=== PATIENT | female | born 1945 | race Caucasian/White ===

== ENCOUNTER 2022-02-28 10:11 | Outpatient (REF) | payer MEDICARE, MEDICAID, SELFPAY ==
[2022-02-28 10:33] LABS: MANUAL DIFF FLAG NO
[2022-02-28 11:03] LABS: Basophils Percent Auto 0.2 % (0-2); Eosinophils Absolute Auto 0.2 X10*3/uL (0.0-0.4); Eosinophils Percent Auto 2.4 % (0-4); Hematocrit 39.2 % (37.0-47.0); Imm Gran Abs Auto 0.07 X10*3/uL (0.00-0.03); Imm Gran Pct Auto 0.7 % (0.0-0.4); Immature Retic Fraction 7.3 % (3.0-15.9); Lymphocytes Absolute Auto 2.4 X10*3/uL (1.2-4.9); Lymphocytes Percent Auto 24.7 % (20-40); Mean Corpuscular HGB Conc 30.6 g/dl (31.0-35.0); Mean Corpuscular Hemoglobin 27.5 pg (27.0-33.0); Mean Corpuscular Volume 89.9 fL (80.0-98.0); Mean Platelet Volume 9.3 fL (9.4-12.3); Monocytes Absolute Auto 0.7 X10*3/uL (0.1-1.2); Monocytes Percent Auto 6.7 % (2-11); Neutrophils Absolute Auto 6.4 x10*3/uL (2.0-8.3); Neutrophils Percent Auto 65.3 % (45-73); Platelet Count 275 X10*3/uL (160-400); Red Blood Count 4.36 X10*6/uL (4.20-5.50); Red Cell Distribution Width 13.6 % (11.0-16.0); Retic HGB Equivalent 31.7 pg (30.0-35.0); Reticulocytes Absolute 0.041 X10*6/uL (0.026-0.095); White Blood Count 9.8 X10*3/uL (4.8-10.8)
[2022-02-28 11:14] LABS: Estimated Average Glucose 163 mg/dL; Hemoglobin A1c % 7.3 %
[2022-02-28 12:12] LABS: Folate 4.6 ng/mL (> or = 4.0); Vitamin B12 1490 pg/mL (200-900)
[2022-02-28 12:14] LABS: Ferritin 53 ng/mL (10-250); Thyroid Stimulating Hormone 1.51 uIU/mL (0.32-4.0); Vitamin D 25-OH Total 42.6 ng/mL (>30)
[2022-02-28 12:18] LABS: Alanine Aminotransferase 10 U/L (0-31); Alkaline Phosphatase 103 U/L (39-117); Anion Gap 12 (12-20); Aspartate Amino Transferase 11 U/L (5-31); Bilirubin Direct 0.2 mg/dL (0.0-0.5); Bilirubin Total 0.4 mg/dL (0.0-1.0); Blood Urea Nitrogen 14 mg/dL (9-16); Calcium 9.1 mg/dL (8.4-10.2); Carbon Dioxide 27 mmol/L (22-29); Chloride 107 mmol/L (96-108); Cholesterol 145 mg/dL; Estimated Glomerular Filt Rate 56; Glucose Random 64 mg/dL (60-115); HDL Cholesterol 42 mg/dL; Iron 43 mcg/dL (30-160); LDL Cholesterol Calculated 94 mg/dl; Percent Iron Saturation 14 % (15-50); Potassium 4.7 mmol/L (3.3-5.1); Sodium 141 mmol/L (135-145); Total Iron Binding Capacity 306 mcg/dL (228-428); Total Protein 6.6 g/dL (6.5-8.0); Triglycerides 48 mg/dL; Unsaturated Iron Binding 263 ug/dL; Uric Acid 6.9 mg/dL (2.4-5.7)
[2022-02-28 12:40] LABS: Appearance Urine HAZY; Color Urine YELLOW; Glucose Urine UA NEG (NEG); Leukocyte Esterase Urine NEG (NEG); Nitrite Urine NEG (NEG); Specific Gravity - Urine 1.015 (1.005-1.025); Urine Blood NEG (NEG); Urine Ketones NEG (NEG); Urine Protein NEG (NEG-TRACE)
[2022-02-28 13:11] LABS: Creatinine Urine 65.35 mg/dL; Microalbum/Creatinine Ratio Ur 100.9 ug/mg cr
[2022-02-28 13:20] LABS: Bacteria Urine 3+ /LPF; Squamous Epithelial Cell Urine 2+ /LPF
[2022-02-28 13:21] LABS: RBC Urine 0 /HPF (0); WBC Urine 0-2 /HPF (0-4)
== END 2022-02-28 10:12 | disposition home or self-care (01) ==
LOC: HO.LAB 10:11
PROVIDERS: Absent Provider Physician Assistant; PCP Internal Medicine; Visit Provider Internal Medicine
DX: E11.42 Type 2 diabetes mellitus with diabetic polyneuropathy (principal); E11.65 Type 2 diabetes mellitus with hyperglycemia; E78.00 Pure hypercholesterolemia, unspecified; R79.89 Other specified abnormal findings of blood chemistry; Z79.4 Long term (current) use of insulin
CPT/HCPCS: 36415; 80053; 80061; 81001; 82043; 82248; 82306; 82607; 82728; 82746; 83036; 83540; 84439; 84443; 84550; 85025; 85045

== ENCOUNTER 2023-05-02 10:17 | Outpatient (REF) | payer MEDICARE, MEDICAID, SELFPAY ==
[2023-05-02 10:57] LABS: Estimated Average Glucose 169 mg/dL; Hemoglobin A1c % 7.5 %
[2023-05-02 12:40] LABS: Creatinine Urine 61.62 mg/dL; Microalbum/Creatinine Ratio Ur 66.5 ug/mg cr
[2023-05-02 12:49] LABS: Alanine Aminotransferase 11 U/L (0-31); Anion Gap 17 (12-20); Aspartate Amino Transferase 14 U/L (5-31); Blood Urea Nitrogen 17 mg/dL (9-16); Calcium 9.5 mg/dL (8.4-10.2); Carbon Dioxide 23 mmol/L (22-29); Chloride 108 mmol/L (96-108); Cholesterol 136 mg/dL; Estimated Glomerular Filt Rate 45; Glucose Random 83 mg/dL (60-115); HDL Cholesterol 47 mg/dL; LDL Cholesterol Calculated 80 mg/dl; Potassium 5.7 mmol/L (3.3-5.1); Sodium 142 mmol/L (135-145); Triglycerides 49 mg/dL
[2023-05-02 12:51] LABS: Vitamin B12 > 2000 pg/mL (200-900)
== END 2023-05-02 10:18 | disposition home or self-care (01) ==
LOC: HO.LAB 10:17
PROVIDERS: PCP Internal Medicine; Visit Provider Physician Assistant
DX: E11.65 Type 2 diabetes mellitus with hyperglycemia (principal); E55.9 Vitamin D deficiency, unspecified; E53.8 Deficiency of other specified B group vitamins
CPT/HCPCS: 36415; 80048; 80061; 82043; 82306; 82607; 83036; 84450; 84460

== ENCOUNTER 2024-02-26 08:23 | Outpatient (REF) | payer MEDICARE, MEDICAID, SELFPAY ==
[2024-02-26 08:46] LABS: MANUAL DIFF FLAG NO
[2024-02-26 09:16] LABS: Basophils Percent Auto 0.2 % (0-2); Eosinophils Absolute Auto 0.2 X10*3/uL (0.0-0.4); Eosinophils Percent Auto 2.1 % (0-4); Hematocrit 36.9 % (37.0-47.0); Hemoglobin 11.2 g/dl (12.0-16.0); Imm Gran Abs Auto 0.05 X10*3/uL (0.00-0.03); Imm Gran Pct Auto 0.5 % (0.0-0.4); Lymphocytes Absolute Auto 2.2 X10*3/uL (1.2-4.9); Mean Corpuscular HGB Conc 30.4 g/dl (31.0-35.0); Mean Corpuscular Hemoglobin 28.1 pg (27.0-33.0); Mean Corpuscular Volume 92.5 fL (80.0-98.0); Mean Platelet Volume 9.1 fL (9.4-12.3); Monocytes Absolute Auto 0.6 X10*3/uL (0.1-1.2); Neutrophils Absolute Auto 6.2 x10*3/uL (2.0-8.3); Neutrophils Percent Auto 67.2 % (45-73); Platelet Count 233 X10*3/uL (160-400); Red Blood Count 3.99 X10*6/uL (4.20-5.50); Red Cell Distribution Width 14.4 % (11.0-16.0); White Blood Count 9.2 X10*3/uL (4.8-10.8)
[2024-02-26 09:25] LABS: Estimated Average Glucose 160 mg/dL; Hemoglobin A1c % 7.2 % (<6.0)
[2024-02-26 09:54] LABS: Alanine Aminotransferase 14 U/L (0-31); Albumin Level 4.1 g/dL (3.5-5.0); Alkaline Phosphatase 94 U/L (39-117); Anion Gap 11 (12-20); Aspartate Amino Transferase 12 U/L (5-31); Bilirubin Total 0.5 mg/dL (0.0-1.0); Blood Urea Nitrogen 16 mg/dL (9-16); Calcium 9.2 mg/dL (8.4-10.2); Carbon Dioxide 27 mmol/L (22-29); Chloride 107 mmol/L (96-108); Cholesterol 124 mg/dL (<200); Estimated Glomerular Filt Rate 45; Glucose Random 121 mg/dL (60-115); HDL Cholesterol 47 mg/dL (>40); LDL Cholesterol Calculated 67 mg/dL (<100); Potassium 4.7 mmol/L (3.3-5.1); Sodium 140 mmol/L (135-145); Triglycerides 53 mg/dL (<150)
[2024-02-26 09:59] LABS: Creatinine Urine 26.27 mg/dL; Microalbum/Creatinine Ratio Ur 331.1 ug/mg cr (<30)
[2024-02-26 10:12] LABS: Free T4 (Free Thyroxine) 1.08 ng/dL (0.71-1.85); Thyroid Stimulating Hormone 1.51 uIU/mL (0.32-4.0); Vitamin D 25-OH Total 45.3 ng/mL (>30)
[2024-02-26 13:26] LABS: Folate 8.5 ng/mL (> or = 4.0)
[2024-02-26 21:17] LABS: Vitamin B12 918 pg/mL (200-900)
== END 2024-02-26 08:24 | disposition home or self-care (01) ==
LOC: HO.LAB 08:23
PROVIDERS: PCP Internal Medicine; Visit Provider Internal Medicine
DX: E11.65 Type 2 diabetes mellitus with hyperglycemia (principal); E78.00 Pure hypercholesterolemia, unspecified; Z79.4 Long term (current) use of insulin
CPT/HCPCS: 36415; 80053; 80061; 82043; 82306; 82570; 82607; 82746; 83036; 84439; 84443; 85025

== ENCOUNTER 2024-03-01 09:33 | Outpatient (AMB) | payer MEDICARE, MEDICAID, SELFPAY ==
[2024-03-01 09:33] VITALS: BP 158/82; PULSE 93; O2SAT 95; BMI 55.4
--- NOTE | 2024-03-01 09:33 | A.OFFPC_ITS ---
Vital Signs 03/01/24 09:33 Height 5 ft 1 in Weight 293 lb 3.437 oz BMI 55.4 BP 158/82 H Blood Pressure Location Lt brachial Position Sitting Pulse 93 Pulse Source Pulse Oximeter Pulse Oximetry (%) 95 Oxygen Delivery Method Room Air Intake Visit Reasons: PHA Modification Forms ( resched from 01/21) Vendor Manager Required: No Allergies Penicillins Allergy (Unknown, Verified 03/01/24 09:41) hives Medication List - Last Reconciled 03/01/24 by Ja Yanez MD blood pressure monitor (Blood Pressure Kit) As directed bupropion HCl SR 150 mg PO BID cyanocobalamin (vitamin B-12) 1,000 mcg PO DAILY insulin aspart U-100 (Novolog FlexPen U-100 Insulin aspart) 5 units subcut TID insulin degludec (Tresiba FlexTouch U-100 insulin) 32 units subcut DAILY lisinopril 10 mg PO DAILY metformin 1,000 mg PO BID 90 days [ROLLATOR As directed] Tobacco use date assessed: 03/01/24 Fall risk assessment: No Falls in past year Last assessed Fall Risk: 03/01/24 Dental Screening Dental Screen Date: 03/01/24 HPI PHA Modification Forms ( resched from 01/21) HPI Details 78-year-old morbidly obese female with d iabetes mellitus hypertension generalized anxiety disorder last seen in December 2022. Patient has declined mammogram and colonoscopy. Review of the notes hemoglobin A1c in November 2023 7.7 elevated B12 potassium was elevated 4.3 creatinine is 1.2 EGFR is 47. Patient is asking for a change in home-does not wants a first floor apartment due to a smaller apratment and w ith an uncovered porch. But was told she is all set. States BP has been good PAtient has knee pain and needs a rollator, does have a cane but not enough, unstable on walking. complains of tiredness but decline sleep study. [facility] Medical History Hypertension Morbid obesity Type 2 diabetes mellitus with hyperglycemia Surgical History S/P NIELS-BSO (total abdominal hysterectomy and bilateral salpingo-oophorectomy) Social History Housing: Apartment Alcohol intake: current Alcohol intake frequency: holidays/special occasions only Patient Tobacco Use Status: Former Tobacco user Tobacco use type: Cigarette e-Cigarette/Vaping Use: Never Used Second Hand Smoke Exposure: No Current occupational status: retired Cognitive needs: No Hearing needs: No Vision needs: Yes Questionnaire PHQ-9 Over the last 2 weeks, how often have you been bothered by any of the following problems? 1. Little interest or pleasure in doing things: not at all 2. Feeling down, depressed, or hopeless: not at all 3. Trouble falling or staying asleep, or sleeping too much: not at all 4. Feeling tired or having little energy: not at all 5. Poor appetite or overeating: not at all 6. Feeling bad about yourself - or that you are a failure or have let yourself or your family down: not at all 7. Trouble concentrating on things, such as reading the newspaper or watching television: not at all 8. Moving or speaking so slowly that other people could have noticed. Or the opposite - being so fidgety or restless that you have been moving around a lot more than usual: not at all 9. Thoughts that you would be better off or of hurting yourself in some way: not at all Total score: 0 Depression Screening Interpretation: Negative Depression Screening Done: Yes 94893 - PHQ-9 Billing: Yes Source: Developed by Drs. Hoang Marquis, Mariela Navarro, Sammy Merino and colleagues, with an educational lucero from [employer]. Thrive Questionnaire Date Thrive assessed: 03/01/24 I am a: Patient What is your living situation today?: I have a steady place to live Within the past 12 months, did the food you bought not last and you didn't have the money to get more?: Never true Within the past 12 months, did you worry whether your food would run out before you got money to buy more?: Never true Do you have trouble paying for medicines?: No Do you have trouble getting transportation to medical appointments?: No Do you have trouble paying your heating and electricity bill?: No Do you have trouble taking care of your child, family member or friend?: No Do you have trouble with day-to-day activities such as bathing, preparing meals, shopping, managing finances, etc.?: No Are you currently unemployed and looking for a job?: No Are you interested in more education?: No Please select the resources that you would like help with: None Currently or been in a relationship where the following occur: no concerns reported THRIVE Score: 0 AUDIT C Alcohol Use Questionnaire (AUDIT-C) 1. How often do you have a drink containing alcohol?: Monthly or less 2. How many drinks containing alcohol do you have on a typical day when you are drinking?: 1 or 2 3. How often do you have six or more drinks on one occasion?: Never Total Score: 1 TASIA-7 AMB Questionnaire TASIA-7 Date TASIA - 7 assessed: 03/01/24 Feeling nervous, anxious, or on edge: 0 = Not at all Not being able to stop or control worryin = Not at all Worrying too much about different things: 0 = Not at all Trouble relaxin = Not at all Being so restless that it is hard to sit still: 0 = Not at all Becoming easily annoyed or irritable: 0 = Not at all Feeling afraid as if something awful might happen: 0 = Not at all Total TASIA-7 score (0-4 normal; 5-9 mild; 10-14 moderate; 15-21 severe): 0 Source: Developed by Drs. Hoang Marquis, Mariela Navarro, Sammy Merino and colleagues, with an educational lucero from [employer]. TASIA-7 Assessment Billing TASIA-7 Assessment Tool: TASIA-7 Assessment 40485 Physical exam (Primary Care) Vital Signs: Last Vital Signs Pulse 93 03/01/24 09:33 BP 158/82 H 03/01/24 09:33 Pulse Ox 95 03/01/24 09:33 Oxygen Delivery Method Room Air 03/01/24 09:33 BMI result Body Mass Index 55.4 Tobacco/Smoking Status: Tobacco use Status Tobacco use date assessed 03/01/24 03/01/24 09:42 Patient Tobacco Use Status Former Tobacco user 03/01/24 09:42 Tobacco use type Cigarette 03/01/24 09:42 e-Cigarette/Vaping Use Never Used 03/01/24 09:42 PHQ-9: PHQ-9 Score PHQ-9: Total score 0 03/01/24 09:58 Depression Screening Interpretation: Negative Thrive Assessment: Date of Thrive Assessment Date Thrive assessed 03/01/24 03/01/24 09:42 Currently or been in a relationship where the following occur: no concerns reported Const General: alert; No acute distress Eyes Conjunctivae: conjunctivae normal Resp Auscultation: clear to auscultation bilaterally Cardio Rate: regular rate Rhythm: regular rhythm GI Inspection: Yes normal to inspection Extrem General: Yes normal to inspection and No edema Assessment and Plan Assessment & Plan (1) Type 2 diabetes mellitus with hyperglycemia: Code(s): E11.65 - Type 2 diabetes mellitus with hyperglycemia Qualifiers: Diabetes mellitus supervisor intermediates insulin use: with custodial use Qualified Code(s): E11.65 - Type 2 diabetes mellitus with hyperglycemia; Z79.4 - supervisor intermediates (current) use of insulin Plan: Decrease the amount of carbohydrate intake, pasta, bread, rice and potatoes are all sugar and that is aside from all the sweet stuff, remember that fruits are good but they are Sweet also. Hemoglobin A1c goal of less than 7.0. Patient presently on Tresiba 32 units with NovoLog sliding scale 3 times a day and metformin a 1000 mg twice a day (2) Hypertension: Code(s): I10 - Essential (primary) hypertension Qualifiers: Hypertension type: essential hypertension Qualified Code(s): I10 - Essential (primary) hypertension Plan: Continue with blood pressure medication. Decrease salt intake and exercise presently on lisinopril 10 mg once a day (3) Morbid obesity: Code(s): E66.01 - Morbid (severe) obesity due to excess calories Plan: Diet and exercise (4) Generalized anxiety disorder: Comment: declined counselling Code(s): F41.1 - Generalized anxiety disorder Plan: Continue with present medication (5) Diabetic nephropathy: Code(s): E11.21 - Type 2 diabetes mellitus with diabetic nephropathy Plan: Keep well hydrated, avoid NSAIDs controlled diabetes. (6) Cataract: Code(s): H26.9 - Unspecified cataract Plan: sill see Dr. Gibson for this and advised to (7) Colonoscopy refused: Code(s): Z53.20 - Procedure and treatment not carried out because of patient's decision for unspecified reasons (8) Mammogram declined: Code(s): Z53.20 - Procedure and treatment not carried out because of patient's decision for unspecified reasons Medications: New [ROLLATOR] As directed 1 ea 0RF M17.9 - Osteoarthritis of knee, unspecified blood pressure monitor (Blood Pressure Kit) As directed 1 ea 0RF I10 - Essential (primary) hypertension Coding Level of Care Code Est Pt Level 4 (50330) Diagnoses Type 2 diabetes mellitus with hyperglycemia, with long-term current use of insulin E11.65; Z79.4 Diabetes mellitus custodial insulin use: with supervisor intermediates use Essential hypertension I10 Hypertension type: essential hypertension Morbid obesity E66.01 Generalized anxiety disorder F41.1 Diabetic nephropathy E11.21 Cataract H26.9 Colonoscopy refused Z53.20 Mammogram declined Z53.20 Additional Codes TASIA-7 Assessment Billing - TASIA-7 Assessment Tool: TASIA-7 Assessment 94139 ([id number])
== END 2024-03-01 10:16 | disposition home or self-care (01) ==
PROVIDERS: PCP Internal Medicine; Visit Provider Internal Medicine
DX: E11.65 Type 2 diabetes mellitus with hyperglycemia (principal); Z79.4 Long term (current) use of insulin; E11.21 Type 2 diabetes mellitus with diabetic nephropathy; I10 Essential (primary) hypertension; F41.1 Generalized anxiety disorder; H26.9 Unspecified cataract
CPT/HCPCS: 99214

== ENCOUNTER 2024-07-08 08:59 | Inpatient (IN) | payer MEDICARE, MEDICAID, SELFPAY ==
[2024-07-08] VITALS (14 sets, daily range): BP systolic 112–150; BP diastolic 50–80; PULSE 77–94; RESP 16–22; TEMP 36.4–37.1; O2SAT 85–100; BMI 51.6
--- NOTE | 2024-07-08 | ECG_ITS ---
Test Reason : sob Blood Pressure : / mmHG Vent. Rate : 092 BPM Atrial Rate : 092 BPM P-R Int : 312 ms QRS Dur : 120 ms QT Int : 346 ms P-R-T Axes : 102 121 073 degrees QTc Int : 427 ms Suspect limb lead reversal, interpretation assumes no reversal Sinus rhythm with 1st degree A-V block Right bundle branch block Left posterior fascicular block Bifascicular block Cannot rule out Inferior infarct (cited on or before 08-JUL-2024) Abnormal ECG When compared with ECG of 08-JUL-2024 09:35, No significant change was found Referred By: Chris Valdez Electronically Signed By:HODA CHUN
--- NOTE | ~2024-07-08 | CT_ITS ---
EXAMINATION: CT ANGIOGRAM CHEST CLINICAL INFORMATION: Hypoxia. Shortness of breath. Dyspnea on exertion. COMPARISON: Chest radiograph dated 07/08/2024. TECHNIQUE: Multiple axial images were obtained through the chest after the administration of 100 mL of Omnipaque 350 intravenous contrast. Extensive vascular post-processing including two-dimensional and three-dimensional reformatted images were created and reviewed on an independent workstation. This CT examination was performed using dose optimization techniques as appropriate, variously including the following: *Automated exposure control *Adjustment of mA and/or kV according to patient size (this includes techniques or standardized protocols for targeted exams where dose is matched to indication/reason for exam; i.e. extremities or head) *Use of iterative reconstruction technique DLP: 446 mGy-cm FINDINGS: No large central pulmonary embolism is identified. Evaluation of the segmental and subsegmental branches is somewhat limited secondary to motion artifact and mixing artifact. The visualized aorta is normal in caliber. No aortic aneurysm. The trachea and central airways are patent. There are dependent changes at the right lung base. There is a 7 mm nodule within the posterior aspect of the left lung apex. There is a [id number] right pleural effusion. There is a small left pleural effusion. The heart is mildly enlarged. No pericardial effusion. There is mild coronary artery calcification. There is no mediastinal or hilar lymphadenopathy. The visualized liver, spleen, pancreas are normal in appearance. There is nodular thickening of the partially visualized left adrenal gland. The visualized bowel is normal in appearance. There are degenerative changes of the thoracic spine. CT/CT angio chest PE protocol IMPRESSION: No large central pulmonary embolism is identified. Evaluation of the segmental and subsegmental branches is somewhat limited secondary to motion artifact and mixing artifact. There is a 7 mm nodule within the posterior aspect of the left lung apex. According to the UPDATED 2017 Fleischner Society recommendations, the advised follow-up imaging for a single 6-8 mm solid nodule is: LOW RISK PATIENT: CT at 6-12 months, then consider CT at 18-24 months. HIGH RISK PATIENT: CT at 6-12 months, then at 18-24 months. There is a hoopl-xq-vbdggopz right pleural effusion. There is a small left pleural effusion. The heart is mildly enlarged. There is mild coronary artery calcification. Fleischner guidelines were followed. Electronically signed by: Miguel Sullivan DO 07/08/2024 02:28 PM EDT RP
--- NOTE | ~2024-07-08 | XR_ITS ---
EXAMINATION: XR CHEST CLINICAL INFORMATION: Shortness of breath. COMPARISON: None available. TECHNIQUE: Frontal view of the chest was obtained. FINDINGS: Extensive overlying soft tissues limits evaluation. The lungs are moderately expanded. The right hemidiaphragm appears elevated versus subpulmonic effusion. There is patchy airspace disease in the medial right lung base. The left hemithorax is clear. Cardiac silhouette appears prominent. XR/XR chest 1V IMPRESSION: Elevated right hemidiaphragm versus subpulmonic effusion. Patchy airspace disease at the medial right lung base possibly representing an acute infiltrate. Advise clinical correlation. Electronically signed by: Andi Vasquez MD 07/08/2024 10:08 AM EDT RP
--- NOTE | 2024-07-08 09:13 | ECG_ITS ---
Test Reason : sob Blood Pressure : / mmHG Vent. Rate : 081 BPM Atrial Rate : 082 BPM P-R Int : 296 ms QRS Dur : 122 ms QT Int : 384 ms P-R-T Axes : 106 114 049 degrees QTc Int : 446 ms Suspect limb lead reversal, interpretation assumes no reversal Sinus rhythm with sinus arrhythmia with 1st degree A-V block Right bundle branch block Left posterior fascicular block Bifascicular block Cannot rule out Inferior infarct , age undetermined Abnormal ECG When compared with ECG of 03-MAR-2010 10:34, VT interval has increased (RBBB and left posterior fascicular block) is now Present Minimal criteria for Inferior infarct are now Present Referred By: Barbara Cabral Electronically Signed By:HODA CHUN
--- NOTE | 2024-07-08 09:16 | ED_ITS ---
HPI - General Adult General Chief complaint: Dyspnea Stated complaint: SOB W/EXER PER EMS Time Seen by Provider: 07/08/24 09:13 Source: patient Mode of arrival: ambulatory Limitations: no limitations History of Present Illness ED Provider: Bridgette MORTON HPI narrative: This is a 78-year-old female history of diabetes, legal blindness, diabetic neuropathy, generalized anxiety disorder, hypertension, obesity, osteoarthritis presenting to the emergency department with a week of increasing shortness of breath shortness of breath is worse with exertion better at rest. Patient reports that shortness of breath gets worse with exertion and at times is associated with lightheadedness and weakness. She denies associated chest pain, nausea, vomiting, abdominal pain, headache, vision changes, dizziness, weakness. Related Data Home Medications ?Medication ?Instructions ?Recorded ?Confirmed cyanocobalamin (vitamin B-12) 1,000 mcg PO DAILY 03/05/21 03/01/24 1,000 mcg capsule insulin aspart U-100 100 unit/mL 5 unit subcut TID 03/05/21 03/01/24 (3 mL) subcutaneous pen (Novolog FlexPen U-100 Insulin aspart) insulin degludec 100 unit/mL (3 32 unit subcut DAILY 03/01/24 03/01/24 mL) subcutaneous pen (Tresiba FlexTouch U-100 insulin) Previous Rx's ?Medication ?Instructions ?Recorded metformin 1,000 mg tablet 1,000 mg PO BID 90 days #180 tabs 08/22/22 bupropion HCl 150 mg tablet,12 hr 150 mg PO BID #180 caps 01/28/24 sustained-release ROLLATOR #1 ea 03/01/24 blood pressure monitor (Blood #1 ea 03/01/24 Pressure Kit) lisinopril 10 mg tablet 10 mg PO DAILY #90 tabs 03/20/24 Allergies Allergy/AdvReac Type Severity Reaction Status Date / Time Penicillins Allergy Unknown hives Verified 07/08/24 09:15 Review of Systems 2 Review of Systems: Yes all other systems are reviewed and are negative PMFSH Past Medical History Attestation statement: The following information was validated with the patient. Source: old records reviewed and nursing notes reviewed Medical History Type 2 diabetes mellitus with hyperglycemia Morbid obesity Hypertension Surgical History S/P NIELS-BSO (total abdominal hysterectomy and bilateral salpingo-oophorectomy) Social History Social History Housing: Apartment Alcohol intake: current Alcohol intake frequency: holidays/special occasions only Patient Tobacco Use Status: Former Tobacco user Tobacco use type: Cigarette Smoked in Last 30 Days: No e-Cigarette/Vaping Use: Never Used Second Hand Smoke Exposure: No Use of substances other than those prescribed or required for medical reasons: No Advance Directives: No Advance Directives Information Provided: No Current occupational status: retired Cognitive needs: No Hearing needs: No Vision needs: Yes Physical Exam ED Vital Signs: Vital Signs - 24 hr 07/08/24 09:10 07/08/24 09:48 07/08/24 09:50 Temperature 98.7 F Pulse Rate 84 82 83 Respiratory Rate 18 Blood Pressure 117/64 123/64 129/67 Pulse Oximetry 97 Oxygen Delivery Method Room Air 07/08/24 09:54 07/08/24 10:02 07/08/24 10:53 Temperature Pulse Rate 84 77 Respiratory Rate 18 Blood Pressure 121/55 L Pulse Oximetry 85 L Oxygen Delivery Method Room Air 07/08/24 11:07 07/08/24 11:58 07/08/24 12:44 Temperature Pulse Rate 83 87 Respiratory Rate 18 16 Blood Pressure 137/50 L 119/59 L 136/68 Pulse Oximetry 99 99 Oxygen Delivery Method Room Air Room Air BMI result Body Mass Index 51.6 vss Appearance: Alert.? Oriented X3.? No acute distress.? Head: Normocephalic, atraumatic, no step-offs or deformities Eyes: Pupils equal, round and reactive to light.? CVS: Normal heart rate and rhythm.? Pulses normal.? Respiratory: No respiratory distress.? Breath sounds normal.? Abdomen: Soft and nontender.? Skin: Skin warm and dry.? Normal skin color.? Normal skin turgor.? Extremities: 1+ pitting edema to b/l LE from knee down.? No calf ttp. 5/5 strength to bilateral upper and lower extremities Neuro: Oriented X 3.? No motor deficit.? No sensory deficit. CN 2-12 intact Course Reevaluation(s) Reevaluation #1: Patient's CBC with a normocytic anemia. Three chemistry with slightly high potassium 5.2, low, ordered. BUN 23 creatinine 1.38 at baseline her BUN and creatinine are slightly high this is around her baseline. Patient's lactic acid 1.8 and normal. Patient's initial troponin 243.9 this is likely secondary to demand ischemia and or CHF. Her BNP is elevated at 869. CTA of the chest is still pending to look for possible PE as source of shortness of breath. Flu, COVID, RSV negative. Time: 12:30 Reevaluation #2: Discussed this case with cardiology who agrees with initiating heparin. Recommend echo to be ordered. Plan is hospital admission. Family and patient aware of plan. CTA with no PE other findings as noted on the MDM of chart. Time: 14:32 Medications Administered Discontinued Medications Generic Name Dose Route Start Last Admin Trade Name Freq PRN Reason Stop Dose Admin Albuterol/Ipratropium 3 ml 07/08/24 10:48 07/08/24 10:53 Albuterol/Iprat 2.5/0.5mg 3 Ml Ampul.Neb INHALE 07/08/24 10:49 3 ml ONCE ONE Administration Aspirin 324 mg 07/08/24 11:25 07/08/24 11:57 Aspirin 81 Mg Tab.Chew PO 07/08/24 11:26 324 mg ONCE ONE Administration Furosemide 20 mg 07/08/24 11:25 07/08/24 11:58 Furosemide 20 Mg/2 Ml Vial IVPUSH 07/08/24 11:26 20 mg ONCE ONE Administration Protocol Magnesium Sulfate 2 gm in 50 mls @ 25 mls/hr 07/08/24 10:12 07/08/24 12:00 Magnesium Sulfate/H2o IV 07/08/24 12:11 Infused ONCE ONE Infusion Ceftriaxone Sodium 1 gm/ 50 mls @ 100 mls/hr 07/08/24 12:09 07/08/24 13:17 Sodium Chloride IV 07/08/24 12:38 Infused ONCE ONE Infusion Iohexol 100 ml 07/08/24 12:38 07/08/24 12:38 Iohexol 350 Mg/Ml 75 Ml Infus..Btl IV 07/08/24 12:39 100 ml ONCE ONE Administration Methylprednisolone Sodium Succinate 125 mg 07/08/24 10:12 07/08/24 11:05 Methylprednisolone Sod Succ 125 Mg/2 Ml Vial IVPUSH 07/08/24 10:13 125 mg ONCE ONE Administration Sodium Zirconium Cyclosilicate 5 gm 07/08/24 11:25 07/08/24 11:58 Sodium Zirconium Cyclosilicate 5 Gm Powd.Pack PO 07/08/24 11:26 5 gm ONCE ONE Administration Medical Decision Making Medical Decision Making [facility] Narrative: 0918 78 year old female presents w/ exertional dyspnea X 1 week worsening PE- benign Hx and pe concerning for viral illness vs chronic lung disease. Less likely PE, ACS, dissection, PNA Plan- labs, imaging, viral test Differential Diagnosis Differential Diagnoses: The differential diagnosis associated with the presentation includes Hx and pe concerning for viral illness vs chronic lung disease. Less likely PE, ACS, dissection, PNA Admission/Observation Consideration of admission/observation: Escalation of care including admission/observation considered Lab Data [facility] Lab Attestation statement: I reviewed the patient's lab results. 07/08/24 10:19 07/08/24 10:19 Labs: Lab Results 07/08/24 07/08/24 07/08/24 Range/Units 10:09 10:19 11:47 WBC 9.0 (4.8-10.8) X10*3/uL RBC 3.82 L (4.20-5.50) X10*6/uL Hgb 10.5 L (12.0-16.0) g/dl Hct 34.7 L (37.0-47.0) % MCV 90.8 (80.0-98.0) fL MCH 27.5 (27.0-33.0) pg MCHC 30.3 L (31.0-35.0) g/dl RDW 14.8 (11.0-16.0) % Plt Count 199 (160-400) X10*3/uL MPV 9.6 (9.4-12.3) fL Immature Gran % (Auto) 0.4 (0.0-0.4) % Neut % (Auto) 78.8 H (45-73) % Lymph % (Auto) 13.3 L (20-40) % [place] % (Auto) 6.4 (2-11) % Eos % (Auto) 1.0 (0-4) % Baso % (Auto) 0.1 (0-2) % Lymph # (Auto) 1.2 (1.2-4.9) X10*3/uL [place] # (Auto) 0.6 (0.1-1.2) X10*3/uL Eos # (Auto) 0.1 (0.0-0.4) X10*3/uL Baso # (Auto) 0.0 (0.0-0.2) X10*3/uL Abs Immat Gran (auto) 0.04 H (0.00-0.03) X10*3/uL Absolute Neuts (auto) 7.1 (2.0-8.3) x10*3/uL Absolute Nucleated RBC 0.000 (0.0-0.012) X10*3/uL Nucleated RBC % (auto) 0.0 (0.0-0.2) /100WBC PT 12.9 (11.1-13.3) SEC INR 1.1 (0.9-1.1) APTT 30.2 (26.0-36.8) SEC aPTT Heparin Protocol (53-77.9) SEC Sodium 141 (135-145) mmol/L Potassium 5.2 H (3.3-5.1) mmol/L Chloride 110 H (96-108) mmol/L Carbon Dioxide 23 (22-29) mmol/L Anion Gap 13 (12-20) BUN 23 H (9-16) mg/dL Creatinine 1.38 (0.5-1.4) mg/dL Estim Creat Clear Calc 47.8 Estimated GFR 37 POC Glucose 105 (60-115) mg/dL Random Glucose 114 (60-115) mg/dL Lactic Acid 1.8 (0.5-2.0) mmol/L Calcium 9.4 (8.4-10.2) mg/dL Magnesium 2.2 (1.6-2.6) mg/dL Total Bilirubin 0.5 (0.0-1.0) mg/dL AST 26 (5-31) U/L ALT 24 (0-31) U/L Alkaline Phosphatase 117 (39-117) U/L Troponin I High Sens 243.9 H* (<3.5-17.0) ng/L B-Natriuretic Peptide 869 H (<100) pg/mL Total Protein 6.7 (6.5-8.0) g/dL Albumin 3.9 (3.5-5.0) g/dL Influenza Type A (PCR) NEGATIVE (Negative) Influenza Type B (PCR) NEGATIVE (Negative) RSV RNA Qual (PCR) NEGATIVE (Negative) SARS-CoV-2 RNA (RT-PCR) NEGATIVE (Negative) 07/08/24 07/08/24 Range/Units 12:39 14:13 WBC (4.8-10.8) X10*3/uL RBC (4.20-5.50) X10*6/uL Hgb (12.0-16.0) g/dl Hct (37.0-47.0) % MCV (80.0-98.0) fL MCH (27.0-33.0) pg MCHC (31.0-35.0) g/dl RDW (11.0-16.0) % Plt Count (160-400) X10*3/uL MPV (9.4-12.3) fL Immature Gran % (Auto) (0.0-0.4) % Neut % (Auto) (45-73) % Lymph % (Auto) (20-40) % [place] % (Auto) (2-11) % Eos % (Auto) (0-4) % Baso % (Auto) (0-2) % Lymph # (Auto) (1.2-4.9) X10*3/uL [place] # (Auto) (0.1-1.2) X10*3/uL Eos # (Auto) (0.0-0.4) X10*3/uL Baso # (Auto) (0.0-0.2) X10*3/uL Abs Immat Gran (auto) (0.00-0.03) X10*3/uL Absolute Neuts (auto) (2.0-8.3) x10*3/uL Absolute Nucleated RBC (0.0-0.012) X10*3/uL Nucleated RBC % (auto) (0.0-0.2) /100WBC PT 12.8 (11.1-13.3) SEC INR 1.1 (0.9-1.1) APTT (26.0-36.8) SEC aPTT Heparin Protocol 30.9 L (53-77.9) SEC Sodium (135-145) mmol/L Potassium (3.3-5.1) mmol/L Chloride (96-108) mmol/L Carbon Dioxide (22-29) mmol/L Anion Gap (12-20) BUN (9-16) mg/dL Creatinine (0.5-1.4) mg/dL Estim Creat Clear Calc Estimated GFR POC Glucose (60-115) mg/dL Random Glucose (60-115) mg/dL Lactic Acid (0.5-2.0) mmol/L Calcium (8.4-10.2) mg/dL Magnesium (1.6-2.6) mg/dL Total Bilirubin (0.0-1.0) mg/dL AST (5-31) U/L ALT (0-31) U/L Alkaline Phosphatase (39-117) U/L Troponin I High Sens 656.2 H* D (<3.5-17.0) ng/L B-Natriuretic Peptide (<100) pg/mL Total Protein (6.5-8.0) g/dL Albumin (3.5-5.0) g/dL Influenza Type A (PCR) (Negative) Influenza Type B (PCR) (Negative) RSV RNA Qual (PCR) (Negative) SARS-CoV-2 RNA (RT-PCR) (Negative) Independent Interpretation I performed an independent interpretation of an: EKG (Sinus rhythm with sinus arrhythmia with 1st degree A-V block Right bundle branch block Left posterior fascicular block Bifascicular block Cannot rule out Inferior infarct , age undetermined Abnormal ECG When compared with ECG of 03-MAR-2010 10:34, DC interval has increased (RBBB and left pos) and Plain X-Ray ( XR/XR chest 1V IMPRESSION: Elevated right hemidiaphragm versus subpulmonic effusion. Patchy airspace disease at the medial right lung base possibly representing an acute infiltrate. Advise clinical correlation.) Radiology Impression Discussion of test interpretation with radiology: I have reviewed the radiologist's reading. Independent Historian Clinical information obtained from an independent historian. History obtained from or confirmed by: EMS External Record Review External record reviewed: Office record, Outpatient record, Prior outpatient labs and Prior outpatient radiology Chronic Conditions Patient?s care impacted by: Diabetes, Hypertension and Other (obesity ) Critical Care Time Critical Care Time Critical Care Time: Yes Total Critical Care Time: 35 Attestation: I attest to this time spent taking care of the patient, obtaining history, physical, reviewing labs, imaging, treatment of patients condition +/- specialist/hospitalist consult Discharge Plan Discharge Clinical Impression: Non-ST elevation MA (NSTEMI), CHF (congestive heart failure), Shortness of breath, Pneumonia Patient Disposition: Admitted As Inpatient Prescriptions: No Action metformin 1,000 mg tablet 1,000 mg PO BID 90 Days Qty: 180 0RF bupropion HCl 150 mg tablet sustained-release 12 hr 150 mg PO BID Qty: 180 2RF lisinopril 10 mg tablet 10 mg PO DAILY Qty: 90 2RF insulin aspart U-100 [Novolog FlexPen U-100 Insulin] 100 unit/mL (3 mL) insulin pen 5 unit subcut TID cyanocobalamin (vitamin B-12) 1,000 mcg capsule 1,000 mcg PO DAILY Tresiba FlexTouch U-100 100 unit/mL (3 mL) insulin pen 32 unit subcut DAILY Rx Instructions: Dr. Church ([facility]) ROLLATOR See Rx Instructions .Route .MEDSUPPLY Qty: 1 0RF Rx Instructions: As directed ([facility]) blood pressure monitor [Blood Pressure Kit] Kit See Rx Instructions .ROUTE .MEDSUPPLY Qty: 1 0RF Rx Instructions: As directed Print Language: [place] Citizen
[2024-07-08 10:12] LABS: Glucose, Whole Blood 105 mg/dL (60-115)
[2024-07-08 10:24] LABS: MANUAL DIFF FLAG NO
[2024-07-08 10:30] LABS: Basophils Percent Auto 0.1 % (0-2); Eosinophils Absolute Auto 0.1 X10*3/uL (0.0-0.4); Hematocrit 34.7 % (37.0-47.0); Hemoglobin 10.5 g/dl (12.0-16.0); Imm Gran Abs Auto 0.04 X10*3/uL (0.00-0.03); Imm Gran Pct Auto 0.4 % (0.0-0.4); Lymphocytes Absolute Auto 1.2 X10*3/uL (1.2-4.9); Lymphocytes Percent Auto 13.3 % (20-40); Mean Corpuscular HGB Conc 30.3 g/dl (31.0-35.0); Mean Corpuscular Hemoglobin 27.5 pg (27.0-33.0); Mean Corpuscular Volume 90.8 fL (80.0-98.0); Mean Platelet Volume 9.6 fL (9.4-12.3); Monocytes Absolute Auto 0.6 X10*3/uL (0.1-1.2); Monocytes Percent Auto 6.4 % (2-11); Neutrophils Absolute Auto 7.1 x10*3/uL (2.0-8.3); Neutrophils Percent Auto 78.8 % (45-73); Platelet Count 199 X10*3/uL (160-400); Red Blood Count 3.82 X10*6/uL (4.20-5.50); Red Cell Distribution Width 14.8 % (11.0-16.0)
[2024-07-08 10:33] LABS: INTERNATIONAL NORM RATIO 1.1 (0.9-1.1); Prothrombin Time 12.9 SEC (11.1-13.3)
[2024-07-08 10:53] LABS: Alanine Aminotransferase 24 U/L (0-31); Albumin Level 3.9 g/dL (3.5-5.0); Alkaline Phosphatase 117 U/L (39-117); Anion Gap 13 (12-20); Aspartate Amino Transferase 26 U/L (5-31); Bilirubin Total 0.5 mg/dL (0.0-1.0); Blood Urea Nitrogen 23 mg/dL (9-16); Calcium 9.4 mg/dL (8.4-10.2); Carbon Dioxide 23 mmol/L (22-29); Chloride 110 mmol/L (96-108); Creatinine Clr Calc Pharmacy 47.8; Estimated Glomerular Filt Rate 37; Glucose Random 114 mg/dL (60-115); Magnesium 2.2 mg/dL (1.6-2.6); Potassium 5.2 mmol/L (3.3-5.1); Sodium 141 mmol/L (135-145); Total Protein 6.7 g/dL (6.5-8.0)
[2024-07-08] MEDS: Albuterol/Iprat 2.5/0.5MG 3 ML AMPUL.NEB INHALE (10:53)
[2024-07-08 10:56] LABS: B Type Natriuretic Peptide 869 pg/mL (<100)
[2024-07-08 11:01] LABS: Troponin-I High Sensitivity 243.9 ng/L (<3.5-17.0)
[2024-07-08] MEDS: methylPREDNISolone Sod Succ 125 MG/2 ML VIAL IVPUSH (11:05)
[2024-07-08] MEDS: Magnesium Sulfate/H2O 2 GM/50 ML PIGGYBACK IV (11:05)
[2024-07-08 11:32] LABS: Influenza A PCR NEGATIVE (Negative); Influenza B PCR NEGATIVE (Negative); Resp Syncy Virus RNA Qual PCR NEGATIVE (Negative); SARS COV2 PCR INHOUSE NEGATIVE (Negative)
[2024-07-08] MEDS: Aspirin 81 MG TAB.CHEW 324 MG PO (11:57)
[2024-07-08] MEDS: Sodium Zirconium Cyclosilicate 5 GM POWD.PACK PO (11:58)
[2024-07-08] MEDS: Furosemide 20 MG/2 ML VIAL IVPUSH (11:58)
[2024-07-08 12:04] LABS: Lactic Acid 1.8 mmol/L (0.5-2.0)
[2024-07-08] MEDS: iohexoL 350 MG/ML 75 ML INFUS..BTL 100 ML IV (12:38)
[2024-07-08] MEDS: cefTRIAXone sodium 1 GM in 0.9 % Sodium Chloride 50 ML IV (12:47)
--- NOTE | 2024-07-08 13:12 | PC.NURSE ---
pute whick placed. pt has tolerated repositioning and lying flat for brief periods well. no O2 necessary. sisters at bedside and aware of plan of care.
[2024-07-08 13:21] LABS: Troponin-I High Sensitivity 656.2 ng/L (<3.5-17.0)
--- NOTE | 2024-07-08 13:38 | CA_ITS ---
Transthoracic Echocardiogram Patient (Last, First, Middle): Samantha Ribeiro, Gender: Female Date of : 1945 Age: 78 Procedure Date: 07/08/2024 Procedure Type: Transthoracic Echocardiogram Location: ER Height: 162.56 cm Weight: 136.08 kg BSA: 2.32 m2 Heart Rate: 93 bpm BP: 136 / 68 mmHg Finisher Hand: SB Referring MD: Barbara JARAMILLO Symptoms: sob, elevated trop Study Quality: Technically Difficult ECG Rhythm: Undetermined Conclusions: - Technically difficult study. - Difficult to assess LV function. By biplane method, LVEF 37%. - There is mild aortic valve stenosis. - There is moderate mitral annular calcification. There is mild mitral valve regurgitation. Possible mild to moderate mitral stenosis. Findings Procedure Information Contrast agent, definity, is being given per protocol without apparent complications. The quality of the study was technically difficult. The study quality is limited by patients body habitus. Left Ventricle The left ventricle was not well visualized. The left ventricular systolic function is moderately decreased. The calculated ejection fraction is 37% by biplane method. Regional wall motion abnormalities can not be excluded due to suboptimal endocardial definition. Diastolic function is indeterminate on the basis of available data. Right Ventricle The right ventricle was not well visualized. Atria The left atrium is normal in size. The right atrium was not well visualized. Aortic Valve The aortic valve was not well visualized. There is mild calcification of the aortic valve. There is mild aortic valve stenosis. There is no aortic valve regurgitation. Mitral Valve There is moderate mitral annular calcification. There is mild mitral valve regurgitation. Mean gradient across the mitral valve 6 mm Hg at 91/Min. Mitral valve area by VTI 1.9 sq cm. Possible mild to moderate mitral stenosis. Pulmonic Valve The pulmonic valve is likely normal. Tricuspid Valve The tricuspid valve was not well visualized. Tricuspid regurgitation envelope is inadequate for calculation of right ventricular systolic pressure. Great Vessels The aortic annulus, sinuses of valsalva, and asc aorta are normal in size. Venous The inferior vena cava is dilated. Pericardium/Pleural There is no evidence of pericardial effusion. Prior Study Comparison No prior study available for comparison. Measurements 2D Linear Measurements LVOT Diam: 2.40 3.0+(-)1.3 cm 2D Systolic Function EF 4C: 37.90 >55% EF 2C: 40.20 >55% EF BiP: 36.50 >55% Mitral Valve MV VTI: 0.32 MV Pk Sudheer: 2.13 MV Mn Sudheer: 0.99 MV Pk Grad: 18.00 MV Mn Grad: 5.00 MV Pk E: 1.72 MV Decel Time: 106.00 PHT: 31.00 MVA PHT: 7.10 MVA Continuity: 1.99 Decel [place]: 16.21 Aortic Valve AoV Pk Sudheer: 2.19 AoV Mn Sudheer: 1.45 AoV VTI: 0.35 AoV Pk Grad: 19.00 Aov Mn Grad: 10.00 SANG Cont.VTI: 1.82 LVOT LVOT Pk Sudheer: 0.81 LVOT Mn Sudheer: 0.54 LVOT VTI: 0.14 LVOT Pk Grad: 3.00 LVOT Mn Grad: 1.00 LVOT Diam: 2.40 LVOT Area: 4.52 Diastolic Function MV Pk E: 1.72 Tricuspid Valve RA Press: 15.00 Great Vessels Aorta Sinus of Valsalva: 2.90 2.0-3.5 cm Ao Asc: 3.20 2.1-3.4 cm Pulmonary Valve PV Pk Sudheer: 0.76 Peak PV Grad: 2.00 Updated in Other Vendor System with Status of Final Brandon Del Toro MD electronically signed on 07/08/2024 4:36:10 PM with status of Final
--- NOTE | 2024-07-08 13:46 | PC.NURSE ---
Covering RN Heparin gtt started, weight confirmed by bed scale, PTT ordered and will be added to blood in lab.
--- NOTE | 2024-07-08 13:49 | PM.IMHP ---
History of Present Illness Date of Service: 07/08/24 Attending physician on admission: Zenaida Beckwith Chief Complaint: SOB, LEO Pt is a 78-year-old female with a PMH significant for?insulin-dependent type two diabetes with neuropathy, HTN, osteoarthritis, and generalized anxiety disorder who presents to the ED with SOB, LEO, and jaw pain since this morning. Pt reports has been experiencing intermittent SOB since May, worse the past 12 days when she has also had significant LEO. Pt lives alone and ambulates with a walker, lately has had to stop and rest more than usual. Has had chronic intermittent lower leg edema for some time, though notes current leg swelling has persisted for longer than usual. Also complains of occasional epigastric muscle spasm , increased fatigue, and 2-3 episodes of lightheadedness and dizziness. This morning pt felt much more SOB than normal and also had jaw pain, which is the only symptom her mother had when she was having a heart attack and needed a triple bypass. Denies chest pain/pressure or palpitations. No cough or sputum production. Denies fever, chills, N/V/D. No abdominal pain. In the ED pt with soft BP of 121/55, vitals otherwise WNL. Labs were significant for normocytic anemia of 10.5/34.7, potassium 5.2, BUN 28, creatinine 1.38 (elevated from 1.16 on 02/25), initial troponin 243.9 with repeat 656.2, and BNP 869. Lactic acid WNL. Tested negative for flu, RSV, COVID. CXR showed elevated right hemidiaphragm versus subpulmonic effusion, and patchy airspace disease of medial right lung base possibly representing an acute infiltrate. CTA of chest negative for PE or consolidation but showed bilateral plural effusions, mild cardiomegaly, and mild coronary artery calcification. EKG demonstrated likely limb lead reversal, but showed sinus rhythm with first-degree AV block, RBBB, and left posterior fascicular block with no evidence of significant ST elevations or depressions. Pt was treated with DuoNebs, Solu-Medrol, Mag sulfate, aspirin, Lasix 20 mg IV, Lokelma, ceftriaxone, azithromycin, and started on a heparin drip. Pt will be admitted to the hospital for treatment and further evaluation of acute NSTEMI and question of CHF. Review of Systems Review of Systems: SOB, LEO Jaw pain Lower leg edema Lightheadedness, dizziness Epigastric abdominal discomfort Denies chest pain/pressure or palpitations No fever, chills, nausea, vomiting Denies cough PMFSH Medical History Type 2 diabetes mellitus with hyperglycemia Morbid obesity Hypertension Family History (Updated 07/08/24 @ 17:29 by Brandon Del Toro MD) Mother CAD (coronary artery disease) Surgical History S/P NIELS-BSO (total abdominal hysterectomy and bilateral salpingo-oophorectomy) Social History Household Members: None Housing: Apartment Do you presently have visiting nurse or other home services: No Alcohol intake: current Alcohol intake frequency: holidays/special occasions only Patient Tobacco Use Status: Former Tobacco user Tobacco use type: Cigarette e-Cigarette/Vaping Use: Never Used Second Hand Smoke Exposure: No Current occupational status: retired Cognitive needs: No Hearing needs: No Vision needs: Yes Meds Allergies Allergy/AdvReac Type Severity Reaction Status Date / Time Penicillins Allergy Unknown hives Verified 07/08/24 09:15 Active Medications: Current Medications Heparin Sodium (Porcine) (Heparin Sodium,Porcine 5,000 Unit/Ml Vial) 5,500 unit 40 unit/kg (5500 unit) IVPUSH PROTOCOL BOLUS PRN; Protocol PRN Reason: 40 unit/kg - Heparin Protocol Heparin Sodium (Porcine) (Heparin Sodium,Porcine 5,000 Unit/Ml Vial) 10,000 unit IVPUSH PROTOCOL BOLUS PRN; Protocol PRN Reason: 80 unit/kg - Heparin Protocol Heparin Sodium/Sodium Chloride (Heparin Sodium,Porcine/1/2ns) 25,000 unit in 250 mls @ 0 mls/hr IVCONT .Q0M PAKO; Protocol Home Medications ?Medication ?Instructions ?Recorded ?Confirmed ?Last Taken ?Type cyanocobalamin (vitamin B-12) 1,000 mcg PO DAILY 03/05/21 07/08/24 07/07/24 History 1,000 mcg capsule insulin degludec 100 unit/mL (3 32 unit subcut BEDTIME 03/01/24 07/08/24 07/07/24 History mL) subcutaneous pen (Tresiba FlexTouch U-100 insulin) cholecalciferol (vitamin D3) 50 50 mcg PO DAILY 07/08/24 07/08/24 07/07/24 History mcg (2,000 unit) tablet Physical Exam Vital Signs and Narrative: Vital Signs: Last Vital Signs Temp 98.7 F 07/08/24 09:10 Pulse 87 07/08/24 12:44 Resp 16 07/08/24 12:44 BP 136/68 07/08/24 12:44 Pulse Ox 99 07/08/24 12:44 O2 Del Method Room Air 07/08/24 12:44 BMI result Body Mass Index 51.6 Constitutional: Alert, in no acute distress. Mental Status: Oriented to person, place and time. Eyes: Pupils are equal, round, and reactive to light. Ear, Nose, and Throat: Oropharynx clear, mucous membranes moist. Ears and nose without deformities. Trachea midline. Respiratory: Clear to auscultation bilaterally. No wheezing, rales, or rhonchi. Cardiovascular: S1, S2 regular. No murmurs, rubs, or gallops. No appreciable JVD. Gastrointestinal: Abdomen soft, non-tender, non-distended, obese. Normal bowel sounds. Neurologic: Cranial nerves II-XII are grossly intact bilaterally. No focal neurological deficits. Moves all extremities spontaneously. Skin: Warm, dry. Extremities: 1+ bilateral pitting lower leg edema. Psychiatric: Normal mood and affect. Results Labs 07/09/24 06:18 07/09/24 06:18 Labs: Laboratory Results - last 24 hr 07/08/24 07/08/24 07/08/24 10:09 10:19 11:47 MCV 90.8 MCH 27.5 MCHC 30.3 L RDW 14.8 Plt Count 199 MPV 9.6 Immature Gran % (Auto) 0.4 Neut % (Auto) 78.8 H Lymph % (Auto) 13.3 L [place] % (Auto) 6.4 Eos % (Auto) 1.0 Baso % (Auto) 0.1 Lymph # (Auto) 1.2 [place] # (Auto) 0.6 Eos # (Auto) 0.1 Baso # (Auto) 0.0 Abs Immat Gran (auto) 0.04 H Absolute Neuts (auto) 7.1 Absolute Nucleated RBC 0.000 Nucleated RBC % (auto) 0.0 PT 12.9 INR 1.1 Anion Gap 13 Estim Creat Clear Calc 47.8 Estimated GFR 37 POC Glucose 105 Random Glucose 114 Lactic Acid 1.8 Calcium 9.4 Magnesium 2.2 Total Bilirubin 0.5 AST 26 ALT 24 Alkaline Phosphatase 117 Troponin I High Sens 243.9 H* B-Natriuretic Peptide 869 H Total Protein 6.7 Albumin 3.9 Influenza Type A (PCR) NEGATIVE Influenza Type B (PCR) NEGATIVE RSV RNA Qual (PCR) NEGATIVE SARS-CoV-2 RNA (RT-PCR) NEGATIVE 07/08/24 12:39 MCV MCH MCHC RDW Plt Count MPV Immature Gran % (Auto) Neut % (Auto) Lymph % (Auto) [place] % (Auto) Eos % (Auto) Baso % (Auto) Lymph # (Auto) [place] # (Auto) Eos # (Auto) Baso # (Auto) Abs Immat Gran (auto) Absolute Neuts (auto) Absolute Nucleated RBC Nucleated RBC % (auto) PT INR Anion Gap Estim Creat Clear Calc Estimated GFR POC Glucose Random Glucose Lactic Acid Calcium Magnesium Total Bilirubin AST ALT Alkaline Phosphatase Troponin I High Sens 656.2 H* D B-Natriuretic Peptide Total Protein Albumin Influenza Type A (PCR) Influenza Type B (PCR) RSV RNA Qual (PCR) SARS-CoV-2 RNA (RT-PCR) Imaging Radiologist's Impressions: Impressions Chest X-Ray 07/08/24 09:36 IMPRESSION: Elevated right hemidiaphragm versus subpulmonic effusion. Patchy airspace disease at the medial right lung base possibly representing an acute infiltrate. Advise clinical correlation. Electronically signed by: Andi Vasquez MD 07/08/2024 10:08 AM EDT Assessment and Plan (1) Non-ST elevation PR (NSTEMI): Status: Acute Plan Pt is a 78-year-old female with a PMH significant for?insulin-dependent type two diabetes with neuropathy, HTN, osteoarthritis, and generalized anxiety disorder who presents to the ED with SOB, LEO, and jaw pain since this morning. Pt will be admitted to the hospital for treatment and further evaluation of acute NSTEMI and question of CHF. NSTEMI Pt with worsened SOB and LEO, jaw pain since this morning; denies chest pain/pressure Initial troponin 243.9 with repeat 656.[address] elevations Given aspirin and started on heparin drip in the ED Continue heparin drip Aspirin mg daily Cardiology consult Monitor on telemetry Elevated BNP BNP 869, increasing lower leg edema, worsening SOB x10 days, CTA with pleural effusions and mild cardiomegaly Concerning for CHF Lasix 20mg IV bid Echocardiogram Monitor lytes, I/O, mag Daily weights, low-salt diet Cardiology consult Monitor on telemetry Elevated creatinine Creatinine 1.38, elevated from baseline 1.16 Likely cardiorenal Treat as above Hold lisinopril Follow creatinine Hyperkalemia, mild Potassium mildly elevated at 5.3 Patient given Lokelma in ED Follow BMP Question of pneumonia CXR showing possible acute infiltrate CTA negative for consolidation Pt given abx in the ED Pt with SOB but no cough, sputum production, fever No indication to continue antibiotics HTN Hold lisinopril due to elevated creatinine Insulin-dependent type 2 diabetes SSI, Lantus Hold metformin Obesity class III Weight loss encouraged Full Code Attending:?Dr. Beckwith DVT Prophylaxis: On heparin drip Pt will require a hospitalization of at least two nights for treatment and further evaluation acute NSTEMI and question of CHF that requires continuous cardiac monitoring, IV diuretics, heparin drip, and close monitoring of electrolytes and kidney function, as well as specialist consultation with Cardiology. Quality Stroke Does the patient have a stroke diagnosis?: No VTE Prior VTE?: No VTE Risk Level:: Medical - moderate - high VTE Device Contraindication: Treatment Not Indicated VTE Drug Contraindication: N/A - Med Ordered
[2024-07-08 13:57] LABS: Partial Thromboplastin Time 30.2 SEC (26.0-36.8)
[2024-07-08 14:25] LABS: INTERNATIONAL NORM RATIO 1.1 (0.9-1.1); Prothrombin Time 12.8 SEC (11.1-13.3)
[2024-07-08 14:27] LABS: PTT Heparin Drip 30.9 SEC (53-77.9)
[2024-07-08] MEDS: Heparin Sodium,Porcine 5,000 UNIT/ML VIAL 4000 UNIT IVPUSH (14:43)
[2024-07-08] MEDS: Heparin Sodium,Porcine/1/2NS 25,000 UNIT/250 ML IV.SOLN 10 UNIT IVCONT (14:50)
--- NOTE | 2024-07-08 15:17 | PHA.MEDREC ---
Addendum entered by Lilia Mendoza RPh 07/08/24 15:27: Reviewed by [facility] Original Note: Pharmacy Consult ? Medication Reconciliation Pharmacy has completed the medication reconciliation. Confirmed medications with patient. Patient states she is not compliant with her Insulin Aspart (Novolog) and while she was using it she would do it how she likes, sometimes forgot or not do it at all and says she has not been eating well at all and did not want to have her levels drop by using the insulin. Patient confirm she is using and compliant with the Insulin Degludec (Tresiba) and she states she is injection 32 units at bedtime. She states she took all her medications last last night.
[2024-07-08 16:37] LABS: Glucose, Whole Blood 111 mg/dL (60-115)
--- NOTE | 2024-07-08 17:26 | P.CONCA_ITS ---
History of Present Illness History of Present Illness Date of Service: 07/08/24 Chief complaint: NSTEMI, CHF Narrative: This is a cardiology consultation regarding elevated troponins. Essentially, patient has been having shortness of breath for the last couple of weeks. She states that she does have some baseline shortness of breath but this much more than usual. Additionally, she felt as though she was having some jaw pain today. Eventually, came to the ER where she had workup. Troponins were high suggestive of non ST elevation myocardial infarction. She also had an echocardiogram that showed diminished LVEF. However, study quality was limited due to her body habitus. Currently, she is stating she is okay. No previous cardiac history including coronary disease or myocardial infarction or cardiomyopathy or in fact any other cardiac issues. Otherwise, listed to be diabetic. Has hypertension. On medications. Review of Systems 2 Review of Systems: Yes all other systems are reviewed and are negative Constitutional: Constitutional: Reports as per HPI and Reports no additional constitutional complaints Eyes: Eyes: Reports as per HPI and Denies no additional eye complaints ENT: Denies system reviewed and no additional complaints, except as documented and Reports as per HPI Cardiovascular: Cardiovascular: Reports as per HPI, Reports no additional cardiovascular complaints, Denies acrocyanosis, Denies cool extremities, Denies chest pain, Denies leg edema, Denies lightheadedness, Reports radiating jaw, neck or arm pain, Denies palpitations and Reports dyspnea Respiratory: Respiratory: Reports as per HPI, Denies no additional respiratory complaints and Reports dyspnea Gastrointestinal: Gastrointestinal: Reports as per HPI and Denies no additional gastrointestinal complaints Genitourinary: Genitourinary: Reports as per HPI Musculoskeletal: Musculoskeletal: Reports no additional musculoskeletal complaints and Reports as per HPI Integumentary/Breasts: Skin/Breast: Reports system reviewed and no additional complaints, except as docu Neurologic: Reports system reviewed and no additional complaints, except as documented and Reports as per HPI Psychiatric: Psychiatric: Reports no additional psychiatric complaints and Reports as per HPI Endocrine: Endocrine: Reports no additional endocrine complaints, Reports as per HPI and Denies palpitations Hematologic/Lymphatic: Hematologic/Lymphatic: Reports no additional hematologic/lymphatic complaints and Reports as per HPI Allergic/Immunologic: Allergic/Immunologic: Reports no additional allergic/immunologic complaints and Reports as per HPI [facility] Past Medical History Medical History Type 2 diabetes mellitus with hyperglycemia Morbid obesity Hypertension Family History Family History (Updated 07/08/24 @ 17:29 by Brandon Del Toro MD) Mother CAD (coronary artery disease) Surgical History Surgical History S/P [id number] (total abdominal hysterectomy and bilateral salpingo-oophorectomy) Social History Social History Housing: Apartment Alcohol intake: current Alcohol intake frequency: holidays/special occasions only Patient Tobacco Use Status: Former Tobacco user Tobacco use type: Cigarette Smoked in Last 30 Days: No e-Cigarette/Vaping Use: Never Used Second Hand Smoke Exposure: No Use of substances other than those prescribed or required for medical reasons: No Advance Directives: No Advance Directives Information Provided: No Current occupational status: retired Cognitive needs: No Hearing needs: No Vision needs: Yes Meds Allergies Allergy/AdvReac Type Severity Reaction Status Date / Time Penicillins Allergy Unknown hives Verified 07/08/24 09:15 Active Medications: Current Medications Acetaminophen (Acetaminophen 325 Mg Tablet) 650 mg PO Q6H PRN PRN Reason: Pain, Mild (Pain Scale 1-3), fever or headache Benzonatate (Benzonatate 100 Mg Capsule) 100 mg PO TID PRN PRN Reason: Cough Calcium Carbonate (Calcium Carbonate 750 Mg Tab.Chew) 750 mg PO Q4H PRN PRN Reason: Heartburn Furosemide (Furosemide 20 Mg Tablet) 20 mg PO BID@0900,1800 PAKO; Protocol Glucose (Glucose Gel 15 Gm Gel..Gram.) 15 gm PO Q15M PRN; Protocol PRN Reason: per Hypoglycemia Standing Ord. Heparin Sodium (Porcine) (Heparin Sodium,Porcine 5,000 Unit/Ml Vial) 5,500 unit 40 unit/kg (5500 unit) IVPUSH PROTOCOL BOLUS PRN; Protocol PRN Reason: 40 unit/kg - Heparin Protocol Heparin Sodium (Porcine) (Heparin Sodium,Porcine 5,000 Unit/Ml Vial) 10,000 unit IVPUSH PROTOCOL BOLUS PRN; Protocol PRN Reason: 80 unit/kg - Heparin Protocol Heparin Sodium/Sodium Chloride (Heparin Sodium,Porcine/1/2ns) 25,000 unit in 250 mls @ 0 mls/hr IVCONT .Q0M [facility]; Protocol Last Admin: 07/08/24 14:50 Dose: 7.34 units/kg/hr, 10 mls/hr Dextrose (D10) 250 mls @ 750 mls/hr IV Q15M PRN; Protocol PRN Reason: per Hypoglycemia Standing Ord. Insulin Human Lispro (Insulin Lispro 100 Unit/Ml 3 Ml Vial) 0 unit SUBCUT QIDACHS [facility]; Protocol Magnesium Hydroxide (Milk Of Magnesia 30 Ml Oral.Susp) 30 ml PO DAILY PRN PRN Reason: Constipation Melatonin (Melatonin 3 Mg Tablet) 6 mg PO BEDTIME PRN PRN Reason: Insomnia Ondansetron HCl (Ondansetron Hcl 4 Mg/2 Ml Vial) 4 mg IVPUSH Q8H PRN PRN Reason: Nausea and Vomiting Sodium Chloride (0.9 % Sodium Chloride Flush 3 Ml Syringe) [facility] Last Admin: 07/08/24 16:03 Dose: Not Given Home Medications ?Medication ?Instructions ?Recorded ?Confirmed ?Last Taken ?Type cyanocobalamin (vitamin B-12) 1,000 mcg PO DAILY 03/05/21 07/08/24 07/07/24 History 1,000 mcg capsule insulin degludec 100 unit/mL (3 32 unit subcut BEDTIME 03/01/24 07/08/24 07/07/24 History mL) subcutaneous pen (Tresiba FlexTouch U-100 insulin) cholecalciferol (vitamin D3) 50 50 mcg PO DAILY 07/08/24 07/08/24 07/07/24 History mcg (2,000 unit) tablet Physical Exam 2 Vital Signs: Vital Signs: Last Vital Signs Temp 98.0 F 07/08/24 15:15 Pulse 93 07/08/24 15:58 Resp 18 07/08/24 15:58 BP 150/80 H 07/08/24 15:58 Pulse Ox 96 07/08/24 15:58 O2 Del Method Room Air 07/08/24 15:58 BMI result Body Mass Index 51.6 Const: General: comfortable and no acute distress O rientation/consciousness: patient oriented x3 HEENT: Other: Unremarkable Head: Yes normal to inspection Neck: Neck: Yes normal visual inspection Chest: Chest palpation & inspection: normal inspection of the chest Resp: Auscultation: clear to auscultation bilaterally Cardio: Palpation: normal PMI Heart sounds: S1 normal heart sound present, S2 normal heart sound present, no gallops, no murmurs and no rubs GI: Palpation (GI): Soft to palpation Back/Spine/Pelvis: Other: unremarkable Skin: General skin exam: no rashes or lesions noted Neuro: General: patient oriented x3 Extrem: General: Yes normal to inspection Psych: Mental Status: mental status grossly normal Objective Labs and Meds 07/08/24 10:19 07/08/24 10:19 Lab results: Laboratory Results - last 24 hr 07/08/24 07/08/24 07/08/24 10:09 10:19 11:47 WBC 9.0 RBC 3.82 L Hgb 10.5 L Hct 34.7 L MCV 90.8 MCH 27.5 MCHC 30.3 L RDW 14.8 Plt Count 199 MPV 9.6 Immature Gran % (Auto) 0.4 Neut % (Auto) 78.8 H Lymph % (Auto) 13.3 L [place] % (Auto) 6.4 Eos % (Auto) 1.0 Baso % (Auto) 0.1 Lymph # (Auto) 1.2 [place] # (Auto) 0.6 Eos # (Auto) 0.1 Baso # (Auto) 0.0 Abs Immat Gran (auto) 0.04 H Absolute Neuts (auto) 7.1 Absolute Nucleated RBC 0.000 Nucleated RBC % (auto) 0.0 PT 12.9 INR 1.1 APTT 30.2 aPTT Heparin Protocol Sodium 141 Potassium 5.2 H Chloride 110 H Carbon Dioxide 23 Anion Gap 13 BUN 23 H Creatinine 1.38 Estim Creat Clear Calc 47.8 Estimated GFR 37 POC Glucose 105 Random Glucose 114 Lactic Acid 1.8 Calcium 9.4 Magnesium 2.2 Total Bilirubin 0.5 AST 26 ALT 24 Alkaline Phosphatase 117 Troponin I High Sens 243.9 H* B-Natriuretic Peptide 869 H Total Protein 6.7 Albumin 3.9 Influenza Type A (PCR) NEGATIVE Influenza Type B (PCR) NEGATIVE RSV RNA Qual (PCR) NEGATIVE SARS-CoV-2 RNA (RT-PCR) NEGATIVE 07/08/24 07/08/24 07/08/24 12:39 14:13 16:34 WBC RBC Hgb Hct MCV MCH MCHC RDW Plt Count MPV Immature Gran % (Auto) Neut % (Auto) Lymph % (Auto) [place] % (Auto) Eos % (Auto) Baso % (Auto) Lymph # (Auto) [place] # (Auto) Eos # (Auto) Baso # (Auto) Abs Immat Gran (auto) Absolute Neuts (auto) Absolute Nucleated RBC Nucleated RBC % (auto) PT 12.8 INR 1.1 APTT aPTT Heparin Protocol 30.9 L Sodium Potassium Chloride Carbon Dioxide Anion Gap BUN Creatinine Estim Creat Clear Calc Estimated GFR POC Glucose 111 Random Glucose Lactic Acid Calcium Magnesium Total Bilirubin AST ALT Alkaline Phosphatase Troponin I High Sens 656.2 H* D B-Natriuretic Peptide Total Protein Albumin Influenza Type A (PCR) Influenza Type B (PCR) RSV RNA Qual (PCR) SARS-CoV-2 RNA (RT-PCR) ECG Interpretation: EKG shows underlying sinus rhythm unlikely first-degree heart block. Some artifact. Right bundle type pattern with possibly left posterior fascicular block. Imaging Radiologist's impression: Impressions Chest X-Ray 07/08/24 09:36 IMPRESSION: Elevated right hemidiaphragm versus subpulmonic effusion. Patchy airspace disease at the medial right lung base possibly representing an acute infiltrate. Advise clinical correlation. Electronically signed by: Andi Vasquez MD 07/08/2024 10:08 AM EDT Chest CTA 07/08/24 12:15 IMPRESSION: No large central pulmonary embolism is identified. Evaluation of the segmental and subsegmental branches is somewhat limited secondary to motion artifact and mixing artifact. There is a 7 mm nodule within the posterior aspect of the left lung apex. According to the UPDATED 2017 Fleischner Society recommendations, the advised follow-up imaging for a single 6-8 mm solid nodule is: LOW RISK PATIENT: CT at 6-12 months, then consider CT at 18-24 months. HIGH RISK PATIENT: CT at 6-12 months, then at 18-24 months. There is a irozv-[id number] right pleural effusion. There is a small left pleural effusion. The heart is mildly enlarged. There is mild coronary artery calcification. Fleischner guidelines were followed. Electronically signed by: Miguel Sullivan DO 07/08/2024 02:28 PM EDT RP Assessment and Plan (1) Non-ST elevation ID (NSTEMI): Status: Acute (2) Cardiomyopathy: Status: Acute Plan Baseline EKG does not show any acute ischemic changes. Troponin levels at 243 and 656. Echocardiogram quality is markedly limited due to body habitus. Even with contrast, difficult to assess. LVEF by biplane, 37%. Mild aortic stenosis and onrc-ag-gzakzrde mitral stenosis. Overall, obesity, diabetes, hypertension, exertional shortness of breath for the last few days and jaw pain today. Will treat this as acute coronary syndrome/NSTEMI. IV heparin drip. Aspirin. Start beta-blockers. High-dose statins. Discussed about diagnostic catheterization and she is very tearful. She would like to discuss with her sister. When she agrees, we can transferred to [facility] for the procedure. Also called the transfer center and arrange the same. Discussed with Dr. Beckwith. Procedures Date of Service Date of Service: 07/08/24
--- NOTE | 2024-07-08 17:47 | PC.NURSE ---
THis rn present for conversation with Dr Myers and sister. Pt is aware that transfer to [facility] for exploratory cardiac cath is recommended. SHe is reluctant to go currently but will discuss the decision with her sister.
[2024-07-08 18:01] LABS: Glucose, Whole Blood 99 mg/dL (60-115)
--- NOTE | 2024-07-08 18:08 | PC.NURSE ---
pt is agreeable to transfer to [facility]
[2024-07-08] MEDS: Furosemide 20 MG TABLET PO (19:01)
--- NOTE | 2024-07-08 19:07 | PC.NURSE ---
assumed care of pt at 1900 - per previous RN Rebecca, Pt to be transferred to [facility], however waiting on a bed assignment. heparin drip running at 10ml/hr, purewick in place. pt on manager cardiac cath. pt repositioned in bed, offers no current complaints. call azevedo within reach, plan of care ongoing
--- NOTE | 2024-07-08 19:37 | MHC.EDTECH ---
Patient repositioned and bed pad changed
--- NOTE | 2024-07-08 20:11 | PM.DS ---
DS: Providers Provider Date of Service: 07/08/24 <CLINT Christopher - Last Filed: 07/08/24 20:36> 07/09/24 <Chaitanya Valero MD - Last Filed: 07/09/24 20:04> Date of admission: 07/08/24 14:46 <CLINT Christopher - Last Filed: 07/08/24 20:36> Date of discharge: 07/09/24 <Chaitanya Valero MD - Last Filed: 07/09/24 20:04> Primary care physician: Ja Yanez MD <CLINT Christopher - Last Filed: 07/08/24 20:36> Consults: 07/08/24 14:51 Consult to Cardiology Routine Consulting Provider: [facility] Reason for consultation: NSTEMI, ?CHF <CLINT Christopher - Last Filed: 07/08/24 20:36> DS: Transfer Hospital Acceptance Reason for Transfer: Cardiac catheterization <CLINT Christopher - Last Filed: 07/08/24 20:36> Name of Facility: [facility] <CLINT Christopher - Last Filed: 07/08/24 20:36> DS: Diagnosis Discharge Diagnosis (1) Non-ST elevation ME (NSTEMI): Status: Acute <CLINT Christopher - Last Filed: 07/08/24 20:36> (2) Cardiomyopathy: Status: Acute <CLINT Christopher - Last Filed: 07/08/24 20:36> DS: Summary Hospital Course Hospital Course: From admission H&P: Pt is a 78-year-old female with a PMH significant for?insulin-dependent type two diabetes with neuropathy, HTN, osteoarthritis, and generalized anxiety disorder who presents to the ED with SOB, LEO, and jaw pain since this morning. Pt reports has been experiencing intermittent SOB since May, worse the past 12 days when she has also had significant LEO. Pt lives alone and ambulates with a walker, lately has had to stop and rest more than usual. Has had chronic intermittent lower leg edema for some time, though notes current leg swelling has persisted for longer than usual. Also complains of occasional epigastric muscle spasm , increased fatigue, and 2-3 episodes of lightheadedness and dizziness. This morning pt felt much more SOB than normal and also had jaw pain, which is the only symptom her mother had when she was having a heart attack and needed a triple bypass. Denies chest pain/pressure or palpitations. No cough or sputum production. Denies fever, chills, N/V/D. No abdominal pain. In the ED pt with soft BP of 121/55, vitals otherwise WNL. Labs were significant for normocytic anemia of 10.5/34.7, potassium 5.2, BUN 28, creatinine 1.38 (elevated from 1.16 on 02/25), initial troponin 243.9 with repeat 656.2, and BNP 869. Lactic acid WNL. Tested negative for flu, RSV, COVID. CXR showed elevated right hemidiaphragm versus subpulmonic effusion, and patchy airspace disease of medial right lung base possibly representing an acute infiltrate. CTA of chest negative for PE or consolidation but showed bilateral plural effusions, mild cardiomegaly, and mild coronary artery calcification. EKG demonstrated likely limb lead reversal, but showed sinus rhythm with first-degree AV block, RBBB, and left posterior fascicular block with no evidence of significant ST elevations or depressions. Pt was treated with DuoNebs, Solu-Medrol, Mag sulfate, aspirin, Lasix 20 mg IV, Lokelma, ceftriaxone, azithromycin, and started on a heparin drip. Pt will be admitted to the hospital for treatment and further evaluation of acute NSTEMI and question of CHF. Hospital course: Patient was admitted to the hospital and treated for acute NSTEMI and question of CHF. Patient had echocardiogram completed inpatient which was markedly limited due to body habitus and was difficult to assess. Results showed LVEF of 37% with mild aortic stenosis and fogm-ft-dnurerkt mitral stenosis. trops are [phone] ,cta -negative for pulmonary embolism,Was seen by Dr. Del Toro in Cardiology who recommended treating this as acute coronary syndrome/NSTEMI with IV heparin drip, aspirin, beta-blockers, and high-dose statins. Dr. Del Toro arranged for transfer to [facility] for cardiac catheterization. Patient was initially hesitant to do so, but after further consultation with family agreed to transfer. carina mild : creatinine 1.56(possibly sec to lasix , nstemi,also had Cta in ED yesterday). addendum: Hold BB on Quintin, her NH is quite long. lisinipril and lasix on hold due to carina, shortness of breath improved, i/o 1100 ml negative . seen by nephro Dr cota -risk for contrast nephropathy if IV contrast is used now unless creatinine is improved/stable unless she has STEMI or any other acute indication,Patient BMP needs to be monitored closely, please call kidney Care in [facility] when needed during the hospital stay. Above management discussed with the patient and her family in detail length they understand and in agreement with the above plan, time spent 40 minute. <CLINT Crhistopher - Last Filed: 07/08/24 20:36> Time Attestation Total time managing care of this patient today: 40 mintues. <Zenaida Beckwith MD - Last Filed: 07/09/24 11:57> Discharge Coordination Time (in mins): 35 <CLINT Christopher - Last Filed: 07/08/24 20:36> 40 <Zenaida Beckwith MD - Last Filed: 07/09/24 11:57> Quality: Safe Use of Opioids Does Pt have an Active Cancer Diagnosis on the Problem List?: No <CLINT Christopher - Last Filed: 07/08/24 20:36> Quality: Stroke Does the patient have a stroke diagnosis?: No <CLINT Christopher - Last Filed: 07/08/24 20:36> Physical Exam Vital Signs: Vital Signs: Last Vital Signs Temp 97.6 F 07/08/24 19:25 Pulse 94 07/08/24 19:25 Resp 22 H 07/08/24 19:25 BP 117/55 L 07/08/24 19:25 Pulse Ox 94 07/08/24 19:25 O2 Del Method Room Air 07/08/24 19:25 BMI result Body Mass Index 51.6 <CLINT Christopher Last Filed: 07/08/24 20:36> General: AOx3, no acute distress Resp: CTA bilaterally CVS: S1, S2, RRR GI: +BS, NT, no distention, obese Skin: Warm, dry Neuro: Cranial nerves II-XII grossly intact bilaterally. Motor grossly intact bilaterally Extremities: 1+ bilateral pitting lower leg edema Psych: Appropriate affect <CLINT Christopher - Last Filed: 07/08/24 20:36> DS: Data Data Completed and Pending Labs on day of discharge: Laboratory Results - last 24 hr 07/08/24 07/08/24 07/08/24 10:09 10:19 11:47 WBC 9.0 RBC 3.82 L Hgb 10.5 L Hct 34.7 L MCV 90.8 MCH 27.5 MCHC 30.3 L RDW 14.8 Plt Count 199 MPV 9.6 Immature Gran % (Auto) 0.4 Neut % (Auto) 78.8 H Lymph % (Auto) 13.3 L [place] % (Auto) 6.4 Eos % (Auto) 1.0 Baso % (Auto) 0.1 Lymph # (Auto) 1.2 [place] # (Auto) 0.6 Eos # (Auto) 0.1 Baso # (Auto) 0.0 Abs Immat Gran (auto) 0.04 H Absolute Neuts (auto) 7.1 Absolute Nucleated RBC 0.000 Nucleated RBC % (auto) 0.0 PT 12.9 INR 1.1 APTT 30.2 aPTT Heparin Protocol Sodium 141 Potassium 5.2 H Chloride 110 H Carbon Dioxide 23 Anion Gap 13 BUN 23 H Creatinine 1.38 Estim Creat Clear Calc 47.8 Estimated GFR 37 POC Glucose 105 Random Glucose 114 Lactic Acid 1.8 Calcium 9.4 Magnesium 2.2 Total Bilirubin 0.5 AST 26 ALT 24 Alkaline Phosphatase 117 Troponin I High Sens 243.9 H* B-Natriuretic Peptide 869 H Total Protein 6.7 Albumin 3.9 Influenza Type A (PCR) NEGATIVE Influenza Type B (PCR) NEGATIVE RSV RNA Qual (PCR) NEGATIVE SARS-CoV-2 RNA (RT-PCR) NEGATIVE 07/08/24 07/08/24 07/08/24 12:39 14:13 16:34 WBC RBC Hgb Hct MCV MCH MCHC RDW Plt Count MPV Immature Gran % (Auto) Neut % (Auto) Lymph % (Auto) [place] % (Auto) Eos % (Auto) Baso % (Auto) Lymph # (Auto) [place] # (Auto) Eos # (Auto) Baso # (Auto) Abs Immat Gran (auto) Absolute Neuts (auto) Absolute Nucleated RBC Nucleated RBC % (auto) PT 12.8 INR 1.1 APTT aPTT Heparin Protocol 30.9 L Sodium Potassium Chloride Carbon Dioxide Anion Gap BUN Creatinine Estim Creat Clear Calc Estimated GFR POC Glucose 111 Random Glucose Lactic Acid Calcium Magnesium Total Bilirubin AST ALT Alkaline Phosphatase Troponin I High Sens 656.2 H* D B-Natriuretic Peptide Total Protein Albumin Influenza Type A (PCR) Influenza Type B (PCR) RSV RNA Qual (PCR) SARS-CoV-2 RNA (RT-PCR) 07/08/24 17:57 WBC RBC Hgb Hct MCV MCH MCHC RDW Plt Count MPV Immature Gran % (Auto) Neut % (Auto) Lymph % (Auto) [place] % (Auto) Eos % (Auto) Baso % (Auto) Lymph # (Auto) [place] # (Auto) Eos # (Auto) Baso # (Auto) Abs Immat Gran (auto) Absolute Neuts (auto) Absolute Nucleated RBC Nucleated RBC % (auto) PT INR APTT aPTT Heparin Protocol Sodium Potassium Chloride Carbon Dioxide Anion Gap BUN Creatinine Estim Creat Clear Calc Estimated GFR POC Glucose 99 Random Glucose Lactic Acid Calcium Magnesium Total Bilirubin AST ALT Alkaline Phosphatase Troponin I High Sens B-Natriuretic Peptide Total Protein Albumin Influenza Type A (PCR) Influenza Type B (PCR) RSV RNA Qual (PCR) SARS-CoV-2 RNA (RT-PCR) <CLINT Christopher - Last Filed: 07/08/24 20:36> Discharge Plan Discharge Anticipated Discharge Date/Time: 07/08/24 19:55 <CLINT Christopher - Last Filed: 07/08/24 20:36> [facility] Disposition: [facility] <CLINT Christopher - Last Filed: 07/08/24 20:36> Discharge Diagnosis: NSTEMI, CHF <CLINT Christopher - Last Filed: 07/08/24 20:36> NSTEMI, CHF <Zenaida Beckwith MD - Last Filed: 07/09/24 11:57> NSTEMI, CHF <Chaitanya Valero MD - Last Filed: 07/09/24 20:04> Referrals: Po,Ja Nicole MD [Primary Care Provider] - 1 Week <CLINT Christopher - Last Filed: 07/08/24 20:36> Discharge Medications: New heparin (porcine) 5,000 unit/mL Solution 10,000 unit IVPUSH PROTOCOL BOLUS PRN (Reason: 80 Unit/Kg - Heparin Protocol) Qty: 0 0RF heparin (porcine) 5,000 unit/mL Solution 5,500 unit IVPUSH PROTOCOL BOLUS PRN (Reason: 40 Unit/Kg - Heparin Protocol) Qty: 0 0RF heparin(porcine) in 0.45% NaCl 25,000 unit/250 mL Parenteral Solution 25,000 unit continuous IV infusion .Q0M Qty: 0 0RF atorvastatin 40 mg Tablet 40 mg PO BEDTIME Qty: 0 0RF aspirin 81 mg Tablet,Chewable 81 mg PO DAILY Qty: 0 0RF isosorbide mononitrate 30 mg Tablet Extended Release 24 Hr 15 mg PO DAILY Qty: 1 0RF Protocol: Hold for SBP< HOLD for SBP < : 90 Continued bupropion HCl 150 mg tablet sustained-release 12 hr 150 mg PO BID Qty: 180 2RF cholecalciferol (vitamin D3) 50 mcg (2,000 unit) tablet 50 mcg PO DAILY cyanocobalamin (vitamin B-12) 1,000 mcg capsule 1,000 mcg PO DAILY Tresiba FlexTouch U-100 100 unit/mL (3 mL) insulin pen 32 unit subcut BEDTIME Rx Instructions: Dr. Church ([facility] ROLLATOR See Rx Instructions .Route .MEDSUPPLY Qty: 1 0RF Rx Instructions: As directed ([facility]) blood pressure monitor [Blood Pressure Kit] Kit See Rx Instructions .ROUTE .MEDSUPPLY Qty: 1 0RF Rx Instructions: As directed Held metformin 1,000 mg tablet 1,000 mg PO BID 90 Days Qty: 180 0RF Hold Instructions: Resume on 07/12/24. lisinopril 10 mg tablet 10 mg PO DAILY Qty: 90 2RF Hold Instructions: Resume on 07/12/24. repeat bmp before staring lisinopril <CLINT Christopher - Last Filed: 07/08/24 20:36> Discharge Orders: Discharge Order (Routine); Ordered 07/08/24 Ordered By: Chris Valdez <CLINT Christopher - Last Filed: 07/08/24 20:36> Activity on Discharge: As tolerated <CLINT Christopher - Last Filed: 07/08/24 20:36> As tolerated <Zenaida Beckwith MD - Last Filed: 07/09/24 11:57> As tolerated <Chaitanya Valero MD - Last Filed: 07/09/24 20:04> Stand Alone Forms: Patient Portal Discharge page <CLINT Christopher - Last Filed: 07/08/24 20:36> Print Language: Israeli <CLINT Christopher - Last Filed: 07/08/24 20:36> Care Plan Goals: Continued workup and treatment for NSTEMI Continue treatment for CHF <CLINT Christopher - Last Filed: 07/08/24 20:36> Health Concerns: NSTEMI CHF <CLINT Christopher - Last Filed: 07/08/24 20:36> Plan of Treatment: Transferred to [facility] for cardiac catheterization for evaluation of CAD Continue heparin drip for NSTEMI Continue IV Lasix for CHF <CLINT Christopher - Last Filed: 07/08/24 20:36> Assessment: See discharge summary <CLINT Christopher - Last Filed: 07/08/24 20:36> Discharge Date/Time: 07/09/24 15:53 <CLINT Christopher - Last Filed: 07/08/24 20:36>
[2024-07-08 21:00] LABS: PTT Heparin Drip 45.6 SEC (53-77.9)
[2024-07-08 21:17] LABS: Glucose, Whole Blood 173 mg/dL (60-115)
--- NOTE | 2024-07-08 21:22 | MHC.EDTECH ---
Patient inc therefore patient changed and repositioned
[2024-07-08] MEDS: Insulin Lispro 100 UNIT/ML 3 ML VIAL SUBCUT (21:26)
[2024-07-08] MEDS: Atorvastatin Calcium 40 MG TABLET PO (21:26)
--- NOTE | 2024-07-08 21:34 | PC.NURSE ---
heparin dose adjusted per PTT result. PTT result was 45.6, heparin bolus 5500 units bolus administered and rate increased by 2u/kg/hr - dose now running at 9.337u/kg/hr (12.73ml/hr) dose change verified with second RN Elba and verified with certified pharmacy technician via tiger text
[2024-07-09] VITALS: BP 127/65; PULSE 92; RESP 16; TEMP 36.5; O2SAT 96
[2024-07-09 02:02] VITALS: BMI 50.7
[2024-07-09 02:31] VITALS: BP 144/73; PULSE 93; RESP 20; TEMP 36.2; O2SAT 96
[2024-07-09 03:49] LABS: PTT Heparin Drip 86.4 SEC (53-77.9)
[2024-07-09 03:52] VITALS: BP 124/57; PULSE 85; RESP 18; TEMP 36.2; O2SAT 94
[2024-07-09 06:48] LABS: Hematocrit 33.7 % (37.0-47.0); Hemoglobin 10.3 g/dl (12.0-16.0); Mean Corpuscular HGB Conc 30.6 g/dl (31.0-35.0); Mean Corpuscular Hemoglobin 27.2 pg (27.0-33.0); Mean Corpuscular Volume 89.2 fL (80.0-98.0); Mean Platelet Volume 9.8 fL (9.4-12.3); Platelet Count 183 X10*3/uL (160-400); Red Blood Count 3.78 X10*6/uL (4.20-5.50); Red Cell Distribution Width 14.7 % (11.0-16.0); White Blood Count 8.3 X10*3/uL (4.8-10.8)
[2024-07-09 06:51] LABS: Anion Gap 16 (12-20); Blood Urea Nitrogen 32 mg/dL (9-16); Calcium 9.1 mg/dL (8.4-10.2); Carbon Dioxide 20 mmol/L (22-29); Chloride 107 mmol/L (96-108); Creatinine Clr Calc Pharmacy 41.8; Estimated Glomerular Filt Rate 32; Glucose Random 246 mg/dL (60-115); Potassium 5.5 mmol/L (3.3-5.1); Sodium 137 mmol/L (135-145)
[2024-07-09 07:31] VITALS: BP 126/56; PULSE 78; RESP 20; TEMP 36.6; O2SAT 95
[2024-07-09 07:43] LABS: Glucose, Whole Blood 228 mg/dL (60-115)
[2024-07-09] MEDS: Cyanocobalamin (Vitamin B-12) 1,000 MCG TABLET 1000 MCG PO (08:18)
[2024-07-09] MEDS: buPROPion HCl XL 150 MG TAB.ER.24H PO (08:18)
[2024-07-09] MEDS: Cholecalciferol (Vitamin D3) 25 MCG TABLET 50 MCG PO (08:19)
[2024-07-09] MEDS: Furosemide 20 MG TABLET PO (08:19)
[2024-07-09] MEDS: Aspirin 81 MG TAB.CHEW PO (08:19)
[2024-07-09] MEDS: Insulin Lispro 100 UNIT/ML 3 ML VIAL SUBCUT ×2 (08:20→11:37)
[2024-07-09] MEDS: 0.9 % Sodium Chloride Flush 3 ML SYRINGE IVFLUSH (08:31)
--- NOTE | 2024-07-09 09:12 | PM.CNNEP ---
History of Present Illness Reason for Consult Consult date: 07/09/24 Reason for consult: ABRAM Chief Complaint Chief complaint: NSTEMI, CHF History of Present Illness Narrative: 78-year-old female with insulin-dependent type two diabetes with neuropathy, HTN presented to the ER with SOB, LEO, and jaw pain .She has been experiencing intermittent SOB since May, which has gotten worse . She has chronic intermittent lower leg edema which has gotten worse. She denied chest pain/pressure or palpitations. No cough or sputum production. Denies fever, chills, N/V/D. No abdominal pain.In the ER BP was 121/55, vitals otherwise WNL. Labs were significant for normocytic anemia of 10.5/34.7, potassium 5.2, BUN 28, creatinine 1.38 (elevated from 1.16 on 02/25), initial troponin 243.9 with repeat 656.2, and BNP 869. Lactic acid WNL. CTA of chest negative for PE or consolidation but showed bilateral plural effusions, mild cardiomegaly, and mild coronary artery calcification. Pt was admitted to the hospital for treatment of NSTEMI and questionable CHF. She currently has ABRAM. Nephrology was consulted to assist in her clinical care during her current hospital stay Review of Systems Review of Systems Yes all other systems are reviewed and are negative PMFSH Past Medical History Medical History Type 2 diabetes mellitus with hyperglycemia Morbid obesity Hypertension Family History Family History (Updated 07/08/24 @ 17:29 by Brandon Del Toro MD) Mother CAD (coronary artery disease) Surgical History Surgical History S/P NIELS-BSO (total abdominal hysterectomy and bilateral salpingo-oophorectomy) Social History Social History Household Members: None Housing: Apartment Do you presently have visiting nurse or other home services: No Alcohol intake: current Alcohol intake frequency: holidays/special occasions only Patient Tobacco Use Status: Former Tobacco user Tobacco use type: Cigarette e-Cigarette/Vaping Use: Never Used Second Hand Smoke Exposure: No Current occupational status: retired Cognitive needs: No Hearing needs: No Vision needs: Yes Meds Allergies Allergy/AdvReac Type Severity Reaction Status Date / Time Penicillins Allergy Unknown hives Verified 07/08/24 09:15 Active Medications: Current Medications Acetaminophen (Acetaminophen 325 Mg Tablet) 650 mg PO Q6H PRN PRN Reason: Pain, Mild (Pain Scale 1-3), fever or headache Aspirin (Aspirin 81 Mg Tab.Chew) 81 mg PO DAILY [facility] Last Admin: 07/09/24 08:19 Dose: 81 mg Atorvastatin Calcium (Atorvastatin Calcium 40 Mg Tablet) 40 mg PO BEDTIME [facility] Last Admin: 07/08/24 21:26 Dose: 40 mg Benzonatate (Benzonatate 100 Mg Capsule) 100 mg PO TID PRN PRN Reason: Cough Bupropion HCl (Bupropion Hcl Xl 150 Mg Tab.Er.24h) 150 mg PO DAILY [facility] Last Admin: 07/09/24 08:18 Dose: 150 mg Calcium Carbonate (Calcium Carbonate 750 Mg Tab.Chew) 750 mg PO Q4H PRN PRN Reason: Heartburn Cyanocobalamin (Cyanocobalamin (Vitamin B-12) 1,000 Mcg Tablet) 1,000 mcg PO DAILY [facility] Last Admin: 07/09/24 08:18 Dose: 1,000 mcg Glucose (Glucose Gel 15 Gm Gel..Gram.) 15 gm PO Q15M PRN; Protocol PRN Reason: per Hypoglycemia Standing Ord. Heparin Sodium (Porcine) (Heparin Sodium,Porcine 5,000 Unit/Ml Vial) 5,500 unit 40 unit/kg (5500 unit) IVPUSH PROTOCOL BOLUS PRN; Protocol PRN Reason: 40 unit/kg - Heparin Protocol Heparin Sodium (Porcine) (Heparin Sodium,Porcine 5,000 Unit/Ml Vial) 10,000 unit IVPUSH PROTOCOL BOLUS PRN; Protocol PRN Reason: 80 unit/kg - Heparin Protocol Heparin Sodium/Sodium Chloride (Heparin Sodium,Porcine/1/2ns) 25,000 unit in 250 mls @ 0 mls/hr IVCONT .Q0M PAKO; Protocol Last Titration: 07/09/24 04:13 Dose: 7.337 units/kg/hr, 10 mls/hr Dextrose (D10) 250 mls @ 750 mls/hr IV Q15M PRN; Protocol PRN Reason: per Hypoglycemia Standing Ord. Insulin Human Lispro (Insulin Lispro 100 Unit/Ml 3 Ml Vial) 0 unit SUBCUT QIDACHS [facility]; Protocol Last Admin: 07/09/24 08:20 Dose: 4 unit Magnesium Hydroxide (Milk Of Magnesia 30 Ml Oral.Susp) 30 ml PO DAILY PRN PRN Reason: Constipation Melatonin (Melatonin 3 Mg Tablet) 6 mg PO BEDTIME PRN PRN Reason: Insomnia Metoprolol Tartrate (Metoprolol Tartrate 12.5 Mg Halftab) 12.5 mg PO BID [facility]; Protocol Ondansetron HCl (Ondansetron Hcl 4 Mg/2 Ml Vial) 4 mg IVPUSH Q8H PRN PRN Reason: Nausea and Vomiting Sodium Chloride (0.9 % Sodium Chloride Flush 3 Ml Syringe) 3 ml IVFLUSH QSHIFT [facility] Last Admin: 07/09/24 08:31 Dose: 3 ml Vitamin D (Cholecalciferol (Vitamin D3) 25 Mcg Tablet) 50 mcg PO DAILY [facility] Last Admin: 07/09/24 08:19 Dose: 50 mcg Home Medications ?Medication ?Instructions ?Recorded ?Confirmed ?Last Taken ?Type cyanocobalamin (vitamin B-12) 1,000 mcg PO DAILY 03/05/21 07/08/24 07/07/24 History 1,000 mcg capsule insulin degludec 100 unit/mL (3 32 unit subcut BEDTIME 03/01/24 07/08/24 07/07/24 History mL) subcutaneous pen (Tresiba FlexTouch U-100 insulin) cholecalciferol (vitamin D3) 50 50 mcg PO DAILY 07/08/24 07/08/24 07/07/24 History mcg (2,000 unit) tablet Physical Exam Vital Signs: Last Vital Signs Temp 97.8 F 07/09/24 07:31 Pulse 78 07/09/24 07:31 Resp 20 07/09/24 07:31 BP 126/56 L 07/09/24 07:31 Pulse Ox 95 07/09/24 07:31 O2 Del Method Room Air 07/09/24 07:31 BMI result Body Mass Index 50.7 Const General: no acute distress Orientation/consciousness: patient oriented x3 Eyes EOM: EOMs intact bilaterally Neck Neck: Yes supple Resp Auscultation: diminished lung sounds Cardio Rate: regular rate GI Palpation (GI): Soft to palpation Neuro General: patient oriented x3 Results Lab Results 07/09/24 06:18 07/09/24 06:18 Lab results: Chemistry 07/08/24 07/09/24 10:19 06:18 Sodium 141 137 Potassium 5.2 H 5.5 H Carbon Dioxide 23 20 L BUN 23 H 32 H Creatinine 1.38 1.56 H Calcium 9.4 9.1 Hematology 07/08/24 07/09/24 10:19 06:18 WBC 9.0 8.3 Hgb 10.5 L 10.3 L Plt Count 199 183 Assessment and Plan (1) ABRAM (acute kidney injury): Status: Acute Plan ABRAM due to compromise in renal perfusion due to NSTEMI and contrast nephropathy Serum potassium mildly high- treated; Serum creatinine not plateaued yet At risk for contrast nephropathy if IV contrast is used now unless creatinine is improved/stable unless she has STEMI or any other acute indication No indication for renal replacement. No ACEI/ARB for now; C/W rest of current supportive care for now Procedures Date of Service Date of Service: 07/09/24
[2024-07-09 09:41] LABS: B Type Natriuretic Peptide 2224 pg/mL (<100)
[2024-07-09] MEDS: Isosorbide Mononitrate 30 MG TAB.ER.24H 15 MG PO (09:46)
[2024-07-09] MEDS: Metoprolol Tartrate 12.5 MG HALFTAB PO (09:52)
[2024-07-09] MEDS: Sodium Zirconium Cyclosilicate 10 GM POWD.PACK PO (09:53)
--- NOTE | 2024-07-09 10:20 | PM.PNCARD ---
Subjective Subjective Date of Service: 07/09/24 Interval history: She is not having any further symptoms. Resting in bed. She was supposed to go for cardiac catheterization but as there was no bed available, she stayed here overnight. Review of Systems Review of Systems Yes all other systems are reviewed and are negative Constitutional: Reports as per HPI and Reports no additional constitutional complaints Eyes: Reports as per HPI and Denies no additional eye complaints Denies system reviewed and no additional complaints, except as documented and Reports as per HPI Cardiovascular: Reports as per HPI, Reports no additional cardiovascular complaints, Denies acrocyanosis, Denies cool extremities, Denies chest pain, Denies leg edema, Denies lightheadedness, Denies palpitations and Denies dyspnea Respiratory: Reports as per HPI, Denies no additional respiratory complaints and Denies dyspnea Gastrointestinal: Reports as per HPI and Denies no additional gastrointestinal complaints Genitourinary: Reports as per HPI Musculoskeletal: Reports no additional musculoskeletal complaints and Reports as per HPI Skin/Breast: Reports system reviewed and no additional complaints, except as docu Reports system reviewed and no additional complaints, except as documented and Reports as per HPI Psychiatric: Reports no additional psychiatric complaints and Reports as per HPI Endocrine: Reports no additional endocrine complaints, Reports as per HPI and Denies palpitations Hematologic/Lymphatic: Reports no additional hematologic/lymphatic complaints and Reports as per HPI Allergic/Immunologic: Reports no additional allergic/immunologic complaints and Reports as per HPI Physical Exam Vital Signs: Last Vital Signs Temp 97.8 F 07/09/24 07:31 Pulse 78 07/09/24 07:31 Resp 20 07/09/24 07:31 BP 126/56 L 07/09/24 07:31 Pulse Ox 95 07/09/24 07:31 O2 Del Method Room Air 07/09/24 07:31 BMI result Body Mass Index 50.7 Const General: comfortable and no acute distress Orientation/consciousness: patient oriented x3 HEENT Other: Unremarkable Head: Yes normal to inspection Neck Neck: Yes normal visual inspection Chest Chest palpation & inspection: normal inspection of the chest Resp Auscultation: clear to auscultation bilaterally Cardio Palpation: normal PMI Heart sounds: S1 normal heart sound present, S2 normal heart sound present, no gallops, no murmurs and no rubs GI Palpation (GI): Soft to palpation Back/Spine/Pelvis Other: unremarkable Skin General skin exam: no rashes or lesions noted Neuro General: patient oriented x3 Extrem General: Yes normal to inspection Psych Mental Status: mental status grossly normal Objective Labs and Meds 07/09/24 06:18 07/09/24 06:18 Lab results: Laboratory Results - last 24 hr 07/08/24 07/08/24 07/08/24 10:19 11:47 12:39 WBC 9.0 RBC 3.82 L Hgb 10.5 L Hct 34.7 L MCV 90.8 MCH 27.5 MCHC 30.3 L RDW 14.8 Plt Count 199 MPV 9.6 Immature Gran % (Auto) 0.4 Neut % (Auto) 78.8 H Lymph % (Auto) 13.3 L [place] % (Auto) 6.4 Eos % (Auto) 1.0 Baso % (Auto) 0.1 Lymph # (Auto) 1.2 [place] # (Auto) 0.6 Eos # (Auto) 0.1 Baso # (Auto) 0.0 Abs Immat Gran (auto) 0.04 H Absolute Neuts (auto) 7.1 Absolute Nucleated RBC 0.000 Nucleated RBC % (auto) 0.0 PT 12.9 INR 1.1 APTT 30.2 aPTT Heparin Protocol Sodium 141 Potassium 5.2 H Chloride 110 H Carbon Dioxide 23 Anion Gap 13 BUN 23 H Creatinine 1.38 Estim Creat Clear Calc 47.8 Estimated GFR 37 POC Glucose Random Glucose 114 Lactic Acid 1.8 Calcium 9.4 Magnesium 2.2 Total Bilirubin 0.5 AST 26 ALT 24 Alkaline Phosphatase 117 Troponin I High Sens 243.9 H* 656.2 H* D B-Natriuretic Peptide 869 H Total Protein 6.7 Albumin 3.9 Influenza Type A (PCR) NEGATIVE Influenza Type B (PCR) NEGATIVE RSV RNA Qual (PCR) NEGATIVE SARS-CoV-2 RNA (RT-PCR) NEGATIVE 07/08/24 07/08/24 07/08/24 14:13 16:34 17:57 WBC RBC Hgb Hct MCV MCH MCHC RDW Plt Count MPV Immature Gran % (Auto) Neut % (Auto) Lymph % (Auto) [place] % (Auto) Eos % (Auto) Baso % (Auto) Lymph # (Auto) [place] # (Auto) Eos # (Auto) Baso # (Auto) Abs Immat Gran (auto) Absolute Neuts (auto) Absolute Nucleated RBC Nucleated RBC % (auto) PT 12.8 INR 1.1 APTT aPTT Heparin Protocol 30.9 L Sodium Potassium Chloride Carbon Dioxide Anion Gap BUN Creatinine Estim Creat Clear Calc Estimated GFR POC Glucose 111 99 Random Glucose Lactic Acid Calcium Magnesium Total Bilirubin AST ALT Alkaline Phosphatase Troponin I High Sens B-Natriuretic Peptide Total Protein Albumin Influenza Type A (PCR) Influenza Type B (PCR) RSV RNA Qual (PCR) SARS-CoV-2 RNA (RT-PCR) 07/08/24 07/08/24 07/09/24 20:41 21:13 03:31 WBC RBC Hgb Hct MCV MCH MCHC RDW Plt Count MPV Immature Gran % (Auto) Neut % (Auto) Lymph % (Auto) [place] % (Auto) Eos % (Auto) Baso % (Auto) Lymph # (Auto) [place] # (Auto) Eos # (Auto) Baso # (Auto) Abs Immat Gran (auto) Absolute Neuts (auto) Absolute Nucleated RBC Nucleated RBC % (auto) PT INR APTT aPTT Heparin Protocol 45.6 L D 86.4 H D Sodium Potassium Chloride Carbon Dioxide Anion Gap BUN Creatinine Estim Creat Clear Calc Estimated GFR POC Glucose 173 H Random Glucose Lactic Acid Calcium Magnesium Total Bilirubin AST ALT Alkaline Phosphatase Troponin I High Sens B-Natriuretic Peptide Total Protein Albumin Influenza Type A (PCR) Influenza Type B (PCR) RSV RNA Qual (PCR) SARS-CoV-2 RNA (RT-PCR) 07/09/24 07/09/24 07/09/24 06:18 07:33 09:03 WBC 8.3 RBC 3.78 L Hgb 10.3 L Hct 33.7 L MCV 89.2 MCH 27.2 MCHC 30.6 L RDW 14.7 Plt Count 183 MPV 9.8 Immature Gran % (Auto) Neut % (Auto) Lymph % (Auto) [place] % (Auto) Eos % (Auto) Baso % (Auto) Lymph # (Auto) [place] # (Auto) Eos # (Auto) Baso # (Auto) Abs Immat Gran (auto) Absolute Neuts (auto) Absolute Nucleated RBC 0.000 Nucleated RBC % (auto) 0.0 PT INR APTT aPTT Heparin Protocol Sodium 137 Potassium 5.5 H Chloride 107 Carbon Dioxide 20 L Anion Gap 16 BUN 32 H Creatinine 1.56 H Estim Creat Clear Calc 41.8 Estimated GFR 32 POC Glucose 228 H Random Glucose 246 H Lactic Acid Calcium 9.1 Magnesium Total Bilirubin AST ALT Alkaline Phosphatase Troponin I High Sens B-Natriuretic Peptide 2224 H Total Protein Albumin Influenza Type A (PCR) Influenza Type B (PCR) RSV RNA Qual (PCR) SARS-CoV-2 RNA (RT-PCR) Imaging Radiologist's impression: Impressions Chest CTA 07/08/24 12:15 IMPRESSION: No large central pulmonary embolism is identified. Evaluation of the segmental and subsegmental branches is somewhat limited secondary to motion artifact and mixing artifact. There is a 7 mm nodule within the posterior aspect of the left lung apex. According to the UPDATED 2017 Fleischner Society recommendations, the advised follow-up imaging for a single 6-8 mm solid nodule is: LOW RISK PATIENT: CT at 6-12 months, then consider CT at 18-24 months. HIGH RISK PATIENT: CT at 6-12 months, then at 18-24 months. There is a [id number] right pleural effusion. There is a small left pleural effusion. The heart is mildly enlarged. There is mild coronary artery calcification. Fleischner guidelines were followed. Electronically signed by: Miguel Sullivan DO 07/08/2024 02:28 PM EDT RP Progress Note: A&P Assessment and plan (1) Non-ST elevation DC (NSTEMI): Status: Acute (2) Cardiomyopathy: Status: Acute Plan Baseline EKG does not show any acute ischemic changes. Troponin levels at 243 and 656. Echocardiogram quality is markedly limited due to body habitus. Even with contrast, difficult to assess. LVEF by biplane, 37%. Mild aortic stenosis and [id number] mitral stenosis. Overall, obesity, diabetes, hypertension, exertional shortness of breath for the last few days and jaw pain today. Will treat this as acute coronary syndrome/NSTEMI. IV heparin drip. Aspirin. Start beta-blockers. High-dose statins. We had planned to transfer her yesterday but there was no bed available at [facility] and hence she stayed here overnight. Currently, there is an increase in her creatinine to 1.56 which could be related to the diuretics she got in the emergency room. Can hold off on that for now. Her renal function will need to normalize before undergoing cardiac catheterization and I explained that to her today. Hold off hold nephrotoxic medications. When bed becomes available, can still be transferred but labs will need to be followed up and if necessary, nephrology consulted. Discussed with Dr. Beckwith. Time Spent With Patient Time: Total time managing care of this patient today ____ minutes. Progress Note: Quality Stroke Does the patient have a stroke diagnosis?: No Procedures Date of Service Date of Service: 07/09/24
[2024-07-09 10:34] LABS: PTT Heparin Drip 46.7 SEC (53-77.9)
[2024-07-09] MEDS: Heparin Sodium,Porcine 5,000 UNIT/ML VIAL 5500 UNIT IVPUSH (11:00)
[2024-07-09 11:16] VITALS: BP 114/57; PULSE 76; RESP 18; TEMP 36.3; O2SAT 97
[2024-07-09 11:25] LABS: Glucose, Whole Blood 284 mg/dL (60-115)
--- NOTE | 2024-07-09 12:56 | MHC.CM.PN ---
Pt to transfer to [facility] today.
[2024-07-09] MEDS: Heparin Sodium,Porcine/1/2NS 25,000 UNIT/250 ML IV.SOLN 12.73 UNIT IVCONT (14:14)
[2024-07-09 14:24] LABS: Appearance Urine Clear; Color Urine Yellow; Glucose Urine UA Negative (Negative); Leukocyte Esterase Urine Negative (Negative); Nitrite Urine Negative (Negative); UMIC TRIGGER UA YES; Urine Blood Moderate (2+) (Negative); Urine Ketones Negative (Negative); Urine Protein Negative (Neg-Trace)
[2024-07-09 14:27] LABS: Bacteria Urine None Seen (None Seen); Hyaline Casts Urine 0-2 /LPF (0-2); Squamous Epithelial Cell Urine 0-2 /HPF (0-2); WBC Urine 0-5 /HPF (0-5)
[2024-07-09 14:39] LABS: Creatinine Urine 79.35 mg/dL; Protein/Creatinine Ratio, Ur 0.11 (<0.2); Total Protein Urine Random 9 mg/dL (<12)
--- NOTE | 2024-07-13 06:38 | PC.NURSE ---
i recognized that i neglected to scan in heparin bolus of 5500 units when documenting on this pt on 07/08. heparin iv bolus of 5500units administered per titration protocol (see note) for what was administered
== END 2024-07-09 15:53 | disposition short-term general hospital (02) | DRG 281 ==
LOC: HO.ED 14:33 → HO.EDOVER 14:56 → HO.IMC 07-09 01:04
PROVIDERS: Physician Assistant; Admitting Provider Student in an Organized Health Care Education/Training Program; Emergency Provider Emergency Medicine; PCP Internal Medicine; Visit Provider Internal Medicine
DX: I21.4 Non-ST elevation (NSTEMI) myocardial infarction (principal); I42.9 Cardiomyopathy, unspecified; Z68.43 Body mass index [BMI] 50.0-59.9, adult; N17.9 Acute kidney failure, unspecified; E11.40 Type 2 diabetes mellitus with diabetic neuropathy, unspecified; I10 Essential (primary) hypertension; E87.5 Hyperkalemia; E66.01 Morbid (severe) obesity due to excess calories; F41.1 Generalized anxiety disorder; H54.8 Legal blindness, as defined in USA; Z20.822 Contact with and (suspected) exposure to COVID-19; Z87.891 Personal history of nicotine dependence; Z79.4 Long term (current) use of insulin; Z79.84 Long term (current) use of oral hypoglycemic drugs; Z79.899 Other long term (current) drug therapy
CPT/HCPCS: 0241U; 36415; 71045; 71275; 80048; 80053; 81001; 82570; 82947; 83605; 83735; 83880; 84156; 84484; 85025; 85027; 85610; 85730; 87040; 93005; 93306; 94640; 99285; J0696; J1644; J1940; J2919; J3475; Q9957; Q9967

== ENCOUNTER → 2024-07-08 13:38 | Outpatient (BNV) | payer MEDICARE, MEDICAID, SELFPAY | PROVIDERS: Admitting Provider Student in an Organized Health Care Education/Training Program; Emergency Provider Emergency Medicine; PCP Internal Medicine; Visit Provider Internal Medicine | DX: I35.0 Nonrheumatic aortic (valve) stenosis (principal); I34.0 Nonrheumatic mitral (valve) insufficiency; I34.81 Nonrheumatic mitral (valve) annulus calcification | CPT/HCPCS: 93306 ==

== ENCOUNTER → 2024-07-08 14:46 | Outpatient (BNV) | payer MEDICARE, MEDICAID, SELFPAY | PROVIDERS: Admitting Provider Student in an Organized Health Care Education/Training Program; Emergency Provider Emergency Medicine; PCP Internal Medicine; Visit Provider Internal Medicine | DX: I21.4 Non-ST elevation (NSTEMI) myocardial infarction (principal); I42.9 Cardiomyopathy, unspecified | CPT/HCPCS: 99223; 99233 ==

== ENCOUNTER → 2024-07-08 14:46 | Outpatient (BNV) | payer MEDICARE, MEDICAID, SELFPAY | PROVIDERS: Admitting Provider Student in an Organized Health Care Education/Training Program; Emergency Provider Emergency Medicine; PCP Internal Medicine; Visit Provider Student in an Organized Health Care Education/Training Program | DX: I21.4 Non-ST elevation (NSTEMI) myocardial infarction (principal); I42.9 Cardiomyopathy, unspecified | CPT/HCPCS: 99223; 99239 ==

== ENCOUNTER → 2024-07-08 14:46 | Outpatient (BNV) | payer MEDICARE, MEDICAID, SELFPAY | PROVIDERS: Admitting Provider Student in an Organized Health Care Education/Training Program; Emergency Provider Emergency Medicine; PCP Internal Medicine; Visit Provider Internal Medicine Nephrology | DX: N17.9 Acute kidney failure, unspecified (principal); N14.11 Contrast-induced nephropathy; I21.4 Non-ST elevation (NSTEMI) myocardial infarction | CPT/HCPCS: 99223 ==

== ENCOUNTER 2024-08-04 14:23 | Outpatient (REF) | payer MEDICARE, MEDICAID, SELFPAY ==
[2024-08-04 18:24] LABS: Anion Gap 19 (12-20); Blood Urea Nitrogen 26 mg/dL (9-16); Calcium 8.4 mg/dL (8.4-10.2); Carbon Dioxide 27 mmol/L (22-29); Chloride 102 mmol/L (96-108); Estimated Glomerular Filt Rate 29; Glucose Random 73 mg/dL (60-115); Potassium 4.2 mmol/L (3.3-5.1); Sodium 144 mmol/L (135-145)
[2024-08-04 18:32] LABS: B Type Natriuretic Peptide 1042 pg/mL (<100)
== END 2024-08-04 14:24 | disposition home or self-care (01) ==
LOC: HO.LAB 14:23
PROVIDERS: PCP Internal Medicine; Visit Provider Internal Medicine
DX: I50.22 Chronic systolic (congestive) heart failure (principal); I25.5 Ischemic cardiomyopathy; I50.9 Heart failure, unspecified; I25.10 Atherosclerotic heart disease of native coronary artery without angina pectoris; I21.4 Non-ST elevation (NSTEMI) myocardial infarction; E11.65 Type 2 diabetes mellitus with hyperglycemia; Z79.4 Long term (current) use of insulin
CPT/HCPCS: 36415; 80048; 83880; 99212

== ENCOUNTER 2024-08-04 14:23 | Outpatient (AMB) | payer MEDICARE, MEDICAID, SELFPAY ==
[2024-08-04 14:25] VITALS: BP 110/62; PULSE 76; BMI 43.7
--- NOTE | 2024-08-04 14:25 | A.OFFVIS_ITS ---
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 Required: No Accompanied by: Self / Same As Patient Allergies Penicillins Allergy (Unknown, Verified 07/08/24 09:15) hives Medication List - Last Reconciled 08/04/24 by Brandon Del Toro MD aspirin 81 mg PO DAILY atorvastatin 40 mg PO BEDTIME blood pressure monitor (Blood Pressure Kit) As directed bumetanide 1 mg PO BID bupropion HCl SR 150 mg PO BID cholecalciferol (vitamin D3) 50 mcg PO DAILY clopidogrel 75 mg PO DAILY cyanocobalamin (vitamin B-12) 1,000 mcg PO DAILY insulin aspart U-100 (Novolog FlexPen U-100 Insulin aspart) subcut insulin degludec (Tresiba FlexTouch U-100 insulin) 32 units subcut BEDTIME insulin degludec (Tresiba FlexTouch U-200 insulin) 44 units subcut DAILY metoprolol succinate ER (Toprol XL) 25 mg PO DAILY [ROLLATOR As directed] HPI Comments Details: Samantha returns for follow-up after recent hospitalization. She was initially admitted to [place]. She was having some shortness of breath and then jaw pain. Had elevated troponins suggestive of non ST elevation myocardial infarction. Echocardiogram with diminished LVEF. Then sent to [facility] where she went to diagnostic catheterization. That showed multivessel disease and seen by cardiac surgery but deemed to be poor candidate. She is only on medical therapy. Many comorbidities. It seems that she is generally better. She has been on Bumex and seems like she has diuresed a lot. According to weights, seems like she has lost more than 40 lb. [facility] Medical History Type 2 diabetes mellitus with hyperglycemia Morbid obesity Hypertension Surgical History S/P NIELS-BSO (total abdominal hysterectomy and bilateral salpingo-oophorectomy) Family History Mother CAD (coronary artery disease) Social History Household Members: None Housing: Apartment Do you presently have visiting nurse or other home services: No Alcohol intake: current Alcohol intake frequency: holidays/special occasions only Patient Tobacco Use Status: Former Tobacco user Tobacco use type: Cigarette e-Cigarette/Vaping Use: Never Used Second Hand Smoke Exposure: No Current occupational status: retired Cognitive needs: No Hearing needs: No Vision needs: Yes Review of Systems Const Denies chills, Denies fatigue, Denies fever(s), Denies frequent falls, Denies weakness, Denies weight gain and Denies weight loss ENT Denies dizziness Card Denies chest pain, Denies leg edema, Denies lightheadedness, Denies palpitations, Denies dyspnea and Denies dyspnea on exertion Resp Denies cough, Denies dyspnea and Denies dyspnea on exertion GI Denies hematochezia Musc Denies abnormal gait, Denies muscle weakness, Denies numbness, Denies radiating pain into limb and Denies tingling Neuro Denies abnormal gait, Denies dizziness, Denies frequent falls, Denies numbness, Denies tingling and Denies weakness Endo Denies fatigue and Denies palpitations Physical Exam Vital Signs: Last Vital Signs Pulse 76 08/04/24 14:25 BP 110/62 08/04/24 14:25 BMI result Body Mass Index 43.7 Const General: comfortable and no acute distress Orientation/consciousness: patient oriented x3 HEENT Other: Unremarkable Head: Yes normal to inspection Neck Neck: Yes normal visual inspection Chest Chest palpation & inspection: normal inspection of the chest Resp Auscultation: clear to auscultation bilaterally Cardio Palpation: normal PMI Heart sounds: S1 normal heart sound present, S2 normal heart sound present, no gallops, no murmurs and no rubs GI Palpation (GI): Soft to palpation Back/Spine/Pelvis Other: unremarkable Skin General skin exam: no rashes or lesions noted Neuro General: patient oriented x3 Extrem Other: Trace edema General: Yes normal to inspection Psych Mental Status: mental status grossly normal Assessment & Plan Assessment & Plan (1) Atherosclerotic cardiovascular disease: Code(s): I25.10 - Atherosclerotic heart disease of [place] coronary artery without angina pectoris Category: Medical Plan: Cardiac catheterization shows multivessel coronary artery disease. Elevated LVEDP. Patient has been seen by cardiac surgery and deemed to be a poor candidate. Overall, continue medical therapy only. May keep on dual antiplatelet therapy. Continue statins. On a small dose of beta-blockers. No recurrent angina. (2) Non-ST elevation MT (NSTEMI): Code(s): I21.4 - Non-ST elevation (NSTEMI) myocardial infarction Category: Medical Plan: As above. Recommend cardiac rehabilitation. (3) Ischemic cardiomyopathy: Code(s): I25.5 - Ischemic cardiomyopathy Category: Medical Plan: Echocardiogram with LVEF of 37%. Difficult to assess wall motion. Moderate mitral annular calcification with suspected [id number] mitral stenosis. Mild aortic stenosis. Currently on Bumex. Clinically, not much volume overload. Check BMP and cardiac BNP. Meds will need to be optimized. Probably add Entresto and other guideline based medications including spironolactone, Jardiance or Farxiga depending on renal function. (4) Type 2 diabetes mellitus with hyperglycemia: Code(s): E11.65 - Type 2 diabetes mellitus with hyperglycemia Category: Medical Qualifiers: Diabetes mellitus custodial insulin use: with custodial use Qualified Code(s): E11.65 - Type 2 diabetes mellitus with hyperglycemia; Z79.4 - retirement (current) use of insulin Plan: On insulin. Plan Total time spent including review of [facility] records, counseling, documentation, coordination of care-50 minutes. Plan discussed with sister. 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
== END 2024-08-04 15:16 | disposition home or self-care (01) ==
PROVIDERS: PCP Internal Medicine; Visit Provider Internal Medicine
DX: I25.10 Atherosclerotic heart disease of native coronary artery without angina pectoris (principal); I21.4 Non-ST elevation (NSTEMI) myocardial infarction; I25.5 Ischemic cardiomyopathy; E11.65 Type 2 diabetes mellitus with hyperglycemia; Z79.4 Long term (current) use of insulin
CPT/HCPCS: 99215

== ENCOUNTER 2024-08-11 16:23 | Outpatient (REF) | payer MEDICARE, MEDICAID, SELFPAY ==
[2024-08-11 17:32] LABS: Anion Gap 16 (12-20); Blood Urea Nitrogen 39 mg/dL (9-16); Calcium 9.1 mg/dL (8.4-10.2); Carbon Dioxide 26 mmol/L (22-29); Chloride 105 mmol/L (96-108); Estimated Glomerular Filt Rate 22; Glucose Random 95 mg/dL (60-115); Sodium 142 mmol/L (135-145)
== END 2024-08-11 16:24 | disposition home or self-care (01) ==
LOC: HO.LAB 16:23
PROVIDERS: PCP Internal Medicine; Visit Provider Internal Medicine
DX: I50.9 Heart failure, unspecified (principal)
CPT/HCPCS: 36415; 80048

== ENCOUNTER 2024-08-24 09:03 | Outpatient (AMB) | payer MEDICARE, MEDICAID, SELFPAY ==
[2024-08-24 09:05] VITALS: BP 136/60; PULSE 80; O2SAT 98; BMI 43.6
--- NOTE | 2024-08-24 09:05 | MHC.PC.OV ---
Vital Signs 08/24/24 09:05 Height 5 ft 4 in Weight 253 lb 12.033 oz BMI 43.6 BP 136/60 Blood Pressure Location Lt brachial Position Sitting Pulse 80 Pulse Source Pulse Oximeter Pulse Oximetry (%) 98 Oxygen Delivery Method Room Air Intake Visit Reasons[place] [facility] [place] SOB Banana Carrier Required: No Allergies Penicillins Allergy (Unknown, Verified 08/24/24 09:05) hives Medication List - Last Reconciled 08/24/24 by Megan Yanes PA-C aspirin 81 mg PO DAILY atorvastatin 40 mg PO BEDTIME blood pressure monitor (Blood Pressure Kit) As directed bumetanide 1 mg PO BID bupropion HCl SR 150 mg PO BID cholecalciferol (vitamin D3) 50 mcg PO DAILY clopidogrel 75 mg PO DAILY cyanocobalamin (vitamin B-12) 1,000 mcg PO DAILY insulin glargine (Lantus Solostar U-100 Insulin) units subcut insulin lispro (Humalog KwikPen (U-100) Insulin) subcut metformin 1,000 mg PO BID metoprolol succinate ER (Toprol XL) 25 mg PO DAILY [ROLLATOR As directed] sacubitril-valsartan 24-26 mg (Entresto) 1 tab PO BID Tobacco use date assessed: 03/01/24 Fall risk assessment: No Falls in past year Last assessed Fall Risk: 08/24/24 Dental Screening Dental Screen Date: 03/01/[address] [facility] 07/[place] SOB HPI Details 79-year-old female with past medical history of diabetes mellitus, hypertension, generalized anxiety disorder last seen February [address] Yanez coming in for hospital discharge follow up. In review of the notes, patient was seen at [facility] [place] she was initially admitted to [place] for some shortness of breath and jaw pain had elevated troponin suggestive of non ST elevated myocardial infarction an echocardiogram with diminished left ventricular ejection fraction.?She was sent to [facility] where she went through diagnostic catheterization that showed multivessel disease and seen by cardiac surgery but it deemed to be a poor candidate.?She was seen by her press operator assistant 08/04/2024 advised to continue on medical therapy only for multivessel coronary artery disease ordered repeat echo and follow up in October. Patient has VNA come in once weekly and blood pressures at home have been within normal limits. Her blood sugars have also been within normal limits. She is working with physical therapy weekly and is finished with them in September and we will go for cardiac rehab after that. She has no acute concerns today. [facility] Medical History Type 2 diabetes mellitus with hyperglycemia Morbid obesity Hypertension Surgical History S/P NIELS-BSO (total abdominal hysterectomy and bilateral salpingo-oophorectomy) Family History Mother CAD (coronary artery disease) Social History Household Members: None Housing: Apartment Do you presently have visiting nurse or other home services: No Alcohol intake: current Alcohol intake frequency: holidays/special occasions only Patient Tobacco Use Status: Former Tobacco user Tobacco use type: Cigarette e-Cigarette/Vaping Use: Never Used Second Hand Smoke Exposure: No Current occupational status: retired Cognitive needs: No Hearing needs: No Vision needs: Yes Questionnaire Thrive Questionnaire Date Thrive assessed: 03/01/24 AUDIT C Alcohol Use Questionnaire (AUDIT-C) 1. How often do you have a drink containing alcohol?: Monthly or less 2. How many drinks containing alcohol do you have on a typical day when you are drinking?: 1 or 2 3. How often do you have six or more drinks on one occasion?: Never Total Score: 1 TASIA-7 AMB Questionnaire TASIA-7 Date TASIA - 7 assessed: 03/01/24 Source: Developed by Drs. Hoang Marquis, Mariela Navarro, Sammy Merino and colleagues, with an educational lucero from [employer]. Review of Systems Const Denies body aches, Denies chills and Denies fever(s) Eyes Reports no additional complaints ENT Reports no additional complaints Card Denies chest pain, Denies edema, Denies irregular heart rhythm, Denies leg edema, Denies lightheadedness, Denies dyspnea and Denies dyspnea on exertion Resp Denies cough, Denies dyspnea and Denies dyspnea on exertion GI Reports no additional complaints Reports no additional complaints Musc Reports no additional complaints Skin/Breast Reports system reviewed and no additional complaints, except as documented Neuro Reports no additional complaints Physical exam (Primary Care) Vital Signs: Last Vital Signs Pulse 80 08/24/24 09:05 BP 136/60 08/24/24 09:05 Pulse Ox 98 08/24/24 09:05 Oxygen Delivery Method Room Air 08/24/24 09:05 BMI result Body Mass Index 43.6 Tobacco/Smoking Status: Tobacco use Status Tobacco use date assessed 03/01/24 08/24/24 09:07 Patient Tobacco Use Status Former Tobacco user 08/24/24 09:07 Tobacco use type Cigarette 08/24/24 09:07 e-Cigarette/Vaping Use Never Used 08/24/24 09:07 Thrive Assessment: Date of Thrive Assessment Date Thrive assessed 03/01/24 08/24/24 09:07 Const General: cooperative, healthy appearing, comfortable and no acute distress Orientation/consciousness: patient oriented x3 HENMT Head: Yes normocephalic Ears: hearing grossly normal bilaterally General nose exam: Normal external nose present Eyes General: appearance normal, both eyes and all related structures Conjunctivae: conjunctivae normal Neck Neck: Yes full ROM and Yes no lymphadenopathy Resp Effort & Inspection: normal respiratory effort Auscultation: clear to auscultation bilaterally, no crackles, no rales, no rhonchi and no wheezes Cardio Rate: regular rate Rhythm: regular rhythm Peripheral pulses: dorsalis pedis present Skin General skin exam: no rashes or lesions noted Neuro General: patient oriented x3 Gait exam (Neuro): Normal gait present Extrem Other: Bilateral lower extremity with dry skin without evidence of infection General: Yes normal to inspection, Yes full ROM and Yes edema (Nonpitting) Psych Affect: normal affect Attitude: cooperative Insight: Good insight present (Psych) Judgement: Good judgement present (Psych) Results AMB Hemoglobin A1c AMB Hemoglobin A1c 7.0 % Last Edit by PIERCE Miranda on 08/24/24 09:40 Results Reviewed Results Reviewed: Laboratory Last Values Hgb A1c (Clinic) 7.0 % (4.0-6.0) H 08/24/24 09:39 Coding Level of Care Code Est Pt Level 4 (22797) Diagnoses Ischemic cardiomyopathy I25.5 Atherosclerotic cardiovascular disease I25.10 Cardiomyopathy I42.9 CHF (congestive heart failure) I50.9 Non-ST elevation TN (NSTEMI) I21.4 Type 2 diabetes mellitus with hyperglycemia, with long-term current use of insulin E11.65; Z79.4 Diabetes mellitus usp insulin use: with usp use Morbid obesity E66.01 Essential hypertension I10 Hypertension type: essential hypertension Assessment & Plan Assessment & Plan (1) Ischemic cardiomyopathy: Code(s): I25.5 - Ischemic cardiomyopathy Category: Medical Plan: Repeat echocardiogram ordered by Cardiology and follow up with them in 2 months. (2) Atherosclerotic cardiovascular disease: Code(s): I25.10 - Atherosclerotic heart disease of [place] coronary artery without angina pectoris Category: Medical Plan: Tight control of blood pressure, cholesterol, blood sugars. (3) Cardiomyopathy: Code(s): I42.9 - Cardiomyopathy, unspecified Category: Medical Plan: Encouraged tight control of blood pressure, blood sugar, cholesterol. (4) CHF (congestive heart failure): Code(s): I50.9 - Heart failure, unspecified Category: Medical Plan: No symptoms on exam today in bilateral lung sounds are clear. Continue on current medical management and continue to follow with Cardiology. Repeat BNP this week per Cardiology. (5) Non-ST elevation TN (NSTEMI): Code(s): I21.4 - Non-ST elevation (NSTEMI) myocardial infarction Category: Medical Plan: Deemed to be poor surgical candidate and advised medical management by Cardiology. Continue on aspirin, atorvastatin, bumetanide, clopidogrel, metoprolol and Entresto. Continue to follow with Cardiology. Last cholesterol labs [place] [facility] showed triglycerides 58, HDL 47, LDL 49. 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 Although fruits are generally healthy they should be eaten in moderation as they are still high in sugar. Hemoglobin A1c goal of less than 7%. Continue on insulin. A1c 7.0% today. (7) Morbid obesity: Code(s): E66.01 - Morbid (severe) obesity due to excess calories Category: Medical Plan: Healthy diet and regular exercise is encouraged. (8) Hypertension: Code(s): I10 - Essential (primary) hypertension Category: Medical Qualifiers: Hypertension type: essential hypertension Qualified Code(s): I10 - Essential (primary) hypertension Plan: Continue on current blood pressure medication. Avoid salt intake and encourage healthy diet and regular exercise. Plan This note was constructed using voice recognition software. While every effort has been made to ensure accuracy and electrician machine shop, still areas may have been included sometimes these areas may affect the content or meeting of the given symptoms. Total time spent caring for the patient today was 30 minutes. This includes time spent before the visit reviewing the chart, time spent during the visit, and time spent after the visit and documentation. Orders: Orders AMB Hemoglobin A1c Today E11.65 - Type 2 diabetes mellitus with hyperglycemia, Z79.4 - FDC (current) use of insulin Lipid Panel 3 Months Z00.00 - Encounter for general adult medical examination without abnormal findings
== END 2024-08-24 09:55 | disposition home or self-care (01) ==
PROVIDERS: PCP Internal Medicine
DX: I42.9 Cardiomyopathy, unspecified (principal); I50.9 Heart failure, unspecified; I21.4 Non-ST elevation (NSTEMI) myocardial infarction; E11.65 Type 2 diabetes mellitus with hyperglycemia; Z79.4 Long term (current) use of insulin; E66.01 Morbid (severe) obesity due to excess calories; I11.0 Hypertensive heart disease with heart failure; Z68.41 Body mass index [BMI] 40.0-44.9, adult; I25.5 Ischemic cardiomyopathy; I25.10 Atherosclerotic heart disease of native coronary artery without angina pectoris

== ENCOUNTER → 2024-08-24 09:03 | Outpatient (BNVA) | payer MEDICARE, MEDICAID, SELFPAY | PROVIDERS: PCP Internal Medicine | DX: I25.5 Ischemic cardiomyopathy (principal); I25.10 Atherosclerotic heart disease of native coronary artery without angina pectoris; I42.9 Cardiomyopathy, unspecified; I11.0 Hypertensive heart disease with heart failure; I50.9 Heart failure, unspecified; E11.65 Type 2 diabetes mellitus with hyperglycemia; E66.01 Morbid (severe) obesity due to excess calories; Z68.41 Body mass index [BMI] 40.0-44.9, adult; I25.2 Old myocardial infarction; Z79.4 Long term (current) use of insulin; Z79.82 Long term (current) use of aspirin; Z79.899 Other long term (current) drug therapy | CPT/HCPCS: 83036; 99212 ==

== ENCOUNTER 2024-08-27 11:29 | Outpatient (REF) | payer MEDICARE, MEDICAID, SELFPAY ==
[2024-08-27 12:40] LABS: B Type Natriuretic Peptide 932 pg/mL (<100)
[2024-08-27 12:48] LABS: Anion Gap 15 (12-20); Blood Urea Nitrogen 45 mg/dL (9-16); Calcium 9.3 mg/dL (8.4-10.2); Carbon Dioxide 25 mmol/L (22-29); Chloride 104 mmol/L (96-108); Estimated Glomerular Filt Rate 17; Glucose Random 95 mg/dL (60-115); Potassium 5.2 mmol/L (3.3-5.1); Sodium 139 mmol/L (135-145)
== END 2024-08-27 11:30 | disposition home or self-care (01) ==
LOC: HO.LAB 11:29
PROVIDERS: PCP Internal Medicine; Visit Provider Internal Medicine
DX: I42.9 Cardiomyopathy, unspecified (principal); I50.9 Heart failure, unspecified
CPT/HCPCS: 36415; 80048; 83880

== ENCOUNTER → 2024-08-31 12:51 | Outpatient (REF) | payer MEDICARE, MEDICAID, SELFPAY ==
--- NOTE | 2024-08-31 12:56 | CA_ITS ---
Transthoracic Echocardiogram Patient (Last, First, Middle): Samantha Ribeiro, Gender: Female Date of : 1945 Age: 79 Procedure Date: 08/31/2024 Procedure Type: Transthoracic Echocardiogram Location: OP Height: 160. cm Weight: 114. kg BSA: 2.13 m2 Heart Rate: 72 bpm BP: 110 / 45 mmHg Hand Dry Cleaner: TONE Referring MD: Brandon Del Toro MD Symptoms: I25.5 - Ischemic cardiomyopathy Study Quality: Fair w/Contrast ECG Rhythm: Sinus Conclusions: - The left ventricular systolic function is moderately decreased. The calculated ejection fraction is 30% by biplane method. - The inferolateral wall is hypokinetic. The apex segment is akinetic. - There is mild aortic valve stenosis. - There is moderate mitral annular calcification. Findings Procedure Information Contrast agent, definity, is being given per protocol without apparent complications. Left Ventricle Normal left ventricular cavity size. The left ventricular systolic function is moderately decreased. The calculated ejection fraction is 30% by biplane method. There is mild septal asymmetric hypertrophy. Wall motion assessment suboptimal. Wall Motion Rest Echo Findings The inferolateral wall is hypokinetic. The apex segment is akinetic. Right Ventricle Mildly increased right ventricular cavity size. There is low normal right ventricular systolic function. Atria The left atrium is mildly dilated. The right atrium is normal in size. Aortic Valve There is mild calcification of the aortic valve. There is mild aortic valve stenosis. There is no aortic valve regurgitation. Mitral Valve There is moderate mitral annular calcification. There is no mitral valve regurgitation. Cannot exclude [id number]-ib-vnyarpbq mitral stenosis. Pulmonic Valve The pulmonic valve is likely normal. Tricuspid Valve There is trace tricuspid valve regurgitation. There is no evidence of pulmonary hypertension. Great Vessels The asc aorta and aortic arch are normal in size. Venous The inferior vena cava is normal in size and collapses less than 50% with inspiration. Pericardium/Pleural There is no evidence of pericardial effusion. Prior Study Comparison No significant change compared to prior study dated: 07/08/2024. Measurements 2D Linear Measurements IVSd: 1.12 0.6-0.9/0.6-1.0 cm LVIDd: 4.52 3.9-5.3/4.2-5.9 cm LVIDd Index: 2.12 2.4-3.2/2.2-3.1 cm/m2 LVIDs: 2.99 2.0-3.6 cm LVPWd: 0.84 0.7-1.1 cm LA Diam: 4.60 2.7-3.8/3.0-4.0 cm LAIDs Index: 2.16 1.5-2.3 cm/m2 LV Mass: 187.20 67-162/88-224 g LV Mass Index: 87.89 43-95/49-115 g/m2 LVOT Diam: 2.00 3.0+(-)1.3 cm 2D Systolic Function EF 4C: 32.20 >55% EF 2C: 24.70 >55% EF BiP: 30.00 >55% Mitral Valve MV VTI: 0.37 MV Pk Sudheer: 1.52 MV Mn Sudheer: 0.83 MV Pk Grad: 9.00 MV Mn Grad: 3.00 MV Pk E: 1.16 MV PK A: 1.35 MV Decel Time: 151.00 E/A: 0.90 E'Lateral: 9.46 E'Medial: 4.03 E/E' Med: 28.80 E/E' Lat: 12.30 PHT: 44.00 MVA PHT: 5.00 MVA Continuity: 1.76 Decel Greer: 7.64 Aortic Valve AoV Pk Sudheer: 1.96 AoV Mn Sudheer: 1.43 AoV VTI: 0.45 AoV Pk Grad: 15.00 Aov Mn Grad: 9.00 SANG Cont.VTI: 1.43 LVOT LVOT Pk Sudheer: 0.91 LVOT Mn Sudheer: 0.65 LVOT VTI: 0.21 LVOT Pk Grad: 3.00 LVOT Mn Grad: 2.00 LVOT Diam: 2.00 LVOT Area: 3.14 Diastolic Function MV Pk E: 1.16 MV Pk A: 1.35 E/A: 0.90 E'Medial: 4.03 E/E' Med: 28.80 E' Laterial: 9.46 E/E' Lat: 12.30 Right Ventricle TAPSE (mm): 17.30 TVS' Sudheer: 10.00 Tricuspid Valve TR Pk Sudheer: 1.49 TR Pk Grad: 9.00 RA Press: 8.00 RVSP: 17.00 Great Vessels Aorta Sinus of Valsalva: 3.10 2.0-3.5 cm Ao Asc: 3.30 2.1-3.4 cm Ao Arch: 3.10 Pulmonary Valve PV Pk Sudheer: 0.95 Peak PV Grad: 4.00 Updated in Other Vendor System with Status of Final Brandon Del Toro MD electronically signed on 09/02/2024 11:33:56 AM with status of Final
== END ==
LOC: HO.CARD 12:51
PROVIDERS: PCP Internal Medicine; Visit Provider Internal Medicine
DX: I25.5 Ischemic cardiomyopathy (principal)
CPT/HCPCS: 93306; Q9957

== ENCOUNTER → 2024-08-31 12:56 | Outpatient (BNV) | payer MEDICARE, MEDICAID, SELFPAY | PROVIDERS: PCP Internal Medicine; Visit Provider Internal Medicine | DX: I25.5 Ischemic cardiomyopathy (principal); I35.0 Nonrheumatic aortic (valve) stenosis; I35.8 Other nonrheumatic aortic valve disorders; I34.81 Nonrheumatic mitral (valve) annulus calcification | CPT/HCPCS: 93306 ==

== ENCOUNTER 2024-09-13 16:29 | Outpatient (REF) | payer MEDICARE, MEDICAID, SELFPAY ==
[2024-09-13 17:35] LABS: Anion Gap 14 (12-20); Blood Urea Nitrogen 28 mg/dL (9-16); Calcium 9.5 mg/dL (8.4-10.2); Carbon Dioxide 23 mmol/L (22-29); Chloride 108 mmol/L (96-108); Estimated Glomerular Filt Rate 36; Glucose Random 131 mg/dL (60-115); Potassium 5.1 mmol/L (3.3-5.1); Sodium 140 mmol/L (135-145)
[2024-09-13 17:39] LABS: B Type Natriuretic Peptide 1672 pg/mL (<100)
== END 2024-09-13 16:30 | disposition home or self-care (01) ==
LOC: HO.LAB 16:29
PROVIDERS: PCP Internal Medicine; Visit Provider Internal Medicine
DX: Z13.89 Encounter for screening for other disorder (principal)
CPT/HCPCS: 36415; 80048; 83880

== ENCOUNTER 2024-09-13 20:03 | Emergency (ER) | payer MEDICARE, MEDICAID, SELFPAY ==
[2024-09-13] VITALS (7 sets, daily range): BP systolic 104–138; BP diastolic 47–82; PULSE 77–88; RESP 14–22; TEMP 36.6–39.2; O2SAT 96; BMI 45.7
--- NOTE | 2024-09-13 | ECG_ITS ---
Test Reason : weakness Blood Pressure : / mmHG Vent. Rate : 084 BPM Atrial Rate : 084 BPM P-R Int : 356 ms QRS Dur : 124 ms QT Int : 338 ms P-R-T Axes : 080 116 019 degrees QTc Int : 399 ms Sinus rhythm with 1st degree A-V block Right bundle branch block Left posterior fascicular block Bifascicular block Possible Inferior infarct (cited on or before 08-JUL-2024) Abnormal ECG When compared with ECG of 08-JUL-2024 15:18, Nonspecific T wave abnormality no longer evident in Lateral leads Referred By: Generic ED Physician Electronically Signed By:Eladio Sher
--- NOTE | ~2024-09-13 | XR_ITS ---
EXAMINATION: XR CHEST CLINICAL INFORMATION: Cough, shortness of breath, fever. COMPARISON: Chest radiograph and CTA chest 07/08/2024. TECHNIQUE: Frontal view of the chest was obtained. FINDINGS: Stable enlargement of the cardiomediastinal silhouette. Low lung volumes. Increased diffuse peribronchial thickening. No dense consolidation. No pleural effusion. No pneumothorax. No acute osseous findings. XR/XR chest 1V IMPRESSION: 1. Increased peribronchial thickening which could be seen with asthma, bronchitis, reactive airways disease or atypical viral infections. 2. No dense consolidation. Electronically signed by: Roselyn Horner MD 09/13/2024 10:55 PM [facility] [place]
--- NOTE | 2024-09-13 20:46 | ED.GENADULT ---
HPI - General Adult General Chief complaint: General Medical Stated complaint: shoulder pain Time Seen by Provider: 09/13/24 20:46 Source: patient and EMS Mode of arrival: EMS Limitations: no limitations History of Present Illness HPI narrative: Patient is a 79-year-old female who presents emergency department for evaluation of left shoulder and left jaw pain as well as nausea which she felt was similar to her prior visit to ED (when she had NSTEMI). Onset of symptoms was earlier today. It is difficult to obtain a clear history of events from her on when this pain started. She denies anterior chest pain shortness of breath. She denies recently feeling ill. However at the time my evaluation she is noted to be coughing extensively with copious amounts of thick sputum. When asked when she started coughing she said as soon as I got here . She goes on to tell me that she received a call from her sister today with whom she spent the weekend with and that she has tested positive for COVID-19 as well as strep throat. She denies having any known fevers. She appears very anxious and tremulous. Denies chills, headache, dizziness, lightheadedness, neck pain, neck stiffness, sore throat, nasal congestion, cough, shortness of breath, chest pain, nausea, vomiting, abdominal pain, genitourinary symptoms, diarrhea, constipation, rashes, lesions Related Data Home Medications ?Medication ?Instructions ?Recorded ?Confirmed cyanocobalamin (vitamin B-12) 1,000 mcg PO DAILY 03/05/21 08/24/24 1,000 mcg capsule cholecalciferol (vitamin D3) 50 50 mcg PO DAILY 07/08/24 08/24/24 mcg (2,000 unit) tablet aspirin 81 mg tablet,delayed 81 mg PO DAILY 08/04/24 08/24/24 release clopidogrel 75 mg tablet 75 mg PO DAILY 08/04/24 08/24/24 metoprolol succinate 25 mg 25 mg PO DAILY 08/04/24 08/24/24 tablet,extended release 24 hr (Toprol XL) insulin glargine 100 unit/mL (3 unit subcut 08/24/24 08/24/24 mL) subcutaneous pen (Lantus Solostar U-100 Insulin) insulin lispro 100 unit/mL subcut 08/24/24 08/24/24 subcutaneous pen (Humalog KwikPen (U-100) Insulin) bumetanide 1 mg tablet 1 mg PO DAILY 09/14/24 Previous Rx's ?Medication ?Instructions ?Recorded bupropion HCl 150 mg tablet,12 hr 150 mg PO BID #180 caps 01/28/24 sustained-release ROLLATOR #1 ea 03/01/24 blood pressure monitor (Blood #1 ea 03/01/24 Pressure Kit) atorvastatin 40 mg tablet 40 mg PO BEDTIME #0 tabs 07/08/24 Allergies Allergy/AdvReac Type Severity Reaction Status Date / Time Penicillins Allergy Unknown hives Verified 09/13/24 20:15 Review of Systems Review of Systems: Yes all other systems are reviewed and are negative PMFSH Past Medical History Attestation statement: The following information was validated with the patient. Source: old records reviewed Medical History Type 2 diabetes mellitus with hyperglycemia Morbid obesity Hypertension Surgical History S/P [id number] (total abdominal hysterectomy and bilateral salpingo-oophorectomy) Family History Family History Mother CAD (coronary artery disease) Social History Social History Household Members: None Housing: Apartment Do you presently have visiting nurse or other home services: No Alcohol intake: current Alcohol intake frequency: holidays/special occasions only Patient Tobacco Use Status: Former Tobacco user Tobacco use type: Cigarette Smoked in Last 30 Days: No e-Cigarette/Vaping Use: Never Used Second Hand Smoke Exposure: No Use of substances other than those prescribed or required for medical reasons: No Advance Directives: No Advance Directives Information Provided: No Do you have a plan to hurt others: No Plan Current occupational status: retired Cognitive needs: No Hearing needs: No Vision needs: Yes Physical Exam ED Vital Signs: Vital Signs - 24 hr 09/13/24 20:12 09/13/24 20:38 09/13/24 21:18 Temperature 97.8 F 101.7 F H 102.6 F H Pulse Rate 85 88 Respiratory Rate 16 16 Blood Pressure 138/57 L 129/54 L Pulse Oximetry 96 96 Oxygen Delivery Method Room Air Room Air 09/13/24 21:56 09/13/24 23:27 09/13/24 23:43 Temperature 101.8 F H 99.9 F Pulse Rate 82 77 77 Respiratory Rate 22 H 15 14 Blood Pressure 113/50 L 114/51 L 104/47 L Pulse Oximetry 96 96 96 Oxygen Delivery Method Room Air Room Air Room Air 09/14/24 00:54 09/14/24 03:43 Temperature 98.9 F Pulse Rate 72 Respiratory Rate 18 Blood Pressure 136/63 129/54 L Pulse Oximetry 97 Oxygen Delivery Method Room Air BMI result Body Mass Index 45.7 Appearance: Alert.?Oriented to person, place and time. No acute distress.?Normal affect. Eyes: Pupils equal, round and reactive to light.? Conjunctiva within normal range. ENT: Pharynx is erythematous without hypertrophy. Uvula midline. No trismus. No drooling. TM normal bilaterally. No mastoid tenderness. ? Neck: Normal inspection.? Neck supple.??No cervical adenopathy CVS: Heart sounds normal. Normal heart rate and rhythm.? Pulses normal.?? Respiratory: No respiratory distress.? Lung sounds clear at the apices bilaterally, fine rales at the bilateral bases bilaterally. As an audibly congested cough with thick clear sputum. ? Abdomen: Soft and non-tender. Normoactive bowel sounds. No CVAT. No pulsatile mass.?? Skin: Skin warm and dry.? Normal skin color.? ? Extremities: 1+ pitting lower extremity edema to the proximal calves, chronic venous stasis to the lower extremities, poorly maintained toenails significant overgrowth, multiple calluses to the bilateral feet..? No calf ttp? Neuro: Moves all extremities spontaneously. Sensation intact bilaterally. No focal neuro deficits. Course Reevaluation(s) Reevaluation #1: Reports resolution and shoulder and jaw/neck pain. CBC reveals leukocytosis with left shift, mild anemia, no thrombocytopenia. Elevated BNP 1425 though clinically she does not appear significantly volume overloaded, elevated troponin at 52.4 though this is significantly downtrending from her NSTEMI in July, obtaining delta troponin. Viral serologies strep a testing are negative. CXR with peribronchial thickening, may be atypical viral infection versus bronchitis. She is adamant that she has not had any issues with cough congestion as this was the first occurrence. Nursing staff have advised me at this time that the chemistries are not being processed by the lab, there is some concern for an accuracy, phlebotomy is being called, they will obtain delta troponin as well. I am contacting the lab myself to see if there is any specific concern for a vast abnormality on the chemistries that prompted this concern. Time: 23:10 Reevaluation #2: I spoke with the animal laboratory technician, she advises that the 1st specimen that was sent down appeared hemolyzed, the potassium was reading at 6.3 thus she called for recall to assure its accuracy. On the redraw the sodium and chloride were reading abnormally high and the potassium low at this point at 2.2, additionally magnesium and chloride were low thus prompting her concern that this was not an adequate draw. Time: 23:25 Reevaluation #3: Delta troponin is flat. No significant electrolyte derangement. No ABRAM. No lactic acidosis. Now that patient's temperature has decreased she is much more coherent. She states that she had her blood work drawn today, she felt as though her arm was in a bad position for some time and she noticed when she returned home that she was having pain in her left shoulder but she also felt the pain in her jaw. She decided to take a nap, she spoke with her sister later on who advised that they should come to the emergency department. 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 due to worsening kidney function, she also stopped taking metformin, and the heart med ?enresto. She states that she has noticed a 5 lb weight increase over the past week as well as increased swelling to her thighs. Last PCP visit was 08/24/2024 at that time continued on all of the above-mentioned medications. Is unclear when these were stopped. She had elevation in her creatinine on 08/27/2024 up to 2.7, I presume this would likely have been the time they were discontinued Time: 00:49 Additional Reevaluation(s): Discussed with patient my concern for who presenting fever today of unclear etiology, discussed possible early upper respiratory infection especially given her exposure to her sister who was COVID and strep positive. She adamantly denies any symptoms, though we did discuss that she may be asymptomatic at this age and she was amenable to providing a urine sample. She denies any shortness of breath or dyspnea on exertion. She has been able to get up and downstairs to her home without difficulty. However, her BNP has been elevated in comparison to her recent levels, she does not wish to be admitted into the hospital. She reports that she has a visiting nurse coming into the home who closely coordinates her care with the telephone sales representative office/PCP. She would like to be discharged home and plans to contact Cardiology first thing in the morning. I expressed my concerns and that she should be admitted into the hospital, however she adamantly refuses this, we discussed leaving against medical advice potential her condition to progressively worsen which may be life-threatening and she verbalized understanding of this. Medications Administered Discontinued Medications Generic Name Dose Route Start Last Admin Trade Name Freq PRN Reason Stop Dose Admin Acetaminophen 975 mg 09/13/24 20:55 09/13/24 21:00 Acetaminophen 325 Mg Tablet PO 09/13/24 20:56 975 mg ONCE ONE Administration Bumetanide 1 mg 09/13/24 23:31 09/14/24 00:54 Bumetanide 1 Mg/4 Ml Vial IVPUSH 09/13/24 23:32 1 mg ONCE ONE Administration Protocol Ceftriaxone Sodium 1 gm 09/13/24 20:56 09/13/24 21:04 Ceftriaxone Sodium 1 Gm Vial IVPUSH 09/13/24 20:57 1 gm ONCE ONE Administration Sodium Chloride 250 mls @ 250 mls/hr 09/13/24 21:30 09/13/24 23:22 Ns IV 09/13/24 22:29 Infused .Q1H PAKO Infusion Medical Decision Making Medical Decision Making [facility] Narrative: Patient is a 79-year-old female with past medical history of insulin-dependent type 2 diabetes with neuropathy, hypertension, osteoarthritis, anxiety, NSTEMI recent echocardiogram LVEF 37% with mild aortic stenosis and [id number] mitral stenosis, recent cardiac catheterization 2 months ago showing multivessel disease but not deemed a candidate for cardiac surgery, she is on Bumex and dual antiplatelet therapy, statin, low-dose beta-charlene. She presents emergency department with reports of left shoulder and left jaw pain without associated chest pain and shortness of breath. Given her initial report of left further and jaw pain, plan to obtain an EKG and troponin to exclude ischemia, ACS, arrhythmia. Noted to be febrile, without tachycardia, hypotension, hypoxia, or tachypnea setting of a recent COVID-19 and strep a exposure, sepsis alert was called; blood cultures x2, lactic acid, sepsis fluid bolus ordered for a total of 250 mL, given her degree of underlying cardiac disease with EF of 37%, I have ordered a total of 250 mL, in addition Will obtain CBC to evaluate for leukocytosis/ anemia, CMP and lipase to evaluate for abnormal electrolytes /abnormal renal function/ abnormal hepatic/biliary function, Chest x-ray to evaluate for consolidation/ infiltrate/ mass/ pulmonary congestion, viral serologies; COVID/influenza/RSV, and Urinalysis. No nuchal rigidity/meningismus to suggest meningitis. 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 No evidence of otitis media. No skin rashes or lesions to suggest cellulitis, abscess, or necrotizing fasciitis. Abdominal examination is benign, low suspicion for appendicitis, cholecystitis, diverticulitis, pyelonephritis. Differential Diagnosis Differential Diagnoses: The differential diagnosis associated with the presentation includes (See narrative above) Admission/Observation Consideration of admission/observation: Escalation of care including admission/observation considered (See narrative above and course narrative for further detail) Lab Data MDM Lab Attestation statement: I reviewed the patient's lab results. (See course narrative) 09/13/24 20:46 09/13/24 23:40 Labs: Lab Results 09/13/24 09/13/24 09/13/24 Range/Units 20:40 20:45 20:46 WBC 12.4 H (4.8-10.8) X10*3/uL RBC 4.18 L (4.20-5.50) X10*6/uL Hgb 11.6 L (12.0-16.0) g/dl Hct 38.5 (37.0-47.0) % MCV 92.1 (80.0-98.0) fL MCH 27.8 (27.0-33.0) pg MCHC 30.1 L (31.0-35.0) g/dl RDW 15.3 (11.0-16.0) % Plt Count 205 (160-400) X10*3/uL MPV 9.8 (9.4-12.3) fL Immature Gran % (Auto) 0.5 H (0.0-0.4) % Neut % (Auto) 84.4 H (45-73) % Lymph % (Auto) 8.2 L (20-40) % [place] % (Auto) 5.5 (2-11) % Eos % (Auto) 1.2 (0-4) % Baso % (Auto) 0.2 (0-2) % Lymph # (Auto) 1.0 L (1.2-4.9) X10*3/uL [place] # (Auto) 0.7 (0.1-1.2) X10*3/uL Eos # (Auto) 0.2 (0.0-0.4) X10*3/uL Baso # (Auto) 0.0 (0.0-0.2) X10*3/uL Abs Immat Gran (auto) 0.06 H (0.00-0.03) X10*3/uL Absolute Neuts (auto) 10.5 H (2.0-8.3) x10*3/uL Absolute Nucleated RBC 0.000 (0.0-0.012) X10*3/uL Nucleated RBC % (auto) 0.0 (0.0-0.2) /100WBC PT 11.9 (10.9-12.4) SEC INR 1.0 (0.9-1.1) Sodium (135-145) mmol/L Potassium (3.3-5.1) mmol/L Chloride (96-108) mmol/L Carbon Dioxide (22-29) mmol/L Anion Gap (12-20) BUN (9-16) mg/dL Creatinine (0.5-1.4) mg/dL Estim Creat Clear Calc Estimated GFR Random Glucose (60-115) mg/dL Lactic Acid 1.7 (0.5-2.0) mmol/L Calcium (8.4-10.2) mg/dL Magnesium (1.6-2.6) mg/dL Total Bilirubin (0.0-1.0) mg/dL AST (5-31) U/L ALT (0-31) U/L Alkaline Phosphatase (39-117) U/L Troponin I High Sens 52.4 H* D (<3.5-17.0) ng/L B-Natriuretic Peptide 1425 H (<100) pg/mL Total Protein (6.5-8.0) g/dL Albumin (3.5-5.0) g/dL Urine Color Urine Appearance Urine pH (5.0-9.0) Ur Specific [place] (1.005-1.025) Urine Protein (Neg-Trace) mg/dL Urine Glucose (UA) (Negative) mg/dL Urine Ketones (Negative) mg/dL Urine Blood (Negative) Urine Nitrite (Negative) Ur Leukocyte Esterase (Negative) Urine RBC (0-2) /HPF Urine WBC (0-5) /HPF Ur Squamous Epith Cells (0-2) /HPF Urine Bacteria (None Seen) Hyaline Casts (0-2) /LPF Influenza Type A (PCR) NEGATIVE (Negative) Influenza Type B (PCR) NEGATIVE (Negative) RSV RNA Qual (PCR) NEGATIVE (Negative) SARS-CoV-2 RNA (RT-PCR) NEGATIVE (Negative) S. pyogenes GrpA KRISTINE (Negative) 09/13/24 09/13/24 09/14/24 Range/Units 21:00 23:40 02:28 WBC (4.8-10.8) X10*3/uL RBC (4.20-5.50) X10*6/uL Hgb (12.0-16.0) g/dl Hct (37.0-47.0) % MCV (80.0-98.0) fL MCH (27.0-33.0) pg MCHC (31.0-35.0) g/dl RDW (11.0-16.0) % Plt Count (160-400) X10*3/uL MPV (9.4-12.3) fL Immature Gran % (Auto) (0.0-0.4) % Neut % (Auto) (45-73) % Lymph % (Auto) (20-40) % [place] % (Auto) (2-11) % Eos % (Auto) (0-4) % Baso % (Auto) (0-2) % Lymph # (Auto) (1.2-4.9) X10*3/uL [place] # (Auto) (0.1-1.2) X10*3/uL Eos # (Auto) (0.0-0.4) X10*3/uL Baso # (Auto) (0.0-0.2) X10*3/uL Abs Immat Gran (auto) (0.00-0.03) X10*3/uL Absolute Neuts (auto) (2.0-8.3) x10*3/uL Absolute Nucleated RBC (0.0-0.012) X10*3/uL Nucleated RBC % (auto) (0.0-0.2) /100WBC PT (10.9-12.4) SEC INR (0.9-1.1) Sodium 139 (135-145) mmol/L Potassium 4.9 (3.3-5.1) mmol/L Chloride 109 H (96-108) mmol/L Carbon Dioxide 18 L (22-29) mmol/L Anion Gap 16 (12-20) BUN 28 H (9-16) mg/dL Creatinine 1.30 (0.5-1.4) mg/dL Estim Creat Clear Calc 46.3 Estimated GFR 40 Random Glucose 122 H (60-115) mg/dL Lactic Acid (0.5-2.0) mmol/L Calcium 9.2 (8.4-10.2) mg/dL Magnesium 2.0 (1.6-2.6) mg/dL Total Bilirubin 0.7 (0.0-1.0) mg/dL AST 21 (5-31) U/L ALT 12 (0-31) U/L Alkaline Phosphatase 120 H (39-117) U/L Troponin I High Sens 53.7 H* (<3.5-17.0) ng/L B-Natriuretic Peptide (<100) pg/mL Total Protein 6.7 (6.5-8.0) g/dL Albumin 3.9 (3.5-5.0) g/dL Urine Color Yellow Urine Appearance Clear Urine pH 5.5 (5.0-9.0) Ur Specific [place] 1.010 (1.005-1.025) Urine Protein Negative (Neg-Trace) mg/dL Urine Glucose (UA) Negative (Negative) mg/dL Urine Ketones Negative (Negative) mg/dL Urine Blood Negative (Negative) Urine Nitrite Negative (Negative) Ur Leukocyte Esterase Trace H (Negative) Urine RBC 0-2 (0-2) /HPF Urine WBC 0-5 (0-5) /HPF Ur Squamous Epith Cells 6-10 (0-2) /HPF Urine Bacteria 1+ (None Seen) Hyaline Casts 3-5 (0-2) /LPF Influenza Type A (PCR) (Negative) Influenza Type B (PCR) (Negative) RSV RNA Qual (PCR) (Negative) SARS-CoV-2 RNA (RT-PCR) (Negative) S. pyogenes GrpA KRISTINE Negative (Negative) Independent Interpretation I performed an independent interpretation of an: EKG and Plain X-Ray (CXR with right lower lobe infiltrate) Interpretation: EKG revealing sinus rhythm with first-degree AV block, bifascicular block, ventricular rate of 84, QTC [address] elevation/ST depression. Radiology Impression Discussion of test interpretation with radiology: I have reviewed the radiologist's reading. Radiologist Impression: FINDINGS: Stable enlargement of the cardiomediastinal silhouette. Low lung volumes. Increased diffuse peribronchial thickening. No dense consolidation. No pleural effusion. No pneumothorax. No acute osseous findings. XR/XR chest 1V IMPRESSION: 1. Increased peribronchial thickening which could be seen with asthma, bronchitis, reactive airways disease or atypical viral infections. 2. No dense consolidation. Discharge Plan Discharge Clinical Impression: CHF (congestive heart failure), Fever Patient Disposition: Left Against Medical Advice Instructions: Fever in Adults (ED), Against Medical Advice (ED) Additional Instructions: As discussed, your kidney function has improved, your BNP, a marker that can indicate degree of heart failure has continued to trend upward which is concerning when coupled with your recent weight gain. You received a dosage of Bumex in the emergency department. We discussed next steps of care including recommendation admission to the hospital for diuresis (removal of excess fluid from the body) but you have elected to go home, he will be leaving against medical advice Your cardiac enzymes, your troponin are slightly elevated but this is come down significantly when compared to your prior levels and July. You were found to have a fever during your time at the emergency department. The exact source of this fever is unclear at this time. You did state that your sister has been recently diagnosed with COVID-19 and strep throat, your testing for full today were negative, chest x-ray is concerning that you may have early signs of a viral type infection you have denied having any symptoms. urine no infection Prescriptions: No Action bupropion HCl 150 mg tablet sustained-release 12 hr 150 mg PO BID Qty: 180 2RF bumetanide 1 mg tablet 1 mg PO DAILY cholecalciferol (vitamin D3) 50 mcg (2,000 unit) tablet 50 mcg PO DAILY atorvastatin 40 mg Tablet 40 mg PO BEDTIME Qty: 0 0RF cyanocobalamin (vitamin B-12) 1,000 mcg capsule 1,000 mcg PO DAILY (DME) ROLLATOR See Rx Instructions .Route .MEDSUPPLY Qty: 1 0RF Rx Instructions: As directed (DME) blood pressure monitor [Blood Pressure Kit] Kit See Rx Instructions .ROUTE .MEDSUPPLY Qty: 1 0RF Rx Instructions: As directed clopidogrel 75 mg tablet 75 mg PO DAILY aspirin 81 mg tablet,delayed release (DR/EC) 81 mg PO DAILY metoprolol succinate [Toprol XL] 25 mg tablet extended release 24 hr 25 mg PO DAILY insulin glargine [Lantus Solostar U-100 Insulin] 100 unit/mL (3 mL) insulin pen subcut insulin lispro [Humalog KwikPen Insulin] 100 unit/mL insulin pen subcut Referrals: Po,Ja Nicole MD [Primary Care Provider] - Stand Alone Forms: Against Medical Advice Discharge Date/Time: 09/14/24 04:30 Print Language: Portuguese
[2024-09-13 20:57] LABS: MANUAL DIFF FLAG NO
[2024-09-13 20:59] LABS: Basophils Percent Auto 0.2 % (0-2); Eosinophils Absolute Auto 0.2 X10*3/uL (0.0-0.4); Eosinophils Percent Auto 1.2 % (0-4); Hematocrit 38.5 % (37.0-47.0); Hemoglobin 11.6 g/dl (12.0-16.0); Imm Gran Abs Auto 0.06 X10*3/uL (0.00-0.03); Imm Gran Pct Auto 0.5 % (0.0-0.4); Lymphocytes Percent Auto 8.2 % (20-40); Mean Corpuscular HGB Conc 30.1 g/dl (31.0-35.0); Mean Corpuscular Hemoglobin 27.8 pg (27.0-33.0); Mean Corpuscular Volume 92.1 fL (80.0-98.0); Mean Platelet Volume 9.8 fL (9.4-12.3); Monocytes Absolute Auto 0.7 X10*3/uL (0.1-1.2); Monocytes Percent Auto 5.5 % (2-11); Neutrophils Absolute Auto 10.5 x10*3/uL (2.0-8.3); Neutrophils Percent Auto 84.4 % (45-73); Platelet Count 205 X10*3/uL (160-400); Red Blood Count 4.18 X10*6/uL (4.20-5.50); Red Cell Distribution Width 15.3 % (11.0-16.0); White Blood Count 12.4 X10*3/uL (4.8-10.8)
[2024-09-13] MEDS: Acetaminophen 325 MG TABLET 975 MG PO (21:00)
[2024-09-13] MEDS: cefTRIAXone sodium 1 GM VIAL IVPUSH (21:04)
[2024-09-13 21:10] LABS: Prothrombin Time 11.9 SEC (10.9-12.4)
[2024-09-13 21:11] LABS: IDNOW Serial# 08D9AD1C
[2024-09-13 21:12] LABS: Strep A Nucleic Acid Negative (Negative)
[2024-09-13 21:15] LABS: Lactic Acid 1.7 mmol/L (0.5-2.0)
[2024-09-13 21:22] LABS: B Type Natriuretic Peptide 1425 pg/mL (<100)
[2024-09-13 21:25] LABS: Influenza A PCR NEGATIVE (Negative); Influenza B PCR NEGATIVE (Negative); Resp Syncy Virus RNA Qual PCR NEGATIVE (Negative); SARS COV2 PCR INHOUSE NEGATIVE (Negative)
[2024-09-13 21:28] LABS: Troponin-I High Sensitivity 52.4 ng/L (<3.5-17.0)
[2024-09-13] MEDS: 0.9 % Sodium Chloride 250 ML IV (21:32)
--- NOTE | 2024-09-13 21:32 | PC.NURSE ---
UNABLE TO SCAN 250 CC BOLUS, BOLUS RUNNING
--- NOTE | 2024-09-13 22:26 | PC.NURSE ---
Received a call from the lab, Mariam, questioning whether the lab was drawn from an IV line. Assured Mariam that they had not been drawn off a line. Explained to Mariam that patient is difficult stick, took 3 people to hold patient's arm to get decent blood flow. Mariam does not believe that the CMP was not drawn from an existing line due to the fact that some lab values are high and some lab values are critically low, states this needs to be a recollect. This will now be > 5 sticks for labs. hosiery materMERRY Dalton made aware, another EDT will attempt to draw the patient.
[2024-09-14 00:06] LABS: Alanine Aminotransferase 12 U/L (0-31); Albumin Level 3.9 g/dL (3.5-5.0); Alkaline Phosphatase 120 U/L (39-117); Anion Gap 16 (12-20); Aspartate Amino Transferase 21 U/L (5-31); Bilirubin Total 0.7 mg/dL (0.0-1.0); Blood Urea Nitrogen 28 mg/dL (9-16); Calcium 9.2 mg/dL (8.4-10.2); Carbon Dioxide 18 mmol/L (22-29); Chloride 109 mmol/L (96-108); Creatinine Clr Calc Pharmacy 46.3; Estimated Glomerular Filt Rate 40; Glucose Random 122 mg/dL (60-115); Potassium 4.9 mmol/L (3.3-5.1); Sodium 139 mmol/L (135-145); Total Protein 6.7 g/dL (6.5-8.0)
[2024-09-14 00:22] LABS: Troponin-I High Sensitivity 53.7 ng/L (<3.5-17.0)
[2024-09-14 00:54] VITALS: BP 136/63
[2024-09-14] MEDS: Bumetanide 1 MG/4 ML VIAL IVPUSH (00:54)
[2024-09-14 02:48] LABS: Appearance Urine Clear; Color Urine Yellow; Glucose Urine UA Negative (Negative); Leukocyte Esterase Urine Trace (Negative); Nitrite Urine Negative (Negative); PH 5.5 (5.0-9.0); UMIC TRIGGER UACC YES; Urine Blood Negative (Negative); Urine Ketones Negative (Negative); Urine Protein Negative (Neg-Trace)
[2024-09-14 03:14] LABS: Bacteria Urine 1+ (None Seen); RBC Urine 0-2 /HPF (0-2); WBC Urine 0-5 /HPF (0-5)
[2024-09-14 03:43] VITALS: BP 129/54; PULSE 72; RESP 18; TEMP 37.2; O2SAT 97
== END 2024-09-14 04:30 | disposition left against medical advice (07) ==
PROVIDERS: Nurse Practitioner Family; Emergency Provider Emergency Medicine; PCP Internal Medicine
DX: I50.9 Heart failure, unspecified (principal); R50.9 Fever, unspecified; M25.512 Pain in left shoulder; R06.02 Shortness of breath; R11.0 Nausea; I45.10 Unspecified right bundle-branch block; I44.0 Atrioventricular block, first degree; R68.84 Jaw pain; Z03.818 Encounter for observation for suspected exposure to other biological agents ruled out; Z79.899 Other long term (current) drug therapy
CPT/HCPCS: 0241U; 36415; 71045; 80048; 80053; 81001; 83605; 83735; 83880; 84484; 85025; 85610; 87040; 87651; 93005; 96361; 96374; 96375; 99284; 99285; J0696; J1939

== ENCOUNTER → 2024-09-13 20:19 | Outpatient (BNV) | payer MEDICARE, MEDICAID, SELFPAY | PROVIDERS: Emergency Provider Emergency Medicine; PCP Internal Medicine; Visit Provider Internal Medicine Cardiovascular Disease | DX: R94.31 Abnormal electrocardiogram [ECG] [EKG] (principal) | CPT/HCPCS: 93010 ==

== ENCOUNTER 2024-10-04 11:52 | Outpatient (REF) | payer MEDICARE, MEDICAID, SELFPAY ==
[2024-10-04 14:32] LABS: Anion Gap 11 (12-20); Blood Urea Nitrogen 30 mg/dL (9-16); Calcium 9.6 mg/dL (8.4-10.2); Carbon Dioxide 31 mmol/L (22-29); Chloride 102 mmol/L (96-108); Estimated Glomerular Filt Rate 25; Glucose Random 184 mg/dL (60-115); Potassium 4.1 mmol/L (3.3-5.1); Sodium 140 mmol/L (135-145)
[2024-10-04 14:38] LABS: B Type Natriuretic Peptide 1692 pg/mL (<100)
== END 2024-10-04 11:53 | disposition home or self-care (01) ==
LOC: HO.LAB 11:52
PROVIDERS: PCP Internal Medicine; Visit Provider Internal Medicine
DX: I50.9 Heart failure, unspecified (principal); N17.9 Acute kidney failure, unspecified
CPT/HCPCS: 36415; 80048; 83880

== ENCOUNTER 2024-10-07 13:44 | Outpatient (AMB) | payer MEDICARE, MEDICAID, SELFPAY ==
--- NOTE | 2024-10-07 14:02 | A.OFFVIS_ITS ---
Vital Signs 10/07/24 14:03 Height 5 ft 4 in Weight 255 lb 11.779 oz BMI 43.9 BP 112/60 Blood Pressure Location Lt brachial Position Sitting Pulse 74 Pulse Source Pulse Oximeter Intake Visit Reasons: 2 mth f/up echo Allergies Penicillins Allergy (Unknown, Verified 09/13/24 20:15) hives Medication List - Last Reconciled 10/07/24 by Brandon Del Toro MD aspirin 81 mg PO DAILY atorvastatin 40 mg PO BEDTIME blood pressure monitor (Blood Pressure Kit) As directed bumetanide 1 mg PO DAILY bupropion HCl SR 150 mg PO BID cholecalciferol (vitamin D3) 50 mcg PO DAILY clopidogrel 75 mg PO DAILY cyanocobalamin (vitamin B-12) 1,000 mcg PO DAILY insulin lispro (Humalog KwikPen (U-100) Insulin) subcut metoprolol succinate ER (Toprol XL) 25 mg PO DAILY [ROLLATOR As directed] HPI Comments Details: Samantha returns for follow-up regarding coronary disease as well as cardiomyopathy. Patient was admitted for non ST elevation myocardial infarction. At that time, echocardiogram had shown diminished LVEF. Transferred to [facility] where she had diagnostic catheterization showing multivessel disease. Thought to be a poor candidate for cardiac surgery. Only on medical therapy. Many comorbidities. Has diabetes, chronic kidney disease. For the most part she is generally doing okay. Kidney function has been going up and down. [facility] Medical History Type 2 diabetes mellitus with hyperglycemia Morbid obesity Hypertension Surgical History S/P NIELS-BSO (total abdominal hysterectomy and bilateral salpingo-oophorectomy) Family History Mother CAD (coronary artery disease) Social History Household Members: None Housing: Apartment Do you presently have visiting nurse or other home services: No Alcohol intake: current Alcohol intake frequency: holidays/special occasions only Patient Tobacco Use Status: Former Tobacco user Tobacco use type: Cigarette e-Cigarette/Vaping Use: Never Used Second Hand Smoke Exposure: No Current occupational status: retired Cognitive needs: No Hearing needs: No Vision needs: Yes Review of Systems Const Denies weakness ENT Denies dizziness Card Denies chest pain, Denies chest pain with activity, Denies syncope, Denies rapid heart rate, Denies pedal edema, Denies edema, Denies leg edema, Denies lightheadedness, Denies palpitations, Denies dyspnea, Denies dyspnea on exertion and Denies orthopnea Resp Denies cough, Denies dyspnea and Denies dyspnea on exertion GI Denies hematochezia and Denies change in stool character Musc Denies abnormal gait, Denies muscle cramps, Denies muscle weakness, Denies numbness, Denies radiating pain into limb and Denies tingling Neuro Denies abnormal gait, Denies dizziness, Denies syncope, Denies numbness, Denies tingling and Denies weakness Endo Denies palpitations Physical Exam Vital Signs: Last Vital Signs Pulse 74 10/07/24 14:03 BP 112/60 10/07/24 14:03 BMI result Body Mass Index 43.9 Const General: comfortable and no acute distress Orientation/consciousness: patient oriented x3 HEENT Other: Unremarkable Head: Yes normal to inspection Neck Neck: Yes normal visual inspection Chest Chest palpation & inspection: normal inspection of the chest Resp Auscultation: clear to auscultation bilaterally Cardio Palpation: normal PMI Heart sounds: S1 normal heart sound present, S2 normal heart sound present, no gallops, no murmurs and no rubs GI Palpation (GI): Soft to palpation Back/Spine/Pelvis Other: unremarkable Skin General skin exam: no rashes or lesions noted Neuro General: patient oriented x3 Extrem Other: Trace edema General: Yes normal to inspection Psych Mental Status: mental status grossly normal Assessment & Plan Assessment & Plan (1) Atherosclerotic cardiovascular disease: Code(s): I25.10 - Atherosclerotic heart disease of [place] coronary artery without angina pectoris Category: Medical Plan: Cardiac catheterization shows multivessel coronary artery disease. Elevated LVEDP. Patient has been seen by cardiac surgery and deemed to be a poor candidate. Overall, continue medical therapy only. May keep on dual antiplatelet therapy. Continue statins. On a small dose of beta-blockers. No recurrent angina. (2) Non-ST elevation RI (NSTEMI): Code(s): I21.4 - Non-ST elevation (NSTEMI) myocardial infarction Category: Medical Plan: As above. No recent issues. (3) Ischemic cardiomyopathy: Code(s): I25.5 - Ischemic cardiomyopathy Category: Medical Plan: Echocardiogram with LVEF of 37%. Difficult to assess wall motion. Moderate mitral annular calcification with suspected qoms-pu-slxmxdou mitral stenosis. Mild aortic stenosis. She is on a small dose of Bumex but the creatinine is going up. Hence may try to use alternate days. Entresto was recently tried but the renal function went up and hence stopped. May try Farxiga-however, they would like to get Nephrology input, as the appointment is coming up. (4) Type 2 diabetes mellitus with hyperglycemia: Code(s): E11.65 - Type 2 diabetes mellitus with hyperglycemia Category: Medical Qualifiers: Diabetes mellitus senior living insulin use: with legal researcher use Qualified Code(s): E11.65 - Type 2 diabetes mellitus with hyperglycemia; Z79.4 - detention (current) use of insulin Plan: On insulin. Hemoglobin A1c is 7%. Plan Plan discussed with sister. Medications: New dapagliflozin propanediol (Farxiga) 10 mg PO DAILY 90 tabs 3RF Coding Level of Care Code Est Pt Level 4 (55038) Diagnoses Atherosclerotic cardiovascular disease I25.10 Non-ST elevation RI (NSTEMI) I21.4 Ischemic cardiomyopathy I25.5 Type 2 diabetes mellitus with hyperglycemia, with long-term current use of insulin E11.65; Z79.4 Diabetes mellitus legal researcher insulin use: with senior living use
[2024-10-07 14:03] VITALS: BP 112/60; PULSE 74; BMI 43.9
== END 2024-10-07 14:27 | disposition home or self-care (01) ==
PROVIDERS: PCP Internal Medicine; Visit Provider Internal Medicine
DX: I25.10 Atherosclerotic heart disease of native coronary artery without angina pectoris (principal); I21.4 Non-ST elevation (NSTEMI) myocardial infarction; I25.5 Ischemic cardiomyopathy; E11.65 Type 2 diabetes mellitus with hyperglycemia; Z79.4 Long term (current) use of insulin
CPT/HCPCS: 99214

== ENCOUNTER → 2024-10-07 13:44 | Outpatient (BNVA) | payer MEDICARE, MEDICAID, SELFPAY | PROVIDERS: PCP Internal Medicine; Visit Provider Internal Medicine | DX: I25.10 Atherosclerotic heart disease of native coronary artery without angina pectoris (principal); I21.4 Non-ST elevation (NSTEMI) myocardial infarction; I25.5 Ischemic cardiomyopathy; E11.65 Type 2 diabetes mellitus with hyperglycemia; Z79.4 Long term (current) use of insulin; Z87.891 Personal history of nicotine dependence | CPT/HCPCS: 99212 ==

== ENCOUNTER 2024-10-19 13:15 | Outpatient (REF) | payer MEDICARE, MEDICAID, SELFPAY ==
[2024-10-19 14:07] LABS: Anion Gap 13 (12-20); Blood Urea Nitrogen 28 mg/dL (9-16); Calcium 9.4 mg/dL (8.4-10.2); Carbon Dioxide 27 mmol/L (22-29); Chloride 105 mmol/L (96-108); Estimated Glomerular Filt Rate 27; Glucose Random 155 mg/dL (60-115); Potassium 4.4 mmol/L (3.3-5.1); Sodium 141 mmol/L (135-145)
[2024-10-19 14:14] LABS: B Type Natriuretic Peptide 1910 pg/mL (<100)
== END 2024-10-19 13:16 | disposition home or self-care (01) ==
LOC: HO.LAB 13:15
PROVIDERS: PCP Internal Medicine; Visit Provider Internal Medicine
DX: I25.5 Ischemic cardiomyopathy (principal); I50.9 Heart failure, unspecified
CPT/HCPCS: 36415; 80048; 83880

== ENCOUNTER → 2024-11-27 21:24 | Outpatient (BNV) | payer MEDICARE, MEDICAID, SELFPAY | PROVIDERS: Emergency Provider Emergency Medicine Emergency Medical Services; Visit Provider Radiology Neuroradiology | DX: L53.8 Other specified erythematous conditions (principal) | CPT/HCPCS: 73620 ==

== ENCOUNTER 2024-11-27 22:40 | Outpatient (BNV) | payer MEDICARE, MEDICAID, SELFPAY | END 2024-12-03 17:00 | PROVIDERS: Admitting Provider Physician Assistant; Emergency Provider Emergency Medicine Emergency Medical Services; PCP Internal Medicine; Visit Provider Internal Medicine | DX: I35.0 Nonrheumatic aortic (valve) stenosis (principal); I34.0 Nonrheumatic mitral (valve) insufficiency; I36.1 Nonrheumatic tricuspid (valve) insufficiency | CPT/HCPCS: 93306 ==

== ENCOUNTER 2024-11-27 22:40 | Outpatient (BNV) | payer MEDICARE, MEDICAID, SELFPAY | END 2024-11-29 15:45 | PROVIDERS: Admitting Provider Physician Assistant; Emergency Provider Emergency Medicine Emergency Medical Services; PCP Internal Medicine; Visit Provider Radiology Diagnostic Radiology | DX: I74.3 Embolism and thrombosis of arteries of the lower extremities (principal); M71.21 Synovial cyst of popliteal space [Baker], right knee | CPT/HCPCS: 93925 ==

== ENCOUNTER → 2024-11-27 22:40 | Outpatient (BNV) | payer MEDICARE, MEDICAID, SELFPAY | PROVIDERS: Admitting Provider Physician Assistant; Emergency Provider Emergency Medicine Emergency Medical Services; Visit Provider Physician Assistant | DX: L03.116 Cellulitis of left lower limb (principal); M86.172 Other acute osteomyelitis, left ankle and foot; N18.30 Chronic kidney disease, stage 3 unspecified; E11.21 Type 2 diabetes mellitus with diabetic nephropathy | CPT/HCPCS: 99223; 99232; 99233 ==

== ENCOUNTER → 2024-11-27 22:40 | Outpatient (BNV) | payer MEDICARE, MEDICAID, SELFPAY | PROVIDERS: Admitting Provider Physician Assistant; Emergency Provider Emergency Medicine Emergency Medical Services; PCP Internal Medicine; Visit Provider Internal Medicine | DX: M86.172 Other acute osteomyelitis, left ankle and foot (principal); E11.40 Type 2 diabetes mellitus with diabetic neuropathy, unspecified; A41.9 Sepsis, unspecified organism | CPT/HCPCS: 99222 ==

== ENCOUNTER → 2024-11-27 22:40 | Outpatient (BNV) | payer MEDICARE, MEDICAID, SELFPAY | PROVIDERS: Admitting Provider Physician Assistant; Emergency Provider Emergency Medicine Emergency Medical Services; PCP Internal Medicine; Visit Provider Physician Assistant Surgical | DX: M86.172 Other acute osteomyelitis, left ankle and foot (principal) | CPT/HCPCS: 99222; 99232 ==

== ENCOUNTER 2024-12-21 14:00 | Outpatient (AMB) | payer MEDICARE, MEDICAID, SELFPAY ==
--- NOTE | 2024-12-21 14:01 | MHC.OFFVIS ---
Intake Visit Reasons: Follow Up ED discharge for cellulitis/osteo Intake Note: follow up Left 3rd toe osteo, no drainage or dressings. Accompanied by: Sister Allergies Penicillins Allergy (Unknown, Verified 12/21/24 14:07) hives HPI HPI Follow Up ED discharge for cellulitis/osteo: Details: Samantha is presenting today with her sister for a hospital follow up. She is currently a resident at [facility] in [facility]. She states she is doing much better. She is not sure what happened but the blackened area has since fallen off. She is still concerned because her toenails are very long and they do not have a hack saw operator at the short-term rehab that can cut them. She continues to work with PT and OT at the facility with her Rollator walker as well as other equipment. She continues with IV ceftriaxone, until January 12. She will likely stay at short-term rehab until that time. She has no new concerns today. [facility] Medical History Anemia CKD (chronic kidney disease) stage 3, GFR 30-59 ml/min Diabetic nephropathy Diabetic neuropathy Type 2 diabetes mellitus with hyperglycemia Morbid obesity Hypertension Surgical History S/P NIELS-BSO (total abdominal hysterectomy and bilateral salpingo-oophorectomy) Family History Mother CAD (coronary artery disease) Social History Household Members: None Housing: Apartment Do you presently have visiting nurse or other home services: No Alcohol intake: current Alcohol intake frequency: holidays/special occasions only Patient Tobacco Use Status: Former Tobacco user Tobacco use type: Cigarette e-Cigarette/Vaping Use: Never Used Second Hand Smoke Exposure: No service: No Current occupational status: retired Cognitive needs: No Hearing needs: No Vision needs: Yes Review of Systems Const Reports as per HPI and Denies weakness ENT Reports Normal hearing present and Denies dizziness Card Reports as per HPI, Denies chest pain, Denies chest pain at rest, Denies chest pain with activity, Denies dyspnea and Denies dyspnea on exertion Resp Reports as per HPI, Denies cough, Denies dyspnea and Denies dyspnea on exertion GI Reports as per HPI, Denies abdominal pain, Denies nausea and Denies vomiting Musc Denies numbness Skin/Breast Reports as per HPI, Denies erythema and Denies wounds Neuro Reports Normal hearing present, Denies dizziness, Denies numbness, Denies Sensory deficit (Neuro) and Denies weakness Psych Reports no additional complaints Endo Reports no additional complaints Physical Exam Const General: healthy appearing and no acute distress Orientation/consciousness: patient oriented x3 HEENT Head: Yes normal to inspection Ears: hearing grossly normal bilaterally Mouth: Normal oral and palatal mucosa present Resp Effort & Inspection: normal respiratory effort and able to speak in complete sentences Auscultation: clear to auscultation bilaterally Cardio Jugular venous distension: no JVD Rate: regular rate Rhythm: regular rhythm Heart sounds: S1 normal heart sound present and S2 normal heart sound present Bruits: no abdominal aortic bruits, no carotid bruits, no femoral bruits and no renal bruits Peripheral pulses: Peripheral pulses 2+ throughout GI Inspection: Yes normal to inspection Palpation (GI): No Abdominal aortic bruit present Skin General skin exam: no rashes or lesions noted Wounds: no wounds Hair: normal Neuro General: patient oriented x3 Cranial nerves: Yes Normal hearing present Cognition (Neuro): normal cognition Gait exam (Neuro): Normal gait present Motor exam (neuro): 5/5 motor strength present throughout Sensory Exam: No Sensory deficit (Neuro) Extrem Other: Left 3rd toe: No dried eschar noted at the tip of the toe, pink healthy tissue noted. Toe is swollen, not painful to palpation. Able to peel some dry skin off. Bilateral lower extremities: +2 peripheral edema noted. Extremely dry skin noted. General: Yes normal to inspection, Yes full ROM, Yes capillary refill normal and Yes normal gait Assessment & Plan Assessment & Plan (1) Osteomyelitis of left foot: Code(s): M86.9 - Osteomyelitis, unspecified Category: Medical Qualifiers: Osteomyelitis type: other acute Qualified Code(s): M86.172 - Other acute osteomyelitis, left ankle and foot Plan: Samantha is presenting today with her sister from the [facility] for a follow up to osteomyelitis. She is in short-term rehab at the nursing facility. She continues with PT and OT services daily. She also continues with IV Ceftriaxone t.i.d. until March 12th. She denies any pain in her left foot. She states there was a blackened area at the tip of her 3rd toe, she is not sure where it went. We had a lengthy discussion that the scab fell off, there is healthy pink tissue under where the dry eschar was. We discussed the importance of applying lotion to her feet in her legs, they are extremely dry. We were able to provide her with information for Podiatry, to get her toenails done and to get a full diabetic foot exam. We discussed the importance of wearing shoes; currently she is only able to wear the hospital computer hardware designer socks. We discussed the importance of following up with cardiology, due to the ongoing edema as well as changes in her medications. We discussed that she can soak her feet in warm Epsom salt water once, if not twice, a day. We we will send it information for ordering diabetic shoes. We discussed that she seems to be doing well and we will not need to follow up with us unless anything changes. Thank you for allowing us to participate in the patient's care. If there are any questions or concerns, please do not hesitate to reach out to us. Coding Level of Care Code Est Pt Level 4 (73483) Diagnoses Other acute osteomyelitis of left foot M86.172 Osteomyelitis type: other acute
--- OUTSIDE RECORDS SUMMARY | 2024-12-21 15:03 | XMS_ITS | Clinical Summary ---
Author Organization [facility] Address [address] [place] [address] Phone Care Team Providers Care Payroll And Benefits Specialist Name Role Phone Ja Yanez MD Primary Care Provider [phone] Allergies No known active allergies Medications buPROPion SR (WELLBUTRIN SR) 150 MG 12 hr tablet Take 150 mg by mouth in the morning and 150 mg in the evening. 12/09/19 23 Active aspirin (ST JOANNA) 81 MG EC tablet Take 1 tablet by mouth every morning 07/21/20 24 Active cholecalciferol (VITAMIN D-3 SUPER STRENGTH) 50 MCG (2000 UT) tablet Take 2,000 Units by mouth in the morning. 01/28/20 24 Active clopidogrel (PLAVIX) 75 MG tablet Take 1 tablet by mouth every morning 07/21/20 24 Active atorvastatin (LIPITOR) 40 MG tablet Take 40 mg by mouth in the morning. 07/21/20 24 Active metoprolol succinate XL (TOPROL XL) 25 MG 24 hr tablet Take 25 mg by mouth every morning 07/21/20 24 Active insulin glargine (Lantus SoloStar) 100 UNIT/ML injection Inject 20-38 Units under the skin in the morning. 07/29/20 24 Active Insulin Lispro, 1 Unit Dial, (HumaLOG KWIKPEN) 100 UNIT/ML solution pen-injector Inject 10 Units under the skin in the morning and 10 Units at noon and 10 Units in the evening. 09/17/20 24 Active insulin degludec (TRESIBA FLEX TOUCH) 100 UNIT/ML injection Inject 36 Units under the skin 09/17/20 24 Active insulin degludec (Tresiba FlexTouch) 200 UNIT/ML injection INJECT 44 UNITS OR DIRECTED SUBCUTANEOUSLY ONCE A DAY 07/09/20 24 Active cyanocobalamin (VITAMIN B-12) 1000 MCG tablet Take 2,000 mcg by mouth 1 (one) time each day 08/02/20 24 Active Dapagliflozin Propanediol (Farxiga) 10 MG tablet Take 10 mg by mouth 1 (one) time each day in the morning Active Active Problems Problem Noted Date Diagnosed Date Diabetes mellitus without me ntion of complication, type II or unspecified type, not stated as uncontrolled Essential hypertension Macular degeneration Peripheral vascular disease Vitamin B12 deficiency Encounters Date Type Department Care Team Description 10/21/2024 1:45 PM EST Office Visit [facility] [address] [place] [address] Forest Nicole MD Other acute kidney failure (HCC) (Primary Dx); Stage 3a chronic kidney disease (HCC) from Last 3 Months Social History Tobacco Use Types Packs/Day Years Used Date Smoking Tobacco: Never Assessed Comments Unknown Sex and Gender Information Value Date Recorded Sex Assigned at Not on file Legal Sex Female 4:51 PM EDT Gender Identity Not on file Sexual Orientation Not on file Last Filed Vital Signs Vital Sign Reading Time Taken Comments Blood Pressure 108/72 10/21/2024 2:12 PM EST Pulse 61 10/21/2024 2:12 PM EST Temperature - - Respiratory Rate - - Oxygen Saturation 98% 10/21/2024 2:12 PM EST Inhaled Oxygen Concentration - - Weight 118 kg (261 lb) 10/21/2024 2:12 PM EST Height - - Body Mass Index - - Plan of Treatment Upcoming Encounters Date Type Department Care Team (Late st Contact Info) Description 12/22/2024 Orders Only [facility] [address] [place] [address] Forest Nicole MD [phone] [facility] [address] [place] [address] Other acute kidney failure (HCC); Stage 3a chronic kidney disease (HCC) Health Maintenance Due Date Last Done Comments Pneumococcal Vaccine: 65+ Ye ars (1 of 2 - PCV) 1951 Influenza Vaccine (#1) 2024 Diabetes: Hemoglobin A1C 10/14/2024 Diabetes: Ophthalmology Exam 10/14/2024 Diabetes: Pedal Pulse Checked 10/14/2024 Diabetes: Sensory Foot Exam 10/14/2024 Diabetes: Visual Foot Exam 10/14/2024 Hepatitis B Vaccine Aged Out No longe r eligible based on patient's age to complete this topic Insurance MEDICARE [place]ICAID [place] Care Teams Payroll And Benefits Specialist Relationship Specialty Start Date End Date Ja Yanez MD [facility] [address] [place], [place] PCP - General Internal Medicine 10/21/24
== END 2024-12-21 14:52 | disposition home or self-care (01) ==
PROVIDERS: PCP Internal Medicine; Visit Provider Physician Assistant Surgical
DX: M86.172 Other acute osteomyelitis, left ankle and foot (principal)
CPT/HCPCS: 99214

== ENCOUNTER → 2024-12-21 14:00 | Outpatient (BNVA) | payer MEDICARE, MEDICAID, SELFPAY | PROVIDERS: PCP Internal Medicine; Visit Provider Physician Assistant Surgical | DX: M86.172 Other acute osteomyelitis, left ankle and foot (principal) | CPT/HCPCS: 99212 ==

== ENCOUNTER 2025-02-28 14:33 | Outpatient (REF) | payer MEDICARE, MEDICAID, SELFPAY ==
[2025-02-28 16:17] LABS: Anion Gap 16 (12-20); Blood Urea Nitrogen 24 mg/dL (9-16); Calcium 9.4 mg/dL (8.4-10.2); Carbon Dioxide 25 mmol/L (22-29); Chloride 104 mmol/L (96-108); Estimated Glomerular Filt Rate 32; Glucose Random 169 mg/dL (60-115); Potassium 4.6 mmol/L (3.3-5.1); Sodium 140 mmol/L (135-145)
[2025-02-28 16:22] LABS: B Type Natriuretic Peptide 1619 pg/mL (<100)
--- OUTSIDE RECORDS SUMMARY | 2025-02-28 18:15 | XMS_ITS | Clinical Summary ---
Author Organization [facility] Address [address] [place] [address] Phone Care Team Providers Care Trash Collector Truck Driver Name Role Phone Ja Yanez MD Primary Care Provider [phone] Allergies No known active allergies Medications buPROPion [...] Only [facility] [address] [place] [address] Forest Nicole [...] topic Insurance Medicare [place] Care Teams Trash Collector Truck Driver Relationship Specialty Start Date End Date Ja Yanez MD [facility] [place] [address] [place], [place] PCP - General Internal Medicine 10/21/24
== END 2025-02-28 14:34 | disposition home or self-care (01) ==
LOC: HO.LAB 14:33
PROVIDERS: PCP Internal Medicine; Visit Provider Internal Medicine
DX: I13.0 Hypertensive heart and chronic kidney disease with heart failure and stage 1 through stage 4 chronic kidney disease, or unspecified chronic kidney disease (principal); I50.9 Heart failure, unspecified; I25.2 Old myocardial infarction; I25.5 Ischemic cardiomyopathy; E11.21 Type 2 diabetes mellitus with diabetic nephropathy; N18.30 Chronic kidney disease, stage 3 unspecified
CPT/HCPCS: 36415; 80048; 83880; 99212

== ENCOUNTER 2025-02-28 14:33 | Outpatient (AMB) | payer MEDICARE, MEDICAID, SELFPAY ==
--- NOTE | 2025-02-28 14:47 | MHC.OFFVIS ---
Vital Signs 02/28/25 14:48 Height 5 ft 4 in Weight 240 lb 4.862 oz BMI 41.2 BP 120/68 Blood Pressure Location Lt brachial Position Sitting Pulse 75 Pulse Source Pulse Oximeter Intake Visit Reasons: r/s 01/18/25 3 mos followup Allergies Penicillins Allergy (Unknown, Verified 12/21/24 14:07) hives lasix Adverse Reaction (Severe, Uncoded 02/09/25 14:56) Unknown Medication List - Last Reconciled 02/28/25 by Brandon Del Toro MD aspirin 81 mg PO DAILY atorvastatin 40 mg PO BEDTIME blood pressure monitor (Blood Pressure Kit) As directed bumetanide 1 mg PO Q2D bupropion HCl SR 150 mg PO BID cefazolin 1 g IVPUSH Q8H cholecalciferol (vitamin D3) 50 mcg PO DAILY clopidogrel 75 mg PO DAILY cyanocobalamin (vitamin B-12) 1,000 mcg PO DAILY dapagliflozin propanediol (Farxiga) 10 mg PO DAILY insulin glargine (Lantus U-100 Insulin) 15 units (0.15 mL) subcut DAILY insulin lispro (Admelog U-100 Insulin lispro) See Protocol units subcut QIDACHS insulin lispro (Humalog KwikPen (U-100) Insulin) 10 units subcut TIDAC metoprolol succinate ER (Toprol XL) 25 mg PO DAILY [ROLLATOR As directed] Shower Chair As directed HPI Comments Details: Samantha returns for follow-up regarding coronary disease as well as cardiomyopathy. In 2023, she was admitted for non ST elevation myocardial infarction. At that time, echocardiogram had shown diminished LVEF. Transferred to [facility] where she had diagnostic catheterization showing multivessel disease. Thought to be a poor candidate for cardiac surgery. Only on medical therapy. Many comorbidities. Has diabetes, chronic kidney disease. Since last seen, she states she is generally doing okay. Heart failure symptoms well controlled. Getting along otherwise. Exercise The patient engages in light exercise that includes walking with a walker, exhibiting satisfactory tolerance. No specific duration or frequency specified, but breathing remains stable during activities, requiring periodic pauses. [facility] Medical History Anemia CKD (chronic kidney disease) stage 3, GFR 30-59 ml/min Diabetic nephropathy Diabetic neuropathy Type 2 diabetes mellitus with hyperglycemia Morbid obesity Hypertension Surgical History S/P NIELS-BSO (total abdominal hysterectomy and bilateral salpingo-oophorectomy) Family History Mother CAD (coronary artery disease) Social History Household Members: None Housing: Apartment Do you presently have visiting nurse or other home services: No Alcohol intake: current Alcohol intake frequency: holidays/special occasions only Patient Tobacco Use Status: Former Tobacco user Tobacco use type: Cigarette e-Cigarette/Vaping Use: Never Used Second Hand Smoke Exposure: No service: No Current occupational status: retired Cognitive needs: No Hearing needs: No Vision needs: Yes Review of Systems Const Denies weakness ENT Denies dizziness Card Denies chest pain, Denies chest pain with activity, Denies syncope, Denies rapid heart rate, Denies pedal edema, Denies edema, Denies leg edema, Denies lightheadedness, Denies palpitations, Denies dyspnea, Denies dyspnea on exertion and Denies orthopnea Resp Denies cough, Denies dyspnea and Denies dyspnea on exertion GI Denies hematochezia and Denies change in stool character Musc Denies abnormal gait, Denies muscle cramps, Denies muscle weakness, Denies numbness, Denies radiating pain into limb and Denies tingling Neuro Denies abnormal gait, Denies dizziness, Denies syncope, Denies numbness, Denies tingling and Denies weakness Endo Denies palpitations Physical Exam Vital Signs: Last Vital Signs Pulse 75 02/28/25 14:48 BP 120/68 02/28/25 14:48 BMI result Body Mass Index 41.2 Const General: comfortable and no acute distress Orientation/consciousness: patient oriented x3 HEENT Other: Unremarkable Head: Yes normal to inspection Neck Neck: Yes normal visual inspection Chest Chest palpation & inspection: normal inspection of the chest Resp Auscultation: clear to auscultation bilaterally Cardio Palpation: normal PMI Heart sounds: S1 normal heart sound present, S2 normal heart sound present, no gallops, no murmurs and no rubs GI Palpation (GI): Soft to palpation Back/Spine/Pelvis Other: unremarkable Skin General skin exam: no rashes or lesions noted Neuro General: patient oriented x3 Extrem General: Yes normal to inspection Psych Mental Status: mental status grossly normal Assessment & Plan Assessment & Plan (1) Atherosclerotic cardiovascular disease: Code(s): I25.10 - Atherosclerotic heart disease of [place] coronary artery without angina pectoris Category: Medical Plan: Cardiac catheterization with multivessel coronary artery disease. Elevated LVEDP. Patient has been seen by cardiac surgery and deemed to be a poor candidate. Overall, continue medical therapy only. May keep on dual antiplatelet therapy for the foreseeable future. Long-term to be decided. She has not had any bleeding issues. Continue statins. On a beta-blockers. No recurrent angina. (2) Non-ST elevation CT (NSTEMI): Code(s): I21.4 - Non-ST elevation (NSTEMI) myocardial infarction Category: Medical Plan: As above. No recent issues. (3) Ischemic cardiomyopathy: Code(s): I25.5 - Ischemic cardiomyopathy Category: Medical Plan: In the recent echocardiogram from November, LVEF is 33%. Wall motion abnormalities related to underlying coronary disease. In August 2024, LVEF 30%. In July 2024, LVEF is 37%. Clinically, stable on the current dose of Bumex. Otherwise, on Farxiga. Entresto was tried in the past but the renal function went up. We discussed about ICD placement for primary prevention of sudden cardiac . She is interested and hence we will send to EP for evaluation. Check labs including BMP/cardiac BNP. (4) Type 2 diabetes mellitus with hyperglycemia: Code(s): E11.65 - Type 2 diabetes mellitus with hyperglycemia Category: Medical Qualifiers: Diabetes mellitus adjunct faculty for medical terminology insulin use: with adjunct faculty for medical terminology use Qualified Code(s): E11.65 - Type 2 diabetes mellitus with hyperglycemia; Z79.4 - parts counterman (current) use of insulin Plan: On insulin. Hemoglobin A1c is 7%. Plan Discussion Notes During the consultation, we discussed with the patient in detail about the potential benefits of having an Implantable Cardioverter-Defibrillator (ICD), specifically addressing its role in preventing cardiac arrest due to arrhythmias post-myocardial infarction. The procedure's risks and considerations, such as the minor surgery required and potential for shock delivery, were reviewed. I emphasized the long-term benefits of having the device as a preventive measure, despite possible anxiety associated with surgery. Agreement to see an electrical specialist for further evaluation was reached. Bloodwork, diuretic management, and the necessity to continue existing medications including Plavix and aspirin were comprehensively discussed. I assured her of similar efficacy of her prescribed Farxiga medication despite alternate generic labeling at the pharmacy, emphasizing it is not generic. The patient understood the need for weight monitoring and the importance of regular assessment of kidney function to monitor chronic kidney disease progression. The consultation included recognition of the patient?s preferences and any expressed decision-making hesitance, with clear guidance on follow-up care paths. Patient was informed and verbally consented to the use of an ambient scribe for clinic note documentation during this visit. Orders: Orders B Type Natriuretic Peptide Today I25.5 - Ischemic cardiomyopathy, I50.9 - Heart failure, unspecified Basic Metabolic Panel Today I25.5 - Ischemic cardiomyopathy, I50.9 - Heart failure, unspecified Referrals Cardiac Electrophysiology Referral I25.5 - Ischemic cardiomyopathy Patient Instructions: - Continue taking your medications, Plavix and aspirin, as directed until your next scheduled review. - Monitor your weight regularly and report any significant changes. - Schedule and attend your appointment with the electrical specialist to discuss the potential ICD placement. - Go for the prescribed blood work to assess your kidney function. - Stay alert for any unusual symptoms like increased fatigue or swelling, and seek medical advice if these occur. - Maintain your current level of physical activity and use your walker as needed. - Follow up with your cardiology appointments as scheduled. - Report any pharmacy confusion regarding medications, and ensure you receive the correct prescribed ones. - Reach out immediately if you experience worsening heart symptoms or have trouble breathing. Coding Level of Care Code Est Pt Level 4 (44726) Complex EM visit Add On G2211 Diagnoses Atherosclerotic cardiovascular disease I25.10 Non-ST elevation CT (NSTEMI) I21.4 Ischemic cardiomyopathy I25.5 Type 2 diabetes mellitus with hyperglycemia, with long-term current use of insulin E11.65; Z79.4 Diabetes mellitus alf insulin use: with alf use
[2025-02-28 14:48] VITALS: BP 120/68; PULSE 75; BMI 41.2
--- OUTSIDE RECORDS SUMMARY | 2025-02-28 17:23 | XMS_ITS | Clinical Summary ---
Author Organization [facility] Address [address] [place] [address] Phone Care Team Providers Care Psychology Lecturer Name Role Phone Ja Yanez MD Primary Care Provider [phone] Allergies No known active allergies Medications buPROPion [...] Encounters Date Type Department Care Team Description 12/22/2024 Orders Only [facility] [address] [place] [address] Forest Nicole MD Other acute kidney failure (HCC); Stage 3a chronic kidney disease (HCC) from [...] Mass Index - - Plan of Treatment Health Maintenance Due Date Last Done Comments Pneumococcal Vaccine: 50+ Ye ars (1 of 2 - PCV) 1964 Diabetes: Hemoglobin A1C 10/14/2024 Diabetes: Ophthalmology Exam 10/14/2024 Diabetes: Pedal Pulse Checked 10/14/2024 Diabetes: Sensory Foot Exam 10/14/2024 Diabetes: Visual Foot Exam 10/14/2024 Influenza Vaccine (Season Ended) 2025 Hepatitis B Vaccine Aged Out No longe r eligible based on patient's age to complete this topic Insurance Medicare [place] Care Teams Psychology Lecturer Relationship Specialty Start Date End Date Ja Yanez MD [facility] [place] [address] [place], [place] PCP - General Internal Medicine 10/21/24
== END 2025-02-28 15:20 | disposition home or self-care (01) ==
LOC: HO.HCS 14:34
PROVIDERS: PCP Internal Medicine; Visit Provider Internal Medicine
DX: I25.10 Atherosclerotic heart disease of native coronary artery without angina pectoris (principal); I21.4 Non-ST elevation (NSTEMI) myocardial infarction; I25.5 Ischemic cardiomyopathy; E11.65 Type 2 diabetes mellitus with hyperglycemia; Z79.4 Long term (current) use of insulin
CPT/HCPCS: 99214; G2211

== ENCOUNTER 2025-04-28 11:18 | Day surgery (SDC) | payer MEDICARE, MEDICAID, SELFPAY ==
--- OUTSIDE RECORDS SUMMARY | 2025-04-14 09:38 | XMS_ITS | Clinical Summary ---
Author Organization [facility] Address [address] [place] [address] Phone Care Team Providers Care Sales Coach Name Role Phone Ja Yanez MD Primary Care Provider Allergies No known active allergies Medications buPROPion [...] degeneration Peripheral vascular disease Vitamin B12 deficiency Social History Tobacco Use Types Packs/Day Years [...] topic Insurance Medicare Medicaid [place] Care Teams Sales Coach Relationship Specialty Start Date End Date Ja Yanez MD [facility] [place] [address] [place], [place] PCP - General Internal Medicine 10/21/24
[2025-04-28] VITALS (29 sets, daily range): BP systolic 111–155; BP diastolic 47–74; PULSE 59–74; RESP 13–20; TEMP 36.6–37.1; O2SAT 95–100; BMI 44.1
--- NOTE | 2025-04-28 | ECG_ITS ---
Test Reason : postop Blood Pressure : */* mmHG Vent. Rate : 59 BPM Atrial Rate : 59 BPM P-R Int : 176 ms QRS Dur : 200 ms QT Int : 522 ms P-R-T Axes : 63 -68 121 degrees QTcB Int : 516 ms Atrial-sensed ventricular-paced rhythm Abnormal ECG When compared with ECG of 13-Sep-2024 20:19, Electronic ventricular pacemaker has replaced Sinus rhythm Referred By: Cuco Ocasio Electronically Signed By: ADRIAN QURESHI
--- NOTE | ~2025-04-28 | XR_ITS ---
EXAMINATION: XR CHEST 1 VIEW HISTORY: s/p ICD. R/o pneumothorax. COMPARISON: There are no prior studies available for comparison. FINDINGS: A single AP portable view of the chest performed at 4:09 PM is submitted. There has been interval insertion of a left subclavian dual-chamber pacemaker with leads in the right atrium and ventricle. There are low lung volumes. There are increased interstitial markings without change. There is no focal airspace opacity. There is no pleural effusion, pneumothorax, or pulmonary vascular congestion. The heart remains enlarged. There is degenerative disc disease of the spine. XR/XR chest 1V IMPRESSION: 1. Left subclavian dual-chamber pacemaker placement as described. No pneumothorax. 2. Cardiomegaly. Low lung volumes with increased interstitial markings without change. Electronically signed by: Hoang Barragan MD 04/29/2025 07:52 AM EDT
[2025-04-28 11:51] LABS: Glucose, Whole Blood 164 mg/dL (60-115)
--- NOTE | 2025-04-28 13:25 | W.PM.OPN ---
Operative Note Operative Note Date of Service: 04/28/25 Narrative: Summary 1. Placement of Nino/[place]. [place] dual-chamber ICD (CPT 42041) 2. Moderate sedation provided by ct for 90 mins (CPT 34074, 39193 x5) Recommendations 1. Chest x-ray now. 2. Discharge home after 2 hours of observation if patient remains stable. 3. Left arm sling for 24 hours followed by nocturnal sling for 2 weeks. 4. Keep chest incision dry for 1 week. 5. No raising left arm above shoulder level or reaching behind the back with the left arm for 4 weeks. 6. Follow-up in EP clinic in 7-10 days for incision site check. 7. Resume aspirin on 04/30/25, resume plavix on 05/02/25. Narrative: The paient presented to the EP lab in a fasting, non-sedated state after written informed consent was obtained. The procedure was performed under moderate sedation provided by ct. A timeout was called at the beginning of the procedure. The left chest was prepped and draped in the usual sterile manner. IV clindamycin was started more than 30 minutes prior to skin incision. A 1.5 inch incision was made in the left subclavicular region. Dissection was carried down to the muscle layer using a combination of Bovie and blunt dissection. A micropuncture needle was used to obtain two separate left subclavian vein accesses under fluoroscopic guidance after a LUE venogram. Usingmodified Seldinger technique two sheaths: 7 Fr and 9 Fr were used for placement of the RA and RV leads. A 9 Fr sheath was advanced over the other guidewire. The guidewire and dilator were removed. The RV ICD lead was advanced under fluoroscopic guidance, and placed at the septal right ventricular apex. The active fixation mechanism was extended, and the lead parameters were confirmed to be optimal, including sensing/pacing threshold/impedance. Adequate slack was provided on this lead. The sheath was slit and removed. The lead was sutured to the underlying pectoral muscle using 0-Ethibond suture. A 7 Fr sheath was advanced over the remaining guidewire. The guidewire and dilator were removed. The RA pacing lead was advanced under fluoroscopic guidance in the right atrial appendage. The active fixation mechanism was extended. All lead parameters were confirmed to be optimal. The sheath was slit and removed. Adequate slack was confirmed on the lead. The lead was sutured to the underlying pectoral muscle using 0-Ethibond suture. A pocket was created to accommodate the ICD generator. The pocket was irrigated with antibiotic solution. The ICD generator was brought into the field. Each lead pain was advanced into the respective port on the header, taking care to advance the pin beyond the set screw, and properly deploy the set screw. Gentle tug was provided on each lead for confirmation. The leads were wrapped under the generator, which was placed in the pocket. The pocket was closed in 3 layers, using 2-0 Vicryl and 4-0 V-Loc, followed by application of Dermabond. A dressing was applied over the incision site. Patient was then transported to recover in a stable condition.
[2025-04-28] MEDS: Clindamycin Phosphate/D5W 900 MG/50 ML PIGGYBACK 50 MG IV (13:50)
[2025-04-28] MEDS: fentaNYL citrate/PF 100 MCG/2 ML VIAL 25 MCG IVPUSH ×3 (14:05→15:10)
[2025-04-28] MEDS: Midazolam HCl 2 MG/2 ML VIAL 1 MG IVPUSH ×3 (14:05→15:10)
== END 2025-04-28 17:42 | disposition home or self-care (01) ==
PROVIDERS: PCP Internal Medicine; Visit Provider Student in an Organized Health Care Education/Training Program
PROC: (CPT 33249; principal; 2025-04-28 13:00)
DX: I25.5 Ischemic cardiomyopathy (principal); I50.22 Chronic systolic (congestive) heart failure; R94.31 Abnormal electrocardiogram [ECG] [EKG]; I50.9 Heart failure, unspecified; I25.10 Atherosclerotic heart disease of native coronary artery without angina pectoris; E11.22 Type 2 diabetes mellitus with diabetic chronic kidney disease; I12.9 Hypertensive chronic kidney disease with stage 1 through stage 4 chronic kidney disease, or unspecified chronic kidney disease; N18.30 Chronic kidney disease, stage 3 unspecified; E11.65 Type 2 diabetes mellitus with hyperglycemia; E11.40 Type 2 diabetes mellitus with diabetic neuropathy, unspecified; D64.9 Anemia, unspecified; R53.83 Other fatigue; F41.1 Generalized anxiety disorder; E66.01 Morbid (severe) obesity due to excess calories; Z68.41 Body mass index [BMI] 40.0-44.9, adult; Z79.4 Long term (current) use of insulin; Z79.82 Long term (current) use of aspirin; Z79.899 Other long term (current) drug therapy; Z88.0 Allergy status to penicillin; Z88.8 Allergy status to other drugs, medicaments and biological substances; Z87.891 Personal history of nicotine dependence
CPT/HCPCS: 33249; 71045; 76000; 82947; 93005; C1722; C1777; C1892; C1894; C1898; J0690; J0736; J2003; J2250; J2310; J3010; J3370; Q9967

== ENCOUNTER → 2025-04-28 15:09 | Outpatient (BNV) | payer MEDICARE, MEDICAID, SELFPAY | PROVIDERS: PCP Internal Medicine; Visit Provider Radiology Diagnostic Radiology | DX: J84.9 Interstitial pulmonary disease, unspecified (principal) | CPT/HCPCS: 71045 ==

== ENCOUNTER → 2025-04-28 16:02 | Outpatient (BNV) | payer MEDICARE, MEDICAID, SELFPAY | PROVIDERS: PCP Internal Medicine; Visit Provider Internal Medicine | DX: R94.31 Abnormal electrocardiogram [ECG] [EKG] (principal); Z95.0 Presence of cardiac pacemaker | CPT/HCPCS: 93010 ==

== ENCOUNTER 2025-06-07 12:16 | Outpatient (REF) | payer MEDICARE, MEDICAID, SELFPAY ==
[2025-06-07 13:54] LABS: Anion Gap 17 (12-20); Blood Urea Nitrogen 33 mg/dL (9-16); Calcium 9.1 mg/dL (8.4-10.2); Carbon Dioxide 29 mmol/L (22-29); Chloride 102 mmol/L (96-108); Estimated Glomerular Filt Rate 25; Potassium 4.7 mmol/L (3.3-5.1); Sodium 143 mmol/L (135-145)
[2025-06-07 14:00] LABS: B Type Natriuretic Peptide 2987 pg/mL (<100)
== END 2025-06-07 12:17 | disposition home or self-care (01) ==
LOC: HO.LAB 12:16
PROVIDERS: PCP Internal Medicine; Visit Provider Internal Medicine
DX: I13.0 Hypertensive heart and chronic kidney disease with heart failure and stage 1 through stage 4 chronic kidney disease, or unspecified chronic kidney disease (principal); I50.43 Acute on chronic combined systolic (congestive) and diastolic (congestive) heart failure; I25.10 Atherosclerotic heart disease of native coronary artery without angina pectoris; E11.22 Type 2 diabetes mellitus with diabetic chronic kidney disease; N18.30 Chronic kidney disease, stage 3 unspecified; E11.65 Type 2 diabetes mellitus with hyperglycemia; I25.5 Ischemic cardiomyopathy; I21.4 Non-ST elevation (NSTEMI) myocardial infarction; Z79.4 Long term (current) use of insulin; Z79.82 Long term (current) use of aspirin; Z79.84 Long term (current) use of oral hypoglycemic drugs; Z79.899 Other long term (current) drug therapy
CPT/HCPCS: 36415; 80048; 83880; 99212

== ENCOUNTER 2025-06-07 12:16 | Outpatient (AMB) | payer MEDICARE, MEDICAID, SELFPAY ==
[2025-06-07 12:44] VITALS: BP 120/62; PULSE 67
--- NOTE | 2025-06-07 12:44 | A.OFFVIS_ITS ---
Vital Signs 06/07/25 12:44 Height 5 ft 4 in BMI Reason not done Patient refused/unable BP 120/62 Blood Pressure Location Lt brachial Position Sitting Pulse 67 Pulse Source Pulse Oximeter Intake Visit Reasons: f/up dr mathur Allergies Penicillins Allergy (Unknown, Verified 04/28/25 12:24) hives lasix Adverse Reaction (Severe, Uncoded 04/28/25 12:24) Unknown Medication List - Last Reconciled 06/07/25 by Brandon Del Toro MD aspirin 81 mg PO DAILY atorvastatin 40 mg PO BEDTIME blood pressure monitor (Blood Pressure Kit) As directed bumetanide 1 mg PO Q OTHER DAY bupropion HCl SR 150 mg PO BID cefazolin 1 g IVPUSH Q8H cholecalciferol (vitamin D3) 50 mcg PO DAILY cyanocobalamin (vitamin B-12) 1,000 mcg PO DAILY dapagliflozin propanediol (Farxiga) 10 mg PO DAILY insulin glargine (Lantus U-100 Insulin) 15 units (0.15 mL) subcut DAILY insulin lispro (Admelog U-100 Insulin lispro) See Protocol units subcut QIDACHS insulin lispro (Humalog KwikPen (U-100) Insulin) 10 units subcut TIDAC metoprolol succinate ER (Toprol XL) 25 mg PO DAILY [ROLLATOR As directed] Shower Chair As directed HPI Comments Details: Samantha returns for follow-up regarding coronary disease as well as cardiomyopathy. In 2023, she was admitted for non ST elevation myocardial infarction. At that time, echocardiogram had shown diminished LVEF. Transferred to [facility] where she had diagnostic catheterization showing multivessel disease. Thought to be a poor candidate for cardiac surgery. Only on medical therapy. Many comorbidities. Has diabetes, chronic kidney disease. Over the last few weeks, she thinks that she has gained a lot of weight and she feels somewhat distended. More short of breath than usual. Her leg muscles are also feeling tense. She thinks all started after the ICD placement. [facility] Medical History Anemia CKD (chronic kidney disease) stage 3, GFR 30-59 ml/min Diabetic nephropathy Diabetic neuropathy Type 2 diabetes mellitus with hyperglycemia Morbid obesity Hypertension Surgical History S/P NIELS-BSO (total abdominal hysterectomy and bilateral salpingo-oophorectomy) Family History Mother CAD (coronary artery disease) Social History Household Members: None Household Members Other:: states sister cares for her Housing: Apartment Are you a primary urgent care physician to a significant other at home: No Do you presently have visiting nurse or other home services: No Alcohol intake: current Alcohol intake frequency: holidays/special occasions only Patient Tobacco Use Status: Former Tobacco user Tobacco use type: Cigarette e-Cigarette/Vaping Use: Never Used Second Hand Smoke Exposure: No service: No Current occupational status: retired Cognitive needs: No Hearing needs: No Vision needs: Yes Review of Systems Const Denies weakness ENT Denies dizziness Card Denies chest pain, Denies chest pain with activity, Denies syncope, Denies rapid heart rate, Denies pedal edema, Denies edema, Denies leg edema, Denies lightheadedness, Denies palpitations, Denies dyspnea, Denies dyspnea on exertion and Denies orthopnea Resp Denies cough, Denies dyspnea and Denies dyspnea on exertion GI Denies hematochezia and Denies change in stool character Musc Denies abnormal gait, Denies muscle cramps, Denies muscle weakness, Denies numbness, Denies radiating pain into limb and Denies tingling Neuro Denies abnormal gait, Denies dizziness, Denies syncope, Denies numbness, Denies tingling and Denies weakness Endo Denies palpitations Physical Exam Vital Signs: Last Vital Signs Pulse 67 06/07/25 12:44 BP 120/62 06/07/25 12:44 Const General: comfortable and no acute distress Orientation/consciousness: patient oriented x3 HEENT Other: Unremarkable Head: Yes normal to inspection Neck Neck: Yes normal visual inspection Chest Chest palpation & inspection: normal inspection of the chest Resp Auscultation: clear to auscultation bilaterally Cardio Palpation: normal PMI Heart sounds: S1 normal heart sound present, S2 normal heart sound present, no gallops, no murmurs and no rubs GI Palpation (GI): Soft to palpation Back/Spine/Pelvis Other: unremarkable Skin General skin exam: no rashes or lesions noted Neuro General: patient oriented x3 Extrem General: Yes normal to inspection Psych Mental Status: mental status grossly normal Assessment & Plan Assessment & Plan (1) Acute on chronic systolic and diastolic heart failure, NYHA class 3: Code(s): I50.43 - Acute on chronic combined systolic (congestive) and diastolic (congestive) heart failure Category: Medical Plan: In the recent echocardiogram from November, LVEF is 33%. Wall motion abnormalities related to underlying coronary disease. Due to progressive heart failure symptoms and weight gain, we will need to go up on the diuretic dosing even though she has got CKD. Otherwise, she is on Farxiga. In the past, he had tried Entresto but the kidney function got worse. In today's labs, cardiac BNP is much higher than her baseline. Creatinine is 1.95. Previously, 1.57. (2) Atherosclerotic cardiovascular disease: Code(s): I25.10 - Atherosclerotic heart disease of [place] coronary artery without angina pectoris Category: Medical Plan: Cardiac catheterization with multivessel coronary artery disease. Elevated LVEDP. Patient has been seen by cardiac surgery and deemed to be a poor candidate. Overall, continue medical therapy only. She has not taken Plavix recently after the ICD. May just continue aspirin. Continue beta-blockers and statins. No angina. (3) Non-ST elevation [place] (NSTEMI): Code(s): I21.4 - Non-ST elevation (NSTEMI) myocardial infarction Category: Medical Plan: As above. No recent issues. (4) Type 2 diabetes mellitus with hyperglycemia: Code(s): E11.65 - Type 2 diabetes mellitus with hyperglycemia Category: Medical Qualifiers: Diabetes mellitus mechanic/welder insulin use: with care home use Qualified Code(s): E11.65 - Type 2 diabetes mellitus with hyperglycemia; Z79.4 - custodial (current) use of insulin Plan: On insulin. Hemoglobin A1c is 7%. Plan Discussion Notes I discussed with the patient the importance of conducting blood work to evaluate her renal function, which will guide the adjustment of her diuretic therapy. We talked about the potential need to increase the Bumex dosage, contingent upon the blood work results, and the importance of monitoring her kidney health. I emphasized the use of the patient portal for more efficient communication and addressed her concerns about the delay in response from the office. Patient was informed and verbally consented to the use of an ambient scribe for clinic note documentation during this visit. Orders: Orders Basic Metabolic Panel Today I25.5 - Ischemic cardiomyopathy, I50.9 - Heart failure, unspecified B Type Natriuretic Peptide Today I25.5 - Ischemic cardiomyopathy, I50.9 - Heart failure, unspecified Medications: Changed From bumetanide 1 mg PO BID 180 tabs 3RF To bumetanide 1 mg PO Q OTHER DAY Coding Level of Care Code Est Pt Level 4 (19379) Complex EM visit Add On G2211 Diagnoses Acute on chronic systolic and diastolic heart failure, NYHA class 3 I50.43 Atherosclerotic cardiovascular disease I25.10 Non-ST elevation [place] (NSTEMI) I21.4 Type 2 diabetes mellitus with hyperglycemia, with long-term current use of insulin E11.65; Z79.4 Diabetes mellitus care home insulin use: with mechanic/welder use
--- OUTSIDE RECORDS SUMMARY | 2025-06-07 12:56 | XMS_ITS | Clinical Summary ---
Author Organization [facility] Address [address] [facility] [address] [place] [phone] Phone Care Team Providers Care Pension Adviser Name Role Phone Ja Yanez MD Primary Care Provider [phone] Mason Blanchard DPM Unavailable [phone] Allergies No known active allergies Medications buPROPion (WELLBUTRIN SR) 150 MG SR 12 hr tablet Take 150 mg by mouth 2 (two) times a day. 12/09/19 23 Active lancets Misc as directed 06/14/20 13 Active lisinopril (PRINIVIL,ZES TRIL) 10 MG tablet Take 1 tablet by mouth every morning. 03/06/20 23 Active aspirin 81 MG EC tablet Take 1 tablet by mouth every morning. 07/21/20 24 Active clopidogrel (PLAVIX) 75 mg tablet Take 1 tablet by mouth every morning. 07/21/20 24 Active atorvastatin (LIPITOR) 40 MG tablet Take 40 mg by mouth nightly at bedtime. 07/21/20 24 Active bumetanide (BUMEX) 1 MG tablet Take 1 tablet by mouth 2 (two) times a day. 07/21/20 24 Active metoprolol succinate (TOPROL-XL) 25 MG 24 hr tablet Take 25 mg by mouth every morning. 07/21/20 24 Active FREESTYLE LITE Strp stripsIndicat ions:Type 2 diabetes mellitus with peripheral neuropathy To test blood glucose TID dx E11.65, on insulin 300 strip 3 09/03/20 24 Active ENTRESTO 24-26 mg per tablet Take 1 tablet by mouth 2 (two) times a day. 08/06/20 24 Active FREESTYLE LITE METER meter kitIndication s:Type 2 diabetes mellitus with peripheral neuropathy To monitor blood glucose, TID ac meals dx E11.42 on insulin 1 each 09/17/20 24 Active FARXIGA 10 mg tablet Take 1 tablet by mouth every morning. 10/07/20 24 Active cholecalcifer ol (VITAMIN D3) 2,000 unit tabletIndicat ions:Vitamin D deficiency TAKE ONE TABLET BY MOUTH EVERY DAY 90 tablet 3 11/30/19 25 Active BD INSULIN PEN NEEDLE UF SHORT 31 gauge x 03/18 NdleIndicatio ns:Type 2 diabetes mellitus with peripheral neuropathy Inject 1 each as directed 4 (four) times a day before meals and nightly. To inject insulin QID dx E11.65 400 each 3 02/10/20 25 Active lancing device with lancets Kit 1 each by Miscellaneous route 3 (three) times a day before meals. 300 kit 3 02/17/20 25 Active insulin aspart U-100 (NOVOLOG) 100 unit/mL (3 mL) injection pen Inject 10 Units under the skin 3 (three) times a day with meals. Plus 2 units to prime the pen with each dose 30 mL 1 03/11/20 25 Active VITAMIN B-12 1000 MCG tabletIndicat ions:Vitamin B12 deficiency TAKE TWO TABLETS BY MOUTH EVERY DAY 180 tablet 2 04/18/20 25 Active TRESIBA FLEXTOUCH U-100 injection penIndication s:Type 2 diabetes mellitus with peripheral neuropathy INJECT 36 UNITS UNDER THE SKIN NIGHTLY AT BEDTIME 45 mL 1 05/23/20 25 Active insulin degludec U-100 (TRESIBA) injection penIndication s:Type 2 diabetes mellitus with peripheral neuropathy Inject 36 Units under the skin nightly at bedtime. 45 mL 1 09/17/20 24 025 Discontinued insulin degludec U-100 (TRESIBA FLEXTOUCH U-100) injection penIndication s:Type 2 diabetes mellitus with peripheral neuropathy INJECT 36 UNITS UNDER THE SKIN NIGHTLY AT BEDTIME 30 mL 3 05/19/20 25 025 Discontinued Active Problems Problem Noted Date Diagnosed Date Type 2 diabetes mellitus wit h retinopathy, with long-term current use of insulin 01/07/2023 Assessment & Plan (05/04/2025 4:40 PM EDT): Due for ophtho. Assessment & Plan (12/03/2023 2:20 PM EST): Up to date w/ ophtho. Assessment & Plan (05/12/2023 4:54 PM EDT): Control uncertain, limited SMBG & recent labs have not been received, will call for them & let her know. No frequent or severe hypoglycemia, some overnight, somewhat related to not eating at night, is also taking prandial insulin too long PC, which could be contributing. Advised to take the novolog within 15 min of meals & if lows persist, would cut back to 40-42 units of tresiba. Continue to work on eating healthy & keeping active, as able. To call or send in BG with problems with glycemic control. Up to date with ophtho. Looking into cataract surgery, discussed. Assessment & Plan (01/20/2023 4:53 PM EDT): Control has improved based upon the patient's recall of her SMBG readings. No frequent or severe hypoglycemia. She recalls having an occasional lower reading when she doesn't eat enough the night prior. She will correct with juice and then is fine. Discussed lowering her dose of tresiba down to 40 units if she is eating a solution design and analysis manager supper to help prevent the lower readings. Continue to work on eating healthy and being active. To call with any issues managing her glucose levels. Scheduled to see a new ophtho provider in March, to request a copy of the note be sent here. Sees podiatry. Labs ordered today Obesity 01/07/2023 Peripheral vascular disease 01/07/2023 Proliferative diabetic retinopathy(362.02) 01/07 Vitamin B12 deficiency 01/07/2023 Assessment & Plan (04/02/2024 10:01 AM EDT): Reviewed recent blood work from PCP, levels are good, will maintain current regimen Assessment & Plan (08/13/2023 2:30 PM EDT): With her B12 levels being elevated on her blood work from April will lower her vitamin B12 to taking 1000 mcg daily. Will recheck at next visit Assessment & Plan (01/20/2023 4:50 PM EDT): With her recent prescription the formulation was changed from regular tablets to sublingual tablets. Unsure, why this change was made. Put in a new prescription to include the personal injury law specialist of her previous tablet. Will send to the pharmacy. Will order labs today to determine if medication adjustments are needed Vitamin D deficiency 01/07/2023 Assessment & Plan (04/02/2024 10:06 AM EDT): Reviewed recent blood work from PCP, levels are good. Will maintain her regimen Assessment & Plan (01/20/2023 4:49 PM EDT): With her last prescription she received clear capsules instead of the tablets she had previously been receiving. Due to her vision problems she is having a hard time seeing this. Changed her prescription to include the manufacture of what she was previously getting. Will send the new prescription to the pharmacy. Will order labs today to determine if medication adjustments are needed Type 2 diabetes mellitus with peripheral neuropa thy Assessment & Plan (05/04/2025 4:44 PM EDT): Control suboptimal. Discussed timing of analog insulin in relation to meals, would continue to work on taking within 15 min (ideally prior to) of eating significant carbohydrate (meal or snack). Will do labs. To call if hasn't heard from us within 1-2 weeks. Continue to work on eating healthy & keeping active, as able. To call or send in BG with problems with glycemic control. Discussed role of CGM, discussed rationale, she is reluctant but will do some research on her own. Has not been able to see podiatry regularly, apparently was told there would be a higher charge if she hasn't seen PCP within 6 months. Will forward our note to see if this visit would satisfy requirement as we are managing DM & if not should schedule q6 month visits w/ PCP moving forward. Umalb/creat due, has been elevated. On karen-inhibitor & SGLT2i w/ reasonable BP control. Assessment & Plan (02/09/2025 9:54 AM EDT): Control is good based upon the patient's recall of her SMBG readings. No frequent or severe hypoglycemia. Will continue with her current dosing. Continue to work on eating healthy and trying to be as active as she can tolerate. To call or message with any issues managing her glucose levels. Up to date with opho. Assessment & Plan (11/16/2024 9:46 AM EST): Control is reasonable and improving based upon the patient's recall of her SMBG readings. No frequent or severe hypoglycemia. She was able to get her tresiba and her glucose levels have improved. Will continue with her current dosing. Continue to work on eating healthy and trying to be as active as she can tolerate. To call or message with any issues managing her glucose levels. Up to date with opho. Needs to find a new tool maintenance technician. Assessment & Plan (09/17/2024 12:34 PM EST): Control is suboptimal based upon the patient's SMBG readings. No frequent or severe hypoglycemia. Since she has been taking her lantus insulin instead of tresiba her glucose control has severely deteriorated. She is very angry about this. Will try switching her back to tresiba to see if she regains her glucose control. Continue to work on eating healthy and trying to be as active as she can tolerate. To call or message with any issues managing her glucose levels. Up to date with opho. Needs to find a new tool maintenance technician. Labs were done in the hospital Assessment & Plan (08/02/2024 2:34 PM EDT): Control has improved based upon the patient's recall of her SMBG readings. No frequent or severe hypoglycemia. She was questioning if she should keep her insulin dosing the same or change them like in the hospital. After discussing her diet and how she is doing at home, she will return to using her previous home dosing. Continue to work on eating healthier and trying to be as active as tolerated. Continue to work on eating healthy and trying to be as active as she can tolerate. To call or message with any issues managing her glucose levels Assessment & Plan (04/02/2024 10:08 AM EDT): Control is good based upon the patient's recent A1C of 7.2%. No frequent or severe hypoglycemia. She recalls having a couple lows due to not eating as much. She corrected with juice and then was fine. Will maintain her regimen. Continue to work on eating healthy and being active. To call with any issues managing her glucose levels. Up to date with david. Sees podiatry. Reviewed blood work from PCP. I have maintained a long-term, longitudinal relationship with this patient, overseeing care of chronic conditions, including diabetes. This care relationship has significantly influenced my decision-making and treatment plans during today's encounter. Assessment & Plan (12/03/2023 2:28 PM EST): Control suboptimal. Excessive hypoglycemia fasting. Advised to cut back on basal insulin to 38 units. Discussed timing of analog insulin in relation to meals, would continue to work on taking within 15 min of eating significant carbohydrate. Will do labs. To call if hasn't heard from us within 1-2 weeks. Continue to work on eating healthy & keeping active, as able. To call or send in BG with problems with glycemic control. Not sure if we have addressed possible use of CGM, will do @ future visits. Follows regularly w/ podiatry. Umalb/creat up to date, mildly elevated earlier in the year, ? If this is new or ongoing. On karen-inhibitor w/ reasonable BP control. Letter written for pt @ proposed change in apartments to one that is too small for her to move around/less able to get outside c/w current. Assessment & Plan (08/13/2023 2:37 PM EDT): Control is reasonable/good based upon the patient's recall of her SMBG readings. No frequent or severe hypoglycemia. She recalls having a couple lows into the 60's. She thinks this was due to not eating as much. She corrected and then was fine. She has lowered her tresiba to 40 units and she has not had the issues with lows. Will maintain her regimen. Continue to work on eating healthy and being active. To call with any issues managing her glucose levels. Up to date with ophtho. [facility]. Will do blood work prior to seeing Dr Church Assessment & Plan (05/12/2023 5:08 PM EDT): Reviewed w/ her dx of neuropathy. Follows w/ Dr. Copeland for nail care. Has significant calluses, advised to d/w him options to address these. assisted current use of insulin Assessment & Plan (11/16/2024 9:47 AM EST): Will continue tresiba and humalog dosing assisted current use of oral hypoglycemic drug Assessment & Plan (11/16/2024 9:47 AM EST): Will continue metformin dosing Essential (primary) hypertension Assessment & Plan (05/04/2025 4:44 PM EDT): Well controlled. Encounters Date Type Department Care Team Description 05/22/2025 Refill [facility] [address] [place] [address] Carmella Kincaid PA-C Medication Refill 05/20/2025 Telephone [facility] [address] [place] [address] Toshia Gr Medication Prior Authorization 05/18/2025 Refill [facility] [address] [place] [address] Carmella Kincaid PA-C Medication Refill 05/04/2025 10:58 AM EDT - 05/04/2025 11:59 PM EDT Hospital Encounter [facility] [address] [place] [address] Iesha Church MD Discharge Disposition: Home or Self Care 05/04/2025 10:00 AM EDT Office Visit [facility] [address] [place] [address] Iesha Church MD Type 2 diabetes mellitus with retinopathy, with long-term current use of insulin, macular edema presence unspecified, unspecified laterality, unspecified retinopathy severity (Primary Dx); Type 2 diabetes mellitus with peripheral neuropathy; assisted current use of oral hypoglycemic drug; ferry terminal agent current use of insulin; Essential (primary) hypertension 04/29/2025 Telephone [facility] [address] [place] [address] [place] [address] Alyssa Stewart medication refill (buPROPion (WELLBUTRIN SR) 150 MG) 04/15/2025 Refill [facility] [address] [place] [address] Carmella Kincaid PA-C Medication Refill 03/11/2025 Refill [facility] [address] [place] [address] Ronna Christian [place] 03/07/2025 Telephone [facility] [address] [place] [address] Iesha Church MD Stitch Bonder Machine Operator Helper Recommendation from Last 3 Months Family History Medical History Relation Comments Diabetes Mother Relation Status Comments Mother Social History Tobacco Use Types Packs/Day Years Used Date Smoking Tobacco: Former Cigarettes Passive Smoke Exposure: Never Smokeless Tobacco: Never Tobacco Cessation:Counseling Given: Not Answered Alcohol Use Standard Drinks/Week Comments Not Asked 0 (1 standard drink = 0.6 oz pur e alcohol) occasional Education Answer Date Recorded Are you interested in more education? Not on mary e 02/28/2023 Are you concerned about learning? Not on file 02/28/2023 No 02/28/2023 No 02/28/2023 Digital Access Answer Date Recorded No 03/29/2023 No 03/29/2023 Reliable internet access at home? Not on file 03/29/2023 Device with a working camera? Not on file Comments Unknown Sex and Gender Information Value Date Recorded Sex Assigned at Not on file Legal Sex Female 10:37 PM EDT Gender Identity Not on file Sexual Orientation Not on file Last Filed Vital Signs Vital Sign Reading Time Taken Comments Blood Pressure 122/70 05/04/2025 9:58 AM EDT Pulse 85 05/04/2025 9:58 AM EDT Temperature - - Respiratory Rate - - Oxygen Saturation 96% 05/04/2025 9:58 AM EDT Inhaled Oxygen Concentration - - Weight 119.7 kg (264 lb) 05/04/2025 9:58 AM EDT Height 155.1 cm (5' 1.06 ) 05/04/2025 9:58 AM ED T Body Mass Index 49.78 05/04/2025 9:58 AM EDT Plan of Treatment Upcoming Encounters Date Type Department Care Team (Late st Contact Info) Description 09/06/2025 2:10 PM EST Office Visit [facility] [address] [place] [address] Carmella Kincaid PA-C [address] [place] [phone] [email or web address] 01/11/2026 11:40 AM EDT Office Visit [facility] [address] [place] [address] Iesha Church MD [address] [place] [phone] Health Maintenance Due Date Last Done Comments DEPRESSION SCREENING 1959 SMOKING Hx and SMOKELESS TOBACCO SCREENING 1960 HEPATITIS C SCREENING 1965 ZOSTER VACCINES (1 of 2) 1997 OSTEOPOROSIS SCREENING INITIAL (ONE-TIME) 2012 PNEUMOCOCCAL VACCINES (50+ years) (2 of 2 - PCV) 08/08/2018 08/08/2017, 07/08/2007 RSV VACCINE (1 - 1-dose 75+ series) 2022 DIABETIC EYE EXAM 01/07/2023 COVID-19 VACCINE ( - season) 2024 04/14/2021, 03/17/2021 HEMOGLOBIN A1C 08/04/2025 05/04/2025, 08/04, 02/26/2024, Additional history exists BLOOD PRESSURE 11/04/2025 05/04/2025 CREATININE LEVEL 05/04/2026 05/04/2025, , 12/03/2023, Additional history exists POTASSIUM LEVEL 05/04/2026 05/04/2025, 11/05, 05/12/2023, Additional history exists Adult Td,Tdap Booster 11/23/2028 11/23/2018 HEPATITIS A VACCINES Aged Out No long er eligible based on patient's age to complete this topic HIB VACCINES Aged Out No longer eligi ble based on patient's age to complete this topic MENINGOCOCCAL VACCINES (ACWY) Aged Out No longer eligible based on patient's age to complete this topic MENINGOCOCCAL VACCINES (B) Aged Out N o longer eligible based on patient's age to complete this topic Medical Devices Not on file Procedures Procedure Name Priority Date/Time Associated Diagnosis Comments MICROALBUMIN/CREATININE RATIO, RANDOM URINE Routine 05/04/2025 11:16 AM EDT Type 2 diabetes mellitus with peripheral neuropathy HEMOGLOBIN A1C Routine 05/04/2025 10:59 AM EDT Type 2 diabetes mellitus with peripheral neuropathy ASPARTATE AMINOTRANSFERASE (AST) Routine 05/04/2025 10:59 AM EDT Type 2 diabetes mellitus with peripheral neuropathy ALANINE AMINOTRANSFERASE (ALT) Routine 05/04/2025 10:59 AM EDT Type 2 diabetes mellitus with peripheral neuropathy BASIC METABOLIC PANEL Routine 05/04/2025 10:59 AM EDT Type 2 diabetes mellitus with peripheral neuropathy VITAMIN B12 Routine 05/04/2025 10:59 AM EDT Type 2 diabetes mellitus with peripheral neuropathy from Last 3 Months Results * Microalbumin/creatinine ratio, random urine (05/04/2025 11:16 AM EDT) URINE MICROALBUMIN <1.2 0 - 2.3 mg/dL [facility] URINE CREATININE 44 mg/dL [facility] [facility] MICROALB/CRE RATIO NOT CALCULATED 0 - 20 mg/g Cre [facility] Comment:due to Microalbumin <1.2 Urine (Urine) 05/04/2025 11: 16 AM EDT 05/04/2025 11:17 AM EDT us Iesha Church MD URINE ORDERABLES Final Result [facility] [address] [place] [address] * Alanine aminotransferase (ALT) (05/04/2025 10:59 AM EDT) ALT 22 0 - 40 U/L [facility] Blood 05/04/2025 10:5 9 AM EDT 05/04/2025 11:01 AM EDT us Iesha Church MD LAB BLOOD ORDERABLES F inal Result [address] [address] * (ABNORMAL) Aspartate aminotransferase (AST) (05/04/2025 10:59 AM EDT) AST 38(H) 0 - 37 U/L [facility] Blood 05/04/2025 10:5 9 AM EDT 05/04/2025 11:01 AM EDT us Iesha Church MD LAB BLOOD ORDERABLES F inal Result [address] [address] * (ABNORMAL) Hemoglobin A1c (05/04/2025 10:59 AM EDT) HEMOGLOBIN A1C 8.5(H) 4.3 - 5.8 % [facility] Blood 05/04/2025 10:5 9 AM EDT 05/04/2025 11:01 AM EDT us Iesha hCurch MD LAB BLOOD ORDERABLES F inal Result [address] [address] * (ABNORMAL) Vitamin B12 (05/04/2025 10:59 AM EDT) VITAMIN B12 >2000(H) 232 - 1245 pg/mL [facility] Blood 05/04/2025 10:5 9 AM EDT 05/04/2025 11:01 AM EDT Iesha Church MD LAB BLOOD ORDERABLES F inal Result Performing Organization Address [facility]/ZIP Co de Phone Number [address] [address] * (ABNORMAL) Basic metabolic panel (05/04/2025 10:59 AM EDT) SODIUM 137 133 - 146 mmol/L [facility] CHLORIDE 99 96 - 108 mmol/L [facility] POTASSIUM 4.6 3.3 - 5.1 mmol/L [facility] CO2 28 21 - 35 mmol/L [facility] BUN 33(H) 6 - 19 mg/dL [facility] CREATININE 1.60(H) 0.5 - 1.5 mg/dL [facility] GLUCOSE 244(H) 70 - 99 mg/dL [facility] CALCIUM 9.3 8.4 - 10.3 mg/dL [facility] EGFR 33(L) >59 mL/min/1.7 3m2 [facility] Comment:Estimated glomerular filtration rate calculated using the CKD-EPI refit equation. ANION GAP 15 10 - 20 mmol/L [facility] Blood 05/04/2025 10:5 9 AM EDT 05/04/2025 11:01 AM EDT Iesha Church MD LAB BLOOD ORDERABLES F inal Result Performing Organization Address City/[facility]/ZIP Co de Phone Number [address] [phone] from Last 3 Months Insurance MEDICARE PART A & [place] MED[place]ARE [place] Care Teams Pension Adviser Relationship Specialty Start Date End Date Ja Yanez MD [address] [place] [address] Drive [address] [place] [address] PCP - General Internal Medicine 01/13/23 Mason Blanchard DPM [address] [place] [id number] Podiatry 05/04/25 Additional Source Comments The information contained in this document represents components of the legal health record. It is not the complete legal health record.[facility]
--- OUTSIDE RECORDS SUMMARY | 2025-06-07 12:56 | XMS_ITS | Clinical Summary ---
Author Organization [facility] Address [address] [place] [address] Phone Care Team Providers Care Calendering Machine Operator Name Role Phone Ja Yanez MD Primary Care Provider [phone] Allergies No known active allergies Medications buPROPion [...] Diabetes: Visual Foot Exam 10/14/2024 Influenza Vaccine (#1) 2025 Hepatitis B Vaccine Aged Out No longe r eligible based on patient's age to complete this topic Insurance Medicare Medicaid [place] Care Teams Calendering Machine Operator Relationship Specialty Start Date End Date Ja Yanez MD [facility] [place] [address] [place], [place] PCP - General Internal Medicine 10/21/24
== END 2025-06-07 13:28 | disposition home or self-care (01) ==
LOC: HO.HCS 12:16
PROVIDERS: PCP Internal Medicine; Visit Provider Internal Medicine
DX: I50.43 Acute on chronic combined systolic (congestive) and diastolic (congestive) heart failure (principal); I25.10 Atherosclerotic heart disease of native coronary artery without angina pectoris; I21.4 Non-ST elevation (NSTEMI) myocardial infarction; E11.65 Type 2 diabetes mellitus with hyperglycemia; Z79.4 Long term (current) use of insulin
CPT/HCPCS: 99214; G2211

== ENCOUNTER 2025-06-13 12:10 | Outpatient (REF) | payer MEDICARE, MEDICAID, SELFPAY ==
--- OUTSIDE RECORDS SUMMARY | 2025-06-13 12:32 | XMS_ITS | Clinical Summary ---
Author Organization [facility] Address [address] [place] [address] Phone Care Team Providers Care Fabric And Accessories Estimator Name Role Phone Ja Yanez MD Primary Care Provider [phone] Allergies No known active allergies Medications buPROPion [...] topic Insurance Medicare Medicaid [place] Care Teams Fabric And Accessories Estimator Relationship Specialty Start Date End Date Ja Yanez MD [facility] [place] [address] [place], [place] PCP - General Internal Medicine 10/21/24
--- OUTSIDE RECORDS SUMMARY | 2025-06-13 12:32 | XMS_ITS | Clinical Summary ---
Author Organization [facility] Address [address] [facility] [address] [place] [address] Phone Care Team Providers Care Cuff Cutter Name Role Phone Ja Yanez MD Primary Care Provider [phone] Mason Blanchard DPM Unavailable [phone] Allergies No known active allergies Medications buPROPion [...] 40 units if she is eating a manual winder supper to help prevent the lower readings. [...] in a new prescription to include the race steward of her previous tablet. Will send to [...] with opho. Needs to find a new silk screen printer machine. Assessment & Plan (09/17/2024 12:34 PM EST): [...] with opho. Needs to find a new silk screen printer machine. Labs were done in the hospital Assessment [...] to d/w him options to address these. [facility] current use of insulin Assessment & Plan (11/16/2024 9:47 AM EST): Will continue tresiba and humalog dosing [facility] current use of oral hypoglycemic drug Assessment & Plan (11/16/2024 9:47 AM EST): Will continue metformin dosing Essential (primary) hypertension Assessment & Plan (05/04/2025 4:44 PM EDT): Well controlled. Encounters Date Type Department Care Team Description 05/22/2025 Refill [facility] [address] [place] [address] Carmella Kincaid PA-C Medication Refill 05/20/2025 Telephone [facility] [address] [place] [address] Toshia Gr Medication Prior Authorization 05/18/2025 Refill [facility] [address] [place] [address] Carmella Kincaid PA-C Medication Refill 05/04/2025 10:58 AM EDT - 05/04/2025 11:59 PM EDT Hospital Encounter [facility] [address] [place] [address] Iesha Church MD Discharge Disposition: Home or Self Care 05/04/2025 10:00 AM EDT Office Visit [facility] [address] [place] [address] Iesha Church MD Type 2 diabetes mellitus with retinopathy, with long-term current use of insulin, macular edema presence unspecified, unspecified laterality, unspecified retinopathy severity (Primary Dx); Type 2 diabetes mellitus with peripheral neuropathy; 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; terminal computer operator current use of insulin; Essential (primary) hypertension 04/29/2025 Telephone [facility] [address] [place] [address] [place] [address] Alyssa Stewart medication refill (buPROPion (WELLBUTRIN SR) 150 MG) 04/15/2025 Refill [facility] [address] [place] [address] Carmella Kincaid PA-C Medication Refill from Last 3 Months Family History Medical [...] Upcoming Encounters Date Type Department Care Team ([facility] st Contact Info) Description 09/06/2025 2:10 PM EST Office Visit [facility] [address] [place] [address] Carmella Kincaid PA-C [address] [place] [address] [email or web address] 01/11/2026 11:40 AM EDT Office Visit [facility] [address] [place] [address] Iesha Church MD [address] [place] [address] [address] [place] [address] [email or web address] Health Maintenance Due Date Last Done Comments [...] URINE MICROALBUMIN <1.2 0 - 2.3 mg/dL [facility] URINE CREATININE 44 mg/dL [facility] MICROALB/CRE RATIO NOT CALCULATED 0 - 20 mg/g Cre [facility] Comment:due to Microalbumin <1.2 Urine (Urine) 05/04/2025 11: 16 AM EDT 05/04/2025 11:17 AM EDT us Iesha Church MD URINE ORDERABLES Final Result [facility] [address] [place] [address] * Alanine aminotransferase (ALT) (05/04/2025 10:59 AM EDT) ALT 22 0 - 40 U/L [facility] Blood 05/04/2025 10:5 9 AM EDT 05/04/2025 11:01 AM EDT us Iesha Church MD LAB BLOOD ORDERABLES F inal Result Performing Organization Address City/[facility]/ZIP Co de Phone Number [address] [address] * (ABNORMAL) Aspartate aminotransferase (AST) (05/04/2025 10:59 AM EDT) AST 38(H) 0 - 37 U/L [facility] Blood 05/04/2025 10:5 9 AM EDT 05/04/2025 11:01 AM EDT us Iesha Church MD LAB BLOOD ORDERABLES F inal Result Performing Organization Address [facility] Co de Phone Number [address] [address] * (ABNORMAL) Hemoglobin A1c (05/04/2025 10:59 AM EDT) HEMOGLOBIN A1C 8.5(H) 4.3 - 5.8 % [facility] Blood 05/04/2025 10:5 9 AM EDT 05/04/2025 11:01 AM EDT us Iesha Church MD LAB BLOOD ORDERABLES F inal Result Performing Organization Address [facility]/ZIP Co de Phone Number [address] [address] * (ABNORMAL) Vitamin B12 (05/04/2025 10:59 AM EDT) VITAMIN B12 >2000(H) 232 - 1245 pg/mL [facility] Blood 05/04/2025 10:5 9 AM EDT 05/04/2025 11:01 AM EDT us Iesha Church MD LAB BLOOD ORDERABLES F inal Result [address] [address] * (ABNORMAL) Basic metabolic panel (05/04/2025 10:59 AM EDT) SODIUM 137 133 - 146 mmol/L [facility] CHLORIDE 99 96 - 108 mmol/L [facility] POTASSIUM 4.6 3.3 - 5.1 mmol/L [facility] CO2 28 21 - 35 mmol/L [facility] BUN 33(H) 6 - 19 mg/dL [facility] CREATININE 1.60(H) 0.5 - 1.5 mg/dL [facility] GLUCOSE 244(H) 70 - 99 mg/dL [facility] CALCIUM 9.3 8.4 - 10.3 mg/dL [facility] EGFR 33(L) >59 mL/min/1.7 3m2 [facility] Comment:Estimated glomerular filtration rate calculated using the CKD-EPI refit equation. ANION GAP 15 10 - 20 mmol/L [facility] Blood 05/04/2025 10:5 9 AM EDT 05/04/2025 11:01 AM EDT Iesha Church MD LAB BLOOD ORDERABLES F inal Result Performing Organization Address [facility] Co de Phone Number [address] [address] from Last 3 Months Insurance MEDICARE PART A & B [place] [facility] [place] PART A & B [facility] [address] [place] [id number] MEDICARE PART A [place] [phone] MEDICARE PART A [place] [address] Care Teams Cuff Cutter Relationship Specialty Start Date End Date Ja Yanez MD [address] [place] [address] PCP - General Internal Medicine 01/13/23 Mason Blanchard DPM [address] [place] [address] Podiatry 05/04/25 Additional Source Comments The information contained in this document represents components of the legal health record. It is not the complete legal health record.[facility]
[2025-06-13 14:35] LABS: Anion Gap 13 (12-20); Blood Urea Nitrogen 39 mg/dL (9-16); Calcium 8.7 mg/dL (8.4-10.2); Carbon Dioxide 33 mmol/L (22-29); Chloride 95 mmol/L (96-108); Estimated Glomerular Filt Rate 22; Potassium 3.1 mmol/L (3.3-5.1); Sodium 138 mmol/L (135-145)
[2025-06-13 14:43] LABS: B Type Natriuretic Peptide 2996 pg/mL (<100)
== END 2025-06-13 12:11 | disposition home or self-care (01) ==
LOC: HO.LAB 12:10
PROVIDERS: PCP Internal Medicine; Visit Provider Internal Medicine
DX: I50.43 Acute on chronic combined systolic (congestive) and diastolic (congestive) heart failure (principal)
CPT/HCPCS: 36415; 80048; 83880

== ENCOUNTER 2025-06-16 12:20 | Outpatient (REF) | payer MEDICARE, MEDICAID, SELFPAY ==
--- OUTSIDE RECORDS SUMMARY | 2025-06-16 13:13 | XMS_ITS | Clinical Summary ---
Author Organization [facility] Address [address] [facility] [address] [place] [address] Phone Care Team Providers Care Production Tester Name Role Phone Ja Yanez MD Primary Care Provider [phone] Mason Blanchard DPM Unavailable [phone] Allergies No known active allergies Medications buPROPion [...] 40 units if she is eating a director of software engineering supper to help prevent the lower readings. [...] in a new prescription to include the applications developer of her previous tablet. Will send to [...] with opho. Needs to find a new brokerage office manager. Assessment & Plan (09/17/2024 12:34 PM EST): [...] with opho. Needs to find a new brokerage office manager. Labs were done in the hospital Assessment [...] to d/w him options to address these. intermediate current use of insulin Assessment & Plan (11/16/2024 9:47 AM EST): Will continue tresiba and humalog dosing intermediate current use of oral hypoglycemic drug Assessment & Plan (11/16/2024 9:47 AM EST): Will continue metformin dosing Essential (primary) hypertension Assessment & Plan (05/04/2025 4:44 PM EDT): Well controlled. Encounters Date Type Department Care Team Description 05/22/2025 Refill [facility] [address] [place] [address] Carmella Kincaid PA-C Medication Refill 05/20/2025 Telephone [facility] [address] [place] [address] Toshia Gr Medication Prior Authorization 05/18/2025 Refill [facility] [address] [place] [address] Carmella Kincaid PA-C Medication Refill 05/04/2025 10:58 AM EDT - 05/04/2025 11:59 PM EDT Hospital Encounter [facility] [address] [place] [address] Iesha Church MD Discharge Disposition: Home or Self Care 05/04/2025 10:00 AM EDT Office Visit [facility] [address] [place] [address] Iesha Church MD Type 2 diabetes mellitus with retinopathy, with long-term current use of insulin, macular edema presence unspecified, unspecified laterality, unspecified retinopathy severity (Primary Dx); Type 2 diabetes mellitus with peripheral neuropathy; 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; care transitions manager current use of insulin; Essential (primary) hypertension 04/29/2025 Telephone [facility] [address] [place] [address] [place] [address] Alyssa Stewart medication refill (buPROPion (WELLBUTRIN SR) 150 MG) 04/15/2025 Refill [facility] [address] [place] [address] Carmella Kincaid PA-C Medication Refill from Last [...] Upcoming Encounters Date Type Department Care Team ([facility] st Contact Info) Description 09/06/2025 2:10 PM EST Office Visit [facility] [address] [place] [address] Carmella Kincaid PA-C [address] [place] [address] [email or web address] 01/11/2026 11:40 AM EDT Office Visit [facility] [address] [place] [address] Iesha Church MD [address] [place] [address] [address] [place] [address] [email or web address] Health Maintenance Due Date Last Done Comments [...] URINE MICROALBUMIN <1.2 0 - 2.3 mg/dL [facility] URINE CREATININE 44 mg/dL [facility] MICROALB/CRE RATIO NOT CALCULATED 0 - 20 mg/g Cre [facility] Comment:due to Microalbumin <1.2 Urine (Urine) 05/04/2025 11: 16 AM EDT 05/04/2025 11:17 AM EDT us Iesha Church MD URINE ORDERABLES Final Result [facility] [address] [place] [address] * Alanine aminotransferase (ALT) (05/04/2025 10:59 AM EDT) ALT 22 0 - 40 U/L [facility] Blood 05/04/2025 10:5 9 AM EDT 05/04/2025 11:01 AM EDT us Iesha Church MD LAB BLOOD ORDERABLES F inal Result Performing Organization Address City/[facility]/ZIP Co de Phone Number [address] [address] * (ABNORMAL) Aspartate aminotransferase (AST) (05/04/2025 10:59 AM EDT) AST 38(H) 0 - 37 U/L [facility] Blood 05/04/2025 10:5 9 AM EDT 05/04/2025 11:01 AM EDT us Iesha Church MD LAB BLOOD ORDERABLES F inal Result Performing Organization Address [facility] Co de Phone Number [address] [address] * (ABNORMAL) Hemoglobin A1c (05/04/2025 10:59 AM EDT) HEMOGLOBIN A1C 8.5(H) 4.3 - 5.8 % [facility] Blood 05/04/2025 10:5 9 AM EDT 05/04/2025 11:01 AM EDT us Iesha Church MD LAB BLOOD ORDERABLES F inal Result Performing Organization Address [facility]/ZIP Co de Phone Number [address] [address] * (ABNORMAL) Vitamin B12 (05/04/2025 10:59 AM EDT) VITAMIN B12 >2000(H) 232 - 1245 pg/mL [facility] Blood 05/04/2025 10:5 9 AM EDT 05/04/2025 11:01 AM EDT us Iesha Church MD LAB BLOOD ORDERABLES F inal Result [address] [address] * (ABNORMAL) Basic metabolic panel (05/04/2025 10:59 AM EDT) SODIUM 137 133 - 146 mmol/L [facility] CHLORIDE 99 96 - 108 mmol/L [facility] POTASSIUM 4.6 3.3 - 5.1 mmol/L [facility] CO2 28 21 - 35 mmol/L [facility] BUN 33(H) 6 - 19 mg/dL [facility] CREATININE 1.60(H) 0.5 - 1.5 mg/dL [facility] GLUCOSE 244(H) 70 - 99 mg/dL [facility] CALCIUM 9.3 8.4 - 10.3 mg/dL [facility] EGFR 33(L) >59 mL/min/1.7 3m2 [facility] Comment:Estimated glomerular filtration rate calculated using the CKD-EPI refit equation. ANION GAP 15 10 - 20 mmol/L [facility] Blood 05/04/2025 10:5 9 AM EDT 05/04/2025 11:01 AM EDT Iesha Church MD LAB BLOOD ORDERABLES F inal Result Performing Organization Address [facility] Co de Phone Number [address] [address] from Last 3 Months Insurance MEDICARE PART A [place] [facility] & [facility] [place] PART A & B [facility] [address] [place] [id number] MEDICARE PART A [place] [address] MEDICARE PART A [place] [id number] Care Teams Production Tester Relationship Specialty Start Date End Date Ja Yanez MD [address] [place] [address] PCP - General Internal Medicine 01/13/23 Mason Blanchard DPM [address] [place] [address] Podiatry 05/04/25 Additional Source Comments The information contained in this document represents components of the legal health record. It is not the complete legal health record.[facility]
--- OUTSIDE RECORDS SUMMARY | 2025-06-16 13:13 | XMS_ITS | Clinical Summary ---
Author Organization [facility] Address [address] [place] [address] Phone Care Team Providers Care Patient Relations Specialist Name Role Phone Ja Yanez MD Primary Care Provider [phone] Allergies No known active allergies Medications buPROPion [...] topic Insurance Medicare Medicaid [place] Care Teams Patient Relations Specialist Relationship Specialty Start Date End Date Ja Yanez MD [facility] [address] [place], [place] PCP - General Internal Medicine 10/21/24
[2025-06-16 14:03] LABS: Anion Gap 13 (12-20); Blood Urea Nitrogen 47 mg/dL (9-16); Calcium 9.3 mg/dL (8.4-10.2); Carbon Dioxide 37 mmol/L (22-29); Chloride 92 mmol/L (96-108); Estimated Glomerular Filt Rate 20; Potassium 3.3 mmol/L (3.3-5.1); Sodium 139 mmol/L (135-145)
== END 2025-06-16 12:21 | disposition home or self-care (01) ==
LOC: HO.LAB 12:20
PROVIDERS: PCP Internal Medicine
DX: I50.9 Heart failure, unspecified (principal)
CPT/HCPCS: 36415; 80048

== ENCOUNTER 2025-07-22 13:00 | Outpatient (AMB) | payer MEDICARE, MEDICAID, SELFPAY ==
--- NOTE | 2025-07-22 13:00 | A.OFFPC_ITS ---
Intake Visit Reasons: follow [phone] Allergies Penicillins Allergy (Unknown, Verified 07/22/25 13:01) hives lasix Adverse Reaction (Severe, Uncoded 07/22/25 13:01) Unknown Tobacco use date assessed: 07/22/25 Fall risk assessment: No Falls in past year Last assessed Fall Risk: 07/22/25 Dental Screening Dental Screen Date: 07/22/25 Did you have a dental visit in the last 12 months?: No Did you have a dental problem in the last 6 months where you did not have access to dental care?: No Was dental information given to patient?: No HPI follow [phone] HPI Details patient is diabetic and has not seen a hse advisor. patient is legally blind and not able to clean feet. hse advisor has soak with epson salt once a week History of Present Illness The patient is a 80-year-old female presenting with a follow-up on multiple chronic conditions including diabetes mellitus, hypertension, coronary artery disease, and congestive heart failure. The patient has a history of diabetes mellitus, managed with medications such as Humalog, Lantus, and Farxiga, with a hemoglobin A1c of 8.5% in May 2025, indicating suboptimal control. She is also on a diet and exercise regimen to assist in managing her diabetes. Hypertension is managed with metoprolol 25 mg once a day, and she has been advised to monitor her blood pressure regularly. The patient has a history of coronary artery disease and cardiomyopathy, managed with aspirin, metoprolol, and atorvastatin. She was last seen by cardiology on June 07. The patient has a history of osteomyelitis of the left foot, which has been a concern in the past. Morbid obesity complicates the management of her chronic conditions. Anemia is present, with a hemoglobin level of 10.4 g/dL and hematocrit of 34.3% recorded in November. Hypercholesterolemia is managed with atorvastatin 40 mg once a day. Hypokalemia was noted with a potassium level of 3.3 mmol/L on June 16. Preventative care measures have been discussed, but the patient has declined colonoscopy, mammogram, and bone density screening. Review of Systems Plan Patient was informed and verbally consented to the use of an ambient scribe for clinic note documentation during this visit. 1. Diabetes Mellitus The patient is on Humalog, Lantus, and Farxiga for diabetes management, with a goal to reduce hemoglobin A1c to less than 7.0%. Diet and exercise are also part of the management plan. 2. Hypertension Hypertension is managed with metoprolol 25 mg once a day, and the patient is advised to monitor blood pressure regularly. 3. Coronary Artery Disease The patient is on aspirin 81 mg once a day and atorvastatin 40 mg once a day for coronary artery disease management. 4. Hypercholesterolemia The patient is on atorvastatin 40 mg once a day for hypercholesterolemia management. 5. Anemia The patient is anemic with a hemoglobin level of 10.4 g/dL and hematocrit of 34.3%. 6. Hypokalemia Hypokalemia was noted with a potassium level of 3.3 mmol/L, requiring monitoring and potential dietary adjustments. 7. Preventative Care The patient has declined colonoscopy, mammogram, and bone density screening. Discussion Notes Patient Instructions [facility] Medical History Anemia CKD (chronic kidney disease) stage 3, GFR 30-59 ml/min Diabetic nephropathy Diabetic neuropathy Type 2 diabetes mellitus with hyperglycemia Morbid obesity Hypertension Surgical History S/P NIELS-BSO (total abdominal hysterectomy and bilateral salpingo-oophorectomy) Family History Mother CAD (coronary artery disease) Social History Household Members: None Household Members Other:: states sister cares for her Housing: Apartment Are you a primary healthcare economics manager to a significant other at home: No Do you presently have visiting nurse or other home services: No Alcohol intake: current Alcohol intake frequency: holidays/special occasions only Patient Tobacco Use Status: Former Tobacco user Tobacco use type: Cigarette e-Cigarette/Vaping Use: Never Used Second Hand Smoke Exposure: No service: No Current occupational status: retired Cognitive needs: No Hearing needs: No Vision needs: Yes Questionnaire Thrive Questionnaire Date Thrive assessed: 11/29/24 TASIA-7 AMB Questionnaire TASIA-7 Date TASIA - 7 assessed: 03/01/24 Source: Developed by Drs. Hoang Marquis, Mariela NavarroSammy and colleagues, with an educational lucero from [employer]. Physical exam (Primary Care) Tobacco/Smoking Status: Tobacco use Status Tobacco use date assessed 07/22/25 07/22/25 13:01 Patient Tobacco Use Status Former Tobacco user 07/22/25 13:01 Tobacco use type Cigarette 07/22/25 13:01 e-Cigarette/Vaping Use Never Used 07/22/25 13:01 Thrive Assessment: Date of Thrive Assessment Date Thrive assessed 11/29/24 07/22/25 13:01 Telehealth Telehealth Telehealth Platform: Telephone Location of provider rendering services: practice address Location of patient: address on file Patient Identification confirmed using: Name, : Yes Telehealth method: voice only Patient verbally consented to treatment: Yes Patient verbally consented to billing insurance company: Yes Patient informed of any privacy concerns related to visit: Yes Minutes spent on Phone/Video with Pt.: 25 Coding Level of Care Code Tele Est Pt Level 4 (94641) Diagnoses Ischemic cardiomyopathy I25.5 Acute on chronic systolic and diastolic heart failure, NYHA class 3 I50.43 Atherosclerotic cardiovascular disease I25.10 Essential hypertension I10 Hypertension type: essential hypertension Type 2 diabetes mellitus with hyperglycemia, with long-term current use of insulin E11.65; Z79.4 Diabetes mellitus technician terminal and repeater insulin use: with technician terminal and repeater use Morbid obesity E66.01 Hypercholesterolemia E78.00 Osteoarthritis of knees, bilateral M17.0 Assessment & Plan Assessment & Plan (1) Ischemic cardiomyopathy: Comment: ICD placed 01/2025 Code(s): I25.5 - Ischemic cardiomyopathy Category: Medical Plan: Continue to follow up with Cardiology on Farxiga metoprolol and bumetanide (2) Acute on chronic systolic and diastolic heart failure, NYHA class 3: Code(s): I50.43 - Acute on chronic combined systolic (congestive) and diastolic (conge stive) heart failure Category: Medical Plan: Continue with bumetanide, continue with Farxiga and metoprolol, weigh daily and record (3) Atherosclerotic cardiovascular disease: Code(s): I25.10 - Atherosclerotic heart disease of [place] coronary artery without angina pectoris Category: Medical Plan: Control the cholesterol, weight, blood pressure, diabetes on aspirin 81 mg once a day (4) Hypertension: Code(s): I10 - Essential (primary) hypertension Category: Medical Qualifiers: Hypertension type: essential hypertension Qualified Code(s): I10 - Essential (primary) hypertension Plan: Continue with blood pressure medication. Decrease salt intake and exercise patient is on metoprolol 25 mg once a day advised to monitor blood pressure (5) Type 2 diabetes mellitus with hyperglycemia: Code(s): E11.65 - Type 2 diabetes mellitus with hyperglycemia Category: Medical Qualifiers: Diabetes mellitus alf insulin use: with alf use Qualified Code(s): E11.65 - Type 2 diabetes mellitus with hyperglycemia; Z79.4 - terminal supervisor (current) use of insulin Plan: Decrease the amount of carbohydrate intake, pasta, bread, rice and potatoes are all sugar and that is aside from all the sweet stuff, remember that fruits are g ood but they are Sweet also. Hemoglobin A1c goal of less than 7.0 patient is on Humalog and Lantus, on Farxiga (6) Morbid obesity: Code(s): E66.01 - Morbid (severe) obesity due to excess calories Category: Medical Plan: Diet and exercise (7) Hypercholesterolemia: Code(s): E78.00 - Pure hypercholesterolemia, unspecified Category: Medical Plan: Avoid fried foods, chicken skin, eggs, butter margarine, pastries and meat. Be it pork or beef they have a lot of cholesterol patient needs blood work patient on atorvastatin 40 mg once a day (8) Osteoarthritis of knees, bilateral: Code(s): M17.0 - Bilateral primary osteoarthritis of knee Category: Medical Plan History of Present Illness The patient is a 80-year-old female presenting with mobility issues due to osteomyelitis, neuropathy, and arthritis. She has been experiencing a decline in her ability to walk and lift her legs, making it difficult to enter vehicles, particularly SUVs. The patient has a history of osteomyelitis in her left foot and neuropathy, which contribute to her mobility challenges. Additionally, she suffers from arthritis in her knees, which sometimes makes bending difficult and contributes to her limited ambulation. She remains ambulatory for short periods but requires rest on her rolling walker, which has a seat. The patient is legally blind, which complicates her ability to perform personal care, such as foot hygiene. She requires assistance with foot care, including soaking and drying her feet to prevent complications. She had a pacemaker implanted in January or February, which is a dual chamber defibrillator. This was done in [place], and she has been following up with cardiology for her heart condition. The patient reports knee instability, which has led to falls, including a recent fall in June when her foot was asleep. She was in rehabilitation for six weeks, where she experienced crepitus in her knee, likely due to cartilage issues. Review of Systems - Musculoskeletal: Reports difficulty walking and lifting legs, knee instability, and crepitus. - Neurological: Reports neuropathy. - Cardiovascular: Reports having a pacemaker implanted. - Ophthalmologic: Reports legal blindness. Plan Patient was informed and verbally consented to the use of an ambient scribe for clinic note documentation during this visit. 1. Osteomyelitis The patient requires a wheelchair prescription to aid in mobility due to osteomyelitis in her left foot, which limits her ability to walk and lift her legs. A referral to a hse advisor is necessary for ongoing foot care and management of osteomyelitis. 2. Neuropathy Neuropathy contributes to the patient's mobility issues, necessitating the use of a wheelchair for transportation to medical appointments. 3. Arthritis The patient's arthritis in the knees exacerbates her mobility challenges, and she requires a wheelchair for transportation. 4. Legal Blindness Due to legal blindness, the patient needs assistance with foot care, including regular soaking and drying to prevent complications. 5. Pacemaker Implantation The patient has a dual chamber pacemaker implanted and continues to follow up with cardiology for her heart condition. 6. Knee Instability The patient experiences knee instability, which has led to falls; an x-ray has been requested to assess the condition further. 7. Fall Risk The patient is at risk of falls due to knee instability and neuropathy, necessitating careful monitoring and the use of assistive devices. Discussion Notes During the visit, we discussed the need for a wheelchair prescription to assist with mobility due to osteomyelitis, neuropathy, and arthritis. I explained the process of obtaining a wheelchair and the importance of consulting a medical supply store for specific requirements. We also discussed the necessity of a podiatry referral for foot care and the management of osteomyelitis. The patient was informed about the need for an x-ray to evaluate knee instability and the importance of follow-up with cardiology for her pacemaker. Patient Instructions - Obtain a wheelchair prescription and consult a medical supply store for specific requirements. - Follow up with a hse advisor for foot care and management of osteomyelitis. - Schedule an x-ray for knee evaluation when possible. - Continue follow-up with cardiology for pacemaker management. Orders: Orders Complete Blood Count Auto Diff Today E11.65 - Type 2 diabetes mellitus with hyperglycemia, Z79.4 - terminal supervisor (current) use of insulin Comprehensive Met. Panel Today E11.65 - Type 2 diabetes mellitus with hyp erglycemia, Z79.4 - terminal supervisor (current) use of insulin Hemoglobin A1c Today E11.65 - Type 2 diabetes mellitus with hyperglycemia, Z79.4 - intermediate (current) use of insulin Lipid Panel Today E11.65 - Type 2 diabetes mellitus with hyperglycemia, E78.00 - Pure hypercholesterolemia, unspecified, Z79.4 - terminal supervisor (current) use of insulin Vitamin D 25-OH Total Today E11.65 - Type 2 diabetes mellitus with hyperglycemia, Z79.4 - terminal supervisor (current) use of insulin XR Knee Rashel 1or 2V Today M17.0 - Bilateral primary osteoarthritis of knee Creatinine Urine Today E11.65 - Type 2 diabetes mellitus with hyperglycemia, Z79.4 - terminal supervisor (current) use of insulin Free T4 (Free Thyroxine) Today E11.65 - Type 2 diabetes mellitus with hyperglycemia, Z79.4 - terminal supervisor (current) use of insulin Thyroid Stimulating Hormone Today E11.65 - Type 2 diabetes mellitus with hyperglycemia, Z79.4 - intermediate (current) use of insulin UA CC w/rflx Micro + Cult Today E11.65 - Type 2 diabetes mellitus with hyperglycemia, R30.0 - Dysuria, Z79.4 - intermediate (current) use of insulin Vitamin B12 and Folate Today E11.65 - Type 2 diabetes mellitus with hyperglycemia, Z79.4 - terminal supervisor (current) use of insulin NT Pro B Type Natriuretic Pept Today E11.65 - Type 2 diabetes mellitus with hyperglycemia, Z79.4 - terminal supervisor (current) use of insulin Referrals Podiatry Referral E11.65 - Type 2 diabetes mellitus with hyperglycemia, Z79.4 - intermediate (current) use of insulin Medications: New [WHEELCHAIR] As directed 1 ea 0RF M17.0 - Bilateral primary osteoarthritis of knee [WHEELCHAIR] As directed 1 ea 0RF M17.0 - Bilateral primary osteoarthritis of knee [WHEELCHAIR] As directed 1 ea 0RF M17.0 - Bilateral primary osteoarthritis of knee Refilled [Transport wheelchair] As directed 1 ea 0RF E11.40 - Type 2 diabetes mellitus with diabetic neuropathy, unspecified, M17.9 - Osteoarthritis of knee, unspecified [Transport wheelchair] As directed 1 ea 0RF E11.40 - Type 2 diabetes mellitus with diabetic neuropathy, unspecified, M17.9 - Osteoarthritis of knee, unspecified
--- OUTSIDE RECORDS SUMMARY | 2025-07-22 13:03 | XMS_ITS | Clinical Summary ---
Author Organization [facility] Address [address] [place] [address] Phone Care Team Providers Care Director Of Teaching And Learning Name Role Phone Ja Yanez MD Primary Care Provider [phone] Mason Blanchard DPM Unavailable [phone] Allergies No known active allergies Medications buPROPion (WELLBUTRIN SR) 150 MG SR 12 hr tablet Take 150 mg by mouth 2 (two) times a day. 3 Active lancets Misc as directed 3 Active lisinopril (PRINIVIL,ZEST RIL) 10 MG tablet Take 1 tablet by mouth every morning. 3 Active aspirin 81 MG EC tablet Take 1 tablet by mouth every morning. 4 Active clopidogrel (PLAVIX) 75 mg tablet Take 1 tablet by mouth every morning. 4 Active atorvastatin (LIPITOR) 40 MG tablet Take 40 mg by mouth nightly at bedtime. 4 Active bumetanide (BUMEX) 1 MG tablet Take 1 tablet by mouth 2 (two) times a day. 4 Active metoprolol succinate (TOPROL-XL) 25 MG 24 hr tablet Take 25 mg by mouth every morning. 4 Active FREESTYLE LITE Strp stripsIndicati ons:Type 2 diabetes mellitus with peripheral neuropathy To test blood glucose TID dx E11.65, on insulin 300 strip 3 4 Active ENTRESTO 24-26 mg per tablet Take 1 tablet by mouth 2 (two) times a day. 4 Active FREESTYLE LITE METER meter kitIndications :Type 2 diabetes mellitus with peripheral neuropathy To monitor blood glucose, TID ac meals dx E11.42 on insulin 1 each 4 Active FARXIGA 10 mg tablet Take 1 tablet by mouth every morning. 4 Active cholecalcifero l (VITAMIN D3) 2,000 unit tabletIndicati ons:Vitamin D deficiency TAKE ONE TABLET BY MOUTH EVERY DAY 90 tablet 3 5 Active BD INSULIN PEN NEEDLE UF SHORT 31 gauge x 03/18 NdleIndication s:Type 2 diabetes mellitus with peripheral neuropathy Inject 1 each as directed 4 (four) times a day before meals and nightly. To inject insulin QID dx E11.65 400 each 3 5 Active lancing device with lancets Kit 1 each by Miscellaneous route 3 (three) times a day before meals. 300 kit 3 5 Active insulin aspart U-100 (NOVOLOG) 100 unit/mL (3 mL) injection pen Inject 10 Units under the skin 3 (three) times a day with meals. Plus 2 units to prime the pen with each dose 30 mL 1 5 Active VITAMIN B-12 1000 MCG tabletIndicati ons:Vitamin B12 deficiency TAKE TWO TABLETS BY MOUTH EVERY DAY 180 tablet 2 5 Active TRESIBA FLEXTOUCH U-100 injection penIndications :Type 2 diabetes mellitus with peripheral neuropathy INJECT 36 UNITS UNDER THE SKIN NIGHTLY AT BEDTIME 45 mL 1 5 Active Active Problems Problem Noted Date Diagnosed [...] 40 units if she is eating a maintenance technician supper to help prevent the lower readings. [...] in a new prescription to include the novelties sales representative of her previous tablet. Will send to [...] with opho. Needs to find a new allocations clerk. Assessment & Plan (09/17/2024 12:34 PM EST): [...] with opho. Needs to find a new allocations clerk. Labs were done in the hospital Assessment [...] her glucose [facility]. [facility]. Reviewed blood work from PCP. [...] glucose levels. Up to date with ophtho. Sees podiatry. Will do blood work prior to seeing Dr Church Assessment & Plan (05/12/2023 5:08 PM EDT): Reviewed w/ her dx of neuropathy. Follows w/ Dr. Copeland for nail care. Has significant calluses, advised to d/w him options to address these. manager intermediate current use of insulin Assessment & Plan (11/16/2024 9:47 AM EST): Will continue tresiba and humalog dosing manager intermediate current use of oral hypoglycemic drug Assessment & Plan (11/16/2024 9:47 AM EST): Will continue metformin dosing Essential (primary) hypertension Assessment & Plan (05/04/2025 4:44 PM EDT): Well controlled. Encounters Date Type Department Care Team Description 05/22/2025 Refill [facility] [address] [place] [address] Carmella Kincaid PA-C Medication Refill 05/20/2025 Telephone [facility] [address] [place] [address] Toshia Gr Medication Prior Authorization 05/18/2025 Refill [facility] [address] [place] [address] Carmella Kincaid PA-C Medication Refill 05/04/2025 10:58 AM EDT - 05/04/2025 11:59 PM EDT Hospital Encounter [facility] [address] [place] [address] Iesha Church MD Discharge Disposition: Home or Self Care 05/04/2025 10:00 AM EDT Office Visit [facility] [address] [place] [address] Iesha Church MD Type 2 diabetes mellitus with retinopathy, with long-term current use of insulin, macular edema presence unspecified, unspecified laterality, unspecified retinopathy severity (Primary Dx); Type 2 diabetes mellitus with peripheral neuropathy; alf current use of oral hypoglycemic drug; manager intermediate current use of insulin; Essential (primary) hypertension 04/29/2025 Telephone [facility] [address] [place] [address] Alyssa Stewart medication refill (buPROPion (WELLBUTRIN SR) 150 MG) from Last 3 Months Family History Medical [...] PM EST Office Visit [facility] [address] [place] [address] Carmella Kincaid PA-C [address] [place] [address] [email or web address] 01/11/2026 11:40 AM EDT Office Visit [facility] [address] [place] [address] Iesha Church MD [address] [place] [address] Health Maintenance Due Date Last Done Comments DEPRESSION SCREENING 1959 SMOKING Hx and SMOKELESS TOBACCO SCREENING 1960 HEPATITIS C SCREENING 1965 ZOSTER VACCINES (1 of 2) 1997 OSTEOPOROSIS SCREENING INITIAL (ONE-TIME) 2012 PNEUMOCOCCAL VACCINES (50+ years) (2 of 2 - PCV) 08/08/2018 08/08/2017, 07/08/2007 RSV VACCINE (1 - 1-dose 75+ series) 2022 DIABETIC EYE EXAM 01/07/2023 INFLUENZA VACCINE (#1) 2025 COVID-19 VACCINE ( - season) 2025 04/14/2021, 03/17/2021 HEMOGLOBIN A1C 08/04/2025 05/04/2025, 08/04, [...] URINE MICROALBUMIN <1.2 0 - 2.3 mg/dL [facility] URINE CREATININE 44 mg/dL [facility] MICROALB/CRE RATIO NOT CALCULATED 0 - 20 mg/g Cre [facility] Comment:due to Microalbumin <1.2 Urine (Urine) 05/04/2025 11: 16 AM EDT 05/04/2025 11:17 AM EDT Iesha Church MD URINE ORDERABLES Final Result [address] [address] * Alanine aminotransferase (ALT) (05/04/2025 10:59 AM EDT) ALT 22 0 - 40 U/L [facility] Blood 05/04/2025 10:5 9 AM EDT 05/04/2025 11:01 AM EDT Iesha Church MD LAB BLOOD ORDERABLES F inal Result [address] [address] * (ABNORMAL) Aspartate aminotransferase (AST) (05/04/2025 10:59 AM EDT) AST 38(H) 0 - 37 U/L [facility] Blood 05/04/2025 10:5 9 AM EDT 05/04/2025 11:01 AM EDT us Iesha Church MD LAB BLOOD ORDERABLES F inal Result Performing Organization Address City/[facility]/ZIP Co de Phone Number [address] [address] * (ABNORMAL) Hemoglobin A1c (05/04/2025 10:59 AM EDT) HEMOGLOBIN A1C 8.5(H) 4.3 - 5.8 % [facility] Blood 05/04/2025 10:5 9 AM EDT 05/04/2025 11:01 AM EDT us Iesha Church MD LAB BLOOD ORDERABLES F inal Result Performing Organization Address [facility] Co de Phone Number [address] [address] * (ABNORMAL) Vitamin B12 (05/04/2025 10:59 AM EDT) VITAMIN B12 >2000(H) 232 - 1245 pg/mL [facility] Blood 05/04/2025 10:5 9 AM EDT 05/04/2025 11:01 AM EDT us Iesha Church MD LAB BLOOD ORDERABLES F inal Result Performing Organization Address City/[facility]/ZIP Co de Phone Number [address] [address] * (ABNORMAL) Basic metabolic panel (05/04/2025 10:59 AM EDT) SODIUM 137 133 - 146 mmol/L [facility] CHLORIDE 99 96 - 108 mmol/L [facility] POTASSIUM 4.6 3.3 - 5.1 mmol/L [facility] CO2 28 21 - 35 mmol/L [facility] BUN 33(H) 6 - 19 mg/dL [facility] CREATININE 1.60(H) 0.5 - 1.5 mg/dL [facility] GLUCOSE 244(H) 70 - 99 mg/dL [facility] CALCIUM 9.3 8.4 - 10.3 mg/dL [facility] EGFR 33(L) >59 mL/min/1.7 3m2 [facility] Comment:Estimated glomerular filtration rate calculated using the CKD-EPI refit equation. ANION GAP 15 10 - 20 mmol/L [facility] Blood 05/04/2025 10:5 9 AM EDT 05/04/2025 11:01 AM EDT us Iesha Church MD LAB BLOOD ORDERABLES F inal Result [facility] [address] [place] [address] from Last 3 Months Insurance MEDICARE PART A & B [facility] MEDICARE PART A & B [place] & [place]ARE PART A & B [facility] MEDICARE PART A & B [facility] MEDICARE PART A & B [facility] Care Teams Director Of Teaching And Learning Relationship Specialty Start Date End Date Ja aYnez MD [address] [place] [address] PCP - General Internal Medicine 01/13/23 Mason Blanchard DPM [address] [place] [id number] Podiatry 05/04/25 Additional Source Comments The information contained in this document represents components of the legal health record. It is not the complete legal health record.[facility]
--- OUTSIDE RECORDS SUMMARY | 2025-07-22 13:03 | XMS_ITS | Clinical Summary ---
Author Organization [facility] Address [address] [place] [address] Phone Care Team Providers Care Vegetable Ii Farmworker Name Role Phone Ja Yanez MD Primary Care Provider [phone] Allergies No known active allergies Medications buPROPion [...] topic Insurance Medicare Medicaid [place] Care Teams Vegetable Ii Farmworker Relationship Specialty Start Date End Date Ja Yanze MD [facility] [address] [place], [place] PCP - General Internal Medicine 10/21/24
== END 2025-07-22 15:42 | disposition home or self-care (01) ==
PROVIDERS: PCP Internal Medicine; Visit Provider Internal Medicine
DX: I50.43 Acute on chronic combined systolic (congestive) and diastolic (congestive) heart failure (principal); E11.65 Type 2 diabetes mellitus with hyperglycemia; Z79.4 Long term (current) use of insulin; E66.01 Morbid (severe) obesity due to excess calories; I25.5 Ischemic cardiomyopathy; I25.10 Atherosclerotic heart disease of native coronary artery without angina pectoris; I10 Essential (primary) hypertension; E78.00 Pure hypercholesterolemia, unspecified; M17.0 Bilateral primary osteoarthritis of knee

== ENCOUNTER → 2025-08-02 23:59 | Outpatient (BNV) | payer MEDICARE, MEDICAID, SELFPAY ==
--- NOTE | 2025-08-11 08:23 | MHC.OFFVIS ---
Intake Visit Reasons: Remote ICD check- [facility] Allergies Penicillins Allergy (Unknown, Verified 07/22/25 13:01) hives lasix Adverse Reaction (Severe, Uncoded 07/22/25 13:01) Unknown [facility] Medical History Anemia CKD (chronic kidney disease) stage 3, GFR 30-59 ml/min Diabetic nephropathy Diabetic neuropathy Type 2 diabetes mellitus with hyperglycemia Morbid obesity Hypertension Surgical History S/P NIELS-BSO (total abdominal hysterectomy and bilateral salpingo-oophorectomy) Family History Mother CAD (coronary artery disease) Social History Household Members: None Household Members Other:: states sister cares for her Housing: Apartment Are you a primary palliative care specialist to a significant other at home: No Do you presently have visiting nurse or other home services: No Alcohol intake: current Alcohol intake frequency: holidays/special occasions only Patient Tobacco Use Status: Former Tobacco user Tobacco use type: Cigarette e-Cigarette/Vaping Use: Never Used Second Hand Smoke Exposure: No service: No Current occupational status: retired Cognitive needs: No Hearing needs: No Vision needs: Yes Office Procedures Cardiac Device Check Cardiac Device Check Details: Date of service 08/02/2025; Battery life >7 years; normal lead parameters; no treated VT/VF; normal ICD function. [id number] Cardiac Interrogation, implant defibrillator w/interim Procedure code (CPT) selection complete Assessment & Plan Assessment & Plan (1) ICD (implantable cardioverter-defibrillator) battery depletion: Code(s): Z45.02 - Encounter for adjustment and management of automatic implantable cardiac defibrillator Category: Medical (2) Ischemic cardiomyopathy: Comment: ICD placed 01/2025 Code(s): I25.5 - Ischemic cardiomyopathy Category: Medical Plan x Coding Level of Care Code Procedure Only Diagnoses ICD (implantable cardioverter-defibrillator) battery depletion Z45.02 Ischemic cardiomyopathy I25.5 CPT Codes Cardiac Device Check - Cardiac Device 13: [id number] Cardiac Interrogation, implant defibrillator w/interim ([id number])
== END ==
PROVIDERS: PCP Internal Medicine; Visit Provider Internal Medicine
DX: I25.5 Ischemic cardiomyopathy (principal); Z95.810 Presence of automatic (implantable) cardiac defibrillator
CPT/HCPCS: 93295

== ENCOUNTER 2025-08-08 12:12 | Outpatient (AMB) | payer MEDICARE, MEDICAID, SELFPAY ==
--- NOTE | 2025-08-08 12:39 | A.OFFVIS_ITS ---
Vital Signs 08/08/25 12:40 Height 5 ft 4 in BMI Reason not done Patient refused/unable BP 122/62 Blood Pressure Location Lt brachial Position Sitting Pulse 78 Pulse Source Pulse Oximeter Intake Visit Reasons: 3 month f/up device ck Allergies Penicillins Allergy (Unknown, Verified 07/22/25 13:01) hives lasix Adverse Reaction (Severe, Uncoded 07/22/25 13:01) Unknown Medication List - Last Reconciled 08/08/25 by Brandon Del Toro MD aspirin 81 mg PO DAILY atorvastatin 40 mg PO BEDTIME blood pressure monitor (Blood Pressure Kit) As directed bumetanide 2 tabs in am. bupropion HCl SR 150 mg PO BID cefazolin 1 g IVPUSH Q8H cholecalciferol (vitamin D3) 50 mcg PO DAILY cyanocobalamin (vitamin B-12) 1,000 mcg PO DAILY dapagliflozin propanediol (Farxiga) 10 mg PO DAILY insulin glargine (Lantus U-100 Insulin) 15 units (0.15 mL) subcut DAILY insulin lispro (Admelog U-100 Insulin lispro) See Protocol units subcut QIDACHS insulin lispro (Humalog KwikPen (U-100) Insulin) 10 units subcut TIDAC metolazone fluid build up, weight gain. metoprolol succinate ER (Toprol XL) 25 mg PO DAILY potassium chloride ER (K-Tab) 40 mEq (2 x 20 mEq) PO DAILY [ROLLATOR As directed] Shower Chair As directed [Transport wheelchair As directed] [WHEELCHAIR As directed] HPI Comments Details: Samantha returns for follow-up regarding coronary disease as well as cardiomyopathy. In 2023, she was admitted for non ST elevation myocardial infarction. At that time, echocardiogram had shown diminished LVEF. Transferred to [facility] where she had diagnostic catheterization showing multivessel disease. Thought to be a poor candidate for cardiac surgery. Only on medical therapy. Many comorbidities. Has diabetes, chronic kidney disease. During the last appointment, she had gained a lot of weight and felt distended. Then meds were optimized and she also start metolazone. Overall, much improved after that. Leg swelling is also better. For diuretic, it seems she is taking Bumex 2 mg in the morning and then she takes metolazone as needed but uses only sparingly. [facility] Medical History Anemia CKD (chronic kidney disease) stage 3, GFR 30-59 ml/min Diabetic nephropathy Diabetic neuropathy Type 2 diabetes mellitus with hyperglycemia Morbid obesity Hypertension Surgical History S/P NIELS-BSO (total abdominal hysterectomy and bilateral salpingo-oophorectomy) Family History Mother CAD (coronary artery disease) Social History Household Members: None Household Members Other:: states sister cares for her Housing: Apartment Are you a primary livestock caretaker to a significant other at home: No Do you presently have visiting nurse or other home services: No Alcohol intake: current Alcohol intake frequency: holidays/special occasions only Patient Tobacco Use Status: Former Tobacco user Tobacco use type: Cigarette e-Cigarette/Vaping Use: Never Used Second Hand Smoke Exposure: No service: No Current occupational status: retired Cognitive needs: No Hearing needs: No Vision needs: Yes Review of Systems Const Denies weakness ENT Denies dizziness Card Denies chest pain, Denies chest pain with activity, Denies syncope, Denies rapid heart rate, Denies pedal edema, Denies edema, Denies leg edema, Denies lightheadedness, Denies palpitations, Denies dyspnea, Denies dyspnea on exertion and Denies orthopnea Resp Denies cough, Denies dyspnea and Denies dyspnea on exertion GI Denies hematochezia and Denies change in stool character Musc Denies abnormal gait, Denies muscle cramps, Denies muscle weakness, Denies numbness, Denies radiating pain into limb and Denies tingling Neuro Denies abnormal gait, Denies dizziness, Denies syncope, Denies numbness, Denies tingling and Denies weakness Endo Denies palpitations Physical Exam Vital Signs: Last Vital Signs Pulse 78 08/08/25 12:40 BP 122/62 08/08/25 12:40 Const General: comfortable and no acute distress Orientation/consciousness: patient oriented x3 HEENT Other: Unremarkable Head: Yes normal to inspection Neck Neck: Yes normal visual inspection Chest Chest palpation & inspection: normal inspection of the chest Resp Auscultation: clear to auscultation bilaterally Cardio Palpation: normal PMI Heart sounds: S1 normal heart sound present, S2 normal heart sound present, no gallops, no murmurs and no rubs GI Palpation (GI): Soft to palpation Back/Spine/Pelvis Other: unremarkable Skin General skin exam: no rashes or lesions noted Neuro General: patient oriented x3 Extrem General: Yes normal to inspection Psych Mental Status: mental status grossly normal Office Procedures Cardiac Device Check Cardiac Device Check Details: ICD interrogated today. Dual-chamber device. Normal lead parameters. Atrial pacing < one%. Ventricular pacing > 99%. No treated episodes. Overall, normal device function. [id number] Cardiac Device Check, dual lead implantable defibrillator Procedure code (CPT) selection complete Assessment & Plan Assessment & Plan (1) Acute on chronic systolic and diastolic heart failure, NYHA class 3: Code(s): I50.43 - Acute on chronic combined systolic (congestive) and diastolic (congestive) heart failure Category: Medical Plan: In the recent echocardiogram from November, LVEF is 33%. Wall motion abnormalities related to underlying coronary disease. Seems stable on the current regimen. Continue Bumex at the current dose. Metolazone as needed but patient seems to be using it only sparingly. Continue Farxiga. In the past, he had tried Entresto but the kidney function got worse. Check labs and she plans to go today. (2) Atherosclerotic cardiovascular disease: Code(s): I25.10 - Atherosclerotic heart disease of [place] coronary artery without angina pectoris Category: Medical Plan: Cardiac catheterization with multivessel coronary artery disease. Elevated LVEDP. Patient has been seen by cardiac surgery and deemed to be a poor candidate. Overall, continue medical therapy only. Continue aspirin. Continue beta-blockers and statins. No angina. (3) Non-ST elevation MT (NSTEMI): Code(s): I21.4 - Non-ST elevation (NSTEMI) myocardial infarction Category: Medical Plan: As above. No recent issues. (4) Type 2 diabetes mellitus with hyperglycemia: Code(s): E11.65 - Type 2 diabetes mellitus with hyperglycemia Category: Medical Qualifiers: Diabetes mellitus terminal operator insulin use: with terminal operator use Qualified Code(s): E11.65 - Type 2 diabetes mellitus with hyperglycemia; Z79.4 - salvage determiner (current) use of insulin Plan: On insulin. Hemoglobin A1c is 7%. Orders: Orders Basic Metabolic Panel Today I25.5 - Ischemic cardiomyopathy, I50.9 - Heart failure, unspecified NT Pro B Type Natriuretic Pept Today I50.9 - Heart failure, unspecified Coding Level of Care Code Est Pt Level 4 (92073) Complex EM visit Add On G2211 Diagnoses Acute on chronic systolic and diastolic heart failure, NYHA class 3 I50.43 Atherosclerotic cardiovascular disease I25.10 Non-ST elevation MT (NSTEMI) I21.4 Type 2 diabetes mellitus with hyperglycemia, with long-term current use of insulin E11.65; Z79.4 Diabetes mellitus custodial insulin use: with terminal operator use CPT Codes Cardiac Device Check - Cardiac Device 5: [id number] Cardiac Device Check, dual lead implantable defibrillator ([id number])
[2025-08-08 12:40] VITALS: BP 122/62; PULSE 78
--- OUTSIDE RECORDS SUMMARY | 2025-08-08 14:40 | XMS_ITS | Clinical Summary ---
Author Organization [facility] Address [address] [place] [address] Phone Care Team Providers Care Remote Sensing Research Scientist Name Role Phone Ja Yanez MD Primary Care Provider [phone] Allergies No known active allergies Medications buPROPion [...] topic Insurance Medicare Medicaid [place] Care Teams Remote Sensing Research Scientist Relationship Specialty Start Date End Date Ja Yanez MD [facility] [address] [place], [place] PCP - General Internal Medicine 10/21/24
--- OUTSIDE RECORDS SUMMARY | 2025-08-08 14:40 | XMS_ITS | Clinical Summary ---
Author Organization [facility] Address [address] [place] [id number] Phone Care Team Providers Care Manager Therapy Name Role Phone Ja Yanez MD Primary Care Provider [phone] Mason Blanchard DPM Unavailable [phone] Allergies No known active allergies Medications buPROPion [...] 40 units if she is eating a real estate loan officer supper to help prevent the lower readings. [...] in a new prescription to include the manufacturer's representative of her previous tablet. Will send [...] with opho. Needs to find a new machine tool designer. Assessment & Plan (09/17/2024 12:34 PM EST): [...] with opho. Needs to find a new machine tool designer. Labs were done in the hospital Assessment [...] her glucose levels. [facility] Sees podiatry. Reviewed blood work from [...] to d/w him options to address these. correction current use of insulin Assessment & Plan (11/16/2024 9:47 AM EST): Will continue tresiba and humalog dosing correction current use of oral hypoglycemic drug Assessment & Plan (11/16/2024 9:47 AM EST): Will continue metformin dosing Essential (primary) hypertension Assessment & Plan (05/04/2025 4:44 PM EDT): Well controlled. Encounters Date Type Department Care Team Description 05/22/2025 Refill [facility] [address] [place] [address] Carmella Kincaid PA-C Medication Refill 05/20/2025 Telephone [facility] [address] [place] [address] Toshia Gr Medication Prior Authorization 05/18/2025 Refill [facility] [address] [place] [address] Carmella Kincaid PA-C Medication Refill from Last [...] PM EST Office Visit [facility] [address] [place] [address] Carmella Kincaid PA-C [address] [place] [phone] 01/11/2026 11:40 AM EDT Office Visit [facility] [address] [place] [address] Iesha Church MD [address] [place] [phone] Health Maintenance Due Date Last Done Comments DEPRESSION SCREENING 1959 SMOKING Hx and SMOKELESS TOBACCO SCREENING 1960 HEPATITIS C SCREENING 1965 ZOSTER VACCINES (1 of 2) 1997 OSTEOPOROSIS SCREENING INITIAL (ONE-TIME) 2012 PNEUMOCOCCAL VACCINES (50+ years) (2 of 2 - PCV) 08/08/2018 08/08/2017, 07/08/2007 RSV VACCINE (1 - 1-dose 75+ series) 2022 DIABETIC EYE EXAM 01/07/2023 INFLUENZA VACCINE (#1) 2025 COVID-19 VACCINE (3 - season) 2025 04/14/2021, 03/17/2021 HEMOGLOBIN A1C [...] Procedure Name Priority Date/Time Associated Diagnosis Comments HEMOGLOBIN A1C Routine 05/04/2025 10:59 AM EDT Type 2 diabetes mellitus with peripheral neuropathy BASIC METABOLIC PANEL Routine 05/04/2025 10:59 AM EDT Type 2 diabetes mellitus with peripheral neuropathy from Last 3 Months or Most Recently Relevant to Health Maintenance Results * (ABNORMAL) Hemoglobin A1c (05/04/2025 10:59 AM EDT) HEMOGLOBIN A1C 8.5(H) 4.3 - 5.8 % [facility] Blood 05/04/2025 10:5 9 AM EDT 05/04/2025 11:01 AM EDT us Iesha Church MD LAB BLOOD ORDERABLES F inal Result [address] [address] * (ABNORMAL) Basic metabolic panel (05/04/2025 10:59 AM EDT) SODIUM 137 133 - 146 mmol/L [facility] CHLORIDE 99 96 - 108 mmol/L [facility] POTASSIUM 4.6 3.3 - 5.1 mmol/L [facility] CO2 28 21 - 35 mmol/L [facility] BUN 33(H) 6 - 19 mg/dL [facility] CREATININE 1.60(H) 0.5 - 1.5 mg/dL [facility] GLUCOSE 244(H) 70 - 99 mg/dL [facility] CALCIUM 9.3 8.4 - 10.3 mg/dL [facility] EGFR 33(L) >59 mL/min/1.7 3m2 [facility] Comment:Estimated glomerular filtration rate calculated using the CKD-EPI refit equation. ANION GAP 15 10 - 20 mmol/L [facility] Blood 05/04/2025 10:5 9 AM EDT 05/04/2025 11:01 AM EDT Iesha Church MD LAB BLOOD ORDERABLES F inal Result [facility] [address] [place] [address] from Last 3 Months or Most Recently Relevant to Health Maintenance Insurance MEDICARE PART A & B [facility] [address] MEDICARE PART A & [place] B [facility] Care Teams Manager Therapy Relationship Specialty Start Date End Date Ja Yanez MD [address] [place] [id number] PCP - General Internal Medicine 01/13/23 Mason Blanchard DPM [address] [place] [phone] Podiatry 05/04/25 Additional Source Comments The information contained in this document represents components of the legal health record. It is not the complete legal health record.[facility]
== END 2025-08-08 12:57 | disposition home or self-care (01) ==
LOC: HO.HCS 12:13
PROVIDERS: PCP Internal Medicine; Visit Provider Internal Medicine
DX: I50.43 Acute on chronic combined systolic (congestive) and diastolic (congestive) heart failure (principal); I25.10 Atherosclerotic heart disease of native coronary artery without angina pectoris; I21.4 Non-ST elevation (NSTEMI) myocardial infarction; E11.65 Type 2 diabetes mellitus with hyperglycemia; Z79.4 Long term (current) use of insulin
CPT/HCPCS: 93283; 99214; G2211

== ENCOUNTER 2025-08-08 12:12 | Outpatient (REF) | payer MEDICARE, MEDICAID, SELFPAY ==
[2025-08-08 14:23] LABS: Anion Gap 13 (12-20); Blood Urea Nitrogen 45 mg/dL (9-16); Calcium 9.2 mg/dL (8.4-10.2); Carbon Dioxide 33 mmol/L (22-29); Chloride 99 mmol/L (96-108); Estimated Glomerular Filt Rate 23; Potassium 3.6 mmol/L (3.3-5.1); Sodium 141 mmol/L (135-145)
== END 2025-08-08 12:13 | disposition home or self-care (01) ==
LOC: HO.LAB 12:12
PROVIDERS: PCP Internal Medicine; Visit Provider Internal Medicine
DX: I50.43 Acute on chronic combined systolic (congestive) and diastolic (congestive) heart failure (principal); I25.10 Atherosclerotic heart disease of native coronary artery without angina pectoris; I21.4 Non-ST elevation (NSTEMI) myocardial infarction; N18.30 Chronic kidney disease, stage 3 unspecified; I13.0 Hypertensive heart and chronic kidney disease with heart failure and stage 1 through stage 4 chronic kidney disease, or unspecified chronic kidney disease; E11.65 Type 2 diabetes mellitus with hyperglycemia; I25.5 Ischemic cardiomyopathy; Z87.891 Personal history of nicotine dependence; Z79.4 Long term (current) use of insulin; Z79.84 Long term (current) use of oral hypoglycemic drugs; Z79.82 Long term (current) use of aspirin
CPT/HCPCS: 36415; 80048; 83880; 93283; 99212

== ENCOUNTER 2025-10-17 13:44 | Inpatient (IN) | payer MEDICARE, MEDICAID, SELFPAY ==
[2025-10-17] VITALS (21 sets, daily range): BP systolic 81–130; BP diastolic 36–80; PULSE 60–98; RESP 10–20; TEMP 33.1–36.5; O2SAT 92–100; BMI 38.3
--- NOTE | ~2025-10-17 | XR_ITS ---
EXAMINATION: XR CHEST CLINICAL INFORMATION: dyspnea COMPARISON: X-ray 04/28/2025 TECHNIQUE: Frontal view of the chest was obtained. FINDINGS: Left chest pacemaker with leads extending to the right atrium and right ventricle, stable. Low lung volumes. Central vascular prominence. Increased interstitial markings. Hazy and airspace opacities in bilateral mid and lower lungs. Suspected small right pleural effusion. No pneumothorax. No acute osseous findings. XR/XR chest 1V IMPRESSION: Opacities in bilateral mid and lower lungs, could be related to pulmonary edema or inflammatory/infectious process. Probable small right pleural effusion. Recommend follow-up imaging to resolution. Electronically signed by: Ronny Villela MD 10/17/2025 03:09 PM EST
--- NOTE | ~2025-10-17 | CT_ITS ---
EXAMINATION: CT CHEST WITHOUT IV CONTRAST INDICATION: septic work up COMPARISON: Previous chest x-ray from earlier the same day and chest CTA July 2024 TECHNIQUE: Helical CT scan of the chest was performed without intravenous contrast. Coronal and sagittal reformatted images were generated and reviewed. This CT exam was performed with one or more of the following dose reduction techniques: automated exposure control, adjustment of the mA and/or kV according to patient size, use of iterative reconstruction technique. DLP: 690 mGy-cm CHEST: Limited exam due to respiratory motion artifact. Left subclavian pacemaker/AICD with leads projecting over right atrium and right ventricle. THYROID: Small nodule in the right thyroid gland measuring 9 mm. LUNGS: Atelectasis/dilatation of the right lung base and the right middle and right lower lobes. There is subsegmental atelectasis left lower lobe. Evaluation of the lungs is limited due to respiratory motion artifact. Central airways are clear. There is bronchial soft tissue opacification in the right middle and bilateral lower lobes. There are also diffuse increased interstitial markings in the lungs with interlobular septal thickening in both pneumonia and pulmonary edema should be considered. MEDIASTINUM: No enlarged mediastinal lymph nodes. BRANDON: Evaluation of the hilar regions is limited by lack of intravenous contrast material. CARDIOVASCULATURE: Enlarged heart. No pericardial effusion. Mild aortic valve calcification. Normal caliber thoracic aorta. DEGREE OF CORONARY CALCIFICATION: severe PLEURA: Moderate to large right pleural effusion. Small left pleural effusion. No pneumothorax. MAIN AIRWAYS: The mainstem bronchi and proximal branches are patent. AXILLA: There are small axillary lymph nodes right greater than left. There is no chest wall mass. There is a small amount of air seen in the bilateral chest wall and the left innominate vein. BONES AND SOFT TISSUES: Limited due to respiratory motion. There are degenerative changes of the spine. UPPER ABDOMEN: See abdominal and pelvic CT report from the same day. CT/CT chest wo IV con IMPRESSION: Enlarged heart and severe coronary artery calcification. Left subclavian pacemaker/AICD with leads projecting over the right atrium and right ventricle. Moderate to large right and small left pleural effusions. Right middle and right lower lobe atelectasis/consolidation and subsegmental atelectasis in the left lower lobe. There is also generalized increased interstitial markings with interlobular septal thickening. Both right middle and right lower lobe pneumonia and pulmonary edema should be considered. Electronically signed by: Merle Morrow MD 10/17/2025 04:48 PM EST
--- NOTE | ~2025-10-17 | CT_ITS ---
EXAMINATION: CT HEAD WITHOUT CONTRAST CLINICAL INFORMATION: Altered mental status COMPARISON: None available. TECHNIQUE: Contiguous axial imaging was performed from the skull base to vertex without intravenous administration of contrast. This CT examination was performed using dose optimization techniques as appropriate, variously including the following: *Automated exposure control *Adjustment of mA and/or kV according to patient size (this includes techniques or standardized protocols for targeted exams where dose is matched to indication/reason for exam; i.e. extremities or head) *Use of iterative reconstruction technique FINDINGS: There is no evidence of acute intracranial hemorrhage or edematous large vessel territorial infarction. No abnormal mass effect or midline shift is seen. Buckley to white matter differentiation is well preserved. No abnormal extra-axial fluid collections are identified. Commensurate mild prominence of the ventricles and sulci is compatible with generalized parenchymal volume loss. There is mild periventricular and subcortical white matter hypoattenuation, most likely representing microangiopathic disease No acute calvarial fracture.. Mild right maxillary sinus mucosal thickening. Paranasal sinuses and mastoid air cells are well-aerated. Motion artifact degrading images, limiting evaluation. CT/CT head/brain wo IV con IMPRESSION: No CT evidence of acute intracranial hemorrhage or edematous territorial infarction.. Electronically signed by: Ronny Villela MD 10/17/2025 04:02 PM KARY
--- NOTE | ~2025-10-17 | CT_ITS ---
EXAMINATION: CT ABDOMEN AND PELVIS WITHOUT CONTRAST CLINICAL INFORMATION: Sepsis workup COMPARISON: None TECHNIQUE: Multidetector volumetric imaging was performed from the superior aspect of the liver through the pubic symphysis. Sagittal and coronal reformatted images were obtained on the technologist's workstation. This CT examination was performed using dose optimization techniques as appropriate, variously including the following: *Automated exposure control *Adjustment of mA and/or kV according to patient size (this includes techniques or standardized protocols for targeted exams where dose is matched to indication/reason for exam; i.e. extremities or head) *Use of iterative reconstruction technique FINDINGS: Study is moderately degraded by motion artifact. LUNG BASES: Moderate right pleural effusion and small left pleural effusion is present with opacity in the right lower lobe with air bronchograms. There is patchy airspace opacity in the dependent portion of the left lower lobe. LIVER, GALLBLADDER, AND BILIARY TREE: The liver is normal in size, shape, and attenuation. No focal hepatic lesion or biliary ductal dilatation is present. The gallbladder is unremarkable with no evidence of radiopaque gallstones, gallbladder wall thickening, or obvious pericholecystic inflammatory changes. PANCREAS: Unremarkable. SPLEEN: Unremarkable. ADRENAL GLANDS: There is nodular hyperplasia of the left adrenal gland. The right adrenal gland is unremarkable. KIDNEYS AND URETERS: The kidneys are normal in size, shape, and attenuation. No hydronephrosis, hydroureter, or calculi seen. No perinephric stranding. BLADDER: Unremarkable. GASTROINTESTINAL TRACT: The small and large bowel are unremarkable. The appendix is unremarkable. ABDOMINAL WALL: There is protrusion of bowel in the midline of the abdomen likely related to thinning of overlying fascia and muscle weakness without a definite hernia. There is soft tissue edema anteriorly and laterally. LYMPH NODES: There are shotty inguinal nodes, left greater than right. VASCULAR: Moderate vascular calcifications are present. PELVIC VISCERA: Uterus is not seen and likely surgically absent. OSSEOUS STRUCTURES: Moderate to severe degenerative disc disease and facet osteoarthritis is present in the lumbar spine There are also mild/moderate degenerative changes in the hips bilaterally. CT/CT abdomen pelvis wo IV con IMPRESSION: Moderate right pleural effusion and small left pleural effusion. There is opacity in the aerated right lower lobe with air bronchograms and patchy opacity in the posterior left lower lobe that could represent atelectasis and/or pneumonia. There is generalized superficial soft tissue edema Fleischner guidelines were followed. Electronically signed by: Berlin Gomes MD 10/17/2025 04:45 PM EST
--- NOTE | 2025-10-17 13:54 | ED_ITS ---
HPI - Altered Mental Status General Chief Complaint: Respiratory Arrest Stated Complaint: unconsicous unknown, 100% 15L NRB, 120/82 bp Time Seen by Provider: 10/17/25 13:54 Source: family (sister and her HCP) and EMS Mode of arrival: EMS Limitations: altered mental status History of Present Illness ED Provider: HPI narrative: 80-year-old female found on the floor by police, unresponsive. EMS noted blood glucose in the 30 mg/dL range and administered dextrose with minimal improvement in mental status. Initial SpO2 was 64 % but improved with bag-valve ventilation en route. BP in the field was reportedly stable. Upon ED arrival the patient was lethargic, not hypoxic, but later developed hypotension to 77/34 mm Hg. She remains tachypneic with shallow respirations. Past medical history significant for chronic kidney disease and end-stage heart failure ( bedside ultrasound EF ~10?15 %, markedly dilated IVC, no pericardial effusion or RV strain). Family reports progressive functional decline but ambulatory prior to today. Sister (health-care proxy) on scene; goals of care discussed, patient wishes DNR/DNI status. Review of Systems: Limited secondary to patient condition. Positive for lethargy and hypoglycemia. No other systems reviewed. Family History: * Sister present as health-care proxy; no additional pertinent hereditary conditions discussed. Related Data Home Medications ?Medication ?Instructions ?Recorded ?Confirmed cyanocobalamin (vitamin B-12) 1,000 mcg PO DAILY 03/0508/08/25 1,000 mcg capsule cholecalciferol (vitamin D3) 50 50 mcg PO DAILY 08/08/25 mcg (2,000 unit) tablet insulin lispro 100 unit/mL 10 unit subcut TIDAC 08/08/25 subcutaneous pen (Humalog KwikPen (U-100) Insulin) metolazone 2.5 mg tablet 2.5 mg PO .COMPLEX PRN 08/08 Previous Rx's ?Medication ?Instructions ?Recorded ROLLATOR #1 ea 03/01/24 blood pressure monitor (Blood #1 ea 03/01/24 Pressure Kit) dapagliflozin propanediol 10 mg 10 mg PO DAILY #90 tab s 10/07/24 tablet (Farxiga) atorvastatin 40 mg tablet 40 mg PO BEDTIME #90 tabs cefazolin 1 gram solution for 1 g IVPUSH Q8H #25 ea injection insulin glargine 100 unit/mL 15 unit (0.15 mL) subcut DAILY #10 12/03/24 subcutaneous solution (Lantus mL U-100 Insulin) insulin lispro 100 unit/mL See Protocol subcut QIDACHS #10 mL 12/03/24 subcutaneous solution (Admelog U-100 Insulin lispro) Shower Chair #1 ea 01/19/25 potassium chloride 20 mEq 40 meq (2 x 20 mEq) PO DAILY #90 06/13/25 tablet,extended release (K-Tab) tabs Transport wheelchair #1 ea 07/22/25 WHEELCHAIR #1 ea 07/22/25 bupropion HCl 150 mg tablet,12 hr 150 mg PO BID #180 c aps 08/09/25 sustained-release bumetanide 1 mg tablet 2 mg (2 x 1 mg) PO DAILY 90 days 09/13/25 #180 tabs aspirin 81 mg tablet,delayed 81 mg PO DAILY #90 tabs 1 12/13/24 release metoprolol succinate 25 mg 25 mg PO DAILY #90 tabs 08/27 tablet,extended release 24 hr Allergies Allergy/AdvReac Type Severity Reaction Status Date / Time Penicillins Allergy Unknown hives Verified 10/17/25 14:06 lasix AdvReac Severe Unknown Uncoded 07/22/25 13:01 Review of Systems 2 Review of Systems: Yes Unobtainable due to mental status PMFSH Past Medical History Medical History Anemia CKD (chronic kidney disease) stage 3, GFR 30-59 ml/min Diabetic nephropathy Diabetic neuropathy Type 2 diabetes mellitus with hyperglycemia Morbid obesity Hypertension Surgical History S/P [id number] (total abdominal hysterectomy and bilateral salpingo-oophorectomy) Family History Family History Mother CAD (coronary artery disease) Social History Social History Household Members: None Household Members Other:: states sister cares for her Housing: Apartment Are you a primary neurocritical care physician to a significant other at home: No Do you presently have visiting nurse or other home services: No Alcohol intake: current Alcohol intake frequency: holidays/special occasions only Patient Tobacco Use Status: Former Tobacco user Tobacco use type: Cigarette e-Cigarette/Vaping Use: Never Used Second Hand Smoke Exposure: No Advance Directives: Yes Advance Directives on File: Yes Advance Directives Date on File: 12/06/24 service: No Current occupational status: retired Cognitive needs: No Hearing needs: No Vision needs: Yes Physical Exam ED Exam Exam: Measure Value Blood Pressure 77/34 mm Hg (current) O2 Saturation 54 % in field ? improved with EMS ventil ation; not hypoxic on ED arrival Blood Glucose 30s mg/dL in field (post-dextrose given) Physical Exam: ? General: Lethargic, responds to pain, not to verbal stimuli. ? HEENT: Pupils 2 mm, reactive; no scleral icterus or jaundice. ? Cardiovascular: Paced rhythm, no obvious murmurs; +1/+1 distal pulses B/L lower extremities. ? Respiratory: Tachypneic, shallow respirations; no stridor, wheezes, or rhonchi appreciated. ? Skin/Extremities: Chronic venous changes, poor nail care; abrasion to right inner thigh. ? Neuro: Lethargic, responds to painful stimulus only. ? Trauma: No head trauma noted. Laboratory data relevant for visit: * [id number] glucose: 30s mg/dL (pre-hospital), 90 in ED Imaging data relevant for visit: * Bedside ultrasound: EF ~10?15 %; markedly dilated IVC; no pericardial effusion; no RV strain. Vital Signs: Vital Signs - 24 hr 10/17/25 13:50 10/17/25 14:30 10/17/25 14:54 Temperature 93.4 F L Pulse Rate 60 63 62 Respiratory Rate 20 Blood Pressure 87/36 L 81/36 L 92/44 L Pulse Oximetry 99 Oxygen Delivery Method Non-Rebreather Mask Oxygen Flow Rate 10/17/25 15:09 10/17/25 15:11 10/17/25 15:20 Temperature 91.8 F L 91.6 F L Pulse Rate 62 61 62 Respiratory Rate 10 L 12 Blood Pressure 95/51 L 95/51 L 100/53 L Pulse Oximetry 93 93 Oxygen Delivery Method Nasal Cannula Nasal Cannula Oxygen Flow Rate 2 2 10/17/25 15:44 10/17/25 16:28 Temperature 91.9 F L 91.9 F L Pulse Rate 64 65 Respiratory Rate 18 16 Blood Pressure 111/60 113/66 Pulse Oximetry 92 94 Oxygen Delivery Method Nasal Cannula Nasal Cannula Oxygen Flow Rate 2 3 BMI result Body Mass Index 38.3 Course Reevaluation(s) Reevaluation #1: Notified by RN patient responding well to Levophed , will not be switching to dobutamine at this time, also patient has mixed up her short-acting and long- acting insulin in the past which may explain why she is persistently hypoglycemic, this is according to her sister Time: 14:48 Reevaluation #2: I spoke with Dr. Maliklv repeat troponin if troponin did not significantly increase he thinks it is okay to keep her here Time: 16:44 Medications Administered Generic Name Dose Route Start Last Admin Trade Name Freq PRN Reason Stop Dose Admin Dextrose 25 gm 10/17/25 16:09 10/17/25 16:22 Dextrose 50 % 25 Gm/50 Ml Syringe IVPUSH 25 gm Q15M PRN Administration per Hypoglycemia Standing Ord. Norepinephrine Bitartrate 8 mg in 250 mls @ 0 mls/hr 10/17/25 15:00 10/17/25 15:11 Levophed IVCONT 0.09 mcg/kg/min .Q0M PAKO 18.7 mls/hr Protocol Titration Per Protocol Dextrose 1,000 mls @ 50 mls/hr 10/17/25 15:00 10/17/25 15:10 D10 IVCONT 50 mls/hr .Q20H PAKO Administration Discontinued Medications Generic Name Dose Route Start Last Admin Trade Name Freq PRN Reason Stop Dose Admin Dextrose 25 gm 10/17/25 16:09 10/17/25 16:10 Dextrose 50 % 25 Gm/50 Ml Syringe IVPUSH 10/17/25 16:10 25 gm ONCE ONE Administration Sodium Chloride 1,000 mls @ 999 mls/hr 10/17/25 14:00 10/17/25 14:26 Ns IV 10/17/25 15:00 Infused .Q1H1M PAKO Infusion Cefepime HCl 2 gm in 50 mls @ 100 mls/hr 10/17/25 14:41 10/17/25 15:20 Maxipime IV 10/17/25 15:10 Infused ONCE ONE Infusion Medical Decision Making Medical Decision Making [facility] [place] Narrative: 2:45 PM 10/17/2025 (Dr. Curtis Nye): 80-year-old female with end-stage heart failure and CKD presenting after hypoglycemic event with subsequent hypotension and respiratory compromise. Differential includes septic shock versus cardiogenic shock in the setting of severe systolic dysfunction, compounded by hypoglycemia. Sister (HCP) informed; patient is DNR/DNI. Patient did receive naloxone in the initial stages of resuscitation without response, and point of care glucose was 90, we will start dextrose drip Problem #1: Hypotension / Shock Assessment: BP 77/34 mm Hg despite initial fluid bolus. Concern for mixed septic and cardiogenic shock given severe EF. Plan: * Start norepinephrine (Levophed) infusion. * If inadequate response or significant low cardiac output suspected, consider dobutamine for inotropic support. * Hold further IV fluids after initial bolus due to severe heart failure. * Continuous hemodynamic monitoring. Problem #2: Hypoglycemia Assessment: Pre-hospital glucose in 30s, corrected with dextrose. Plan: * Monitor serial blood glucose levels. * Dextrose as needed to maintain euglycemia. * Dextrose drip 10% Problem #3: Suspected Sepsis Assessment: Found down, now hypotensive; septic source not yet identified. Plan: * Initiate full septic workup: blood cultures ?2, CBC, CMP, lactate, UA, chest X-ray. * will initiate cefepime is empiric therapy Problem #4: End-Stage Systolic Heart Failure (EF 10?15 %) Assessment: Known terminal HF, markedly reduced EF, dilated IVC. Plan: * Avoid fluid overload; use vasopressors/inotropes as above. * Discuss goals of care with sister; patient is DNR/DNI. Problem #5: Chronic Kidney Disease Assessment: Baseline CKD; renal perfusion at risk in current hypotensive state. Plan: * Monitor renal function (creatinine, urine output). Disposition / Follow-up: Continue ED resuscitation with close monitoring; reassess frequently. Differential Diagnosis Differential Diagnoses: The differential diagnosis associated with the presentation includes Admission/Observation Consideration of admission/observation: Escalation of care including admission/observation considered Lab Data MDM Lab Attestation statement: I reviewed the patient's lab results. 10/17/25 14:27 10/17/25 14:27 Labs: Lab Results 10/17/25 10/17/25 10/17/25 Range/Units 13:59 14:27 14:33 WBC 8.1 (4.8-10.8) X10*3/uL RBC 4.42 (4.20-5.50) X10*6/uL Hgb 12.4 (12.0-16.0) g/dl Hct 39.6 (37.0-47.0) % MCV 89.6 (80.0-98.0) fL MCH 28.1 (27.0-33.0) pg MCHC 31.3 (31.0-35.0) g/dl RDW 16.6 H (11.0-16.0) % Plt Count 175 D (160-400) X10*3/uL MPV 9.9 (9.4-12.3) fL Immature Gran % (Auto) 0.5 H (0.0-0.4) % Neut % (Auto) 83.7 H (45-73) % Lymph % (Auto) 7.4 L (20-40) % Kane % (Auto) 8.1 (2-11) % Eos % (Auto) 0.2 (0-4) % Baso % (Auto) 0.1 (0-2) % Lymph # (Auto) 0.6 L (1.2-4.9) X10*3/uL Kane # (Auto) 0.7 (0.1-1.2) X10*3/uL Eos # (Auto) 0.0 (0.0-0.4) X10*3/uL Baso # (Auto) 0.0 (0.0-0.2) X10*3/uL Abs Immat Gran (auto) 0.04 H (0.00-0.03) X10*3/uL Absolute Neuts (auto) 6.8 (2.0-8.3) x10*3/uL Absolute Nucleated RBC 0.000 (0.0-0.012) X10*3/uL Nucleated RBC % (auto) 0.0 (0.0-0.2) /100WBC O2 Saturation 100.0 % ABG pH at Pt Temp 7.45 (7.35-7.45) ABG pCO2 at Pt Temp 42 (32-45) mmHg ABG pO2 at Pt Temp 224 H (83-108) mmHg ABG HCO3 29 H (22-26) mmol/L ABG Base Excess (Actual) 4.9 mmol/L VBG pH 7.37 (7.32-7.43) VBG pCO2 49 mmHg VBG pO2 181 mmHg VBG HCO3 29 H (22-26) mmol/L VBG O2 Saturation 99.0 % VBG Base Excess 3.1 mmol/L Sodium 138 (135-145) mmol/L Potassium 3.1 L (3.3-5.1) mmol/L Chloride 99 (96-108) mmol/L Carbon Dioxide 26 (22-29) mmol/L Anion Gap 16 (12-20) BUN 77 H (9-16) mg/dL Creatinine 2.81 H (0.5-1.4) mg/dL Estim Creat Clear Calc 21.2 Estimated GFR 16 POC Glucose (60-115) mg/dL Random Glucose 50 L* (60-115) mg/dL Lactic Acid 1.7 (0.5-2.0) mmol/L Calcium 8.7 (8.4-10.2) mg/dL Magnesium 2.6 (1.6-2.6) mg/dL Total Bilirubin 1.5 H (0.0-1.0) mg/dL AST 43 H (5-31) U/L ALT 19 (0-31) U/L Alkaline Phosphatase 155 H (39-117) U/L Ammonia 35 (13-55) umol/L Total Creatine Kinase 219 H (26-140) U/L Troponin I High Sens 270.7 H* D (<3.5-17.0) ng/L NT-Pro-B Natriuret Pep 08428.7 H (<300) pg/mL Total Protein 6.4 L (6.5-8.0) g/dL Albumin 3.7 (3.5-5.0) g/dL Lipase 6 L (8-78) U/L Beta-Hydroxybutyrate 0.14 (0.02-0.27) mmol/L TSH 2.39 (0.32-4.0) uIU/mL Urine Color Urine Appearance Urine pH (5.0-9.0) Ur Specific Frederick (1.005-1.025) Urine Protein (Neg-Trace) mg/dL Urine Glucose (UA) (Negative) mg/dL Urine Ketones (Negative) mg/dL Urine Blood (Negative) Urine Nitrite (Negative) Ur Leukocyte Esterase (Negative) Urine Opiates Screen (Not Detect) Ur Buprenorphine Scrn (Not Detect) ng/mL Ur Oxycodone Screen (Not Detect) ng/mL Urine Methadone Screen (Not Detect) ng/mL Urine Fentanyl Screen (Not Detect) Ur Barbiturates Screen (Not Detect) Ur Phencyclidine Scrn (Not Detect) Ur Amphetamines Screen (Not Detect) U Benzodiazepines Scrn (Not Detect) Urine Cocaine Screen (Not Detect) U Marijuana (THC) Screen (Not Detect) Ethyl Alcohol < 10 mg/dL 10/17/25 10/17/25 10/17/25 Range/Units 15:19 15:45 16:20 WBC (4.8-10.8) X10*3/uL RBC (4.20-5.50) X10*6/uL Hgb (12.0-16.0) g/dl Hct (37.0-47.0) % MCV (80.0-98.0) fL MCH (27.0-33.0) pg MCHC (31.0-35.0) g/dl RDW (11.0-16.0) % Plt Count (160-400) X10*3/uL MPV (9.4-12.3) fL Immature Gran % (Auto) (0.0-0.4) % Neut % (Auto) (45-73) % Lymph % (Auto) (20-40) % Kane % (Auto) (2-11) % Eos % (Auto) (0-4) % Baso % (Auto) (0-2) % Lymph # (Auto) (1.2-4.9) X10*3/uL Kane # (Auto) (0.1-1.2) X10*3/uL Eos # (Auto) (0.0-0.4) X10*3/uL Baso # (Auto) (0.0-0.2) X10*3/uL Abs Immat Gran (auto) (0.00-0.03) X10*3/uL Absolute Neuts (auto) (2.0-8.3) x10*3/uL Absolute Nucleated RBC (0.0-0.012) X10*3/uL Nucleated RBC % (auto) (0.0-0.2) /100WBC O2 Saturation % ABG pH at Pt Temp (7.35-7.45) ABG pCO2 at Pt Temp (32-45) mmHg ABG pO2 at Pt Temp (83-108) mmHg ABG HCO3 (22-26) mmol/L ABG Base Excess (Actual) mmol/L VBG pH (7.32-7.43) VBG pCO2 mmHg VBG pO2 mmHg VBG HCO3 (22-26) mmol/L VBG O2 Saturation % VBG Base Excess mmol/L Sodium (135-145) mmol/L Potassium (3.3-5.1) mmol/L Chloride (96-108) mmol/L Carbon Dioxide (22-29) mmol/L Anion Gap (12-20) BUN (9-16) mg/dL Creatinine (0.5-1.4) mg/dL Estim Creat Clear Calc Estimated GFR POC Glucose 55 L* 55 L* 223 H (60-115) mg/dL Random Glucose (60-115) mg/dL Lactic Acid (0.5-2.0) mmol/L Calcium (8.4-10.2) mg/dL Magnesium (1.6-2.6) mg/dL Total Bilirubin (0.0-1.0) mg/dL AST (5-31) U/L ALT (0-31) U/L Alkaline Phosphatase (39-117) U/L Ammonia (13-55) umol/L Total Creatine Kinase (26-140) U/L Troponin I High Sens (<3.5-17.0) ng/L NT-Pro-B Natriuret Pep (<300) pg/mL Total Protein (6.5-8.0) g/dL Albumin (3.5-5.0) g/dL Lipase (8-78) U/L Beta-Hydroxybutyrate (0.02-0.27) mmol/L TSH (0.32-4.0) uIU/mL Urine Color Urine Appearance Urine pH (5.0-9.0) Ur Specific Frederick (1.005-1.025) Urine Protein (Neg-Trace) mg/dL Urine Glucose (UA) (Negative) mg/dL Urine Ketones (Negative) mg/dL Urine Blood (Negative) Urine Nitrite (Negative) Ur Leukocyte Esterase (Negative) Urine Opiates Screen (Not Detect) Ur Buprenorphine Scrn (Not Detect) ng/mL Ur Oxycodone Screen (Not Detect) ng/mL Urine Methadone Screen (Not Detect) ng/mL Urine Fentanyl Screen (Not Detect) Ur Barbiturates Screen (Not Detect) Ur Phencyclidine Scrn (Not Detect) Ur Amphetamines Screen (Not Detect) U Benzodiazepines Scrn (Not Detect) Urine Cocaine Screen (Not Detect) U Marijuana (THC) Screen (Not Detect) Ethyl Alcohol mg/dL 10/17/25 Range/Units Unknown WBC (4.8-10.8) X10*3/uL RBC (4.20-5.50) X10*6/uL Hgb (12.0-16.0) g/dl Hct (37.0-47.0) % MCV (80.0-98.0) fL MCH (27.0-33.0) pg MCHC (31.0-35.0) g/dl RDW (11.0-16.0) % Plt Count (160-400) X10*3/uL MPV (9.4-12.3) fL Immature Gran % (Auto) (0.0-0.4) % Neut % (Auto) (45-73) % Lymph % (Auto) (20-40) % Kane % (Auto) (2-11) % Eos % (Auto) (0-4) % Baso % (Auto) (0-2) % Lymph # (Auto) (1.2-4.9) X10*3/uL Kane # (Auto) (0.1-1.2) X10*3/uL Eos # (Auto) (0.0-0.4) X10*3/uL Baso # (Auto) (0.0-0.2) X10*3/uL Abs Immat Gran (auto) (0.00-0.03) X10*3/uL Absolute Neuts (auto) (2.0-8.3) x10*3/uL Absolute Nucleated RBC (0.0-0.012) X10*3/uL Nucleated RBC % (auto) (0.0-0.2) /100WBC O2 Saturation % ABG pH at Pt Temp (7.35-7.45) ABG pCO2 at Pt Temp (32-45) mmHg ABG pO2 at Pt Temp (83-108) mmHg ABG HCO3 (22-26) mmol/L ABG Base Excess (Actual) mmol/L VBG pH (7.32-7.43) VBG pCO2 mmHg VBG pO2 mmHg VBG HCO3 (22-26) mmol/L VBG O2 Saturation % VBG Base Excess mmol/L Sodium (135-145) mmol/L Potassium (3.3-5.1) mmol/L Chloride (96-108) mmol/L Carbon Dioxide (22-29) mmol/L Anion Gap (12-20) BUN (9-16) mg/dL Creatinine (0.5-1.4) mg/dL Estim Creat Clear Calc Estimated GFR POC Glucose (60-115) mg/dL Random Glucose (60-115) mg/dL Lactic Acid (0.5-2.0) mmol/L Calcium (8.4-10.2) mg/dL Magnesium (1.6-2.6) mg/dL Total Bilirubin (0.0-1.0) mg/dL AST (5-31) U/L ALT (0-31) U/L Alkaline Phosphatase (39-117) U/L Ammonia (13-55) umol/L Total Creatine Kinase (26-140) U/L Troponin I High Sens (<3.5-17.0) ng/L NT-Pro-B Natriuret Pep (<300) pg/mL Total Protein (6.5-8.0) g/dL Albumin (3.5-5.0) g/dL Lipase (8-78) U/L Beta-Hydroxybutyrate (0.02-0.27) mmol/L TSH (0.32-4.0) uIU/mL Urine Color Yellow Urine Appearance Turbid Urine pH 5.5 (5.0-9.0) Ur Specific Frederick 1.015 (1.005-1.025) Urine Protein Trace (Neg-Trace) mg/dL Urine Glucose (UA) Negative (Negative) mg/dL Urine Ketones Negative (Negative) mg/dL Urine Blood Negative (Negative) Urine Nitrite Negative (Negative) Ur Leukocyte Esterase Negative (Negative) Urine Opiates Screen Not Detected (Not Detect) Ur Buprenorphine Scrn Not Detected (Not Detect) ng/mL Ur Oxycodone Screen Not Detected (Not Detect) ng/mL Urine Methadone Screen Not Detected (Not Detect) ng/mL Urine Fentanyl Screen Not Detected (Not Detect) Ur Barbiturates Screen Not Detected (Not Detect) Ur Phencyclidine Scrn Not Detected (Not Detect) Ur Amphetamines Screen Not Detected (Not Detect) U Benzodiazepines Scrn Not Detected (Not Detect) Urine Cocaine Screen Not Detected (Not Detect) U Marijuana (THC) Screen Not Detected (Not Detect) Ethyl Alcohol mg/dL ABG Data Attestation ABG: I personally reviewed and interpreted this ABG as follows: (No CO2 retention, no acidosis) Independent Interpretation I performed an independent interpretation of an: EKG (61 beats per minute ventricular paced rhythm) and Plain X-Ray (Right-sided pleural effusion, vascular congestion, pacemaker in place) Radiology Impression Discussion of test interpretation with radiology: I have reviewed the radiologist's reading. Radiologist Impression: Opacities in bilateral mid and lower lungs, could be related to pulmonary edema or inflammatory/infectious process. Probable small right pleural effusion. CT/CT head/brain wo IV con IMPRESSION: No CT evidence of acute intracranial hemorrhage or edematous territorial infarction.. Independent Historian Clinical information obtained from an independent historian. History obtained from or confirmed by: EMS Procedures Ultrasound ED POC Ultrasound: EMERGENCY ULTRASOUND REPORT?Point of Care Cardiac (Echo-Focus), images I locally stored Emergent Cardiac for Indication: Hypotension, dyspnea Views Used: Parasternal long, parasternal short, 4 chamber, subxiphoid, IVC Pericardial Effusion/Tamponade Findings: Global LV Fxn: Decreased IVC Dilation and Resp Variation: Dilated IVC EF 10-15% no pericardial effusion RV strain, hypovolemia Critical Care Time Critical Care Time Critical Care Time: Yes Total Critical Care Time: 65 Attestation: Time is exclusive of separately billable procedures. Time includes: direct patient care, patient reassessment, coordination of patient care, interpretation of data (laboratory data, pulse oximetry, arterial blood gases and chest xrays), review of patient's medical records, medical consultation and documentation of patient care. Procedures excluded from critical care time: central intravenous line placement and electrocardiography. Discharge Plan Discharge Clinical Impression: Hypotension, unspecified, Tachypnea, not elsewhere classified, Chronic kidney disease, unspecified, Congestive heart failure, unspecified, Hypoglycemia Prescriptions: No Action atorvastatin 40 mg tablet 40 mg PO BEDTIME Qty: 90 3RF ([facility]) Shower Chair Misc See Rx Instructions .Route Qty: 1 0RF Rx Instructions: As directed potassium chloride [K-Tab] 20 mEq tablet extended release 40 meq PO DAILY Qty: 90 3RF bupropion HCl 150 mg tablet sustained-release 12 hr 150 mg PO BID Qty: 180 1RF bumetanide 1 mg tablet 2 mg PO DAILY 90 Days Qty: 180 3RF Rx Instructions: 2mg once daily in the morning aspirin 81 mg tablet,delayed release (DR/EC) 81 mg PO DAILY Qty: 90 3RF metoprolol succinate 25 mg tablet extended release 24 hr 25 mg PO DAILY Qty: 90 3RF cholecalciferol (vitamin D3) 50 mcg (2,000 unit) tablet 50 mcg PO DAILY insulin glargine [Lantus U-100 Insulin] 100 unit/mL Solution 15 unit subcut DAILY Qty: 10 0RF insulin lispro [Admelog U-100 Insulin lispro] 100 unit/mL Solution See Protocol subcut QIDACHS Qty: 10 0RF Protocol: Insulin Correction Scale Less than or equal to 110 ---- Give (units): 0 111 to 150 Give (units): 0 151 to 200 Give (units): 2 201 to 250 Give (units): 4 251 to 300 Give (units): 6 301 to 350 Give (units): 8 Greater than 350 Give (units): 10 Call MD if Blood Glucose > : 350 Rx Instructions: BG <111 0 units, 111-150 - 0 units, 151-200 2 units, 201-250 4 units, 251-300 6 units, 301-350 8 units, >350 10 units cefazolin 1 gram Recon Soln 1 g IVPUSH Q8H Qty: 25 0RF Rx Instructions: Ending January 12, 2025 cyanocobalamin (vitamin B-12) 1,000 mcg capsule 1,000 mcg PO DAILY (DME) ROLLATOR See Rx Instructions .Route .MEDSUPPLY Qty: 1 0RF Rx Instructions: As directed (DME) blood pressure monitor [Blood Pressure Kit] Kit See Rx Instructions .ROUTE .MEDSUPPLY Qty: 1 0RF Rx Instructions: As directed dapagliflozin propanediol [Farxiga] 10 mg tablet 10 mg PO DAILY Qty: 90 3RF insulin lispro [Humalog KwikPen Insulin] 100 unit/mL insulin pen 10 unit subcut TIDAC metolazone 2.5 mg tablet 2.5 mg PO .COMPLEX PRN Rx Instructions: fluid build up, weight gain. (DME) Transport wheelchair See Rx Instructions .Route .MEDSUPPLY Qty: 1 0RF Rx Instructions: As directed (DME) WHEELCHAIR See Rx Instructions .Route .MEDSUPPLY Qty: 1 0RF Rx Instructions: As directed Print Language: Malaysian
--- NOTE | 2025-10-17 13:55 | ECG_ITS ---
Test Reason : AMS Blood Pressure : */* mmHG Vent. Rate : 61 BPM Atrial Rate : 61 BPM P-R Int : * ms QRS Dur : 174 ms QT Int : 602 ms P-R-T Axes : * -50 126 degrees QTcB Int : 606 ms Ventricular-paced rhythm Abnormal ECG When compared with ECG of 28-Apr-2025 16:02, Vent. rate has increased by 2 bpm Referred By: Curtis Nye Electronically Signed By: Eladio Sher
[2025-10-17 14:02] LABS: ABG HCO3 29 mmol/L (22-26); ABG O2 % Saturation 100.0 %
[2025-10-17 14:32] LABS: MANUAL DIFF FLAG NO
[2025-10-17 14:35] LABS: Venous Blood Gas Refer to POC result
[2025-10-17 14:36] LABS: VBG HCO3 29 mmol/L (22-26); VBG O2 % Saturation 99.0 %
[2025-10-17 14:38] LABS: Hematocrit 39.6 % (37.0-47.0); Hemoglobin 12.4 g/dl (12.0-16.0); Imm Gran Abs Auto 0.04 X10*3/uL (0.00-0.03); Imm Gran Pct Auto 0.5 % (0.0-0.4); Lymphocytes Absolute Auto 0.6 X10*3/uL (1.2-4.9); Mean Corpuscular HGB Conc 31.3 g/dl (31.0-35.0); Mean Corpuscular Hemoglobin 28.1 pg (27.0-33.0); Mean Corpuscular Volume 89.6 fL (80.0-98.0); NRBC Abs Auto 0.000 X10*3/uL (0.0-0.012); NRBC Pct Auto 0.0 /100WBC (0.0-0.2); Platelet Count 175 X10*3/uL (160-400); Red Blood Count 4.42 X10*6/uL (4.20-5.50); White Blood Count 8.1 X10*3/uL (4.8-10.8)
[2025-10-17 14:43] LABS: Ammonia 35 umol/L (13-55)
[2025-10-17] MEDS: cefEPime HCl/D5W 2 GM/50 ML PIGGYBACK IV (14:50)
[2025-10-17 14:59] LABS: Troponin-I High Sensitivity 270.7 ng/L (<3.5-17.0)
[2025-10-17] MEDS: Dextrose 10 % 1,000 ML 50 ML IVCONT (15:10)
[2025-10-17 15:13] LABS: Alanine Aminotransferase 19 U/L (0-31); Albumin Level 3.7 g/dL (3.5-5.0); Alkaline Phosphatase 155 U/L (39-117); Anion Gap 16 (12-20); Aspartate Amino Transferase 43 U/L (5-31); Blood Urea Nitrogen 77 mg/dL (9-16); Calcium 8.7 mg/dL (8.4-10.2); Carbon Dioxide 26 mmol/L (22-29); Chloride 99 mmol/L (96-108); Creatinine Clr Calc Pharmacy 21.2; Estimated Glomerular Filt Rate 16; Lipase 6 U/L (8-78); Magnesium 2.6 mg/dL (1.6-2.6); Potassium 3.1 mmol/L (3.3-5.1); Sodium 138 mmol/L (135-145); Total Protein 6.4 g/dL (6.5-8.0)
[2025-10-17 15:14] LABS: Appearance Urine Turbid; Glucose Urine UA Negative (Negative); PH 5.5 (5.0-9.0); Specific Gravity - Urine 1.015 (1.005-1.025)
[2025-10-17 15:21] LABS: Cannabinoid Screen Urine Not Detected (Not Detect)
[2025-10-17 15:23] LABS: Glucose, Whole Blood 55 mg/dL (60-115)
--- NOTE | 2025-10-17 15:54 | PC.NURSE ---
repeat POC obtained - 55. verbal order for 2 AMPs of d50%. administered at this time.
[2025-10-17 16:26] LABS: Glucose, Whole Blood 223 mg/dL (60-115)
[2025-10-17 16:26] LABS: Glucose, Whole Blood 55 mg/dL (60-115)
[2025-10-17 17:01] LABS: Glucose, Whole Blood 219 mg/dL (60-115)
--- NOTE | 2025-10-17 17:01 | PC.NURSE ---
Late entry: Patient presenting to ER, EMS bagging, patient found down by sister. Unsure of events leading to this. Sister states patient has previously administered insulin incorrectly. Patient found to be hypotensive, hypothermic, and hypoglycemic. Patient had 20G placed by EMS in the right hand. Bilateral 18G IVs placed in forearms. 0.2mg narcan given IV with no effect. Patient hypotensive in the 70s, NS fluid bolus administered. Bedside echo by provider showing EF 10-15%. Patient started on Levo 0.05mcg. Patient was hypoglycemic at 55, D10 gtt administered. Additional order was needed for D50 as previously documented. Warming blanket placed on patient, rectal temp sensing probe in place. [place] placed. Patient is more alert to verbal and painful stimuli at this time. POC over 200. Family at the bedside. Pending dispo.
[2025-10-17 17:27] LABS: Troponin-I High Sensitivity 282.2 ng/L (<3.5-17.0)
[2025-10-17 18:16] LABS: Glucose, Whole Blood 169 mg/dL (60-115)
[2025-10-17 19:37] LABS: Glucose, Whole Blood 140 mg/dL (60-115)
--- NOTE | 2025-10-17 20:19 | PM.CCHP ---
History of Present Illness Date of Service: 10/17/25 Attending physician on admission: Mauri Morocho Chief Complaint: Unresponsive The patient is a 80-year-old female with a past medical history of legally blindness, ?diabetes mellitus on insulin, diabetic neuropathy, hypertension, heart failure with reduced EF, ischemic cardiomyopathy, coronary artery disease s/p ICD placement (2023, chronic kidney disease, and morbid obesity who presented to emergency department via EMS after being found by family members unresponsive at her apartment. ?According to EMS, blood glucose was 30, dextrose was given with minimal improvement in mental status. Initial SpO2 was 64 % but improved with bag-valve ventilation en route to hospital. On arrival to the emergency department, patient was lethargic, not hypoxic, tachypneic, blood pressure 77/34, hypothermic to 91.8. Laboratory data was significant for serum glucose 50, potassium 3.1, BUN 77, creatinine 2.81, proBNP 24,550 UA: neg Imaging: ED physician bedside cardiac US: EF ~10?15 %, markedly dilated IVC (no pericardial effusion or RV strain) IMAGING: Head CT: ?No acute findings Chest CT: ?My personal interpretation: Moderate to large right and small left pleural effusions. ?Right middle and lower lobe concerning for aspiration pneumonia, there is some signs of pulmonary edema. Abdominal CT:? No acute infectious findings ED COURSE: Patient received Narcan with no effect, 25gm ?dextrose IV push, 1 L bolus, cefepime 2 g, D10 drip, and started on Levophed. On my assessment the patient when arrived to the ICU, she was alert and oriented x3, sister/HCP Praveena also at bedsise, patient reports she has not eaten well in the past few days, stated he did administer long-acting and short-acting insulin as prescribed despite not eating much in the past couple of days Review of Systems Review of Systems: Yes all other systems are reviewed and are negative [facility]LY [facility] Past Medical History Medical History Anemia CKD (chronic kidney disease) stage 3, GFR 30-59 ml/min Diabetic nephropathy Diabetic neuropathy Type 2 diabetes mellitus with hyperglycemia Morbid obesity Hypertension Family History Family History Mother CAD (coronary artery disease) Surgical History Surgical History S/P NIELS-BSO (total abdominal hysterectomy and bilateral salpingo-oophorectomy) Social History Social History Household Members: None Household Members Other:: states sister cares for her Housing: Apartment Are you a primary livestock caretaker to a significant other at home: No Do you presently have visiting nurse or other home services: Yes Unable to assess alcohol history related to: Unable to respond Alcohol intake: current Alcohol intake frequency: holidays/special occasions only Patient Tobacco Use Status: Former Tobacco user Tobacco use type: Cigarette e-Cigarette/Vaping Use: Never Used Second Hand Smoke Exposure: No Have you been hit, kicked, punched, or otherwise hurt by someone within the past year? If so, by whom?: No Do you feel safe in your current relationship?: No Current Relationship Is there a partner from a previous relationship who is making you feel unsafe now?: No Are you made to feel afraid or neglected: No Advance Directives: Yes Advance Directives on File: Yes Advance Directives Date on File: 12/06/24 Do you have a plan to hurt others: No Plan Recently lost weight without trying: No Eating poorly because of decreased appetite: No Nutrition Risks: No Nutritional Risk Patient : No : No Poor oral hygiene: Yes service: No Current occupational status: retired Cognitive needs: No Hearing needs: No Vision needs: Yes Meds Allergies Allergy/AdvReac Type Severity Reaction Status Date / Time Penicillins Allergy Unknown hives Verified 10/17/25 14:06 lasix AdvReac Severe Unknown Uncoded 07/22/25 13:01 Active Medications: Current Medications Dextrose (Dextrose 50 % 25 Gm/50 Ml Syringe) 25 gm IVPUSH Q15M PRN PRN Reason: per Hypoglycemia Standing Ord. Last Admin: 10/17/25 16:22 Dose: 25 gm Heparin Sodium (Porcine) (Heparin Sodium,Porcine 5,000 Unit/Ml Vial) 5,000 unit SUBCUT Q8H PAKO Last Admin: 10/17/25 19:44 Dose: 5,000 unit Norepinephrine Bitartrate (Levophed) 8 mg in 250 mls @ 0 mls/hr IVCONT .Q0M [facility]; Protocol Last Titration: 10/17/25 19:25 Dose: 0.05 mcg/kg/min, 10.39 mls/hr Dextrose (D10) 1,000 mls @ 50 mls/hr IVCONT .Q20H [facility] Last Admin: 10/17/25 15:10 Dose: 50 mls/hr Home Medications ?Medication ?Instructions ?Recorded ?Confirmed ?Last Taken ?Type cyanocobalamin (vitamin B-12) 1,000 mcg PO DAILY 03/05/21 10/17/25 10/16/25 21:00 History 1,000 mcg capsule cholecalciferol (vitamin D3) 50 50 mcg PO DAILY 07/08/24 10/17/25 10/16/25 21:00 History mcg (2,000 unit) tablet insulin lispro 100 unit/mL 10 unit subcut TIDAC 08/24/24 10/17/25 10/16/25 21:00 History subcutaneous pen (Humalog KwikPen (U-100) Insulin) insulin degludec 100 unit/mL (3 36 unit subcut BEDTIME 10/17/25 10/17/25 10/16/25 21:00 History mL) subcutaneous pen (Tresiba FlexTouch U-100 insulin) Physical Exam Exam: Exam: ?General:? Alert oriented x3 no acute distress.? Speaking full sentences. Following all commands. ?HEENT:? Head is normocephalic, atraumatic, pupils equal round reactive to light accommodation bilaterally.? Extraocular movements appear intact.? Buccal mucosa is dry, Neck is supple ?Cardiac:?+ JVD, Pace Rhythm on tele. No rubs or gallops. ?Pulmonary:?Diffuse crackles at bases. No wheezing. On suplemental 2L NC ?Abdomen:? ?Abdomen soft, non-tender, non-distended. Normal bowel sounds. No pulsatile mass. No hepatosplenomegaly. ?Musculoskeletal:? Moving all 4 extremities upon request a major joints, there is no crepitus or tenderness.? The strength is 5/5 bilaterally and throughout all 4 extremities.? Gait not assessed at this point. ?Neurologic:? cranial nerves 2-12 are grossly intact.? No focal deficits noted.Motor strength as above.?? ?Skin:?+2 bilateral lower extremity edema, patient has multiple healed ulcers bilateral lower extremities.? Skin dry but intact Vascular:? pulses present with doppler bilaterally Vital Signs: Vital Signs: Last Vital Signs Temp 95.4 F L 10/17/25 20:00 Pulse 76 10/17/25 20:00 Resp 14 10/17/25 20:00 BP 130/76 10/17/25 20:00 Pulse Ox 97 10/17/25 20:00 O2 Del Method Nasal Cannula 10/17/25 20:00 O2 Flow Rate 3 10/17/25 20:00 Oxygen Flow Rate 15 10/17/25 13:50 BMI result Body Mass Index 38.3 Results Labs 10/18/25 05:20 10/18/25 05:20 Labs: Laboratory Results - last 24 hr 10/17/25 10/17/25 10/17/25 13:59 14:27 14:33 MCV 89.6 MCH 28.1 MCHC 31.3 RDW 16.6 H Plt Count 175 D MPV 9.9 Immature Gran % (Auto) 0.5 H Neut % (Auto) 83.7 H Lymph % (Auto) 7.4 L Deuel % (Auto) 8.1 Eos % (Auto) 0.2 Baso % (Auto) 0.1 Lymph # (Auto) 0.6 L De[place] # (Auto) 0.7 Eos # (Auto) 0.0 Baso # (Auto) 0.0 Abs Immat Gran (auto) 0.04 H Absolute Neuts (auto) 6.8 Absolute Nucleated RBC 0.000 Nucleated RBC % (auto) 0.0 O2 Saturation 100.0 ABG pH at Pt Temp 7.45 ABG pCO2 at Pt Temp 42 ABG pO2 at Pt Temp 224 H ABG HCO3 29 H ABG Base Excess (Actual) 4.9 VBG pH 7.37 VBG pCO2 49 VBG pO2 181 VBG HCO3 29 H VBG O2 Saturation 99.0 VBG Base Excess 3.1 Anion Gap 16 Estim Creat Clear Calc 21.2 Estimated GFR 16 POC Glucose Random Glucose 50 L* Insulin Level 298 H Lactic Acid 1.7 Calcium 8.7 Magnesium 2.6 Total Bilirubin 1.5 H AST 43 H ALT 19 Alkaline Phosphatase 155 H Ammonia 35 Total Creatine Kinase 219 H Troponin I High Sens 270.7 H* D NT-Pro-B Natriuret Pep 86489.7 H Total Protein 6.4 L Albumin 3.7 Lipase 6 L Beta-Hydroxybutyrate 0.14 TSH 2.39 Urine Color Urine Appearance Urine pH Ur Specific [place] Urine Protein Urine Glucose (UA) Urine Ketones Urine Blood Urine Nitrite Ur Leukocyte Esterase Urine Opiates Screen Ur Buprenorphine Scrn Ur Oxycodone Screen Urine Methadone Screen Urine Fentanyl Screen Ur Barbiturates Screen Ur Phencyclidine Scrn Ur Amphetamines Screen U Benzodiazepines Scrn Urine Cocaine Screen U Marijuana (THC) Screen Ethyl Alcohol < 10 10/17/25 10/17/25 10/17/25 15:19 15:45 16:20 MCV MCH MCHC RDW Plt Count MPV Immature Gran % (Auto) Neut % (Auto) Lymph % (Auto) Deuel % (Auto) Eos % (Auto) Baso % (Auto) Lymph # (Auto) Deuel # (Auto) Eos # (Auto) Baso # (Auto) Abs Immat Gran (auto) Absolute Neuts (auto) Absolute Nucleated RBC Nucleated RBC % (auto) O2 Saturation ABG pH at Pt Temp ABG pCO2 at Pt Temp ABG pO2 at Pt Temp ABG HCO3 ABG Base Excess (Actual) VBG pH VBG pCO2 VBG pO2 VBG HCO3 VBG O2 Saturation VBG Base Excess Anion Gap Estim Creat Clear Calc Estimated GFR POC Glucose 55 L* 55 L* 223 H Random Glucose Insulin Level Lactic Acid Calcium Magnesium Total Bilirubin AST ALT Alkaline Phosphatase Ammonia Total Creatine Kinase Troponin I High Sens NT-Pro-B Natriuret Pep Total Protein Albumin Lipase Beta-Hydroxybutyrate TSH Urine Color Urine Appearance Urine pH Ur Specific [place] Urine Protein Urine Glucose (UA) Urine Ketones Urine Blood Urine Nitrite Ur Leukocyte Esterase Urine Opiates Screen Ur Buprenorphine Scrn Ur Oxycodone Screen Urine Methadone Screen Urine Fentanyl Screen Ur Barbiturates Screen Ur Phencyclidine Scrn Ur Amphetamines Screen U Benzodiazepines Scrn Urine Cocaine Screen U Marijuana (THC) Screen Ethyl Alcohol 10/17/25 10/17/25 10/17/25 16:46 16:56 18:12 MCV MCH MCHC RDW Plt Count MPV Immature Gran % (Auto) Neut % (Auto) Lymph % (Auto) Deuel % (Auto) Eos % (Auto) Baso % (Auto) Lymph # (Auto) Deuel # (Auto) Eos # (Auto) Baso # (Auto) Abs Immat Gran (auto) Absolute Neuts (auto) Absolute Nucleated RBC Nucleated RBC % (auto) O2 Saturation ABG pH at Pt Temp ABG pCO2 at Pt Temp ABG pO2 at Pt Temp ABG HCO3 ABG Base Excess (Actual) VBG pH VBG pCO2 VBG pO2 VBG HCO3 VBG O2 Saturation VBG Base Excess Anion Gap Estim Creat Clear Calc Estimated GFR POC Glucose 219 H 169 H Random Glucose Insulin Level Lactic Acid Calcium Magnesium Total Bilirubin AST ALT Alkaline Phosphatase Ammonia Total Creatine Kinase Troponin I High Sens 282.2 H* NT-Pro-B Natriuret Pep Total Protein Albumin Lipase Beta-Hydroxybutyrate TSH Urine Color Urine Appearance Urine pH Ur Specific [place] Urine Protein Urine Glucose (UA) Urine Ketones Urine Blood Urine Nitrite Ur Leukocyte Esterase Urine Opiates Screen Ur Buprenorphine Scrn Ur Oxycodone Screen Urine Methadone Screen Urine Fentanyl Screen Ur Barbiturates Screen Ur Phencyclidine Scrn Ur Amphetamines Screen U Benzodiazepines Scrn Urine Cocaine Screen U Marijuana (THC) Screen Ethyl Alcohol 10/17/25 10/17/25 19:33 Unknown MCV MCH MCHC RDW Plt Count MPV Immature Gran % (Auto) Neut % (Auto) Lymph % (Auto) Deuel % (Auto) Eos % (Auto) Baso % (Auto) Lymph # (Auto) Deuel # (Auto) Eos # (Auto) Baso # (Auto) Abs Immat Gran (auto) Absolute Neuts (auto) Absolute Nucleated RBC Nucleated RBC % (auto) O2 Saturation ABG pH at Pt Temp ABG pCO2 at Pt Temp ABG pO2 at Pt Temp ABG HCO3 ABG Base Excess (Actual) VBG pH VBG pCO2 VBG pO2 VBG HCO3 VBG O2 Saturation VBG Base Excess Anion Gap Estim Creat Clear Calc Estimated GFR POC Glucose 140 H Random Glucose Insulin Level Lactic Acid Calcium Magnesium Total Bilirubin AST ALT Alkaline Phosphatase Ammonia Total Creatine Kinase Troponin I High Sens NT-Pro-B Natriuret Pep Total Protein Albumin Lipase Beta-Hydroxybutyrate TSH Urine Color Yellow Urine Appearance Turbid Urine pH 5.5 Ur Specific [place] 1.015 Urine Protein Trace Urine Glucose (UA) Negative Urine Ketones Negative Urine Blood Negative Urine Nitrite Negative Ur Leukocyte Esterase Negative Urine Opiates Screen Not Detected Ur Buprenorphine Scrn Not Detected Ur Oxycodone Screen Not Detected Urine Methadone Screen Not Detected Urine Fentanyl Screen Not Detected Ur Barbiturates Screen Not Detected Ur Phencyclidine Scrn Not Detected Ur Amphetamines Screen Not Detected U Benzodiazepines Scrn Not Detected Urine Cocaine Screen Not Detected U Marijuana (THC) Screen Not Detected Ethyl Alcohol Imaging Radiologist's Impressions: Impressions Chest X-Ray 10/17/25 14:50 IMPRESSION: Opacities in bilateral mid and lower lungs, could be related to pulmonary edema or inflammatory/infectious process. Probable small right pleural effusion. Recommend follow-up imaging to resolution. Electronically signed by: Ronny Villela MD 10/17/2025 03:09 PM EST RP Head CT 10/17/25 15:24 IMPRESSION: No CT evidence of acute intracranial hemorrhage or edematous territorial infarction.. Electronically signed by: Ronny Villela MD 10/17/2025 04:02 PM EST RP Abdomen/Pelvis CT 10/17/25 15:59 IMPRESSION: Moderate right pleural effusion and small left pleural effusion. There is opacity in the aerated right lower lobe with air bronchograms and patchy opacity in the posterior left lower lobe that could represent atelectasis and/or pneumonia. There is generalized superficial soft tissue edema Fleischner guidelines were followed. Electronically signed by: Berlin Gomes MD 10/17/2025 04:45 PM EST RP Chest CT 10/17/25 15:59 IMPRESSION: Enlarged heart and severe coronary artery calcification. Left subclavian pacemaker/AICD with leads projecting over the right atrium and right ventricle. Moderate to large right and small left pleural effusions. Right middle and right lower lobe atelectasis/consolidation and subsegmental atelectasis in the left lower lobe. There is also generalized increased interstitial markings with interlobular septal thickening. Both right middle and right lower lobe pneumonia and pulmonary edema should be considered. Electronically signed by: Merle Morrow MD 10/17/2025 04:48 PM EST RP Assessment and Plan (1) Acute hypotension: Status: Acute (2) Hypoglycemia: Status: Acute (3) Acute exacerbation of CHF (congestive heart failure): Status: Acute (4) Aspiration pneumonitis: Status: Acute (5) ABRAM (acute kidney injury): Status: Acute (6) Diabetic neuropathy: Status: Acute (7) Diabetes mellitus: Status: Acute Plan 79-year-old female with a past medical history significant for diabetes on insulin, diabetic neuropathy, morbid obesity, HTN, ischemic cardiomyopathy and CHF admitted to ICU for management of hypoglycemia and hypotension requiring vasopressor Neuro: no acute issues Cardiac:?? Hypotension-?no evidence of septic shock, lactic is normal. ?Hypotension is likely administration of insulin despite poor p.o. intake. ?Blood pressures improved. ?Continue to wean off Levophed as tolerated. Congestive heart failure exacerbation: ?Patient does have underlying history of heart failure with reduced EF, ischemic cardiomyopathy. ?On assessment, the patient seems overloaded, positive JVD, bilateral lower extremity edema and CT consistent with some pulmonary congestion. ?ProBNP elevated. We will administer Lasix. ?Monitor diuresis Pulmonary:? Aspiration pneumonitis: ?Chest CT consistent with aspiration on right lobe. ?No evidence of active infection at this time, but we will treat empirically for aspiration pneumonitis with Levaquin due to penicillin allergy. ?Will send COVID/RSV/flu panel Renal:?? ?ABRAM- underlying CKD, baseline Creatinine appears to be around 2, today 2.81. ?Likely due to poor p.o. intake and Congestive heart failure exacerbation. ?Patient received 1 L of crystalloid in the emergency department. ?We will avoid anymore additional crystalloids fluids. Continue to check renal indices and urine output.? GI:?? No acute issues Endo:?? ?Hypoglycemia-?patient has underlying history of diabetes mellitus on lispro and Tresiba. ?Patient does report poor p.o. intake in the last couple of days due to feeling ?a little off?. ?Reports lack of appetite and some mild body aches. She was administering insulin as prescribed.? This is likely the cause of profound hypoglycemia. ?Continue D10, until able to tolerate food . Heme/Onc:? No acute? issues ID:? Patient has no leukocytosis,? no evidence of severe infection,? but did have concerning aspiration pneumonitis on CT chest. ?We will cover with Levaquin due to penicillin allergy. ?Respiratory panel is pending. ?UA was negative. ?Blood cultures collected in the ED Psych:? No acute issues. Diet: Cardiac Prophylaxis: ? subcut heparin Code? status: DNR/ DNI. ?MOLST form completed with patient and health Care proxy Damien Blackwell Critical care time: x 60 min of critical care time?
[2025-10-17] MEDS: Furosemide 20 MG/2 ML VIAL IVPUSH (20:44)
--- OUTSIDE RECORDS SUMMARY | 2025-10-17 20:45 | XMS_ITS | Clinical Summary ---
Author Organization [facility] Address [address] [facility] [address] [place] [phone] Phone Care Team Providers Care Obstetrician Gynecologist Name Role Phone Ja Yanez MD Primary Care Provider [phone] Mason Blanchard DPM Unavailable [phone] Allergies No known active allergies Medications buPROPion (WELLBUTRIN SR) 150 MG SR 12 hr tablet Take 150 mg by mouth 2 (two) times a day. 12/09/19 23 Active lancets Misc as directed 06/14/20 13 Active lisinopril (PRINIVIL,ZEST RIL) 10 MG tablet [...] morning. 07/21/20 24 Active FREESTYLE LITE Strp stripsIndicati ons:Type 2 diabetes mellitus with peripheral neuropathy To test blood glucose TID dx E11.65, on insulin 300 strip 3 09/03/20 24 Active ENTRESTO 24-26 mg per tablet Take 1 tablet by mouth 2 (two) times a day. 08/06/20 24 Active FREESTYLE LITE METER meter kitIndications :Type 2 diabetes mellitus with peripheral neuropathy To monitor blood glucose, TID ac meals dx E11.42 on insulin 1 each 09/17/20 24 Active FARXIGA 10 mg tablet Take 1 tablet by mouth every morning. 10/07/20 24 Active cholecalcifero l (VITAMIN D3) 2,000 unit [...] 03/11/20 25 Active VITAMIN B-12 1000 MCG tabletIndicati ons:Vitamin B12 deficiency TAKE TWO TABLETS BY MOUTH EVERY DAY 180 tablet 2 04/18/20 25 Active TRESIBA FLEXTOUCH U-100 injection penIndications :Type 2 diabetes mellitus with peripheral neuropathy Inject 36 Units under the skin nightly at bedtime. 45 mL 1 10/12/20 25 Active TRESIBA FLEXTOUCH U-100 injection penIndications :Type 2 diabetes mellitus with peripheral neuropathy INJECT 36 UNITS UNDER THE SKIN NIGHTLY AT BEDTIME 45 mL 1 05/23/20 25 025 Discontin ued(Reord er) Active Problems Problem Noted Date Diagnosed Date [...] 40 units if she is eating a morphology teacher supper to help prevent the lower readings. [...] in a new prescription to include the manager inventory management of her previous tablet. Will send to [...] glucose levels. Up to date with ophtho. Assessment & Plan (11/16/2024 9:46 AM EST): [...] glucose levels. Up to date with ophtho. 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 Assessment & Plan (09/17/2024 12:34 PM EST): [...] glucose levels. Up to date with ophtho. 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 Labs were done in the hospital Assessment [...] glucose levels. Up to date with [facility]. Will do blood work prior to seeing Dr Church Assessment & Plan (05/12/2023 5:08 PM EDT): Reviewed w/ her dx of neuropathy. Follows w/ Dr. Copeland for nail care. Has significant calluses, advised to d/w him options to address these. [facility] current use of insulin Assessment & Plan (11/16/2024 9:47 AM EST): Will continue tresiba and humalog dosing rn long term care current use of oral hypoglycemic drug Assessment & Plan (11/16/2024 9:47 AM EST): Will continue metformin dosing Essential (primary) hypertension Assessment & Plan (05/04/2025 4:44 PM EDT): Well controlled. Encounters Date Type Department Care Team Description 10/12/2025 Refill [facility] [address] [place] [address] Maria Luisa Paulino CMA Medication Refill from Last 3 Months Family [...] Care Team (Late st Contact Info) Description 01/11/2026 11:40 AM EDT Office Visit [facility] [address] [place] [address] Iesha Church MD [address] [place] [phone] [email or web address] Maintenance Due Date Last Done Comments [...] VACCINE (#1) 2025 COVID-19 VACCINE (3 - 2024- season) 2025 04/14/2021, 03/17/2021 HEMOGLOBIN A1C 08/04/2025 [...] mellitus with peripheral neuropathy BASIC METABOLIC PANEL (BMP) Routine 05/04/2025 10:59 AM EDT Type 2 diabetes mellitus with peripheral neuropathy from Last 3 Months or Most Recently Relevant to Health Maintenance Results * (ABNORMAL) Hemoglobin A1c (05/04/2025 10:59 AM EDT) HEMOGLOBIN A1C 8.5(H) 4.3 - 5.8 % [facility] Blood 05/04/2025 10:5 9 AM EDT 05/04/2025 11:01 AM EDT us Iesha Church MD LAB BLOOD BKR ORDERABL ES Final Result Performing Organization Address City/State/[facility] Co de Phone Number [address] [phone] * (ABNORMAL) Basic metabolic panel (05/04/2025 10:59 AM EDT) SODIUM 137 133 - 146 mmol/L [facility] CHLORIDE 99 96 - 108 mmol/L [facility] POTASSIUM 4.6 3.3 - 5.1 mmol/L [facility] CO2 28 21 - 35 mmol/L [facility] BUN 33(H) 6 - 19 mg/dL [facility] CREATININE 1.60(H) 0.5 - 1.5 mg/dL [facility] GLUCOSE 244(H) 70 - 99 mg/dL [facility] CALCIUM 9.3 8.4 - 10.3 mg/dL [facility] EGFR 33(L) >59 mL/min/1.7 3m2 [facility] Comment:Estimated glomerular filtration rate calculated using the CKD-EPI refit equation. ANION GAP 15 10 - 20 mmol/L [facility] Blood 05/04/2025 10:5 9 AM EDT 05/04/2025 11:01 AM EDT us Iesha Church MD LAB BLOOD BKR ORDERABL ES Final Result [address] [phone] from Last 3 Months or Most Recently Relevant to Health Maintenance Insurance MEDICARE PART A & B [facility]IC[facility] PART A & [facility] B [place] [facility] & [facility] & B [facility] Care Teams Obstetrician Gynecologist Relationship Specialty Start Date End Date Ja Yanez MD [address] [place] [address] Drive [address] [place] [phone] PCP - General Internal Medicine 01/13/23 Mason Blanchard DPM [address] [place] [phone] Podiatry 05/04/25 Additional Source Comments The information contained in this document represents components of the legal health record. It is not the complete legal health record.[facility]
--- OUTSIDE RECORDS SUMMARY | 2025-10-17 20:45 | XMS_ITS | Encounter Summary ---
Author Organization [facility] Address [address] [facility] [address] [place] [phone] Phone Care Team Providers Care Sleeve Fixer Name Role Phone Ja Yanez MD Primary Care Provider [phone] Mason Blanchard DPJayant Unavailable [phone] Reason for Visit * Reason Onset Date Comments Medication Refill 10/12/2025 Encounter Details Date Type Department Care Team ([facility] st Contact Info) Description 10/12/2025 Refill [facility] [address] [place] [address] Maria Luisa Paulnio CMA [address] [place] [address] Medication Refill Social History Tobacco Use Types Packs/Day Years Used Date Smoking Tobacco: Former Cigarettes Passive Smoke Exposure: Never Smokeless Tobacco: Never Alcohol Use Standard Drinks/Week Comments Not Asked [...] on file Sexual Orientation Not on file documented as of this encounter Progress Notes * Maria Luisa Paulino CMA - 10/12/2025 1:16 PM EST [facility] called left vm on looking for a refills on tresbia beatriz as the generic is out stock currently documented in this encounter Plan of Treatment Upcoming Encounters Date Type Department Care Team (Late st Contact Info) Description 01/11/2026 11:40 AM EDT Office Visit [facility] [address] [place] [phone] Iesha Church MD [address] [address] [email or web address] documented as of this encounter Visit Diagnoses Diagnosis Type 2 diabetes mellitus with peripheral neuropathy documented in this encounter Care Teams Sleeve Fixer Relationship Specialty Start Date End Date Po, Ja Cameron MD [address] [place] [address] [place] [address] [phone] PCP - General Internal Medicine 01/13/23 Mason Blanchard DPM [address] [place] [phone] Podiatry 05/04/25 documented as of this encounter Additional Source Comments The information contained in this document represents components of the legal health record. It is not the complete legal health record.[facility]
--- NOTE | 2025-10-17 21:05 | PHA.MEDREC ---
Pharmacy Consult ? Medication Reconciliation Pharmacy has completed the medication reconciliation. Spoke with patient and family at bedside, they were able to confirm home meds.
[2025-10-17] MEDS: Potassium Chloride Packet 20 MEQ PACKET 60 MEQ PO (21:17)
--- NOTE | 2025-10-17 21:58 | W.MHC.ACPN ---
Advanced Care Planning Note Advanced Care Planning Note Discussed with: patient and family member(s) Time spent (in minutes): 30 Narrative: Patient informed me that she did not want to be full code.? Goals of care conversation held with patient and patient's sister/healthcare proxy Praveena Blackwell as well as other sister Dina Jackson. MOLST form complted indicating patient wishes. Patient is legally blind, Sister Damien signed paperwork Problems Discussed (1) Acute hypotension: (2) Hypoglycemia: (3) Acute exacerbation of CHF (congestive heart failure): (4) Aspiration pneumonitis: (5) ABRAM (acute kidney injury): (6) Diabetic neuropathy: (7) Diabetes mellitus:
[2025-10-17 22:14] LABS: Resp Syncy Virus RNA Qual PCR NEGATIVE (Negative); SARS COV2 PCR INHOUSE NEGATIVE (Negative)
[2025-10-18] VITALS (29 sets, daily range): BP systolic 84–116; BP diastolic 34–72; PULSE 75–99; RESP 12–31; TEMP 36.8–37.3; O2SAT 94–100; BMI 38.1
[2025-10-18 00:26] LABS: Glucose, Whole Blood 201 mg/dL (60-115)
[2025-10-18 03:18] LABS: Glucose, Whole Blood 166 mg/dL (60-115)
[2025-10-18 05:27] LABS: VBG HCO3 26 mmol/L (22-26); VBG O2 % Saturation 100.0 %
[2025-10-18 05:37] LABS: Hematocrit 41.6 % (37.0-47.0); Hemoglobin 13.2 g/dl (12.0-16.0); Imm Gran Abs Auto 0.09 X10*3/uL (0.00-0.03); Imm Gran Pct Auto 0.6 % (0.0-0.4); Lymphocytes Absolute Auto 1.2 X10*3/uL (1.2-4.9); MANUAL DIFF FLAG SCAN; Mean Corpuscular HGB Conc 31.7 g/dl (31.0-35.0); Mean Corpuscular Hemoglobin 28.4 pg (27.0-33.0); Mean Corpuscular Volume 89.7 fL (80.0-98.0); NRBC Abs Auto 0.000 X10*3/uL (0.0-0.012); NRBC Pct Auto 0.0 /100WBC (0.0-0.2); Platelet Count 232 X10*3/uL (160-400); Red Blood Count 4.64 X10*6/uL (4.20-5.50); SCAN SMEAR FLAG 1; White Blood Count 15.5 X10*3/uL (4.8-10.8)
[2025-10-18 05:52] LABS: Alanine Aminotransferase 21 U/L (0-31); Albumin Level 3.6 g/dL (3.5-5.0); Alkaline Phosphatase 156 U/L (39-117); Anion Gap 18 (12-20); Aspartate Amino Transferase 60 U/L (5-31); Blood Urea Nitrogen 74 mg/dL (9-16); Calcium 9.5 mg/dL (8.4-10.2); Carbon Dioxide 25 mmol/L (22-29); Chloride 98 mmol/L (96-108); Creatinine Clr Calc Pharmacy 22.4; Estimated Glomerular Filt Rate 17; Magnesium 2.7 mg/dL (1.6-2.6); Potassium 3.9 mmol/L (3.3-5.1); Sodium 137 mmol/L (135-145); Total Protein 6.4 g/dL (6.5-8.0)
[2025-10-18 07:09] LABS: Venous Blood Gas Refer to POC result
[2025-10-18 07:50] LABS: Glucose, Whole Blood 131 mg/dL (60-115)
--- NOTE | 2025-10-18 10:19 | P.PNCC_ITS ---
Subjective Subjective Date of Service: 10/18/25 Interval History: 80-year-old lady with underlying blindness, diabetes mellitus with neuropathy, systolic heart failure with ischemic cardiomyopathy, CAD, status post ICD placement, CKD, morbid obesity admitted on 10/17/2025 with alteration of mental status, hypoxia, and hypoglycemia secondary to inadvertent insulin overdose as patient was taking her usual insulin dose without significant p.o. intake resulting in hypoglycemic coma with pulmonary aspiration and hypotension requiring pressor support. No events overnight. Mental status improved to baseline. Critical Care Time (minutes): 45 Physical Exam 2 Vital Signs: Vital Signs: Last Vital Signs Temp 99.1 F 10/18/25 08:00 Pulse 82 10/18/25 10:00 Resp 18 10/18/25 10:00 BP 106/61 10/18/25 10:00 Pulse Ox 99 10/18/25 10:00 O2 Del Method Nasal Cannula 10/18/25 10:00 O2 Flow Rate 2 10/18/25 10:00 Oxygen Flow Rate 15 10/17/25 13:50 BMI result Body Mass Index 38.1 Const: General: no acute distress, alert and awake Nutritional Appearance: obese Eyes: Sclerae: sclerae normal EOM: EOMs intact bilaterally Neck: Neck: Yes no lymphadenopathy, Yes trachea midline and Yes supple Resp: Effort & Inspection: normal respiratory effort and no respiratory distress Auscultation: clear to auscultation bilaterally Cardio: Rate: regular rate Rhythm: regular rhythm Heart sounds: no gallops, no murmurs and no rubs GI: Palpation (GI): Soft to palpation and Other GI palpation findings present ( Nontender) Auscultation: normal bowel sounds Extrem: General: No clubbing, No cyanosis and Yes edema (1+ bilateral) Objective Data Labs 10/18/25 05:20 10/18/25 05:20 Labs: Laboratory Results - last 24 hr 10/17/25 10/17/25 10/17/25 13:59 14:27 14:33 WBC 8.1 RBC 4.42 Hgb 12.4 Hct 39.6 MCV 89.6 MCH 28.1 MCHC 31.3 RDW 16.6 H Plt Count 175 D MPV 9.9 Immature Gran % (Auto) 0.5 H Neut % (Auto) 83.7 H Lymph % (Auto) 7.4 L [place] % (Auto) 8.1 Eos % (Auto) 0.2 Baso % (Auto) 0.1 Lymph # (Auto) 0.6 L [place] # (Auto) 0.7 Eos # (Auto) 0.0 Baso # (Auto) 0.0 Abs Immat Gran (auto) 0.04 H Absolute Neuts (auto) 6.8 Absolute Nucleated RBC 0.000 Nucleated RBC % (auto) 0.0 Smear Tech's Comments O2 Saturation 100.0 ABG pH at Pt Temp 7.45 ABG pCO2 at Pt Temp 42 ABG pO2 at Pt Temp 224 H ABG HCO3 29 H ABG Base Excess (Actual) 4.9 VBG pH 7.37 VBG pCO2 49 VBG pO2 181 VBG HCO3 29 H VBG O2 Saturation 99.0 VBG Base Excess 3.1 Sodium 138 Potassium 3.1 L Chloride 99 Carbon Dioxide 26 Anion Gap 16 BUN 77 H Creatinine 2.81 H Estim Creat Clear Calc 21.2 Estimated GFR 16 POC Glucose Random Glucose 50 L* Insulin Level 298 H Lactic Acid 1.7 Calcium 8.7 Phosphorus Magnesium 2.6 Total Bilirubin 1.5 H AST 43 H ALT 19 Alkaline Phosphatase 155 H Ammonia 35 Total Creatine Kinase 219 H Troponin I High Sens 270.7 H* D NT-Pro-B Natriuret Pep 39586.7 H Total Protein 6.4 L Albumin 3.7 Lipase 6 L Beta-Hydroxybutyrate 0.14 TSH 2.39 Urine Color Urine Appearance Urine pH Ur Specific [place] Urine Protein Urine Glucose (UA) Urine Ketones Urine Blood Urine Nitrite Ur Leukocyte Esterase Urine Opiates Screen Ur Buprenorphine Scrn Ur Oxycodone Screen Urine Methadone Screen Urine Fentanyl Screen Ur Barbiturates Screen Ur Phencyclidine Scrn Ur Amphetamines Screen U Benzodiazepines Scrn Urine Cocaine Screen U Marijuana (THC) Screen Ethyl Alcohol < 10 Influenza Type A (PCR) Influenza Type B (PCR) RSV RNA Qual (PCR) SARS-CoV-2 RNA (RT-PCR) 10/17/25 10/17/25 10/17/25 15:19 15:45 16:20 WBC RBC Hgb Hct MCV MCH MCHC RDW Plt Count MPV Immature Gran % (Auto) Neut % (Auto) Lymph % (Auto) [place] % (Auto) Eos % (Auto) Baso % (Auto) Lymph # (Auto) [place] # (Auto) Eos # (Auto) Baso # (Auto) Abs Immat Gran (auto) Absolute Neuts (auto) Absolute Nucleated RBC Nucleated RBC % (auto) Smear Tech's Comments O2 Saturation ABG pH at Pt Temp ABG pCO2 at Pt Temp ABG pO2 at Pt Temp ABG HCO3 ABG Base Excess (Actual) VBG pH VBG pCO2 VBG pO2 VBG HCO3 VBG O2 Saturation VBG Base Excess Sodium Potassium Chloride Carbon Dioxide Anion Gap BUN Creatinine Estim Creat Clear Calc Estimated GFR POC Glucose 55 L* 55 L* 223 H Random Glucose Insulin Level Lactic Acid Calcium Phosphorus Magnesium Total Bilirubin AST ALT Alkaline Phosphatase Ammonia Total Creatine Kinase Troponin I High Sens NT-Pro-B Natriuret Pep Total Protein Albumin Lipase Beta-Hydroxybutyrate TSH Urine Color Urine Appearance Urine pH Ur Specific [place] Urine Protein Urine Glucose (UA) Urine Ketones Urine Blood Urine Nitrite Ur Leukocyte Esterase Urine Opiates Screen Ur Buprenorphine Scrn Ur Oxycodone Screen Urine Methadone Screen Urine Fentanyl Screen Ur Barbiturates Screen Ur Phencyclidine Scrn Ur Amphetamines Screen U Benzodiazepines Scrn Urine Cocaine Screen U Marijuana (THC) Screen Ethyl Alcohol Influenza Type A (PCR) Influenza Type B (PCR) RSV RNA Qual (PCR) SARS-CoV-2 RNA (RT-PCR) 10/17/25 10/17/25 10/17/25 16:46 16:56 18:12 WBC RBC Hgb Hct MCV MCH MCHC RDW Plt Count MPV Immature Gran % (Auto) Neut % (Auto) Lymph % (Auto) [place] % (Auto) Eos % (Auto) Baso % (Auto) Lymph # (Auto) [place] # (Auto) Eos # (Auto) Baso # (Auto) Abs Immat Gran (auto) Absolute Neuts (auto) Absolute Nucleated RBC Nucleated RBC % (auto) Smear Tech's Comments O2 Saturation ABG pH at Pt Temp ABG pCO2 at Pt Temp ABG pO2 at Pt Temp ABG HCO3 ABG Base Excess (Actual) VBG pH VBG pCO2 VBG pO2 VBG HCO3 VBG O2 Saturation VBG Base Excess Sodium Potassium Chloride Carbon Dioxide Anion Gap BUN Creatinine Estim Creat Clear Calc Estimated GFR POC Glucose 219 H 169 H Random Glucose Insulin Level Lactic Acid Calcium Phosphorus Magnesium Total Bilirubin AST ALT Alkaline Phosphatase Ammonia Total Creatine Kinase Troponin I High Sens 282.2 H* NT-Pro-B Natriuret Pep Total Protein Albumin Lipase Beta-Hydroxybutyrate TSH Urine Color Urine Appearance Urine pH Ur Specific [place] Urine Protein Urine Glucose (UA) Urine Ketones Urine Blood Urine Nitrite Ur Leukocyte Esterase Urine Opiates Screen Ur Buprenorphine Scrn Ur Oxycodone Screen Urine Methadone Screen Urine Fentanyl Screen Ur Barbiturates Screen Ur Phencyclidine Scrn Ur Amphetamines Screen U Benzodiazepines Scrn Urine Cocaine Screen U Marijuana (THC) Screen Ethyl Alcohol Influenza Type A (PCR) Influenza Type B (PCR) RSV RNA Qual (PCR) SARS-CoV-2 RNA (RT-PCR) 10/17/25 10/17/25 10/17/25 19:33 21:25 Unknown WBC RBC Hgb Hct MCV MCH MCHC RDW Plt Count MPV Immature Gran % (Auto) Neut % (Auto) Lymph % (Auto) [place] % (Auto) Eos % (Auto) Baso % (Auto) Lymph # (Auto) [place] # (Auto) Eos # (Auto) Baso # (Auto) Abs Immat Gran (auto) Absolute Neuts (auto) Absolute Nucleated RBC Nucleated RBC % (auto) Smear Tech's Comments O2 Saturation ABG pH at Pt Temp ABG pCO2 at Pt Temp ABG pO2 at Pt Temp ABG HCO3 ABG Base Excess (Actual) VBG pH VBG pCO2 VBG pO2 VBG HCO3 VBG O2 Saturation VBG Base Excess Sodium Potassium Chloride Carbon Dioxide Anion Gap BUN Creatinine Estim Creat Clear Calc Estimated GFR POC Glucose 140 H Random Glucose Insulin Level Lactic Acid Calcium Phosphorus Magnesium Total Bilirubin AST ALT Alkaline Phosphatase Ammonia Total Creatine Kinase Troponin I High Sens NT-Pro-B Natriuret Pep Total Protein Albumin Lipase Beta-Hydroxybutyrate TSH Urine Color Yellow Urine Appearance Turbid Urine pH 5.5 Ur Specific [place] 1.015 Urine Protein Trace Urine Glucose (UA) Negative Urine Ketones Negative Urine Blood Negative Urine Nitrite Negative Ur Leukocyte Esterase Negative Urine Opiates Screen Not Detected Ur Buprenorphine Scrn Not Detected Ur Oxycodone Screen Not Detected Urine Methadone Screen Not Detected Urine Fentanyl Screen Not Detected Ur Barbiturates Screen Not Detected Ur Phencyclidine Scrn Not Detected Ur Amphetamines Screen Not Detected U Benzodiazepines Scrn Not Detected Urine Cocaine Screen Not Detected U Marijuana (THC) Screen Not Detected Ethyl Alcohol Influenza Type A (PCR) NEGATIVE Influenza Type B (PCR) NEGATIVE RSV RNA Qual (PCR) NEGATIVE SARS-CoV-2 RNA (RT-PCR) NEGATIVE 10/18/25 10/18/25 10/18/25 00:23 03:14 05:20 WBC 15.5 H RBC 4.64 Hgb 13.2 Hct 41.6 MCV 89.7 MCH 28.4 MCHC 31.7 RDW 16.6 H Plt Count 232 D MPV 10.0 Immature Gran % (Auto) 0.6 H Neut % (Auto) 80.2 H Lymph % (Auto) 7.8 L [place] % (Auto) 11.0 Eos % (Auto) 0.1 Baso % (Auto) 0.3 Lymph # (Auto) 1.2 [place] # (Auto) 1.7 H Eos # (Auto) 0.0 Baso # (Auto) 0.0 Abs Immat Gran (auto) 0.09 H Absolute Neuts (auto) 12.4 H Absolute Nucleated RBC 0.000 Nucleated RBC % (auto) 0.0 Smear Tech's Comments VERIFIED O2 Saturation ABG pH at Pt Temp ABG pCO2 at Pt Temp ABG pO2 at Pt Temp ABG HCO3 ABG Base Excess (Actual) VBG pH VBG pCO2 VBG pO2 VBG HCO3 VBG O2 Saturation VBG Base Excess Sodium 137 Potassium 3.9 D Chloride 98 Carbon Dioxide 25 Anion Gap 18 BUN 74 H Creatinine 2.65 H Estim Creat Clear Calc 22.4 Estimated GFR 17 POC Glucose 201 H 166 H Random Glucose 143 H Insulin Level Lactic Acid Calcium 9.5 D Phosphorus 4.6 H Magnesium 2.7 H Total Bilirubin 1.8 H AST 60 H ALT 21 Alkaline Phosphatase 156 H Ammonia Total Creatine Kinase 647 H Troponin I High Sens NT-Pro-B Natriuret Pep Total Protein Albumin Lipase Beta-Hydroxybutyrate TSH Urine Color Urine Appearance Urine pH Ur Specific [place] Urine Protein Urine Glucose (UA) Urine Ketones Urine Blood Urine Nitrite Ur Leukocyte Esterase Urine Opiates Screen Ur Buprenorphine Scrn Ur Oxycodone Screen Urine Methadone Screen Urine Fentanyl Screen Ur Barbiturates Screen Ur Phencyclidine Scrn Ur Amphetamines Screen U Benzodiazepines Scrn Urine Cocaine Screen U Marijuana (THC) Screen Ethyl Alcohol Influenza Type A (PCR) Influenza Type B (PCR) RSV RNA Qual (PCR) SARS-CoV-2 RNA (RT-PCR) 10/18/25 10/18/25 10/18/25 05:20 05:23 07:47 WBC RBC Hgb Hct MCV MCH MCHC RDW Plt Count MPV Immature Gran % (Auto) Neut % (Auto) Lymph % (Auto) [place] % (Auto) Eos % (Auto) Baso % (Auto) Lymph # (Auto) [place] # (Auto) Eos # (Auto) Baso # (Auto) Abs Immat Gran (auto) Absolute Neuts (auto) Absolute Nucleated RBC Nucleated RBC % (auto) Smear Tech's Comments O2 Saturation ABG pH at Pt Temp ABG pCO2 at Pt Temp ABG pO2 at Pt Temp ABG HCO3 ABG Base Excess (Actual) VBG pH 7.58 H VBG pCO2 28 VBG pO2 97 VBG HCO3 26 VBG O2 Saturation 100.0 VBG Base Excess 5.6 Sodium Potassium Chloride Carbon Dioxide Anion Gap BUN Creatinine Estim Creat Clear Calc Estimated GFR POC Glucose 131 H Random Glucose Insulin Level Lactic Acid Calcium Phosphorus Magnesium Total Bilirubin AST ALT Alkaline Phosphatase Ammonia Total Creatine Kinase Cancelled Troponin I High Sens NT-Pro-B Natriuret Pep Total Protein 6.4 L Albumin 3.6 Lipase Beta-Hydroxybutyrate TSH Urine Color Urine Appearance Urine pH Ur Specific [place] Urine Protein Urine Glucose (UA) Urine Ketones Urine Blood Urine Nitrite Ur Leukocyte Esterase Urine Opiates Screen Ur Buprenorphine Scrn Ur Oxycodone Screen Urine Methadone Screen Urine Fentanyl Screen Ur Barbiturates Screen Ur Phencyclidine Scrn Ur Amphetamines Screen U Benzodiazepines Scrn Urine Cocaine Screen U Marijuana (THC) Screen Ethyl Alcohol Influenza Type A (PCR) Influenza Type B (PCR) RSV RNA Qual (PCR) SARS-CoV-2 RNA (RT-PCR) Progress Note: A&P Assessment and plan (1) Hypoglycemia: Status: Acute (2) Type 2 diabetes mellitus with hyperglycemia: Status: Acute (3) Morbid obesity: Status: Acute (4) Hypoglycemic coma: Status: Acute (5) ABRAM (acute kidney injury): Status: Acute (6) Aspiration pneumonitis: Status: Acute Plan Assessment: 80-year-old lady with underlying diabetes mellitus, systolic heart failure, CAD admitted with hypoglycemia coma and pulmonary aspiration secondary to inadvertent insulin overdose requiring pressor support. Plan: Neuro: No acute issues. Cardiac: Distributive shock related to hypoglycemic coma, improving. Continue to titrate off pressor support as tolerated. Underlying history of systolic cardiomyopathy and CAD. Pulmonary: Acute hypoxic respiratory failure secondary to pulmonary aspiration requiring supplemental oxygen, continue to titrate off as tolerated. Renal: Acute kidney injury on a background of distributive shock with hypoglycemic coma. Non oliguric. Continue to monitor renal indices and urine output. Endo: Inadvertent insulin overdose resulting in hypoglycemic coma. Continue sliding scale insulin protocol. GI: No acute issues. ID: Empiric coverage for pulmonary aspiration. Heme/Onc: No acute issues. Psych: No acute issues. Miscellaneous: No acute issues. Prophylaxis: Heparin Diet: Regular Critical care time spent: 45 minutes Quality Stroke Does the patient have a stroke diagnosis?: No VTE Prior VTE?: No VTE Risk Level:: Medical - moderate - high VTE Device Contraindication: Patient Refused VTE Drug Contraindication: N/A - Med Ordered
--- NOTE | 2025-10-18 10:22 | MHC.CM.PN ---
Met w/pt to review d/c planning needs: pt resides alone and has support from her two sisters who assist w/housekeeping, transportation and medical management. Pt has a working glucometer, uses no DME and has no current services. Pt has been to [facility] in the past and is hopeful to return: referal made: HCP and MOLST on file and verified. Pt will need a PT eval once medically stable. S to transport
[2025-10-18 10:36] LABS: ABG Refer to POC result
[2025-10-18 10:49] LABS: Glucose, Whole Blood 95 mg/dL (60-115)
[2025-10-18 12:42] LABS: Glucose, Whole Blood 130 mg/dL (60-115)
--- NOTE | 2025-10-18 14:20 | HO.WOUND ---
Wound Consult: Initial 80yr old?female admitted to [facility] on 10[place]17/25 - See progress notes and H&P for detailed history.? Wound consult placed for Left Heel and Sacrum.? Patient agreeable to assessment and photo documentation.? Patient and sister at bedside discuss patient difficulties with follow up care. She reports she has not been able to get into Podiatry due to mobility issues and lack of follow up per her sister. Recommend patient follow up with outpt podiatry for routine care and nail trimming. Left Heel Etiology: Neuropathic / Diabetic Wound??Present on Admission Measurements: 0.4cm x 1cm x 0.3cm Wound Bed: dark red dry wound bed Drainage / Odor: None noted Edges: ?Dry peeling epidermal layer [place] wound: pink red blanchable tissue Pain: tenderness reported at times Goals of Treatment: ? Durafiber AG and off load pressure Right Heel - pink blanchable intact tissue Left Foot / Toes / Nail Right Foot / Toes / Nails Right Peck - Small open abrasion / suspected unroofed blister. [place] open wound bed yellow drainage noted on bed linen. Gluteal Fold - MASD - red pink blanchable tissue with scattered areas of open tissue - remains blanchable. Mirrored edges. Recommendations: 1. Turn and Reposition every 2 hours and as needed for patient comfort.? Use pillows or wedges to support off loading positions. 2. Off Load all bony prominences with use of pillows and heel boots if needed.? Apply Preventative foams where needed. ? 3. Monitor for incontinence and moisture control, use barrier creams when needed for prevention and treatment. 4. Provide adequate and supplemental nutrition.? 5. Continue low air loss mattress. 6. When applicable maintain blood glucose levels per Providers order. Left Heel and Right Peck - Cleanse with NS moist gauze, Pat dry.? Apply barrier to periwound, apply Durafiber AG to wound bed, cover with dry gauze, Abd pad and wrap.? Change every other day. Sacrum - Off Load Pressure with Q2 hr turns and use of pillows - Cleanse with PH balance spray or wipes, pat dry. ?Apply thin layer of Triad to wound bed - only pat and dab no scrub and rub when soiling occurs. Reapply thin layer PRN after each episode of incontinence. Re-consult wound care Nurse for wound deterioration or wound changes.
[2025-10-18 17:09] LABS: Glucose, Whole Blood 163 mg/dL (60-115)
[2025-10-18 20:26] LABS: Anion Gap 19 (12-20); Blood Urea Nitrogen 71 mg/dL (9-16); Calcium 8.8 mg/dL (8.4-10.2); Carbon Dioxide 25 mmol/L (22-29); Chloride 97 mmol/L (96-108); Creatinine Clr Calc Pharmacy 23.8; Estimated Glomerular Filt Rate 19; Magnesium 2.6 mg/dL (1.6-2.6); Potassium 4.1 mmol/L (3.3-5.1); Sodium 137 mmol/L (135-145)
[2025-10-18 21:07] LABS: Glucose, Whole Blood 168 mg/dL (60-115)
[2025-10-19] VITALS (34 sets, daily range): BP systolic 78–117; BP diastolic 47–73; PULSE 62–103; RESP 13–34; TEMP 36.2–37.2; O2SAT 95–98; BMI 40.6
[2025-10-19 05:27] LABS: MANUAL DIFF FLAG NO
[2025-10-19 05:28] LABS: Hematocrit 39.8 % (37.0-47.0); Hemoglobin 12.5 g/dl (12.0-16.0); Imm Gran Abs Auto 0.10 X10*3/uL (0.00-0.03); Imm Gran Pct Auto 0.7 % (0.0-0.4); Lymphocytes Absolute Auto 1.6 X10*3/uL (1.2-4.9); Mean Corpuscular HGB Conc 31.4 g/dl (31.0-35.0); Mean Corpuscular Hemoglobin 28.4 pg (27.0-33.0); Mean Corpuscular Volume 90.5 fL (80.0-98.0); NRBC Abs Auto 0.000 X10*3/uL (0.0-0.012); NRBC Pct Auto 0.0 /100WBC (0.0-0.2); Platelet Count 178 X10*3/uL (160-400); Red Blood Count 4.40 X10*6/uL (4.20-5.50); White Blood Count 13.7 X10*3/uL (4.8-10.8)
[2025-10-19 05:44] LABS: Albumin Level 3.4 g/dL (3.5-5.0); Anion Gap 17 (12-20); Blood Urea Nitrogen 70 mg/dL (9-16); Calcium 8.8 mg/dL (8.4-10.2); Carbon Dioxide 26 mmol/L (22-29); Chloride 96 mmol/L (96-108); Creatinine Clr Calc Pharmacy 24.7; Estimated Glomerular Filt Rate 20; Magnesium 2.4 mg/dL (1.6-2.6); Potassium 3.8 mmol/L (3.3-5.1); Sodium 135 mmol/L (135-145)
--- NOTE | 2025-10-19 06:17 | PC.NURSE ---
Assumed care of patient at 1900. A&Ox3, some difficulty with sight d/t cataracts bilateral eyes. V-paced on tele. Patient diabetic. On ISS per MAR. Patient having difficulty urinating after garza removed. Bladder scanned Q6H/ Str cathed x2 overnight per orders. LS fine crackles in the bases. Positive BSx4. Tolerating cardiac diet. Patient continues to require Levophed drip to maintain MAP > 65. Multiple skin issues , see skin assessment/ wound consulted .
[2025-10-19 07:40] LABS: Glucose, Whole Blood 103 mg/dL (60-115)
[2025-10-19] MEDS: Albumin Human 25 % 100 ML IV ×3 (08:08→20:24)
--- NOTE | 2025-10-19 10:03 | PM.CCPN ---
Subjective Subjective Date of Service: 10/19/25 Interval History: 80-year-old lady with underlying blindness, diabetes mellitus with neuropathy, systolic heart failure with ischemic cardiomyopathy, CAD, status post ICD placement, CKD, morbid obesity admitted on 10/17/2025 with alteration of mental status, hypoxia, and hypoglycemia secondary to inadvertent insulin overdose as patient was taking her usual insulin dose without significant p.o. intake resulting in hypoglycemic coma with pulmonary aspiration and hypotension requiring pressor support. No events overnight. Pressor requirements continue to improve. Critical Care Time (minutes): 45 Physical Exam Vital Signs: Vital Signs: Last Vital Signs Temp 98.0 F 10/19/25 08:00 Pulse 93 10/19/25 09:54 Resp 21 H 10/19/25 09:00 BP 99/53 L 10/19/25 09:54 Pulse Ox 96 10/19/25 09:00 O2 Del Method Nasal Cannula 10/19/25 09:00 O2 Flow Rate 2 10/19/25 09:00 Oxygen Flow Rate 15 10/17/25 13:50 BMI result Body Mass Index 40.6 Const: General: no acute distress, alert and awake Nutritional Appearance: obese Eyes: Sclerae: sclerae normal EOM: EOMs intact bilaterally Neck: Neck: Yes no lymphadenopathy, Yes trachea midline and Yes supple Resp: Effort & Inspection: normal respiratory effort and no respiratory distress Auscultation: clear to auscultation bilaterally Cardio: Rate: regular rate Rhythm: regular rhythm Heart sounds: no gallops, no murmurs and no rubs GI: Palpation (GI): Soft to palpation and Other GI palpation findings present ( Nontender) Auscultation: normal bowel sounds Extrem: General: No clubbing, No cyanosis and Yes edema (1+ bilateral) Objective Data Labs 10/19/25 05:17 10/19/25 05:17 Labs: Laboratory Results - last 24 hr 10/17/25 10/18/25 10/18/25 13:49 12:34 16:59 WBC RBC Hgb Hct MCV MCH MCHC RDW Plt Count MPV Immature Gran % (Auto) Neut % (Auto) Lymph % (Auto) [place] % (Auto) Eos % (Auto) Baso % (Auto) Lymph # (Auto) [place] # (Auto) Eos # (Auto) Baso # (Auto) Abs Immat Gran (auto) Absolute Neuts (auto) Absolute Nucleated RBC Nucleated RBC % (auto) Sodium Potassium Chloride Carbon Dioxide Anion Gap BUN Creatinine Estim Creat Clear Calc Estimated GFR POC Glucose 95 130 H 163 H Random Glucose Calcium Phosphorus Magnesium Albumin 10/18/25 10/18/25 10/19/25 19:58 21:04 05:17 WBC 13.7 H RBC 4.40 Hgb 12.5 Hct 39.8 MCV 90.5 MCH 28.4 MCHC 31.4 RDW 16.7 H Plt Count 178 MPV 9.3 L Immature Gran % (Auto) 0.7 H Neut % (Auto) 77.8 H Lymph % (Auto) 11.4 L [place] % (Auto) 9.3 Eos % (Auto) 0.6 Baso % (Auto) 0.2 Lymph # (Auto) 1.6 [place] # (Auto) 1.3 H Eos # (Auto) 0.1 Baso # (Auto) 0.0 Abs Immat Gran (auto) 0.10 H Absolute Neuts (auto) 10.7 H Absolute Nucleated RBC 0.000 Nucleated RBC % (auto) 0.0 Sodium 137 135 Potassium 4.1 3.8 Chloride 97 96 Carbon Dioxide 25 26 Anion Gap 19 17 BUN 71 H 70 H Creatinine 2.49 H 2.40 H Estim Creat Clear Calc 23.8 24.7 Estimated GFR 19 20 POC Glucose 168 H Random Glucose 177 H 112 Calcium 8.8 D 8.8 Phosphorus 4.0 3.7 Magnesium 2.6 2.4 Albumin 3.4 L 10/19/25 07:37 WBC RBC Hgb Hct MCV MCH MCHC RDW Plt Count MPV Immature Gran % (Auto) Neut % (Auto) Lymph % (Auto) [place] % (Auto) Eos % (Auto) Baso % (Auto) Lymph # (Auto) [place] # (Auto) Eos # (Auto) Baso # (Auto) Abs Immat Gran (auto) Absolute Neuts (auto) Absolute Nucleated RBC Nucleated RBC % (auto) Sodium Potassium Chloride Carbon Dioxide Anion Gap BUN Creatinine Estim Creat Clear Calc Estimated GFR POC Glucose 103 Random Glucose Calcium Phosphorus Magnesium Albumin Microbiology Microbiology Results: Microbiology 10/17/25 14:27 Blood - Venous Blood Culture - Preliminary No growth after 24 hours. 10/17/25 14:20 Blood - Venous Blood Culture - Preliminary No growth after 24 hours. Progress Note: A&P Assessment and plan (1) Acute hypotension: Status: Acute (2) Hypoglycemia: Status: Acute (3) Diabetes mellitus: Status: Acute (4) Morbid obesity: Status: Acute (5) ABRAM (acute kidney injury): Status: Acute Plan Assessment: 80-year-old lady with underlying diabetes mellitus, systolic heart failure, CAD admitted with hypoglycemia coma and pulmonary aspiration secondary to inadvertent insulin overdose requiring pressor support. Plan: Neuro: No acute issues. Cardiac: Distributive shock related to hypoglycemic coma, improving. Continue to titrate off pressor support as tolerated. Underlying history of systolic cardiomyopathy and CAD. Pulmonary: Acute hypoxic respiratory failure secondary to pulmonary aspiration requiring supplemental oxygen, continue to titrate off as tolerated. Renal: Acute kidney injury on a background of distributive shock with hypoglycemic coma, improving. Non oliguric. Continue to monitor renal indices and urine output. Endo: Inadvertent insulin overdose resulting in hypoglycemic coma, resolved. Continue sliding scale insulin protocol. GI: No acute issues. ID: Empiric coverage for pulmonary aspiration. Heme/Onc: No acute issues. Psych: No acute issues. Miscellaneous: No acute issues. Prophylaxis: Heparin Diet: Regular Critical care time spent: 45 minutes Quality Stroke Does the patient have a stroke diagnosis?: No VTE Prior VTE?: No VTE Risk Level:: Medical - moderate - high VTE Device Contraindication: Patient Refused VTE Drug Contraindication: N/A - Med Ordered
[2025-10-19 11:40] LABS: Glucose, Whole Blood 111 mg/dL (60-115)
--- NOTE | 2025-10-19 12:00 | CA_ITS ---
Transthoracic Echocardiogram Patient (Last, First, Middle): Samantha Ribeiro, Gender: Female Date of : 1945 Age: 80 Procedure Date: 10/19/2025 Procedure Type: Transthoracic Echocardiogram Location: ICU Height: 170.18 cm Weight: 117.48 kg BSA: 2.26 m2 Heart Rate: 98 bpm BP: 102 / 57 mmHg Mortgage Manager: SB Referring MD: Mauri Morocho MD Symptoms: Hypotension Study Quality: Adequate w contrast Conclusions: - Moderately increased left ventricular cavity size. There is normal left ventricular wall thickness. The left ventricular systolic function is severely decreased. The visually estimated ejection fraction is between 10-15%. - There is paradoxical septal motion consistent with a right ventricular pacemaker. - Normal right ventricular cavity size. There is moderately decreased right ventricular systolic function. There is a pacemaker wire seen in the right ventricle. - Significantly elevated right atrial pressure. Mild pulmonary hypertension is present. Findings Procedure Information Contrast agent, definity, is being given per protocol without apparent complications. The quality of the study was technically difficult. The study quality is limited by patients body habitus. Left Ventricle Moderately increased left ventricular cavity size. There is normal left ventricular wall thickness. The left ventricular systolic function is severely decreased. The visually estimated ejection fraction is between 10 15%. There is severe global hypokinesis. There is paradoxical septal motion consistent with a right ventricular pacemaker. Diastolic function is indeterminate on the basis of available data. Right Ventricle Normal right ventricular cavity size. There is moderately decreased right ventricular systolic function. There is a pacemaker wire seen in the right ventricle. Atria The left atrium is mildly dilated. The right atrium is normal in size. Aortic Valve There is mild calcification of the aortic valve. There is no aortic valve stenosis. There is no aortic valve regurgitation. Mitral Valve There is moderate mitral annular calcification. There is no mitral valve regurgitation. There is no mitral valve stenosis. Pulmonic Valve The pulmonic valve is likely normal. Tricuspid Valve Likely normal tricuspid valve structure and function. The right ventricular systolic pressure is 38 mmHg. Significantly elevated right atrial pressure. Mild pulmonary hypertension is present. Great Vessels All visible segments of the aorta are normal in size. Venous The inferior vena cava is dilated and does not collapse with inspiration. Pericardium/Pleural There is no evidence of pericardial effusion. Prior Study Comparison Changes noted compared to prior study dated: 12/03/2024. EF 10-15%, moderate RV dysfunction. Measurements 2D Linear Measurements IVSd: 0.96 0.6-0.9/0.6-1.0 cm LVIDd: 6.29 3.9-5.3/4.2-5.9 cm LVIDd Index: 2.78 2.4-3.2/2.2-3.1 cm/m2 LVIDs: 5.77 2.0-3.6 cm LVPWd: 0.61 0.7-1.1 cm LA Diam: 4.40 2.7-3.8/3.0-4.0 cm LAIDs Index: 1.95 1.5-2.3 cm/m2 LV Mass: 245.24 67-162/88-224 g LV Mass Index: 108.51 43-95/49-115 g/m2 LVOT Diam: 2.40 3.0+(-)1.3 cm 2D Systolic Function EF 4C: 7.25 >55% EF 2C: 20.80 >55% EF BiP: 12.10 >55% Mitral Valve E'Lateral: 7.06 Aortic Valve AoV Pk Sudheer: 1.33 AoV Mn Sudheer: 0.95 AoV VTI: 0.21 AoV Pk Grad: 7.00 Aov Mn Grad: 4.00 SANG Cont.VTI: 1.41 LVOT LVOT Pk Sudheer: 0.42 LVOT Mn Sudheer: 0.29 LVOT VTI: 0.07 LVOT Pk Grad: 1.00 LVOT Mn Grad: 0.00 LVOT Diam: 2.40 LVOT Area: 4.52 Diastolic Function E' Laterial: 7.06 Right Ventricle TAPSE (mm): 6.10 TVS' Sudheer: 4.20 Tricuspid Valve TR Pk Usdheer: 2.42 TR Pk Grad: 23.00 RA Press: 15.00 RVSP: 38.00 Great Vessels Aorta Sinus of Valsalva: 3.20 2.0-3.5 cm Ao Asc: 3.10 2.1-3.4 cm Ao Arch: 3.50 Pulmonary Veins Pulm Vein S/D 1.60 Pulmonary Valve PV Pk Sudheer: 0.64 Peak PV Grad: 2.00 Updated in Other Vendor System with Status of Final Eladio Sher MD electronically signed on 10/19/2025 8:42:56 PM with status of Final
[2025-10-19] MEDS: Albuterol/Iprat 2.5/0.5MG 3 ML AMPUL.NEB INHALE (12:51)
--- NOTE | 2025-10-19 14:09 | MHC.CM.PN ---
PT REMAINS IN ICU ON PRESSOR SUPPORT. CM WILL CONTINUE TO FOLLOW FOR ANY CHANGE TO DC PLAN/NEEDS.
--- NOTE | 2025-10-19 14:30 | PC.NURSE ---
Bladder scan 361 @ 1230, patient unable to void, MD aware, per protocol garza placed at 1400, drained 600ml tea color urine. Patient tolerated the procedure well.
--- NOTE | 2025-10-19 14:32 | PM.CNCAR ---
History of Present Illness History of Present Illness Date of Service: 10/19/25 Requesting physician: Mauri Morocho Chief complaint: AMS ,hypotension Narrative: [age] year female with morbid obesity, congestive heart failure with cardiomyopathy EF 30 35% in the past, permanent pacemaker, chronic kidney disease and diabetes who is presenting with hypoglycemia. She accidentally overdosed on insulin and was found unresponsive. She was hypoglycemic and was also noticed to be hypotensive and has been in the intensive care unit due to that. It appears she aspirated and is on antibiotics also. She has required low-dose Levophed and has been given boluses of albumin with good response in blood pressure. She is on low-dose of Levophed currently 0.03 mcg. She is denying any active symptoms right now. She said she was short of breath earlier but required a nebulizer treatment which helped her. Denying any chest discomfort. He is saying at home her breathing was okay before she came. Echocardiography reviewed which showed severe LV dysfunction. She previously had moderate LV dysfunction her EKGs paced with a wide QRS and her echocardiography also shows significant dyssynchrony of the septum. [facility] Past Medical History Medical History Anemia CKD (chronic kidney disease) stage 3, GFR 30-59 ml/min Diabetic nephropathy Diabetic neuropathy Type 2 diabetes mellitus with hyperglycemia Morbid obesity Hypertension Family History Family History Mother CAD (coronary artery disease) Surgical History Surgical History S/P NIELS-BSO (total abdominal hysterectomy and bilateral salpingo-oophorectomy) Social History Social History Household Members: None Household Members Other:: states sister cares for her Housing: Apartment Are you a primary animal care specialist to a significant other at home: No Do you presently have visiting nurse or other home services: Yes Unable to assess alcohol history related to: Unable to respond Alcohol intake: current Alcohol intake frequency: holidays/special occasions only Patient Tobacco Use Status: Former Tobacco user Tobacco use type: Cigarette e-Cigarette/Vaping Use: Never Used Second Hand Smoke Exposure: No Currently Displaying Signs/Symptoms of Drug Intoxication Withdrawal: No Have you been hit, kicked, punched, or otherwise hurt by someone within the past year? If so, by whom?: No Do you feel safe in your current relationship?: No Current Relationship Is there a partner from a previous relationship who is making you feel unsafe now?: No Are you made to feel afraid or neglected: No Advance Directives: Yes Advance Directives on File: Yes Advance Directives Date on File: 12/06/24 Do you have a plan to hurt others: No Plan Recently lost weight without trying: No Eating poorly because of decreased appetite: No Nutrition Risks: No Nutritional Risk Patient : No : No Poor oral hygiene: Yes service: No Current occupational status: retired Cognitive needs: No Hearing needs: No Vision needs: Yes Meds Allergies Allergy/AdvReac Type Severity Reaction Status Date / Time Penicillins Allergy Unknown hives Verified 10/17/25 14:06 lasix AdvReac Severe Unknown Uncoded 07/22/25 13:01 Active Medications: Current Medications Acetaminophen (Acetaminophen 325 Mg Tablet) 650 mg PO Q6H PRN PRN Reason: Pain, Mild 1-3,fever,headache Last Admin: 10/19/25 00:55 Dose: 650 mg Albuterol/Ipratropium (Albuterol/Iprat 2.5/0.5mg 3 Ml Ampul.Neb) 3 ml INHALE RQ4H WHILE AWAKE PRN PRN Reason: Wheezing Stop: 11/18/25 12:32 Last Admin: 10/19/25 12:51 Dose: 3 ml Bumetanide (Bumetanide 1 Mg Tablet) 2 mg PO DAILY PAKO; Protocol Last Admin: 10/19/25 08:17 Dose: 2 mg Dextrose (Dextrose 50 % 25 Gm/50 Ml Syringe) 25 gm IVPUSH Q15M PRN PRN Reason: per Hypoglycemia Standing Ord. Last Admin: 10/17/25 16:22 Dose: 25 gm Heparin Sodium (Porcine) (Heparin Sodium,Porcine 5,000 Unit/Ml Vial) 5,000 unit SUBCUT Q8H PAKO Last Admin: 10/19/25 11:18 Dose: 5,000 unit Norepinephrine Bitartrate (Levophed) 8 mg in 250 mls @ 0 mls/hr IVCONT .Q0M PAKO; Protocol Last Titration: 10/19/25 10:04 Dose: 0.01 mcg/kg/min, 2.08 mls/hr Albumin Human (Kedbumin 25 %) 100 mls @ 100 mls/hr IV Q6H [facility] Stop: 10/20/25 02:59 Last Admin: 10/19/25 13:54 Dose: 100 mls/hr Insulin Human Lispro (Insulin Lispro 100 Unit/Ml 3 Ml Vial) 0 unit SUBCUT QIDACHS [facility]; Protocol Last Admin: 10/19/25 11:41 Dose: Not Given Levofloxacin (Levofloxacin 250 Mg Tablet) 250 mg PO Q24H [facility] Nystatin (Nystatin Powder 15 Gm Bottle) 1 appl TOPICAL BID PAKO; Protocol Last Admin: 10/19/25 08:20 Dose: 1 appl Home Medications ?Medication ?Instructions ?Recorded ?Confirmed ?Last Taken ?Type cyanocobalamin (vitamin B-12) 1,000 mcg PO DAILY 03/05/21 10/17/25 10/16/25 21:00 History 1,000 mcg capsule cholecalciferol (vitamin D3) 50 50 mcg PO DAILY 07/08/24 10/17/25 10/16/25 21:00 History mcg (2,000 unit) tablet insulin lispro 100 unit/mL 10 unit subcut TIDAC 08/24/24 10/17/25 10/16/25 21:00 History subcutaneous pen (Humalog KwikPen (U-100) Insulin) insulin degludec 100 unit/mL (3 36 unit subcut BEDTIME 10/17/25 10/17/25 10/16/25 21:00 History mL) subcutaneous pen (Tresiba FlexTouch U-100 insulin) Physical Exam Vital Signs: Vital Signs: Last Vital Signs Temp 98.6 F 10/19/25 12:00 Pulse 103 H 10/19/25 13:00 Resp 18 10/19/25 13:00 BP 96/67 10/19/25 13:00 Pulse Ox 95 10/19/25 13:00 O2 Del Method Nasal Cannula 10/19/25 13:00 O2 Flow Rate 2 10/19/25 13:00 Oxygen Flow Rate 15 10/17/25 13:50 BMI result Body Mass Index 40.6 GENERAL APPEARANCE: in no acute distress, morbidly obese. NECK: no carotid bruit, mild jugular venous distention. SKIN: no suspicious lesions, warm and dry. HEART: no murmurs, regular rate and rhythm. LUNGS: clear to auscultation bilaterally. ABDOMEN: soft, nontender. EXTREMITIES: no edema. PERIPHERAL PULSES: equal. NEUROLOGIC: No gross deficits, AAO X 3 Objective Labs and Meds 10/19/25 05:17 10/19/25 05:17 Lab results: Laboratory Results - last 24 hr 10/18/25 10/18/25 10/18/25 16:59 19:58 21:04 WBC RBC Hgb Hct MCV MCH MCHC RDW Plt Count MPV Immature Gran % (Auto) Neut % (Auto) Lymph % (Auto) [place] % (Auto) Eos % (Auto) Baso % (Auto) Lymph # (Auto) [place] # (Auto) Eos # (Auto) Baso # (Auto) Abs Immat Gran (auto) Absolute Neuts (auto) Absolute Nucleated RBC Nucleated RBC % (auto) Sodium 137 Potassium 4.1 Chloride 97 Carbon Dioxide 25 Anion Gap 19 BUN 71 H Creatinine 2.49 H Estim Creat Clear Calc 23.8 Estimated GFR 19 POC Glucose 163 H 168 H Random Glucose 177 H Calcium 8.8 D Phosphorus 4.0 Magnesium 2.6 Albumin 10/19/25 10/19/25 10/19/25 05:17 07:37 11:32 WBC 13.7 H RBC 4.40 Hgb 12.5 Hct 39.8 MCV 90.5 MCH 28.4 MCHC 31.4 RDW 16.7 H Plt Count 178 MPV 9.3 L Immature Gran % (Auto) 0.7 H Neut % (Auto) 77.8 H Lymph % (Auto) 11.4 L [place] % (Auto) 9.3 Eos % (Auto) 0.6 Baso % (Auto) 0.2 Lymph # (Auto) 1.6 [place] # (Auto) 1.3 H Eos # (Auto) 0.1 Baso # (Auto) 0.0 Abs Immat Gran (auto) 0.10 H Absolute Neuts (auto) 10.7 H Absolute Nucleated RBC 0.000 Nucleated RBC % (auto) 0.0 Sodium 135 Potassium 3.8 Chloride 96 Carbon Dioxide 26 Anion Gap 17 BUN 70 H Creatinine 2.40 H Estim Creat Clear Calc 24.7 Estimated GFR 20 POC Glucose 103 111 Random Glucose 112 Calcium 8.8 Phosphorus 3.7 Magnesium 2.4 Albumin 3.4 L Assessment and Plan (1) Cardiomyopathy: Status: Acute (2) Hypotension, unspecified: Status: Acute Plan [age] year female with known history of cardiomyopathy with EF 30 35% in the past now presenting with hypoglycemia and hypotension. She has aspirated and is currently on antibiotics. She is requiring low-dose Levophed. Her blood pressure has responded to albumin boluses. Clinically she has mild JVD and does not appear to be significantly overloaded. Echocardiography has shown worsening of the ejection fraction and her EF is stenting 15%. Her EKGs showing paced rhythm with significantly wide QRS and it appears she is pacing almost 100% of time. RV pacing could be the underlying etiology for the worsening ejection fraction. Continue supportive measures for now. If she continues to be Levophed dependent then she may need invasive assessment with right heart catheterization and in that case I will consider sending her to [facility] for further assessment. On the other hand if she starts improving then we can try guideline directed medical therapy for cardiomyopathy and potentially refer her to electrophysiology for [place]ER PURSE SEINE D or left bundle-branch area pacing to see if her ejection fraction improves. We will follow along with you. Thank you for allowing me to participate in the care of your patient. Please feel free to contact me if you have any questions. Procedures Date of Service Date of Service: 10/19/25
[2025-10-19 16:19] LABS: Glucose, Whole Blood 115 mg/dL (60-115)
[2025-10-19 18:21] LABS: Glucose, Whole Blood 143 mg/dL (60-115)
[2025-10-19 21:41] LABS: Glucose, Whole Blood 126 mg/dL (60-115)
[2025-10-20] VITALS (30 sets, daily range): BP systolic 91–131; BP diastolic 37–69; PULSE 64–101; RESP 12–31; TEMP 36–37.2; O2SAT 91–100
[2025-10-20] MEDS: 0.9 % Sodium Chloride Flush 3 ML SYRINGE IVFLUSH ×6 (00:13→22:46)
[2025-10-20] MEDS: Albumin Human 25 % 100 ML IV (02:13)
[2025-10-20 05:24] LABS: MANUAL DIFF FLAG NO
[2025-10-20 05:25] LABS: Hematocrit 34.5 % (37.0-47.0); Hemoglobin 10.9 g/dl (12.0-16.0); Imm Gran Abs Auto 0.05 X10*3/uL (0.00-0.03); Imm Gran Pct Auto 0.5 % (0.0-0.4); Lymphocytes Absolute Auto 1.0 X10*3/uL (1.2-4.9); Mean Corpuscular HGB Conc 31.6 g/dl (31.0-35.0); Mean Corpuscular Hemoglobin 28.5 pg (27.0-33.0); Mean Corpuscular Volume 90.3 fL (80.0-98.0); NRBC Abs Auto 0.000 X10*3/uL (0.0-0.012); NRBC Pct Auto 0.0 /100WBC (0.0-0.2); Platelet Count 139 X10*3/uL (160-400); Red Blood Count 3.82 X10*6/uL (4.20-5.50); White Blood Count 9.4 X10*3/uL (4.8-10.8)
[2025-10-20 05:42] LABS: Albumin Level 4.3 g/dL (3.5-5.0); Anion Gap 20 (12-20); Blood Urea Nitrogen 72 mg/dL (9-16); Calcium 9.2 mg/dL (8.4-10.2); Carbon Dioxide 25 mmol/L (22-29); Chloride 94 mmol/L (96-108); Creatinine Clr Calc Pharmacy 26.0; Estimated Glomerular Filt Rate 20; Magnesium 2.5 mg/dL (1.6-2.6); Potassium 3.8 mmol/L (3.3-5.1); Sodium 135 mmol/L (135-145)
[2025-10-20 07:12] LABS: Glucose, Whole Blood 142 mg/dL (60-115)
--- NOTE | 2025-10-20 09:51 | MHC.CM.PN ---
Pt continues on pressors in ICU: followed by cardiology: plan for the day: attempt to wean off pressors/continue w/Midodrine. ? aggressive cardiac intervention. D/C plan: STR referral to [facility]: accepted pending bed availability
--- NOTE | 2025-10-20 10:10 | PM.PNCARD ---
Subjective Subjective Date of Service: 10/20/25 Interval history: Seen and examined at bedside. On supplemental oxygen. wheezing. On low dose levophed. Physical Exam Vital Signs: Last Vital Signs Temp 98.2 F 10/20/25 09:00 Pulse 91 10/20/25 09:00 Resp 17 10/20/25 09:00 BP 130/62 10/20/25 09:00 Pulse Ox 96 10/20/25 09:00 O2 Del Method Nasal Cannula 10/20/25 09:00 O2 Flow Rate 2 10/20/25 09:00 Oxygen Flow Rate 15 10/17/25 13:50 BMI result Body Mass Index 40.6 GENERAL APPEARANCE: in no acute distress, morbidly obese. SKIN: no suspicious lesions, warm and dry. HEART: no murmurs, regular rate and rhythm. LUNGS: Expiratory wheezes. ABDOMEN: soft, nontender. EXTREMITIES: no edema. PERIPHERAL PULSES: equal. NEUROLOGIC: No gross deficits, AAO X 3 Objective Labs and Meds 10/20/25 05:04 10/20/25 05:04 Lab results: Laboratory Results - last 24 hr 10/19/25 10/19/25 10/19/25 05:17 11:32 16:15 WBC RBC Hgb Hct MCV MCH MCHC RDW Plt Count MPV Immature Gran % (Auto) Neut % (Auto) Lymph % (Auto) [place] % (Auto) Eos % (Auto) Baso % (Auto) Lymph # (Auto) [place] # (Auto) Eos # (Auto) Baso # (Auto) Abs Immat Gran (auto) Absolute Neuts (auto) Absolute Nucleated RBC Nucleated RBC % (auto) Sodium Potassium Chloride Carbon Dioxide Anion Gap BUN Creatinine Estim Creat Clear Calc Estimated GFR POC Glucose 111 115 Random Glucose Calcium Phosphorus Magnesium Total Creatine Kinase 322 H Albumin 10/19/25 10/19/25 10/20/25 18:06 21:38 05:04 WBC 9.4 RBC 3.82 L Hgb 10.9 L Hct 34.5 L MCV 90.3 MCH 28.5 MCHC 31.6 RDW 16.8 H Plt Count 139 L MPV 9.4 Immature Gran % (Auto) 0.5 H Neut % (Auto) 80.5 H Lymph % (Auto) 10.2 L [place] % (Auto) 7.7 Eos % (Auto) 0.9 Baso % (Auto) 0.2 Lymph # (Auto) 1.0 L [place] # (Auto) 0.7 Eos # (Auto) 0.1 Baso # (Auto) 0.0 Abs Immat Gran (auto) 0.05 H Absolute Neuts (auto) 7.6 Absolute Nucleated RBC 0.000 Nucleated RBC % (auto) 0.0 Sodium 135 Potassium 3.8 Chloride 94 L Carbon Dioxide 25 Anion Gap 20 BUN 72 H Creatinine 2.36 H Estim Creat Clear Calc 26.0 Estimated GFR 20 POC Glucose 143 H 126 H Random Glucose 142 H Calcium 9.2 Phosphorus 4.1 Magnesium 2.5 Total Creatine Kinase Albumin 4.3 10/20/25 07:05 WBC RBC Hgb Hct MCV MCH MCHC RDW Plt Count MPV Immature Gran % (Auto) Neut % (Auto) Lymph % (Auto) [place] % (Auto) Eos % (Auto) Baso % (Auto) Lymph # (Auto) [place] # (Auto) Eos # (Auto) Baso # (Auto) Abs Immat Gran (auto) Absolute Neuts (auto) Absolute Nucleated RBC Nucleated RBC % (auto) Sodium Potassium Chloride Carbon Dioxide Anion Gap BUN Creatinine Estim Creat Clear Calc Estimated GFR POC Glucose 142 H Random Glucose Calcium Phosphorus Magnesium Total Creatine Kinase Albumin Progress Note: A&P Assessment and plan (1) Hypotension, unspecified: Status: Acute (2) Cardiomyopathy: Status: Acute Plan 80-year-old lady with multiple comorbidities presenting with hypoglycemic coma from insulin overdose. She was hypotensive and was being treated as distributive shock. There was also concern for aspiration and she is on antibiotics. She had cardiomyopathy with EF 30 35% before but repeat echocardiography is showing EF of 10-15%. In July 2024 she presented with NSTEMI and was transferred to [facility], [place] where she underwent cardiac catheterization. She was found to have diffuse multivessel coronary disease which was not amenable to revascularization. She had cardiac surgery consultation and was felt to be high-risk for surgery and had poor bypass targets. 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 She has heavy calcification in the vessels. Overall I agree that revascularization options were quite limited for her. Currently she is requiring low-dose of vasopressors. She is wheezing today and I think she is getting somewhat overloaded now. She will benefit from diuresis but if her blood pressure is low then options will be eye inotropic support with dobutamine along with Levophed. Low-dose dobutamine 2.5 mcg/kg/min along with Levophed can be tried. I would avoid high dose dobutamine given her underlying coronary disease and risk of arrhythmia. If she continues to be pressor dependent then options are limited for her whether she stays in our institution or gets transferred to [facility] [place]. She has known revascularizable diffuse multivessel disease which is the likely reason for worsening cardiomyopathy. She also has previous pacemaker and is paced 100% of time which may have played a role in her LV dysfunction too. I will discuss with her sister about goals of care and accordingly we will make our management plan. In the meantime I think she needs diuretics and close monitoring. Thank you for allowing me to participate in the care of your patient. Please feel free to contact me if you have any questions. Time Spent With Patient Time: Total time managing care of this patient today ____ minutes. Progress Note: Quality Stroke Does the patient have a stroke diagnosis?: No Procedures Date of Service Date of Service: 10/20/25
--- NOTE | 2025-10-20 10:26 | PM.CCPN ---
Subjective Subjective Date of Service: 10/20/25 Interval History: 80-year-old lady with underlying blindness, diabetes mellitus with neuropathy, systolic heart failure with ischemic cardiomyopathy, CAD, status post ICD placement, CKD, morbid obesity admitted on 10/17/2025 with alteration of mental status, hypoxia, and hypoglycemia secondary to inadvertent insulin overdose as patient was taking her usual insulin dose without significant p.o. intake resulting in hypoglycemic coma with pulmonary aspiration and hypotension requiring pressor support. 2D echo with decreased EF, now 10-15%. No events overnight. Titrated off pressor support. Critical Care Time (minutes): 45 Physical Exam Vital Signs: Vital Signs: Last Vital Signs Temp 98.2 F 10/20/25 09:00 Pulse 91 10/20/25 09:00 Resp 17 10/20/25 09:00 BP 130/62 10/20/25 09:00 Pulse Ox 96 10/20/25 09:00 O2 Del Method Nasal Cannula 10/20/25 09:00 O2 Flow Rate 2 10/20/25 09:00 Oxygen Flow Rate 15 10/17/25 13:50 BMI result Body Mass Index 40.6 Const: General: no acute distress, alert and awake Nutritional Appearance: obese Eyes: Sclerae: sclerae normal EOM: EOMs intact bilaterally Neck: Neck: Yes no lymphadenopathy, Yes trachea midline and Yes supple Resp: Effort & Inspection: normal respiratory effort and no respiratory distress Auscultation: clear to auscultation bilaterally Cardio: Rate: regular rate Rhythm: regular rhythm Heart sounds: no gallops, no murmurs and no rubs GI: Palpation (GI): Soft to palpation and Other GI palpation findings present ( Nontender) Auscultation: normal bowel sounds Extrem: General: No clubbing, No cyanosis and Yes edema (Trace bilateral) Objective Data Labs 10/20/25 05:04 10/20/25 05:04 Labs: Laboratory Results - last 24 hr 10/19/25 10/19/25 10/19/25 05:17 11:32 16:15 WBC RBC Hgb Hct MCV MCH MCHC RDW Plt Count MPV Immature Gran % (Auto) Neut % (Auto) Lymph % (Auto) [place] % (Auto) Eos % (Auto) Baso % (Auto) Lymph # (Auto) [place] # (Auto) Eos # (Auto) Baso # (Auto) Abs Immat Gran (auto) Absolute Neuts (auto) Absolute Nucleated RBC Nucleated RBC % (auto) Sodium Potassium Chloride Carbon Dioxide Anion Gap BUN Creatinine Estim Creat Clear Calc Estimated GFR POC Glucose 111 115 Random Glucose Calcium Phosphorus Magnesium Total Creatine Kinase 322 H Albumin 10/19/25 10/19/25 10/20/25 18:06 21:38 05:04 WBC 9.4 RBC 3.82 L Hgb 10.9 L Hct 34.5 L MCV 90.3 MCH 28.5 MCHC 31.6 RDW 16.8 H Plt Count 139 L MPV 9.4 Immature Gran % (Auto) 0.5 H Neut % (Auto) 80.5 H Lymph % (Auto) 10.2 L [place] % (Auto) 7.7 Eos % (Auto) 0.9 Baso % (Auto) 0.2 Lymph # (Auto) 1.0 L [place] # (Auto) 0.7 Eos # (Auto) 0.1 Baso # (Auto) 0.0 Abs Immat Gran (auto) 0.05 H Absolute Neuts (auto) 7.6 Absolute Nucleated RBC 0.000 Nucleated RBC % (auto) 0.0 Sodium 135 Potassium 3.8 Chloride 94 L Carbon Dioxide 25 Anion Gap 20 BUN 72 H Creatinine 2.36 H Estim Creat Clear Calc 26.0 Estimated GFR 20 POC Glucose 143 H 126 H Random Glucose 142 H Calcium 9.2 Phosphorus 4.1 Magnesium 2.5 Total Creatine Kinase Albumin 4.3 10/20/25 07:05 WBC RBC Hgb Hct MCV MCH MCHC RDW Plt Count MPV Immature Gran % (Auto) Neut % (Auto) Lymph % (Auto) [place] % (Auto) Eos % (Auto) Baso % (Auto) Lymph # (Auto) [place] # (Auto) Eos # (Auto) Baso # (Auto) Abs Immat Gran (auto) Absolute Neuts (auto) Absolute Nucleated RBC Nucleated RBC % (auto) Sodium Potassium Chloride Carbon Dioxide Anion Gap BUN Creatinine Estim Creat Clear Calc Estimated GFR POC Glucose 142 H Random Glucose Calcium Phosphorus Magnesium Total Creatine Kinase Albumin Microbiology Microbiology Results: Microbiology 10/17/25 14:27 Blood - Venous Blood Culture - Preliminary No growth after 48 hours. 10/17/25 14:20 Blood - Venous Blood Culture - Preliminary No growth after 48 hours. Progress Note: A&P Assessment and plan (1) Cardiomyopathy: Status: Acute (2) Diabetes mellitus: Status: Acute (3) Morbid obesity: Status: Acute (4) ABRAM (acute kidney injury): Status: Acute (5) Chronic kidney disease, unspecified: Status: Acute Plan Assessment: 80-year-old lady with underlying diabetes mellitus, systolic heart failure, CAD admitted with hypoglycemia coma and pulmonary aspiration secondary to inadvertent insulin overdose requiring pressor support. Plan: Neuro: No acute issues. Cardiac: Shock, resolved, titrated off pressor support. 2D echo with newly reduced EF, now at 10-15%. Cardiology service care appreciated. Underlying history of systolic cardiomyopathy and CAD. Pulmonary: Acute hypoxic respiratory failure secondary to pulmonary aspiration requiring supplemental oxygen, continue to titrate off as tolerated. Renal: Acute kidney injury on a background of distributive shock with hypoglycemic coma, improving. Non oliguric. Continue to monitor renal indices and urine output. Endo: Inadvertent insulin overdose resulting in hypoglycemic coma, resolved. Continue sliding scale insulin protocol. GI: No acute issues. ID: Will monitor off antibiotics. Heme/Onc: No acute issues. Psych: No acute issues. Miscellaneous: No acute issues. Prophylaxis: Heparin Diet: Regular Critical care time spent: 45 minutes Quality Stroke Does the patient have a stroke diagnosis?: No VTE Prior VTE?: No VTE Risk Level:: Medical - moderate - high VTE Device Contraindication: Patient Refused VTE Drug Contraindication: N/A - Med Ordered
[2025-10-20] MEDS: Albuterol/Iprat 2.5/0.5MG 3 ML AMPUL.NEB INHALE ×2 (10:36→15:52)
[2025-10-20 11:17] LABS: Glucose, Whole Blood 174 mg/dL (60-115)
[2025-10-20 16:10] LABS: Glucose, Whole Blood 198 mg/dL (60-115)
--- NOTE | 2025-10-20 17:32 | P.EN_ITS ---
Event Note Date of Service: 10/20/25 Event Note: 80-year-old lady with underlying blindness, diabetes mellitus with neuropathy, systolic heart failure with ischemic cardiomyopathy, CAD, status post ICD placement, CKD, morbid obesity admitted on 10/17/2025 with alteration of mental status, hypoxia, and hypoglycemia secondary to inadvertent insulin overdose as patient was taking her usual insulin dose without significant p.o. intake resulting in hypoglycemic coma with pulmonary aspiration and hypotension requir ing pressor support. 2D echo with decreased EF, now 10-15%. Titrated off pressor support, started on midodrine. Downgraded to medical floor 10/20 Time Spent With Patient Time: Total time managing care of this patient today ____ minutes.
[2025-10-20 21:10] LABS: Glucose, Whole Blood 164 mg/dL (60-115)
[2025-10-21] VITALS (8 sets, daily range): BP systolic 90–122; BP diastolic 48–73; PULSE 75–105; RESP 18–24; TEMP 36.1–37; O2SAT 91–98; BMI 40.0
[2025-10-21 07:04] LABS: Glucose, Whole Blood 131 mg/dL (60-115)
[2025-10-21 07:59] LABS: MANUAL DIFF FLAG NO
[2025-10-21] MEDS: 0.9 % Sodium Chloride Flush 3 ML SYRINGE IVFLUSH ×4 (08:04→23:50)
[2025-10-21 08:10] LABS: Hematocrit 38.2 % (37.0-47.0); Hemoglobin 11.8 g/dl (12.0-16.0); Imm Gran Abs Auto 0.09 X10*3/uL (0.00-0.03); Imm Gran Pct Auto 0.9 % (0.0-0.4); Lymphocytes Absolute Auto 1.3 X10*3/uL (1.2-4.9); Mean Corpuscular HGB Conc 30.9 g/dl (31.0-35.0); Mean Corpuscular Hemoglobin 28.1 pg (27.0-33.0); Mean Corpuscular Volume 91.0 fL (80.0-98.0); NRBC Abs Auto 0.000 X10*3/uL (0.0-0.012); NRBC Pct Auto 0.0 /100WBC (0.0-0.2); Platelet Count 161 X10*3/uL (160-400); Red Blood Count 4.20 X10*6/uL (4.20-5.50); White Blood Count 10.3 X10*3/uL (4.8-10.8)
[2025-10-21 08:24] LABS: Alanine Aminotransferase 317 U/L (0-31); Albumin Level 4.3 g/dL (3.5-5.0); Alkaline Phosphatase 136 U/L (39-117); Anion Gap 17 (12-20); Aspartate Amino Transferase 640 U/L (5-31); Blood Urea Nitrogen 83 mg/dL (9-16); Calcium 9.7 mg/dL (8.4-10.2); Carbon Dioxide 26 mmol/L (22-29); Chloride 96 mmol/L (96-108); Creatinine Clr Calc Pharmacy 24.1; Estimated Glomerular Filt Rate 18; Magnesium 2.5 mg/dL (1.6-2.6); Potassium 4.4 mmol/L (3.3-5.1); Sodium 135 mmol/L (135-145); Total Protein 6.7 g/dL (6.5-8.0)
--- NOTE | 2025-10-21 10:15 | P.PNCA_ITS ---
Subjective Subjective Date of Service: 10/21/25 Interval history: Seen examined at bedside. She is feeling okay. Denying any dyspnea. Physical Exam Vital Signs: Last Vital Signs Temp 97.2 F 10/21/25 07:26 Pulse 105 H 10/21/25 07:26 Resp 24 H 10/21/25 07:26 BP 110/54 L 10/21/25 07:26 Pulse Ox 98 10/21/25 07:26 O2 Del Method Nasal Cannula 10/21/25 07:26 O2 Flow Rate 2 10/21/25 07:26 Oxygen Flow Rate 15 10/17/25 13:50 BMI result Body Mass Index 40.0 GENERAL APPEARANCE: in no acute distress, morbidly obese. Neck: Exam he is difficult and do not see any obvious JVD. SKIN: no suspicious lesions, warm and dry. HEART: no murmurs, regular rate and rhythm. LUNGS: Clear to auscultation. ABDOMEN: soft, nontender. EXTREMITIES: no edema. PERIPHERAL PULSES: equal. NEUROLOGIC: No gross deficits, AAO X 3 Objective Labs and Meds 10/21/25 07:37 10/21/25 07:37 Lab results: Laboratory Results - last 24 hr 10/20/25 10/20/25 10/20/25 11:02 16:07 20:53 WBC RBC Hgb Hct MCV MCH MCHC RDW Plt Count MPV Immature Gran % (Auto) Neut % (Auto) Lymph % (Auto) [place] % (Auto) Eos % (Auto) Baso % (Auto) Lymph # (Auto) [place] # (Auto) Eos # (Auto) Baso # (Auto) Abs Immat Gran (auto) Absolute Neuts (auto) Absolute Nucleated RBC Nucleated RBC % (auto) Sodium Potassium Chloride Carbon Dioxide Anion Gap BUN Creatinine Estim Creat Clear Calc Estimated GFR POC Glucose 174 H 198 H 164 H Random Glucose Calcium Phosphorus Magnesium Total Bilirubin AST ALT Alkaline Phosphatase Total Protein Albumin 10/21/25 10/21/25 06:56 07:37 WBC 10.3 RBC 4.20 Hgb 11.8 L Hct 38.2 MCV 91.0 MCH 28.1 MCHC 30.9 L RDW 16.6 H Plt Count 161 MPV 10.1 Immature Gran % (Auto) 0.9 H Neut % (Auto) 75.6 H Lymph % (Auto) 12.3 L [place] % (Auto) 9.8 Eos % (Auto) 1.1 Baso % (Auto) 0.3 Lymph # (Auto) 1.3 [place] # (Auto) 1.0 Eos # (Auto) 0.1 Baso # (Auto) 0.0 Abs Immat Gran (auto) 0.09 H Absolute Neuts (auto) 7.8 Absolute Nucleated RBC 0.000 Nucleated RBC % (auto) 0.0 Sodium 135 Potassium 4.4 Chloride 96 Carbon Dioxide 26 Anion Gap 17 BUN 83 H Creatinine 2.53 H Estim Creat Clear Calc 24.1 Estimated GFR 18 POC Glucose 131 H Random Glucose 122 H Calcium 9.7 Phosphorus 5.2 H Magnesium 2.5 Total Bilirubin 2.9 H AST 640 H ALT 317 H Alkaline Phosphatase 136 H Total Protein 6.7 Albumin 4.3 Progress Note: A&P Assessment and plan (1) Cardiomyopathy: Status: Acute (2) Hypotension, unspecified: Status: Acute Plan 80-year-old lady with multiple comorbidities presenting with hypoglycemic coma from insulin overdose. She was hypotensive and was being treated as distributive shock. There was also concern for aspiration and she is on antibiotics. She had cardiomyopathy with EF 30 35% before but repeat echocardiography is showing EF of 10-15%. In July 2024 she presented with NSTEMI and was transferred to [facility] where she underwent cardiac catheterization. She was found to have diffuse multivessel coronary disease which was not amenable to revascularization. She had cardiac surgery consultation and was felt to be high-risk for surgery and had poor bypass targets. 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 She has heavy calcification in the vessels. Overall I agree that revascularization options were quite limited for her. She was in the intensive care unit where she was requiring Levophed. She was subsequently changed to midodrine. Detailed discussion was done with patient's sister who is a nurse and also healthcare proxy. She has been told that midodrine is a palliative move to keep her blood pressure up and see if we can use the blood pressure to diurese her and improve her breathing status. So far she is doing okay with this strategy. Continue the midodrine 10 mg 3 times a day. Continue Bumex. Monitor I's and o's closely. If she stops responding to current treatment or takes a turn for worse then our goal will be to keep her comfortable. Otherwise we will start looking at facilities with hospice capabilities. Thank you for allowing me to participate in the care of your patient. Please feel free to contact me if you have any questions. Time Spent With Patient Time: Total time managing care of this patient today ____ minutes. Progress Note: Quality Stroke Does the patient have a stroke diagnosis?: No Procedures Date of Service Date of Service: 10/21/25
[2025-10-21 11:02] LABS: Glucose, Whole Blood 152 mg/dL (60-115)
--- NOTE | 2025-10-21 14:41 | P.PNIM_ITS ---
Subjective Subjective Date of Service: 10/21/25 Interval History: seen and examined this morning follow up for hypoglycemic coma, hypotension, CHF downgraded from ICU 10/20 no overnight events denies sob Review of Systems Review of Systems: Yes all other systems are reviewed and are negative Constitutional Constitutional: Denies chills and Denies fever(s) Physical Exam 2 Vital Signs: Vital Signs: Last Vital Signs Temp 97.0 F 10/21/25 11:21 Pulse 75 10/21/25 12:02 Resp 24 H 10/21/25 11:21 BP 102/55 L 10/21/25 12:02 Pulse Ox 96 10/21/25 12:02 O2 Del Method Nasal Cannula 10/21/25 11:21 O2 Flow Rate 2 10/21/25 11:21 Oxygen Flow Rate 15 10/17/25 13:50 BMI result Body Mass Index 40.0 Const: General: cooperative, comfortable, alert and awake Nutritional Appearance: obese Orientation/consciousness: patient oriented x3 Resp: Effort & Inspection: normal respiratory effort, able to speak in complete sentences, no respiratory distress and no use of accessory muscles A uscultation: clear to auscultation bilaterally Cardio: Rate: regular rate GI: Inspection: No distended and Yes obesity Palpation (GI): Soft to palpation and nontender Neuro: General: patient oriented x3, moves all extremities and CN's II-XI intact bilaterally Extrem: Other: left arm edema b/l LE venoush stasis skin changes Objective Data Active Medications Acetaminophen (Acetaminophen 325 Mg Tablet) 650 mg PO Q6H PRN PRN Reason: Pain, Mild 1-3,fever,headache Last Admin: 10/19/25 00:55 Dose: 650 mg Documented By: MARIN Albuterol/Ipratropium (Albuterol/Iprat 2.5/0.5mg 3 Ml Ampul.Neb) 3 ml INHALE RQ4H WHILE AWAKE PRN PRN Reason: Wheezing Stop: 11/18/25 12:32 Last Admin: 10/20/25 15:52 Dose: 3 ml Documented By: OUSMANE Benzocaine (Throat Lozenge, Medicated Lozenge) 1 lozenge MUCOUS MEM Q2H PRN PRN Reason: Sore Throat Bumetanide (Bumetanide 1 Mg Tablet) 2 mg PO BID PAKO; Protocol Last Admin: 10/21/25 08:03 Dose: 2 mg Documented By: SHELTON Dextrose (Dextrose 50 % 25 Gm/50 Ml Syringe) 25 gm IVPUSH Q15M PRN PRN Reason: per Hypoglycemia Standing Ord. Last Admin: 10/17/25 16:22 Dose: 25 gm Documented By: AZAEL Heparin Sodium (Porcine) (Heparin Sodium,Porcine 5,000 Unit/Ml Vial) 5,000 unit SUBCUT Q8H [facility] Last Admin: 10/21/25 12:09 Dose: 5,000 unit Documented By: SHELTON Insulin Human Lispro (Insulin Lispro 100 Unit/Ml 3 Ml Vial) 0 unit SUBCUT QIDACHS [facility]; Protocol Last Admin: 10/21/25 12:09 Dose: 2 unit Documented By: SHELTON Midodrine (Midodrine Hcl 10 Mg Tablet) 10 mg PO TID@0900,1300,1700 [facility] Last Admin: 10/21/25 12:09 Dose: 10 mg Documented By: SHELTON Nystatin (Nystatin Powder 15 Gm Bottle) 1 appl TOPICAL BID [facility]; Protocol Last Admin: 10/21/25 08:07 Dose: Not Given Documented By: SHELTON Non-Admin Reason: not in pt bin Ondansetron HCl (Ondansetron Hcl 4 Mg/2 Ml Vial) 4 mg IVPUSH Q6H PRN PRN Reason: Nausea and Vomiting Last Admin: 10/20/25 16:23 Dose: 4 mg Documented By: KAR Sodium Chloride (0.9 % Sodium Chloride Flush 3 Ml Syringe) 3 ml IVFLUSH [facility] Last Admin: 10/21/25 13:58 Dose: Not Given Documented By: SHELTON Non-Admin Reason: Duplicate Order Sodium Chloride (0.9 % Sodium Chloride Flush 3 Ml Syringe) 3 ml IVFLUSH [facility] Last Admin: 10/21/25 08:04 Dose: 3 ml Documented By: SHELTON Labs 10/21/25 07:37 10/21/25 07:37 Labs: Laboratory Results - last 24 hr 10/20/25 10/20/25 10/21/25 16:07 20:53 06:56 MCV MCH MCHC RDW Plt Count MPV Immature Gran % (Auto) Neut % (Auto) Lymph % (Auto) [place] % (Auto) Eos % (Auto) Baso % (Auto) Lymph # (Auto) [place] # (Auto) Eos # (Auto) Baso # (Auto) Abs Immat Gran (auto) Absolute Neuts (auto) Absolute Nucleated RBC Nucleated RBC % (auto) Anion Gap Estim Creat Clear Calc Estimated GFR POC Glucose 198 H 164 H 131 H Random Glucose Calcium Phosphorus Magnesium Total Bilirubin AST ALT Alkaline Phosphatase Total Protein Albumin 10/21/25 10/21/25 07:37 10:56 MCV 91.0 MCH 28.1 MCHC 30.9 L RDW 16.6 H Plt Count 161 MPV 10.1 Immature Gran % (Auto) 0.9 H Neut % (Auto) 75.6 H Lymph % (Auto) 12.3 L [place] % (Auto) 9.8 Eos % (Auto) 1.1 Baso % (Auto) 0.3 Lymph # (Auto) 1.3 [place] # (Auto) 1.0 Eos # (Auto) 0.1 Baso # (Auto) 0.0 Abs Immat Gran (auto) 0.09 H Absolute Neuts (auto) 7.8 Absolute Nucleated RBC 0.000 Nucleated RBC % (auto) 0.0 Anion Gap 17 Estim Creat Clear Calc 24.1 Estimated GFR 18 POC Glucose 152 H Random Glucose 122 H Calcium 9.7 Phosphorus 5.2 H Magnesium 2.5 Total Bilirubin 2.9 H AST 640 H ALT 317 H Alkaline Phosphatase 136 H Total Protein 6.7 Albumin 4.3 Assessment and Plan (1) Hypoglycemic coma: Status: Acute (2) Aspiration pneumonitis: Status: Acute (3) Acute exacerbation of CHF (congestive heart failure): Status: Acute Plan This is a 80-year-old lady with underlying blindness, diabetes mellitus with neuropathy, systolic heart failure with ischemic cardiomyopathy, CAD, status post ICD placement, CKD, morbid obesity admitted on 10/17/2025 with alteration of mental status, hypoxia, and hypoglycemia secondary to inadvertent insulin overdose as patient was taking her usual insulin dose without significant p.o. intake resulting in hypoglycemic coma with pulmonary aspiration and hypotension requiring pressor support. course complicated by worsening CHF and difficulty with diuresis due to hypotension, 2D echo with decreased EF, now 10-15%. Downgraded from the ICU on 10/20 Acute hypoxic respiratory failure due to acute CHF exacerbation and pulmonary aspiration/pneumonitis initially treated with levaquin, now off antibiotics bumex as below down to 2L NC, wean as tolerated Acute on chronic HFrEF/ischemic cardiomyopathy EF down to 10-15% started on midodrine in order to keep bp high enough to diurese with bumex. family aware this is palliative approach continue bumex continue midodrine follow UO, blood pressure cardiology following multivessel CAD not amenable to revascularization asa, metoprolol, statin on hold for now. unable to resume BB due to low bp IDDM s/p hypoglycemic coma. resolved. awake alert tresiba, farxiga on hold continue SSI ABRAM due to distributive shock renal function stable follow renal function elevated LFTs ?shock liver vs congestion no abdominal pain trend LFTs Gluteal fold MASD; left heel diabetic wound. poa see wound care notes, continue local wound care dvt ppx - heparin dispo - PT rec STR. cardiology rec palliative care, possible hospice depending on clinical course code status - DNR/DNI Quality Stroke Does the patient have a stroke diagnosis?: No VTE Prior VTE?: No VTE Risk Level:: Medical - moderate - high VTE Device Contraindication: Patient Refused VTE Drug Contraindication: N/A - Med Ordered
--- NOTE | 2025-10-21 15:32 | MHC.CM.PN ---
A clinical update has been sent to the [facility].Per MD rounds will be medically cleared to discharge tomorrow. DP STR at [facility] via BLS.
[2025-10-21 16:16] LABS: Glucose, Whole Blood 166 mg/dL (60-115)
[2025-10-21 19:55] LABS: Glucose, Whole Blood 177 mg/dL (60-115)
[2025-10-22 03:59] VITALS: BP 110/53; PULSE 76; RESP 18; TEMP 36.9; O2SAT 99
[2025-10-22 06:00] VITALS: BMI 40.2
[2025-10-22 07:16] VITALS: BP 119/74; PULSE 83; RESP 19; O2SAT 100
[2025-10-22 07:41] LABS: Glucose, Whole Blood 152 mg/dL (60-115)
[2025-10-22] MEDS: 0.9 % Sodium Chloride Flush 3 ML SYRINGE IVFLUSH ×2 (08:16)
[2025-10-22 09:38] LABS: Alanine Aminotransferase 250 U/L (0-31); Albumin Level 4.1 g/dL (3.5-5.0); Alkaline Phosphatase 164 U/L (39-117); Anion Gap 20 (12-20); Aspartate Amino Transferase 257 U/L (5-31); Blood Urea Nitrogen 87 mg/dL (9-16); Calcium 9.5 mg/dL (8.4-10.2); Carbon Dioxide 25 mmol/L (22-29); Chloride 97 mmol/L (96-108); Creatinine Clr Calc Pharmacy 24.5; Estimated Glomerular Filt Rate 19; Potassium 4.3 mmol/L (3.3-5.1); Sodium 138 mmol/L (135-145); Total Protein 6.5 g/dL (6.5-8.0)
--- NOTE | 2025-10-22 11:15 | P.PNCA_ITS ---
Subjective Subjective Date of Service: 10/22/25 Interval history: Seen examined at bedside. Feeling better. Creatinine stable. -820 mL in 24 hours. Physical Exam Vital Signs: Last Vital Signs Temp 98.4 F 10/22/25 03:59 Pulse 83 10/22/25 07:16 Resp 19 10/22/25 07:16 BP 119/74 10/22/25 07:16 Pulse Ox 100 10/22/25 07:16 O2 Del Method Nasal Cannula 10/22/25 07:16 O2 Flow Rate 2 10/22/25 07:16 Oxygen Flow Rate 15 10/17/25 13:50 BMI result Body Mass Index 40.2 GENERAL APPEARANCE: in no acute distress, morbidly obese. Neck: Exam he is difficult and do not see any obvious JVD. SKIN: no suspicious lesions, warm and dry. HEART: no murmurs, regular rate and rhythm. LUNGS: Clear to auscultation. ABDOMEN: soft, nontender. EXTREMITIES: no edema. PERIPHERAL PULSES: equal. NEUROLOGIC: No gross deficits, AAO X 3 Objective Labs and Meds 10/21/25 07:37 10/22/25 08:58 Lab results: Laboratory Results - last 24 hr 10/21/25 10/21/25 10/22/25 16:13 19:35 07:18 Hold Purple Top Sodium Potassium Chloride Carbon Dioxide Anion Gap BUN Creatinine Estim Creat Clear Calc Estimated GFR POC Glucose 166 H 177 H 152 H Random Glucose Calcium Total Bilirubin Direct Bilirubin AST ALT Alkaline Phosphatase Total Protein Albumin 10/22/25 08:58 Hold Purple Top SEE NOTE Sodium 138 Potassium 4.3 Chloride 97 Carbon Dioxide 25 Anion Gap 20 BUN 87 H Creatinine 2.49 H Estim Creat Clear Calc 24.5 Estimated GFR 19 POC Glucose Random Glucose 213 H Calcium 9.5 Total Bilirubin 2.2 H Direct Bilirubin 1.4 H AST 257 H ALT 250 H Alkaline Phosphatase 164 H Total Protein 6.5 Albumin 4.1 Progress Note: A&P Assessment and plan (1) Cardiomyopathy: Status: Acute (2) Hypotension, unspecified: Status: Acute Plan 80-year-old lady with multiple comorbidities presenting with hypoglycemic coma from insulin overdose. She was hypotensive and was being treated as distributive shock. There was also concern for aspiration and she is on antibiotics. She had cardiomyopathy with EF 30 35% before but repeat echocardiography is showing EF of 10-15%. In July 2024 she presented with NSTEMI and was transferred to [facility] where she underwent cardiac catheterization. She was found to have diffuse multivessel coronary disease which was not amenable to revascularization. She had cardiac surgery consultation and was felt to be high-risk for surgery and had poor bypass targets. 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 She has heavy calcification in the vessels. Overall I agree that revascularization options were quite limited for her. She was in the intensive care unit where she was requiring Levophed. She was subsequently changed to midodrine. Detailed discussion was done with patient's sister who is a nurse and also healthcare proxy. She has been told that midodrine is a palliative move to keep her blood pressure up and see if we can use the blood pressure to diurese her and improve her breathing status. So far she is doing okay with this strategy. Continue the midodrine 10 mg 3 times a day. Continue Bumex. Monitor I's and o's closely. If she stops responding to current treatment or takes a turn for worse then our goal will be to keep her comfortable. Otherwise we will start looking at facilities with hospice capabilities. Thank you for allowing me to participate in the care of your patient. Please feel free to contact me if you have any questions. Time Spent With Patient Time: Total time managing care of this patient today ____ minutes. Progress Note: Quality Stroke Does the patient have a stroke diagnosis?: No Procedures Date of Service Date of Service: 10/22/25
--- NOTE | 2025-10-22 11:18 | MHC.CM.PN ---
Patient medically cleared for dc to [facility]. Bed accepted @ [facility]. Transport scheduled for 2pm. Patient, RN, GUTTER INSTALLER aware. IMM delivered.
[2025-10-22 11:44] LABS: Glucose, Whole Blood 197 mg/dL (60-115)
[2025-10-22 12:04] VITALS: BP 105/58; PULSE 92; RESP 18; TEMP 36.4; O2SAT 93
--- NOTE | 2025-10-22 13:19 | PM.DS ---
DS: Providers Provider Date of admission: 10/17/25 18:08 Date of discharge: 10/22/25 Primary care physician: Ja Yanez MD Consults: 10/17/25 19:59 Consult to Wound Care Routine Consulting Provider: [facility] Reason for consultation: redness buttocks Has provider been notified: Yes 10/19/25 12:56 Consult to Cardiology Routine Consulting Provider: [facility] Reason for consultation: hypotension Has provider been notified: No DS: Diagnosis Discharge Diagnosis (1) Cardiomyopathy: Status: Acute (2) Hypotension, unspecified: Status: Acute DS: Summary Hospital Course Hospital Course: HISTORY AND PHYSICAL PER ADMITTING PROVIDER. The patient is a 80-year-old female with a past medical history of legally blindness, ?diabetes mellitus on insulin, diabetic neuropathy, hypertension, heart failure with reduced EF, ischemic cardiomyopathy, coronary artery disease s/p ICD placement (2023, chronic kidney disease, and morbid obesity who presented to emergency department via EMS after being found by family members unresponsive at her apartment. ?According to EMS, blood glucose was 30, dextrose was given with minimal improvement in mental status. Initial SpO2 was 64 % but improved with bag-valve ventilation en route to hospital. On arrival to the emergency department, patient was lethargic, not hypoxic, tachypneic, blood pressure 77/34, hypothermic to 91.8. Laboratory data was significant for serum glucose 50, potassium 3.1, BUN 77, creatinine 2.81, proBNP 24,550 UA: neg Imaging: ED physician bedside cardiac US: EF ~10?15 %, markedly dilated IVC (no pericardial effusion or RV strain) IMAGING: Head CT: ?No acute findings Chest CT: ?My personal interpretation: Moderate to large right and small left pleural effusions. ?Right middle and lower lobe concerning for aspiration pneumonia, there is some signs of pulmonary edema. Abdominal CT:? No acute infectious findings ED COURSE: Patient received Narcan with no effect, 25gm ?dextrose IV push, 1 L bolus, cefepime 2 g, D10 drip, and started on Levophed. On my assessment the patient when arrived to the ICU, she was alert and oriented x3, sister/HCP Praveena also at [facility]ise, patient reports she has not eaten well in the past few days, stated he did administer long-acting and short-acting insulin as prescribed despite not eating much in the past couple of days Acute hypoxic respiratory failure due to acute CHF exacerbation and pulmonary aspiration/pneumonitis initially treated with levaquin, now off antibiotics bumex as below down to 2L NC Acute on chronic HFrEF/ischemic cardiomyopathy EF down to 10-15% started on midodrine in order to keep bp high enough to diurese with bumex. family aware this is palliative approach continue bumex continue midodrine follow UO, blood pressure seen by cardiology multivessel CAD not amenable to revascularization asa, metoprolol, statin IDDM s/p hypoglycemic coma. resolved. awake alert mika boothe on hold during hospital stay treated with SSI ABRAM due to distributive shock elevated LFTs likely congestion no abdominal pain Gluteal fold MASD; left heel diabetic wound. poa see wound care notes, continue local wound care Time Attestation Discharge Coordination Time (in mins): 45 Quality: Safe Use of Opioids Does Pt have an Active Cancer Diagnosis on the Problem List?: No Quality: Stroke Does the patient have a stroke diagnosis?: No Physical Exam Exam: Exam: Appearing in no acute distress head is normocephalic atraumatic eyes pupils are PERRLA sclera is anicteric mouth throat mucous membranes are intact and moist neck is supple no lymphadenopathy, no JVD noted lung sounds are clear to auscultation heart regular rate rhythm, clear S1, S2 positive bowel sounds, abdomen is soft, nontender neuro patient is alert x3, no focal deficits Vital Signs: Vital Signs: Last Vital Signs Temp 98.4 F 10/22/25 03:59 Pulse 83 10/22/25 07:16 Resp 19 10/22/25 07:16 BP 119/74 10/22/25 07:16 Pulse Ox 93 10/22/25 12:04 O2 Del Method Room Air 10/22/25 12:04 O2 Flow Rate 2 10/22/25 07:16 Oxygen Flow Rate 15 10/17/25 13:50 BMI result Body Mass Index 40.2 DS: Data Data Completed and Pending Completed studies during hospitalization [Text1]: Procedures Insertion of Infusion Device into Superior Vena Cava, Percutaneous Approach (11/27/24) Ultrasonography of Superior Vena Cava, Guidance (11/27/24) Labs on day of discharge: Laboratory Results - last 24 hr 10/21/25 10/21/25 10/22/25 16:13 19:35 07:18 Hold Purple Top Sodium Potassium Chloride Carbon Dioxide Anion Gap BUN Creatinine Estim Creat Clear Calc Estimated GFR POC Glucose 166 H 177 H 152 H Random Glucose Calcium Total Bilirubin Direct Bilirubin AST ALT Alkaline Phosphatase Total Protein Albumin 10/22/25 10/22/25 08:58 11:35 Hold Purple Top SEE NOTE Sodium 138 Potassium 4.3 Chloride 97 Carbon Dioxide 25 Anion Gap 20 BUN 87 H Creatinine 2.49 H Estim Creat Clear Calc 24.5 Estimated GFR 19 POC Glucose 197 H Random Glucose 213 H Calcium 9.5 Total Bilirubin 2.2 H Direct Bilirubin 1.4 H AST 257 H ALT 250 H Alkaline Phosphatase 164 H Total Protein 6.5 Albumin 4.1 Preliminary micro results at discharge 10/17/25 14:27 Blood Culture - Preliminary Blood - Venous No growth after 48 hours. 10/17/25 14:20 Blood Culture - Preliminary Blood - Venous No growth after 48 hours. Discharge Plan Discharge Anticipated Discharge Date/Time: 10/22/25 13:07 Patient Disposition: [facility] Discharge Diagnosis: Acute hypoxic respiratory failure Acute on chronic heart failure reduced ejection fraction ABRAM Referrals: [facility] [Other] - 1 Week Referral Note: [facility] Po,Ja Nicole MD [Primary Care Provider, Internal Medicine] - 1 Week Discharge Medications: New bumetanide 1 mg Tablet 2 mg PO BID Qty: 120 0RF Protocol: Hold for SBP< HOLD for SBP < : 90 midodrine 10 mg Tablet 10 mg PO TID@0900,1300,1700 Qty: 90 0RF Continued atorvastatin 40 mg tablet 40 mg PO BEDTIME Qty: 90 3RF (DME) Shower Chair [facility] See Rx Instructions .Route Qty: 1 0RF Rx Instructions: As directed potassium chloride [K-Tab] 20 mEq tablet extended release 40 meq PO DAILY Qty: 90 3RF bupropion HCl 150 mg tablet sustained-release 12 hr 150 mg PO BID Qty: 180 1RF bumetanide 1 mg tablet 2 mg PO DAILY 90 Days Qty: 180 3RF Rx Instructions: 2mg once daily in the morning aspirin 81 mg tablet,delayed release (DR/EC) 81 mg PO DAILY Qty: 90 3RF metoprolol succinate 25 mg tablet extended release 24 hr 25 mg PO DAILY Qty: 90 3RF cholecalciferol (vitamin D3) 50 mcg (2,000 unit) tablet 50 mcg PO DAILY insulin degludec [Tresiba FlexTouch U-100] 100 unit/mL (3 mL) insulin pen 36 unit subcut BEDTIME cyanocobalamin (vitamin B-12) 1,000 mcg capsule 1,000 mcg PO DAILY (DME) ROLLATOR See Rx Instructions .Route .MEDSUPPLY Qty: 1 0RF Rx Instructions: As directed (DME) blood pressure monitor [Blood Pressure Kit] Kit See Rx Instructions .ROUTE .MEDSUPPLY Qty: 1 0RF Rx Instructions: As directed dapagliflozin propanediol [Farxiga] 10 mg tablet 10 mg PO DAILY Qty: 90 3RF insulin lispro [Humalog KwikPen Insulin] 100 unit/mL insulin pen 10 unit subcut TIDAC (DME) Transport wheelchair See Rx Instructions .Route .MEDSUPPLY Qty: 1 0RF Rx Instructions: As directed (DME) WHEELCHAIR See Rx Instructions .Route .MEDSUPPLY Qty: 1 0RF Rx Instructions: As directed Discharge Orders: Discharge Order (Routine); Ordered 10/22/25 Ordered By: Karol Kaufman Diet: Advance to usual diet Activity on Discharge: As tolerated Stand Alone Forms: Patient Portal Discharge page Print Language: Latvian Care Plan Goals: Started on Bumex and midodrine monitor blood pressure closely Health Concerns: Acute hypoxic respiratory failure Acute on chronic heart failure reduced ejection fraction ABRAM Plan of Treatment: Follow up with primary care provider as needed Take all medications as prescribed Assessment: See discharge summary Discharge Date/Time: 10/22/25 14:27
== END 2025-10-22 14:27 | disposition skilled nursing facility (03) | DRG 917 ==
LOC: HO.ED 14:21 → HO.EDOVER 18:17 → HO.ICU 18:36 → HO.IMC 10-20 17:45
PROVIDERS: Physician Assistant Medical; Registered Nurse Community Health; Admitting Provider Internal Medicine Pulmonary Disease; Emergency Provider Emergency Medicine; PCP Internal Medicine; Visit Provider Nurse Practitioner Acute Care
DX: T38.3X1A Poisoning by insulin and oral hypoglycemic [antidiabetic] drugs, accidental (unintentional), initial encounter (principal); E11.641 Type 2 diabetes mellitus with hypoglycemia with coma; I50.23 Acute on chronic systolic (congestive) heart failure; J69.0 Pneumonitis due to inhalation of food and vomit; R57.8 Other shock; J96.01 Acute respiratory failure with hypoxia; I13.0 Hypertensive heart and chronic kidney disease with heart failure and stage 1 through stage 4 chronic kidney disease, or unspecified chronic kidney disease; N17.9 Acute kidney failure, unspecified; Z68.41 Body mass index [BMI] 40.0-44.9, adult; N18.30 Chronic kidney disease, stage 3 unspecified; I25.5 Ischemic cardiomyopathy; E11.22 Type 2 diabetes mellitus with diabetic chronic kidney disease; E11.40 Type 2 diabetes mellitus with diabetic neuropathy, unspecified; Z20.822 Contact with and (suspected) exposure to COVID-19; Z66 Do not resuscitate; I25.10 Atherosclerotic heart disease of native coronary artery without angina pectoris; L24.A0 Irritant contact dermatitis due to friction or contact with body fluids, unspecified; E66.01 Morbid (severe) obesity due to excess calories; Z71.3 Dietary counseling and surveillance; Z87.891 Personal history of nicotine dependence; Z95.810 Presence of automatic (implantable) cardiac defibrillator; Z91.119 Patient's noncompliance with dietary regimen due to unspecified reason; Z79.4 Long term (current) use of insulin; Z79.82 Long term (current) use of aspirin; Z79.899 Other long term (current) drug therapy
CPT/HCPCS: 36415; 70450; 71045; 71250; 74176; 80048; 80053; 80076; 80307; 81003; 82010; 82040; 82140; 82550; 82803; 82947; 83525; 83605; 83690; 83735; 83880; 84100; 84443; 84484; 85025; 87040; 87637; 93005; 93306; 94640; 97162; 99285; J0692; J1644; J1938; J2312; J2405; P9047; Q9957

== ENCOUNTER → 2025-10-17 13:55 | Outpatient (BNV) | payer MEDICARE, MEDICAID, SELFPAY | PROVIDERS: Emergency Provider Emergency Medicine; PCP Internal Medicine; Visit Provider Internal Medicine Cardiovascular Disease | DX: R94.31 Abnormal electrocardiogram [ECG] [EKG] (principal); Z95.0 Presence of cardiac pacemaker | CPT/HCPCS: 93010 ==

== ENCOUNTER → 2025-10-17 13:56 | Outpatient (BNV) | payer MEDICARE, MEDICAID, SELFPAY | PROVIDERS: Emergency Provider Emergency Medicine; PCP Internal Medicine; Visit Provider Radiology Diagnostic Ultrasound | DX: I51.7 Cardiomegaly (principal); I25.10 Atherosclerotic heart disease of native coronary artery without angina pectoris; J90 Pleural effusion, not elsewhere classified; J98.11 Atelectasis; R91.8 Other nonspecific abnormal finding of lung field | CPT/HCPCS: 70450; 71045; 71250; 74176 ==

== ENCOUNTER 2025-10-17 18:08 | Outpatient (BNV) | payer MEDICARE, MEDICAID, SELFPAY | END 2025-10-19 12:00 | PROVIDERS: Admitting Provider Internal Medicine Pulmonary Disease; Emergency Provider Emergency Medicine; PCP Internal Medicine; Visit Provider Internal Medicine Cardiovascular Disease | DX: I27.20 Pulmonary hypertension, unspecified (principal); Z95.0 Presence of cardiac pacemaker | CPT/HCPCS: 93306 ==

== ENCOUNTER → 2025-10-17 18:08 | Outpatient (BNV) | payer MEDICARE, MEDICAID, SELFPAY | PROVIDERS: Admitting Provider Internal Medicine Pulmonary Disease; Emergency Provider Emergency Medicine; PCP Internal Medicine; Visit Provider Internal Medicine Pulmonary Disease | DX: I42.9 Cardiomyopathy, unspecified (principal); E11.9 Type 2 diabetes mellitus without complications; E66.01 Morbid (severe) obesity due to excess calories; N17.9 Acute kidney failure, unspecified; N18.9 Chronic kidney disease, unspecified | CPT/HCPCS: 99291 ==

== ENCOUNTER → 2025-10-17 18:08 | Outpatient (BNV) | payer MEDICARE, MEDICAID, SELFPAY | PROVIDERS: Admitting Provider Internal Medicine Pulmonary Disease; Emergency Provider Emergency Medicine; PCP Internal Medicine; Visit Provider Registered Nurse Community Health | DX: J69.0 Pneumonitis due to inhalation of food and vomit (principal); I50.9 Heart failure, unspecified; E11.65 Type 2 diabetes mellitus with hyperglycemia; I95.9 Hypotension, unspecified; N17.9 Acute kidney failure, unspecified; E11.40 Type 2 diabetes mellitus with diabetic neuropathy, unspecified | CPT/HCPCS: 99291 ==

== ENCOUNTER → 2025-10-17 18:08 | Outpatient (BNV) | payer MEDICARE, MEDICAID, SELFPAY | PROVIDERS: Admitting Provider Internal Medicine Pulmonary Disease; Emergency Provider Emergency Medicine; PCP Internal Medicine; Visit Provider Physician Assistant Medical | DX: E15 Nondiabetic hypoglycemic coma (principal); J69.0 Pneumonitis due to inhalation of food and vomit; I50.9 Heart failure, unspecified | CPT/HCPCS: 99233; 99499 ==

== ENCOUNTER → 2025-10-17 18:08 | Outpatient (BNV) | payer MEDICARE, MEDICAID, SELFPAY | PROVIDERS: Admitting Provider Internal Medicine Pulmonary Disease; Emergency Provider Emergency Medicine; PCP Internal Medicine; Visit Provider Internal Medicine Cardiovascular Disease | DX: I42.9 Cardiomyopathy, unspecified (principal); I95.9 Hypotension, unspecified | CPT/HCPCS: 99232; 99233 ==

== ENCOUNTER → 2025-10-24 17:15 | Outpatient (BNV) | payer MEDICARE, MEDICAID, SELFPAY | PROVIDERS: PCP Internal Medicine; Visit Provider Internal Medicine | DX: I25.5 Ischemic cardiomyopathy (principal) | CPT/HCPCS: 93297 ==